=== PATIENT | male | born 1945 | race African-American/Black ===

== ENCOUNTER 2017-09-05 04:02 | Inpatient (IN) | payer OTHER, MEDICARE ==
--- NOTE | 2017-09-05 04:17 | PDOC ---
Attending Attestation - [facility] HPI: 09/05/17 04:26 The patient is a 72 year old male with a significant past medical history of pulmonary nodules, renal cell carcinoma with metastasis, seizures, nephrectomy, Parkinsons disease, who presents to the Emergency Department with 10/10 crushing chest pain after reportedly "fooling around with ". The patient states he developed a "burning sensation" throughout body with numbness to left hand and left toes. He reports his baseline heart rate is in the 40s. He reports the pain is 5/10 now. The patient denies palpitations, headache and dizziness. The patient denies fever, chills, nausea, vomiting, diarrhea, and constipation. The patient denies dysuria, frequency, urgency, and hematuria. PCP: Dr. Mainor Cordova Thoracic Surgeon: Dr. Sohail Vasquez Surgical History: AVM partial resection, myxoma resection, nephrectomy - Physicial Exam PE: 09/05/17 04:27 Constitutional: Awake, alert, oriented. No acute distress. Head: Normocephalic. Atraumatic Eyes: PERRL. EOMI. Conjunctivae are not pale. ENT: Mucous membranes are moist and intact. Posterior pharynx without exudates or erythema. Uvula midline. Neck: Supple. Full ROM. No lymphadenopathy. Cardiovascular: (+) bradycardic. Regular rhythm. S1, S2 regular. Distal pulses are 2+ and symmetric. Pulmonary/Chest: No evidence of respiratory distress. Clear to auscultation bilaterally No wheezing, rales or rhonchi. Abdominal: Soft and non-distended. There is no tenderness. No rebound, guarding or rigidity. No organomegaly. No palpable masses. Good bowel sounds. Back: No CVA tenderness. Musculoskeletal: No edema. No cyanosis. No clubbing. Full range of motion in all extremities. Nocalf tenderness. Radial/pedal pulses are intact and 2+ bilaterally Skin: Skin is warm and dry. No petechiae. No purpura. Neurological: Alert and oriented to person, place, and time. Cranial nerves II -XII are grossly intact. Normal speech. Strength is grossly symmetric. No sensory deficits. Psychiatric: Good eye contact. Normal interaction, affect and behavior. Documentation prepared by Diasy Manuel, acting as medical secretary for Ricarda Davis DO <Daisy Manuel - Last Filed: 09/05/17 05:27> - Resident Resident Name: Richar Kelly - ED Attending Attestation I have performed the following: I have examined & evaluated the patient, The case was reviewed & discussed with the resident, I agree w/resident's findings & plan, Exceptions are as noted - Medical Decision Making 09/05/17 04:17 I, Dr. Ricarda Davis, DO, attest that this document has been prepared under my direction and personally reviewed by me in its entirety. I further attest, that it accurately reflects all work, treatment, procedures and medical decision -making performed by me. 09/05/17 05:14 a/p: 72yo male with CP concerning for ACS -cp with exertion with L arm involvement -will check trops, ekg, cxr, monitor -hx of bradycardia -pt will needs obs vs admit pending trop -will need cards eval today 09/05/17 05:35 cxr nonacute trop negative elevated cpk will need obs and tele <Ricarda Davis - Last Filed: 09/05/17 05:35> Heart Score/ECG Review - ECG Intrepretation Comment:: 09/05/17 05:17 sinus jennifer at 46 with baseline artifact, no acute st/t wave findings <Ricarda Davis - Last Filed: 09/05/17 05:35>
[2017-09-05 04:32] LABS: BASO % 0.9 % (0-2.0); EOS % 2.3 % (0-4.5); HEMATOCRIT 37.6 % (35.4-49); HEMOGLOBIN 12.6 GM/dL (11.7-16.9); MCH 35.1 pg (25.7-33.7); MCHC 33.6 g/dl (32.0-35.9); MEAN CELL VOLUME 104.6 fl (80-96); MEAN PLT VOLUME 7.6 fl (7.5-11.1); MONO % 5.2 % (3.8-10.2); NEUT % 47.6 % (42.8-82.8); PLATELET COUNT 166 K/MM3 (134-434); RDW 15.7 % (11.9-15.9)
[2017-09-05 04:50] LABS: INR 0.81 (0.82-1.09); PROTHROMBIN TIME (PATIENT) 9.1 SEC (9.98-11.88)
[2017-09-05 04:53] LABS: ACTIVATED PTT 26.8 SECONDS (26.9-34.4)
[2017-09-05 04:59] LABS: ANION GAP 12 (8-16); BLOOD UREA NITROGEN 18 mg/dL (7-18); CALCIUM 8.7 mg/dL (8.5-10.1); CHLORIDE 106 mmol/L (98-107); CO2 23 mmol/L (21-32); CREATININE 1.7 mg/dL (0.7-1.3); GLUCOSE,RANDOM 111 mg/dL (74-106); MAGNESIUM 2.3 mg/dL (1.8-2.4); POTASSIUM 3.7 mmol/L (3.5-5.1); SGOT/AST 73 U/L (15-37); SGPT/ALT 36 U/L (12-78); SODIUM 141 mmol/L (136-145)
[2017-09-05 05:12] LABS: ALK PHOS 88 U/L (45-117); BILIRUBIN,TOTAL 0.4 mg/dL (0.2-1.0); N-TERMINAL BNP 92.64 pg/ml (5-125); TOT PROT 7.6 g/dl (6.4-8.2)
[2017-09-05] MEDS ORDERED: SODIUM CHLORIDE 0.9% 1000 ML INFUS.BAG IV ONE ×2 (05:18→05:23)
[2017-09-05] MEDS ORDERED: ASPIRIN 81 MG CHEWABLE TABLETS PO ONE (05:18)
--- NOTE | 2017-09-05 05:31 | PN ---
Teaching Attending Note Name of Resident: Amari Hi ATTENDING PHYSICIAN STATEMENT I saw and evaluated the patient. I reviewed the resident's note and discussed the case with the resident. I agree with the resident's findings and plan as documented. SUBJECTIVE: 72 M with pmhx of RCC w mets to his lungs, seizures s/p brain sx, former smoker , nephrectomy and Parkinsons who presents with chest pain after sexual intercourse. He felt palpitations and crushing chest pain right before ejaculation. Also, with associated diaphoresis and lightheadedness. Notes that his heart rate is low at baseline at 40s. Currently denies any chest pain, pressure or shortness of breath. As per , pt. does not have any htn or hld. She states his chest pain, may have been anxiety related. OBJECTIVE: Physical: VS: Vital Signs Period Temp Pulse Resp BP Sys/Winn Pulse Ox Last 24 Hr 45 16 135/96 99 GEN: NAD, Resting in bed, AA0X3 HEENT: NCAT, PERRL, throat without erythema or exudates CARD: S Nette S1, S2 RESP: CTAB ABD: BSx4, NTD to palpation EXT: - C/C/e CBCD WBC 3.0 K/mm3 (4.0-10.0) L D 09/05/17 04:27 RBC 3.60 M/mm3 (4.00-5.60) L 09/05/17 04:27 Hgb 12.6 GM/dL (11.7-16.9) 09/05/17 04:27 Hct 37.6 % (35.4-49) 09/05/17 04:27 MCV 104.6 fl (80-96) H 09/05/17 04:27 MCHC 33.6 g/dl (32.0-35.9) 09/05/17 04:27 RDW 15.7 % (11.9-15.9) 09/05/17 04:27 Plt Count 166 K/MM3 (134-434) 09/05/17 04:27 MPV 7.6 fl (7.5-11.1) 09/05/17 04:27 CMP Sodium 141 mmol/L (136-145) 09/05/17 04:27 Potassium 3.7 mmol/L (3.5-5.1) D 09/05/17 04:27 Chloride 106 mmol/L (98-107) 09/05/17 04:27 Carbon Dioxide 23 mmol/L (21-32) 09/05/17 04:27 Anion Gap 12 (8-16) 09/05/17 04:27 BUN 18 mg/dL (7-18) 09/05/17 04:27 Creatinine 1.7 mg/dL (0.7-1.3) H 09/05/17 04:27 Creat Clearance w eGFR 39.82 (>60) 09/05/17 04:27 Random Glucose 111 mg/dL (74-106) H D 09/05/17 04:27 Calcium 8.7 mg/dL (8.5-10.1) 09/05/17 04:27 Total Bilirubin 0.4 mg/dL (0.2-1.0) 09/05/17 04:27 AST 73 U/L (15-37) H D 09/05/17 04:27 ALT 36 U/L (12-78) 09/05/17 04:27 Alkaline Phosphatase 88 U/L (45-117) D 09/05/17 04:27 Total Protein 7.6 g/dl (6.4-8.2) 09/05/17 04:27 Albumin 4.0 g/dl (3.4-5.0) D 09/05/17 04:27 CARDIAC ENZYMES Creatine Kinase 1794 IU/L (39-308) H 09/05/17 04:27 Troponin I < 0.02 ng/ml (0.00-0.05) 09/05/17 04:27 Ambulatory Orders Acetaminophen [Tylenol .Regular Strength -] 650 mg PO Q4H PRN 04/04/16 Clonazepam [Klonopin -] 0.5 mg PO BID PRN 04/04/16 Docusate Sodium [Colace -] 100 mg PO TID PRN 04/04/16 Folic Acid 1 mg PO DAILY 04/04/16 Lamotrigine 100 mg PO BID 04/04/16 Levetiracetam 1,500 mg PO BID 04/04/16 Ranitidine [Zantac -] 150 mg PO BID 04/04/16 Red Yeast Rice Extract 600 mg PO BID 04/04/16 Sennosides [Laxative] 17.2 mg PO HS PRN 04/04/16 Thiamine HCl [Vitamin B-1] 50 mg PO DAILY 04/04/16 Carbidopa/Levodopa 25/100 [Sinemet 25/100 -] 1 each PO TID 09/05/17 Pramipexole Dihydrochloride [Mirapex -] 1 mg PO HS 09/05/17 Sunitinib Malate [Sutent] 50 mg PO ASDIR 09/05/17 HEART SCORE:4 EKG: S Nette: CXR- Cardiomegaly ASSESSMENT AND PLAN: 72 M with pmhx of RCC w mets to his lungs, seizures s/p brain sx, former smoker , nephrectomy and Parkinsons who presents with chest pain after sexual intercourse. 1.) Chest Pain - RO ACS - Trend Trop/EKG - Allergic to Aspirin and Statin - NO BB due to S nette - Echo - Lipid Panel/HgA1C - Cardio Consult- follows with 2.) Rhabdomyolysis - CK Mildly elevated - IVF 3.) Seizure DO - C/W Keppra and Lamotrigine 4.) Parkinsons - C/W Sinemet 5.) Anxiety - C/W home meds 6.) RCC w Mets to lungs - Pt. to bring chemo med from home 7.) S BRadycardia - Base HR 40-50s as per pt - If lower consider pacer pads 8.) Dvt Ppx - SCDs Place in Obs-tele
--- NOTE | 2017-09-05 05:32 | PDOC ---
History of Present Illness - General History Source: Patient, EMS Exam Limitations: No Limitations - History of Present Illness Initial Comments: 09/05/17 05:26 The patient is a 72 M with a PMH of renal 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 The patient states that he was engaging in sexual intercourse with his , and just prior to ejaculation, he felt palpitations and 10/10 crushing retrosternal chest pain. He states that he felt lightheaded at the same time and was very diaphoretic. He also felt short of breath. He denies ever feeling like this before. He admits to baseline bradycardia. He states that his pain is slightly better. <Richar Kelly - Last Filed: 09/05/17 05:39> <Aaron Sanchez - Last Filed: 09/05/17 09:16> 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) Cholecystectomy: No Lung Surgery: Yes (RECENT BIOPSY) Neurologic Surgery: Yes (CEREBRAL ANEURYSM ABLATED BY SURGERY AND GAMMA KNIFE) Orthopedic Surgery: No - Immunization History Immunization Up to Date: Yes - Suicide/Smoking/Psychosocial Hx Smoking Status: No Smoking History: Unknown if ever smoked Years of Tobacco Use: 0 Have you smoked in the past 12 months: No Number of Cigarettes Smoked Daily: 0 If you are a former smoker, when did you quit?: 25 years ago Cigars Per Day: 0 Hx Alcohol Use: Yes Drug/Substance Use Hx: No Substance Use Type: Alcohol Hx Substance Use Treatment: No <Richar Kelly - Last Filed: 09/05/17 05:39> <Sanchez,Aaron - Last Filed: 09/05/17 09:16> - Past Medical History Allergies/Adverse Reactions: Allergies Allergy/AdvReac Type Severity Reaction Status Date / Time aspirin Allergy Verified 09/05/17 04:17 atorvastatin calcium Allergy Verified 09/05/17 04:17 [From Lipitor] Home Medications: Ambulatory Orders Acetaminophen [Tylenol .Regular Strength -] 650 mg PO Q4H PRN 04/04/16 Clonazepam [Klonopin -] 0.5 mg PO BID PRN 04/04/16 Docusate Sodium [Colace -] 100 mg PO TID PRN 04/04/16 Folic Acid 1 mg PO DAILY 04/04/16 Lamotrigine 100 mg PO BID 04/04/16 Levetiracetam 1,500 mg PO BID 04/04/16 Ranitidine [Zantac -] 150 mg PO BID 04/04/16 Red Yeast Rice Extract 600 mg PO BID 04/04/16 Sennosides [Laxative] 17.2 mg PO HS PRN 04/04/16 Thiamine HCl [Vitamin B-1] 50 mg PO DAILY 04/04/16 Carbidopa/Levodopa 25/100 [Sinemet 25/100 -] 1 each PO TID 09/05/17 Pramipexole Dihydrochloride [Mirapex -] 1 mg PO HS 09/05/17 Sunitinib Malate [Sutent] 50 mg PO ASDIR 09/05/17 Review of Systems - Review of Systems Able to Perform ROS?: Yes Comments:: 09/05/17 05:30 GENERAL/CONSTITUTIONAL: No fever or chills. No weakness. HEAD, EYES, EARS, NOSE AND THROAT: No change in vision. No ear pain or discharge. No sore throat. GASTROINTESTINAL: No nausea, vomiting, diarrhea, constipation, or abdominal pain. GENITOURINARY: No dysuria, frequency, hematuria, or change in urination. CARDIOVASCULAR: No chest pain, palpitations, or lightheadedness. RESPIRATORY: No cough, wheezing, shortness of breath, or hemoptysis. MUSCULOSKELETAL: No joint or muscle swelling or pain. No neck or back pain. SKIN: No rash or lesions. NEUROLOGIC: No headache, numbness, tingling, weakness, loss of consciousness, or change in strength/sensation. ENDOCRINE: No increased thirst. No abnormal weight change. HEMATOLOGIC/LYMPHATIC: No anemia, easy bleeding, or history of blood clots. ALLERGIC/IMMUNOLOGIC: No hives or skin allergy. Is the patient limited Faroese proficient: No <Richar Kelly - Last Filed: 09/05/17 05:39> *Physical Exam - Vital Signs Last Vital Signs Temp Pulse Resp BP Pulse Ox 45 L 16 135/96 99 09/05/17 04:15 09/05/17 04:15 09/05/17 04:15 09/05/17 04:15 - Physical Exam Comments: 09/05/17 05:39 GENERAL: Well developed, well nourished. Jaundiced. Awake and alert. No acute distress. HEENT: Normocephalic, atraumatic. Hearing grossly normal. Moist mucous membranes. NECK: Supple. Full ROM. No JVD. CARDIOVASCULAR: Regular rate and rhythm. PULMONARY: No evidence of respiratory distress. Lungs clear to auscultation bilaterally. No wheezing, rales or rhonchi. ABDOMINAL: Soft. Non-tender. Non-distended. No rebound or guarding. MUSCULOSKELETAL: Normal range of motion at all joints. No bony deformities or tenderness. EXTREMITIES: No cyanosis. No clubbing. No edema. No calf tenderness. SKIN: Warm and dry. Normal capillary refill. No rashes. No jaundice. NEUROLOGICAL: Alert, awake, appropriate. Cranial nerves 2-12 intact. Normal speech. Gait is normal without ataxia. PSYCHIATRIC: Cooperative. Good eye contact. Appropriate mood and affect. <Richar Kelly - Last Filed: 09/05/17 05:39> - Vital Signs Last Vital Signs Temp Pulse Resp BP Pulse Ox 43 L 16 135/78 100 09/05/17 05:54 09/05/17 05:54 09/05/17 05:54 09/05/17 05:54 <Aaron Sanchez - Last Filed: 09/05/17 09:16> Heart Score/ECG Review #1 ECG reviewed & interpreted by me at: 04:45 General ECG Interpretation: Sinus Rhythm, Normal Rate (Sinus jennifer), Normal Intervals, No acute ischemic changes <Richar Kelly - Last Filed: 09/05/17 05:39> - History History: Moderately suspicious - Electrocardiogram EKG: Normal - Age Age: >/= 65 - Risk Factors Risk Factors Heart Score: Yes Hx Hypercholesterolemia, Yes Hx Hypertension Based on the list above the patient has:: 1-2 risk factors - Troponin Troponin: </= normal limit - Score Heart Score - Total: 4 #1 General ECG Interpretation: Normal Rate <Kellee Sanchezy - Last Filed: 09/05/17 09:16> ED Treatment Course - LABORATORY CBC & Chemistry Diagram: 09/05/17 04:27 09/05/17 04:27 - ADDITIONAL ORDERS Additional order review: Laboratory Results 09/05/17 09/05/17 04:27 04:27 PT with INR 9.10 L INR 0.81 L PTT (Actin FS) 26.8 L Sodium 141 Potassium 3.7 D Chloride 106 Carbon Dioxide 23 Anion Gap 12 BUN 18 Creatinine 1.7 H Creat Clearance w eGFR 39.82 Random Glucose 111 H D Calcium 8.7 Magnesium 2.3 Total Bilirubin 0.4 AST 73 H D ALT 36 Alkaline Phosphatase 88 D Creatine Kinase 1794 H Creatine Kinase Index 1.3 CK-MB (CK-2) 24.667 H Troponin I < 0.02 B-Natriuretic Peptide 92.64 Total Protein 7.6 Albumin 4.0 D 09/05/17 04:27 RBC 3.60 L MCV 104.6 H MCHC 33.6 RDW 15.7 MPV 7.6 Neutrophils % 47.6 D Lymphocytes % 44.0 H D Monocytes % 5.2 Eosinophils % 2.3 Basophils % 0.9 <Richar Kelly - Last Filed: 09/05/17 05:39> - LABORATORY CBC & Chemistry Diagram: 09/05/17 04:27 09/05/17 04:27 - ADDITIONAL ORDERS Additional order review: Laboratory Results 09/05/17 09/05/17 04:27 04:27 PT with INR 9.10 L INR 0.81 L PTT (Actin FS) 26.8 L Sodium 141 Potassium 3.7 D Chloride 106 Carbon Dioxide 23 Anion Gap 12 BUN 18 Creatinine 1.7 H Creat Clearance w eGFR 39.82 Random Glucose 111 H D Calcium 8.7 Magnesium 2.3 Total Bilirubin 0.4 AST 73 H D ALT 36 Alkaline Phosphatase 88 D Creatine Kinase 1794 H Creatine Kinase Index 1.3 CK-MB (CK-2) 24.667 H Troponin I < 0.02 B-Natriuretic Peptide 92.64 Total Protein 7.6 Albumin 4.0 D Triglycerides 363 H D Cholesterol 292 H D Total LDL Cholesterol 170 H D HDL Cholesterol 72 H D 09/05/17 04:27 RBC 3.60 L MCV 104.6 H MCHC 33.6 RDW 15.7 MPV 7.6 Neutrophils % 47.6 D Lymphocytes % 44.0 H D Monocytes % 5.2 Eosinophils % 2.3 Basophils % 0.9 - Medications Given in the ED: ED Medications Discontinued Medications Generic Name Dose Route Start Last Admin Trade Name Jsa PRN Reason Stop Dose Admin Aspirin 324 mg 09/05/17 05:18 09/05/17 05:41 Asa - PO 09/05/17 05:19 Not Given ONCE ONE Sodium Chloride 1,000 ml 09/05/17 05:18 09/05/17 05:51 Normal Saline - IV 09/05/17 05:19 1,000 ml ONCE ONE Administration Sodium Chloride 1,000 ml 09/05/17 05:23 09/05/17 05:51 Normal Saline - IV 09/05/17 05:24 1,000 ml ONCE ONE Administration <Aaron Sanchez - Last Filed: 09/05/17 09:16> Medical Decision Making - Medical Decision Making 09/05/17 05:34 The patient is a 72M with an extensive PMH who presents to the ED with crushing CP. EKG in house is sinus jennifer. He has increased CK and may be in rhabdo. Will hydrate vigorously. Of note, while on the EMS monitor, his HR increased to 130' s and he was showing an a-flutter pattern. Dr[facility] Singleton [facility] <Richar Kelly - Last Filed: 09/05/17 05:39> *DC/Admit/Observation/Transfer - Discharge Dispostion Admit: Yes <Richar Kelly - Last Filed: 09/05/17 05:39> <Aaron Sanchez - Last Filed: 09/05/17 09:16> Diagnosis at time of Disposition: Increased creatine kinase level - Discharge Dispostion Condition at time of disposition: Guarded
--- NOTE | 2017-09-05 05:38 | HP ---
CHIEF COMPLAINT: Chest pain during sex PCP: Dr. Cordova HISTORY OF PRESENT ILLNESS: 72 yo man w/ pmh of RCC (lung mets), parkinson's dz, brain surgery (aneurysm repair), Open heart surgery (L atrial myxoma), HTN and chronic bradycardia who presents with sudden 10/10 retrosternal chest pain during sex. This is the first time he has had this pain. He states pain is non-radiating, mid-sternal and epigastric. His pain is not related to position and no associated SOB, n/v, dyspnea, orthopnea, swelling in LE, diaphoresis, dyspnea on exertion. He reports some loose stools and attributes this to chemotherapy. He reports being able to exercise without complaints and has never been SOB. 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 Cardiac cath Cerebral aneurysm (ablation/gamma knife) Lung Biopsy Social History: Smoking: Former smoker, quit 25 years ago, 1ppd /30 years Alcohol: No previous heavy drinker of beer Drugs: No Family History: noncontributory Allergies aspirin Allergy (Verified 09/05/17 04:17) SENSITIVE TO ASPIRIN AT 325MG atorvastatin calcium [From Lipitor] Allergy (Verified 09/05/17 04:17) CAUSED MYOSITIS HOME MEDICATIONS: Home Medications Medication Instructions Recorded Acetaminophen [Tylenol .Regular 650 mg PO Q4H PRN 04/04/16 Strength -] Clonazepam [Klonopin -] 0.5 mg PO BID PRN 04/04/16 Docusate Sodium [Colace -] 100 mg PO TID PRN 04/04/16 Folic Acid 1 mg PO DAILY 04/04/16 Lamotrigine 100 mg PO BID 04/04/16 Levetiracetam 1,500 mg PO BID 04/04/16 Ranitidine [Zantac -] 150 mg PO BID 04/04/16 Red Yeast Rice Extract 600 mg PO BID 04/04/16 Sennosides [Laxative] 17.2 mg PO HS PRN 08/08/16 Thiamine HCl [Vitamin B-1] 50 mg PO DAILY 04/04/16 Carbidopa/Levodopa 25/100 [Sinemet 1 each PO TID 09/05/17 25/100 -] Pramipexole Dihydrochloride 1 mg PO HS 09/05/17 [Mirapex -] Sunitinib Malate [Sutent] 50 mg PO ASDIR 09/05/17 REVIEW OF SYSTEMS CONSTITUTIONAL: Absent: fever, chills, diaphoresis, generalized weakness, malaise, loss of appetite, weight change HEENT: Absent: rhinorrhea, nasal congestion, throat pain, throat swelling, difficulty swallowing, mouth swelling, ear pain, eye pain, visual changes CARDIOVASCULAR: +Chest Pain Absent: syncope, palpitations, irregular heart rate, lightheadedness, peripheral edema RESPIRATORY: +shortness of breath, Absent: cough, dyspnea with exertion, orthopnea, wheezing, stridor, hemoptysis GASTROINTESTINAL: Absent: abdominal pain, abdominal distension, nausea, vomiting, diarrhea, constipation, melena, hematochezia GENITOURINARY: Absent: dysuria, frequency, urgency, hesitancy, hematuria, flank pain, genital pain MUSCULOSKELETAL: Absent: myalgia, arthralgia, joint swelling, back pain, neck pain SKIN: Absent: rash, itching, pallor HEMATOLOGIC/IMMUNOLOGIC: Absent: easy bleeding, easy bruising, lymphadenopathy, frequent infections ENDOCRINE: Absent: unexplained weight gain, unexplained weight loss, heat intolerance, cold intolerance NEUROLOGIC: Absent: headache, focal weakness or paresthesias, dizziness, unsteady gait, seizure, mental status changes, bladder or bowel incontinence PSYCHIATRIC: Absent: anxiety, depression, suicidal or homicidal ideation, hallucinations. PHYSICAL EXAMINATION Vital Signs - 24 hr 09/05/17 04:15 Pulse Rate 45 L Respiratory 16 Rate Blood Pressure 135/96 O2 Sat by Pulse 99 Oximetry (%) GENERAL: Awake, alert, and fully oriented, in no acute distress. HEAD: Normal with no signs of trauma. EYES: Pupils equal, round and reactive to light, extraocular movements intact, sclera anicteric, conjunctiva clear. No lid lag. EARS, NOSE, THROAT: Ears normal, nares patent, oropharynx clear without exudates. Moist mucous membranes. NECK: Normal range of motion, supple without lymphadenopathy, JVD, or masses. LUNGS: Breath sounds equal, clear to auscultation bilaterally. No wheezes, and no crackles. No accessory muscle use. HEART: Regular rate and rhythm, normal S1 and S2 without murmur, rub or gallop. ABDOMEN: Soft, nontender, not distended, normoactive bowel sounds, no guarding, no rebound, no masses. No hepatomegaly or splenomegaly. MUSCULOSKELETAL: Normal range of motion at all joints. No bony deformities or tenderness. No CVA tenderness. UPPER EXTREMITIES: 2+ pulses, warm, well-perfused. No cyanosis. No clubbing. No peripheral edema. LOWER EXTREMITIES: 2+ pulses, warm, well-perfused. No calf tenderness. No peripheral edema. NEUROLOGICAL: Cranial nerves II-XII intact. Normal speech. Normal gait. PSYCHIATRIC: Cooperative. Good eye contact. Appropriate mood and affect. SKIN: Warm, dry, normal turgor, no rashes or lesions noted, normal capillary refill. Laboratory Results - last 24 hr 09/05/17 09/05/17 09/05/17 04:27 04:27 04:27 WBC 3.0 L D RBC 3.60 L Hgb 12.6 Hct 37.6 MCV 104.6 H MCH 35.1 H D MCHC 33.6 RDW 15.7 Plt Count 166 MPV 7.6 Neutrophils % 47.6 D Lymphocytes % 44.0 H D Monocytes % 5.2 Eosinophils % 2.3 Basophils % 0.9 PT with INR 9.10 L INR 0.81 L PTT (Actin FS) 26.8 L Sodium 141 Potassium 3.7 D Chloride 106 Carbon Dioxide 23 Anion Gap 12 BUN 18 Creatinine 1.7 H Creat Clearance w eGFR 39.82 Random Glucose 111 H D Calcium 8.7 Magnesium 2.3 Total Bilirubin 0.4 AST 73 H D ALT 36 Alkaline Phosphatase 88 D Creatine Kinase 1794 H Creatine Kinase Index 1.3 CK-MB (CK-2) 24.667 H Troponin I < 0.02 B-Natriuretic Peptide 92.64 Total Protein 7.6 Albumin 4.0 D CBC, BMP 09/05/17 04:27 09/05/17 04:27 CXR: (My read) AP film. Cardiomegaly. Increased vascular markings BL. No consolidations, pleural effusions or pneumothoraces present. Sternotomy wires noted. EKG:sinus jennifer @ 45 , NO St, T wave changes HEART SCORE:4 ASSESSMENT/PLAN: 72 yo man w/ pmh of RCC (lung mets), parkinson's dz, brain surgery (aneurysm repair), Open heart surgery (L atrial myxoma), HTN and chronic bradycardia who presents with sudden 10/10 retrosternal chest pain during sex. Pt was admitted to obs-tele to trend cardiac enzymes and r/o ACS. # Chest pain * Heart score 4 * Trend trops * repeat EKG at 8 AM * Morphine for pain control * O2 support. Maintain Sat >97% * AVOID ASA and Statins as per pt request; severe myalgias/jaundice with statin , ASA, renal failure due to only one kidney * Avoid BB due to sinus jennifer * Lipid panel * HgbA1c * Nitroglycerin for pain # Rhabdomyolysis * CK Mildly elevated * IVF NS @100 CC/hr # Seizure DO * C/W Keppra and Lamotrigine # Parkinson Disease * stable * continue home meds # RCC /mets to lung * stable * continue home meds - chemo * BUN/Cr 18/1.7, base line 1.5 ? # Anxiety * continue home meds klonapin 0.5 PO BID # GERD * stable * continue home meds - chemo # FEN * Fluids: IV NS 1000mls @100cc/hr * Electrolytes: wnl * Nutrition: Low sodium low fat diet. # Proph * DVT - SCDs, early ambulation * GI - no need at this time # Dispo * obs-tele # Code * full code Visit type - Emergency Visit Emergency Visit: Yes ED Registration Date: 09/06/17 Care time: The patient presented to the Emergency Department on the above date and was hospitalized for further evaluation of their emergent condition. - New Patient This patient is new to me today: Yes Date on this admission: 09/06/17 - Critical Care Critical Care patient: No
[2017-09-05] MEDS ORDERED: SENNOSIDES 8.6MG TABLET (FP) PO PRN (06:13)
[2017-09-05] MEDS ORDERED: DOCUSATE SODIUM 100 MG CAPSULE (FP) PO PRN (06:13)
[2017-09-05] MEDS ORDERED: SUNITINIB MALATE PO SCH (06:15)
[2017-09-05] MEDS ORDERED: NITROGLYCERIN SUBLINGUAL 1/150 0.4 MG TAB SL PRN (06:35)
[2017-09-05] MEDS: SODIUM CHLORIDE 1,000 ML IV SCH (06:46)
[2017-09-05 06:50] LABS: CHOLESTEROL 292 mg/dL (50-200); HDL CHOLESTEROL 72 mg/dL (40-60); LDL CHOLESTEROL (ONLY SJRH) 170 mg/dL (5-100); TRIGLYCERIDES 363 mg/dL (35-160)
[2017-09-05 07:06] LABS: URINE APPEARANCE CLEAR; URINE BILIRUBIN NEGATIVE (NEGATIVE); URINE BLOOD NEGATIVE (NEGATIVE); URINE COLOR LTYELLOW; URINE GLUCOSE (UA) NEGATIVE (NEGATIVE); URINE KETONE NEGATIVE (NEGATIVE); URINE LEUK ESTERASE NEGATIVE (NEGATIVE); URINE NITRITE NEGATIVE (NEGATIVE); URINE PROTEIN NEGATIVE (NEGATIVE); URINE UROBILINOGEN NEGATIVE mg/dL (0.2-1.0)
[2017-09-05] MEDS: lamoTRIgine 100 MG TABLET (FP) PO SCH ×3 (09:58→22:15)
[2017-09-05] MEDS: FOLIC ACID 1 MG TABLET (FP) PO SCH (09:59)
[2017-09-05] MEDS: RANITIDINE HCL 150 MG TABLET (FP) PO SCH ×2 (10:00→22:15)
[2017-09-05] MEDS: THIAMINE HCL 100 MG TABLET (FP) PO SCH (10:00)
--- NOTE | 2017-09-05 10:45 | CON.CARD ---
Consult Consult Specialty:: Cardiology Referred by:: Patient of Mainor Cordova MD Reason for Consultation:: Cardiac evaluation - History of Present Illness Chief Complaint: Chest pain History of Present Illness: Patient is a 72 year old male who is well known to me from office with underlying history of hypertension, left atrial myxoma s/p resection, seizure disorder, history of vascular malformation s/p radiation therapy and gamma knife , history of lung CA s/p VATs and wedge resection, right nephrectomy with renal cell CA and Parkinson's disease and panic attack presents with mid to left sternal chest pain radiating to left shoulder and hand during sexual intercourse last night. EMS was called and he was brought in for further evaluation. Initial ECG did not reveal any ST segment changes. Initial troponin was normal, but CK was elevated to 1794 with MB fraction elevation. Currently, he complains of intermittent epigastric discomfort, but his chest pain has resolved. He denies shortness of breath or palpitations. He denies paroxysmal nocturnal dyspnea or orthopnea. He denies fever or chills. He denies headache or lightheadedness. He denies nausea, vomiting, diarrhea or abdominal pain. BP is elevated this am to 170 systolic. Cardiology consultation was called for further evaluation. 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, Other (av malformasion s/p gamma knife ) Cardio/Vascular: Yes: HTN, Hyperlipdemia, Other (Atrial myxoma s/p resection ) Pulmonary: Yes: Cancer (Lung nodule and cancer s/p VATS/wedge resection) Gastrointestinal: Yes: GERD Renal/: Yes: Cancer (Renal cell CA s/p right nephrectomy) - Past Surgical History Past Surgical History: Yes: Nephrectomy, Thoracotomy Additional Surgical History: left atrial myxoma resection - Alcohol/Substance Use Hx Alcohol Use: Yes - Smoking History Smoking history: Former smoker Have you smoked in the past 12 months: No Aproximately how many cigarettes per day: 0 If you are a former smoker, when did you quit?: 25 years ago - Social History Usual Living Arrangement: With Spouse Home Medications - Allergies Allergies/Adverse Reactions: Allergies Allergy/AdvReac Type Severity Reaction Status Date / Time aspirin Allergy Verified 09/05/17 04:17 atorvastatin calcium Allergy Verified 09/05/17 04:17 [From Lipitor] - Home Medications Home Medications: Ambulatory Orders Acetaminophen [Tylenol .Regular Strength -] 650 mg PO Q4H PRN 04/04/16 Clonazepam [Klonopin -] 0.5 mg PO BID PRN 04/04/16 Docusate Sodium [Colace -] 100 mg PO TID PRN 04/04/16 Folic Acid 1 mg PO DAILY 04/04/16 Lamotrigine 100 mg PO BID 04/04/16 Levetiracetam 1,500 mg PO BID 04/04/16 Ranitidine [Zantac -] 150 mg PO BID 04/04/16 Red Yeast Rice Extract 600 mg PO BID 04/04/16 Sennosides [Laxative] 17.2 mg PO HS PRN 04/04/16 Thiamine HCl [Vitamin B-1] 50 mg PO DAILY 04/04/16 Carbidopa/Levodopa 25/100 [Sinemet 25/100 -] 1 each PO TID 09/05/17 Pramipexole Dihydrochloride [Mirapex -] 1 mg PO HS 09/05/17 Sunitinib Malate [Sutent] 50 mg PO ASDIR 09/05/17 Review of Systems - Review of Systems Constitutional: denies: Chills, Fever Cardiovascular: reports: Chest Pain. denies: Palpitations, Shortness of Breath Respiratory: denies: Cough, Hemoptysis, Orthopnea, PND, SOB, SOB on Exertion Gastrointestinal: denies: Abdominal Pain, Constipation, Diarrhea, Melena, Nausea , Rectal Bleeding, Vomiting Neurological: reports: Seizure. denies: Dizziness, Headache, Syncope Psychiatric: reports: Anxiety, Panic Vital Signs: Vital Signs Temperature Pulse Rate 43 L 09/05/17 05:54 Respiratory Rate 16 09/05/17 05:54 Blood Pressure 135/78 09/05/17 05:54 O2 Sat by Pulse Oximetry (%) 100 09/05/17 05:54 Eyes: Yes: PERRL Neck: Yes: Supple Respiratory: Yes: CTA Bilaterally Gastrointestinal: Yes: Normal Bowel Sounds, Soft. No: Tenderness Cardiovascular: Yes: Regular Rate and Rhythm, Bradycardia JVD: No Carotid Bruit: No PMI: Non-Displaced Heart Sounds: Yes: S1, S2 Edema: No - Other Data Labs, Other Data: CBC, BMP 09/05/17 04:27 09/05/17 04:27 INR, PTT INR 0.81 (0.82-1.09) L 09/05/17 04:27 Troponin, BNP 09/05/17 04:27 Troponin I < 0.02 B-Natriuretic Peptide 92.64 Troponin, BNP Laboratory Results - last 24 hr 09/05/17 09/05/17 09/05/17 04:27 04:27 04:27 WBC 3.0 L D RBC 3.60 L Hgb 12.6 Hct 37.6 MCV 104.6 H MCH 35.1 H D MCHC 33.6 RDW 15.7 Plt Count 166 MPV 7.6 Neutrophils % 47.6 D Lymphocytes % 44.0 H D Monocytes % 5.2 Eosinophils % 2.3 Basophils % 0.9 PT with INR 9.10 L INR 0.81 L PTT (Actin FS) 26.8 L Sodium 141 Potassium 3.7 D Chloride 106 Carbon Dioxide 23 Anion Gap 12 BUN 18 Creatinine 1.7 H Creat Clearance w eGFR 39.82 Random Glucose 111 H D Hemoglobin A1c % Calcium 8.7 Magnesium 2.3 Total Bilirubin 0.4 AST 73 H D ALT 36 Alkaline Phosphatase 88 D Creatine Kinase 1794 H Creatine Kinase Index 1.3 CK-MB (CK-2) 24.667 H Troponin I < 0.02 B-Natriuretic Peptide 92.64 Total Protein 7.6 Albumin 4.0 D Triglycerides 363 H D Cholesterol 292 H D Total LDL Cholesterol 170 H D HDL Cholesterol 72 H D Urine Color Urine Appearance Urine pH Ur Specific [place] Urine Protein Urine Glucose (UA) Urine Ketones Urine Blood Urine Nitrite Urine Bilirubin Urine Urobilinogen Ur Leukocyte Esterase 09/05/17 09/05/17 06:28 06:55 WBC RBC Hgb Hct MCV MCH MCHC RDW Plt Count MPV Neutrophils % Lymphocytes % Monocytes % Eosinophils % Basophils % PT with INR INR PTT (Actin FS) Sodium Potassium Chloride Carbon Dioxide Anion Gap BUN Creatinine Creat Clearance w eGFR Random Glucose Hemoglobin A1c % 5.9 D Calcium Magnesium Total Bilirubin AST ALT Alkaline Phosphatase Creatine Kinase Creatine Kinase Index CK-MB (CK-2) Troponin I B-Natriuretic Peptide Total Protein Albumin Triglycerides Cholesterol Total LDL Cholesterol HDL Cholesterol Urine Color Ltyellow Urine Appearance Clear Urine pH 7.0 Ur Specific [place] 1.012 Urine Protein Negative Urine Glucose (UA) Negative Urine Ketones Negative Urine Blood Negative Urine Nitrite Negative Urine Bilirubin Negative Urine Urobilinogen Negative Ur Leukocyte Esterase Negative Sinus bradycardia, nonspecific T wave, baseline artifacts Echo: Pending Imaging - Results Chest X-ray: Report Reviewed (Cardiomegaly) EKG: Report Reviewed Problem List - Problems (1) Lung cancer Code(s): C34.90 - MALIGNANT NEOPLASM OF UNSP PART OF UNSP BRONCHUS OR LUNG (2) Anemia Code(s): D64.9 - ANEMIA, UNSPECIFIED Qualifiers: Anemia type: unspecified type Qualified Code(s): D64.9 - Anemia, unspecified (3) 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 - BENIGN NEOPLASM OF HEART (4) Cerebral vascular malformation Code(s): Q28.3 - OTHER MALFORMATIONS OF CEREBRAL VESSELS (5) Chest pain Code(s): R07.9 - CHEST PAIN, UNSPECIFIED Qualifiers: Chest pain type: unspecified Qualified Code(s): R07.9 - Chest pain, unspecified (6) Chronic kidney disease (CKD) Code(s): N18.9 - CHRONIC KIDNEY DISEASE, UNSPECIFIED Qualifiers: Chronic kidney disease stage: stage 2 (mild) Qualified Code(s): N18.2 - Chronic kidney disease, stage 2 (mild) (7) HLD (hyperlipidemia) Code(s): E78.5 - HYPERLIPIDEMIA, UNSPECIFIED Qualifiers: Hyperlipidemia type: pure hypercholesterolemia (8) HTN (hypertension) Code(s): I10 - ESSENTIAL (PRIMARY) HYPERTENSION Qualifiers: Hypertension type: essential hypertension Qualified Code(s): I10 - Essential (primary) hypertension (9) Pulmonary nodules Code(s): R91.8 - OTHER NONSPECIFIC ABNORMAL FINDING OF LUNG FIELD (10) Renal carcinoma Code(s): C64.9 - MALIGNANT NEOPLASM OF UNSP KIDNEY, EXCEPT RENAL PELVIS Qualifiers: Laterality: unspecified laterality Qualified Code(s): C64.9 - Malignant neoplasm of unspecified kidney, except renal pelvis (11) S/p nephrectomy Code(s): Z90.5 - ACQUIRED ABSENCE OF KIDNEY (12) Seizure disorder Code(s): G40.909 - EPILEPSY, UNSP, NOT INTRACTABLE, WITHOUT STATUS EPILEPTICUS Assessment/Plan 1. Chest pain syndrome - rule out ACS 2. Hypertension 3. Elevated CPK - etiology to be determined, rule out rhabdomyolysis 4. Elevated lipid panel including triglycerides 5. History of left atrial myxoma resection 6. History of renal cell CA s/p nephrectomy 7. History of lung CA s/p VATs/wedge resection and chemotherapy/radiation therapy 8. Panic/anxiety 9. Seizure disorder PLAN: 1. Trend troponin 2. Follow CPK and check amylase and lipase 3. Continue seizure meds and anxiety meds. If BP is still elevated consider adding Amlodipine as beta ying and ACEI/ARB would not be an ideal choice in this patient 4. Transthoracic echocardiography to re-assess LV/RV and valvular function 5. Consider further cardiac evaluation including nuclear myocardial perfusion imaging if troponins are negative. This can be done as outpatient 6. Currently he is not on statins, but choice of lipid lowering therapy also will need to be assessed 7. Monitor renal function and electrolytes 8. desulfurizer machine to monitor for paroxysmal atrial flutter (ER resident note states EMS documentation of tachycardia and possible atrial flutter, but rhythm strip is not available). Consider Holter monitor or event monitor as outpatient. Further plans are to follow Fabien Marinelli MD
[2017-09-05] MEDS ORDERED: clonazePAM 0.5 MG TABLET ONE (12:39)
[2017-09-05] MEDS: amLODIPine BESYLATE 5 MG TABLET (FP) PO SCH (12:43)
[2017-09-05] MEDS: clonazePAM 0.5 MG TABLET PO PRN (12:43)
[2017-09-05 12:50] LABS: AMYLASE 80 U/L (25-115)
[2017-09-05 13:08] LABS: LIPASE 205 U/L (73-393)
[2017-09-05] MEDS: levETIRAcetam 500 MG TABLET (FP) PO SCH ×2 (14:02→22:15)
[2017-09-05] MEDS: CARBIDOPA/LEVODOPA 25/100 TABLET (FP) PO SCH ×2 (14:02→22:15)
[2017-09-05] MEDS ORDERED: levETIRAcetam 500 MG TABLET (FP) PO ONE ×2 (14:03→22:06)
--- NOTE | 2017-09-05 14:41 | EKG ---
Test Reason : Blood Pressure : / mmHG Vent. Rate : 048 BPM Atrial Rate : 048 BPM P-R Int : 190 ms QRS Dur : 092 ms QT Int : 458 ms P-R-T Axes : 035 038 100 degrees QTc Int : 409 ms SINUS BRADYCARDIA WITH PREMATURE ATRIAL COMPLEXES NONSPECIFIC T WAVE ABNORMALITY ABNORMAL ECG WHEN COMPARED WITH ECG OF 05-SEP-2017 04:13, PREMATURE ATRIAL COMPLEXES ARE NOW PRESENT Confirmed by Shekhar Mandujano MD ([id number]) on 09/05/2017 2:41:26 PM Referred By: Confirmed By:Shekhar Mandujano MD
--- NOTE | 2017-09-05 14:45 | EKG ---
Test Reason : Blood Pressure : / mmHG Vent. Rate : 046 BPM Atrial Rate : 046 BPM P-R Int : 158 ms QRS Dur : 090 ms QT Int : 424 ms P-R-T Axes : 007 033 132 degrees QTc Int : 371 ms POOR DATA QUALITY, INTERPRETATION MAY BE ADVERSELY AFFECTED SINUS BRADYCARDIA ABNORMAL ECG Confirmed by Shekhar Mandujano MD ([id number]) on 09/05/2017 2:44:57 PM Referred By: Confirmed By:Shekhar Mandujano MD
[2017-09-05] MEDS ORDERED: RANITIDINE HCL 150 MG TABLET (FP) ONE (22:06)
[2017-09-05] MEDS ORDERED: lamoTRIgine 25 MG TABLET ONE ×2 (22:06→22:09)
[2017-09-05] MEDS ORDERED: CARBIDOPA/LEVODOPA 25/100 TABLET (FP) ONE (22:06)
[2017-09-05] MEDS: PRAMIPEXOLE DIHYDROCHLORIDE 1 MG TABLET PO SCH (22:26)
[2017-09-06] MEDS ORDERED: clonazePAM 0.5 MG TABLET ONE ×2 (00:47→12:06)
[2017-09-06] MEDS: clonazePAM 0.5 MG TABLET PO PRN ×2 (00:48→12:12)
[2017-09-06] MEDS ORDERED: CARBIDOPA/LEVODOPA 25/100 TABLET (FP) ONE (06:25)
[2017-09-06] MEDS: CARBIDOPA/LEVODOPA 25/100 TABLET (FP) PO SCH ×3 (07:04→22:05)
[2017-09-06] MEDS: SODIUM CHLORIDE 1,000 ML IV SCH (07:07)
--- NOTE | 2017-09-06 09:18 | PN ---
Progress Note, Physician History of Present Illness: Patient is a 72 year old male who is well known to me from office with underlying history of hypertension, left atrial myxoma s/p resection, seizure disorder, history of vascular malformation s/p radiation therapy and gamma knife , history of lung CA s/p VATs and wedge resection, right nephrectomy with renal cell CA and Parkinson's disease and panic attack presents with mid to left sternal chest pain radiating to left shoulder and hand during sexual intercourse last night. EMS was called and he was brought in for further evaluation. - Current Medication List Current Medications: Active Medications Amlodipine Besylate (Norvasc -) 5 mg PO DAILY [facility] Last Admin: 09/05/17 12:43 Dose: 5 mg Carbidopa/Levodopa (Sinemet 25/100 -) 1 each PO TID [facility] Last Admin: 09/06/17 07:04 Dose: 1 each Clonazepam (Klonopin -) 0.5 mg PO BID PRN PRN Reason: ANXIETY Last Admin: 09/06/17 00:48 Dose: 0.5 mg Docusate Sodium (Colace -) 100 mg PO TID PRN PRN Reason: CONSTIPATION Folic Acid (Folic Acid -) 1 mg PO DAILY [facility] Last Admin: 09/05/17 09:59 Dose: 1 mg Sodium Chloride (Normal Saline -) 1,000 mls @ 75 mls/hr IV ASDIR [facility] Last Admin: 09/06/17 07:07 Dose: 75 mls/hr Lamotrigine (Lamictal -) 100 mg PO BID [facility] Last Admin: 09/05/17 22:15 Dose: 100 mg Levetiracetam (Keppra -) 500 mg PO BID [facility] Last Admin: 09/05/17 22:15 Dose: 500 mg Nitroglycerin (Nitrostat -) 0.4 mg SL ONCE PRN PRN Reason: PAIN Non-Formulary Medication (Red Yeast Rice Extract [Red Yeast Rice Extract]) 600 mg PO BID [facility] Non-Formulary Medication (Sunitinib Malate [Sutent]) 50 mg PO ASDIR [facility] Pramipexole Dihydrochloride (Mirapex -) 1 mg PO HS [facility] Last Admin: 09/05/17 22:26 Dose: 1 mg Ranitidine HCl (Zantac -) 150 mg PO BID [facility] Last Admin: 09/05/17 22:15 Dose: 150 mg Senna (Senna -) 2 tab PO HS PRN PRN Reason: CONSTIPATION Thiamine HCl (Vitamin B1 -) 50 mg PO DAILY [facility] Last Admin: 09/05/17 10:00 Dose: 50 mg - Objective Vital Signs: Vital Signs Temperature 98.0 F 09/05/17 18:47 Pulse Rate 47 L 09/06/17 06:54 Respiratory Rate 16 09/06/17 06:54 Blood Pressure 147/91 09/06/17 06:54 O2 Sat by Pulse Oximetry (%) 95 09/06/17 06:54 Cardiovascular: Yes: Bradycardia, S1, S2 Respiratory: Yes: Regular, CTA Bilaterally Gastrointestinal: Yes: Normal Bowel Sounds, Soft Edema: No Labs: CBC, BMP 09/05/17 04:27 09/05/17 04:27 INR, PTT INR 0.81 (0.82-1.09) L 09/05/17 04:27 <Mainor Cordova - Last Filed: 09/06/17 09:29> - Current Medication List Current Medications: Active Medications Amlodipine Besylate (Norvasc -) 5 mg PO DAILY [facility] Last Admin: 09/06/17 10:52 Dose: 5 mg Carbidopa/Levodopa (Sinemet 25/100 -) 1 each PO TID [facility] Last Admin: 09/06/17 07:04 Dose: 1 each Clonazepam (Klonopin -) 0.5 mg PO BID PRN PRN Reason: ANXIETY Last Admin: 09/06/17 12:12 Dose: 0.5 mg Docusate Sodium (Colace -) 100 mg PO TID PRN PRN Reason: CONSTIPATION Folic Acid (Folic Acid -) 1 mg PO DAILY [facility] Last Admin: 09/06/17 10:52 Dose: 1 mg Hydralazine HCl (Apresoline -) 25 mg PO BID [facility] Last Admin: 09/06/17 10:55 Dose: 25 mg Sodium Chloride (Normal Saline -) 1,000 mls @ 75 mls/hr IV ASDIR [facility] Last Admin: 09/06/17 07:07 Dose: 75 mls/hr Lamotrigine (Lamictal -) 100 mg PO BID [facility] Last Admin: 09/06/17 10:51 Dose: 100 mg Levetiracetam (Keppra -) 500 mg PO BID [facility] Last Admin: 09/06/17 10:52 Dose: 500 mg Nitroglycerin (Nitrostat -) 0.4 mg SL ONCE PRN PRN Reason: PAIN Non-Formulary Medication (Red Yeast Rice Extract [Red Yeast Rice Extract]) 600 mg PO BID [facility] Non-Formulary Medication (Sunitinib Malate [Sutent]) 50 mg PO ASDIR [facility] Pramipexole Dihydrochloride (Mirapex -) 1 mg PO HS [facility] Last Admin: 09/05/17 22:26 Dose: 1 mg Ranitidine HCl (Zantac -) 150 mg PO BID [facility] Last Admin: 09/06/17 10:52 Dose: 150 mg Senna (Senna -) 2 tab PO HS PRN PRN Reason: CONSTIPATION Thiamine HCl (Vitamin B1 -) 50 mg PO DAILY [facility] Last Admin: 09/06/17 10:53 Dose: 50 mg - Objective Vital Signs: Vital Signs Temperature 98.0 F 09/05/17 18:47 Pulse Rate 48 L 09/06/17 09:31 Respiratory Rate 18 09/06/17 09:31 Blood Pressure 137/86 09/06/17 09:31 O2 Sat by Pulse Oximetry (%) 99 09/06/17 09:31 Labs: CBC, BMP 09/06/17 09:35 09/06/17 09:35 INR, PTT INR 0.81 (0.82-1.09) L 09/05/17 04:27 <Richar Garcia - Last Filed: 09/06/17 13:03> Problem List - Problems (1) Chest pain Assessment/Plan: FOLLOW CE ECHO STRESS TEST CARDIO ON BOARD Code(s): R07.9 - CHEST PAIN, UNSPECIFIED QualifierTitle: Chest pain type: unspecified Qualified Code(s): R07.9 - Chest pain, unspecified; R07.8 - Other chest pain (2) Chronic kidney disease (CKD) Assessment/Plan: MONITOR RENAL FUNCTION Code(s): N18.9 - CHRONIC KIDNEY DISEASE, UNSPECIFIED QualifierTitle: Chronic kidney disease stage: stage 2 (mild) Qualified Code(s): N18.2 - Chronic kidney disease, stage 2 (mild) (3) HTN (hypertension) Assessment/Plan: ELEVATED ADD HYDRALZINE AND MONITOR Code(s): I10 - ESSENTIAL (PRIMARY) HYPERTENSION QualifierTitle: Hypertension type: essential hypertension Qualified Code( s): I10 - Essential (primary) hypertension (4) HLD (hyperlipidemia) Assessment/Plan: CAN NOT TOLERATE STATIN Code(s): E78.5 - HYPERLIPIDEMIA, UNSPECIFIED QualifierTitle: Hyperlipidemia type: pure hypercholesterolemia <Mainor Cordova - Last Filed: 09/06/17 09:29> - Problems (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 - BENIGN NEOPLASM OF HEART (2) Cerebral vascular malformation Code(s): Q28.3 - OTHER MALFORMATIONS OF CEREBRAL VESSELS (3) Chest pain Code(s): R07.9 - CHEST PAIN, UNSPECIFIED Qualifiers: Chest pain type: other chest pain Qualified Code(s): R07.89 - Other chest pain; R07.8 - Other chest pain (4) Chronic kidney disease (CKD) Code(s): N18.9 - CHRONIC KIDNEY DISEASE, UNSPECIFIED Qualifiers: Chronic kidney disease stage: stage 2 (mild) Qualified Code(s): N18.2 - Chronic kidney disease, stage 2 (mild) (5) HLD (hyperlipidemia) Code(s): E78.5 - HYPERLIPIDEMIA, UNSPECIFIED Qualifiers: Hyperlipidemia type: pure hypercholesterolemia (6) HTN (hypertension) Code(s): I10 - ESSENTIAL (PRIMARY) HYPERTENSION Qualifiers: Hypertension type: essential hypertension Qualified Code(s): I10 - Essential (primary) hypertension (7) S/p nephrectomy Code(s): Z90.5 - ACQUIRED ABSENCE OF KIDNEY (8) Seizure disorder Code(s): G40.909 - EPILEPSY, UNSP, NOT INTRACTABLE, WITHOUT STATUS EPILEPTICUS <Richar Garcia - Last Filed: 09/06/17 13:03>
[2017-09-06 09:43] LABS: BASO % 0.8 % (0-2.0); EOS % 3.3 % (0-4.5); HEMATOCRIT 38.1 % (35.4-49); HEMOGLOBIN 12.3 GM/dL (11.7-16.9); LYMPH % 49.2 % (8-40); MCH 34.2 pg (25.7-33.7); MCHC 32.2 g/dl (32.0-35.9); MEAN CELL VOLUME 106.3 fl (80-96); MEAN PLT VOLUME 7.3 fl (7.5-11.1); MONO % 5.5 % (3.8-10.2); NEUT % 41.2 % (42.8-82.8); PLATELET COUNT 150 K/MM3 (134-434); RBC 3.59 M/mm3 (4.00-5.60); RDW 16.1 % (11.9-15.9); WHITE BLOOD COUNT 3.4 K/mm3 (4.0-10.0)
[2017-09-06 10:06] LABS: ALBUMIN 3.6 g/dl (3.4-5.0); ANION GAP 5 (8-16); BILIRUBIN,TOTAL 0.6 mg/dL (0.2-1.0); BLOOD UREA NITROGEN 16 mg/dL (7-18); CALCIUM 8.3 mg/dL (8.5-10.1); CHLORIDE 107 mmol/L (98-107); CO2 27 mmol/L (21-32); CREATININE 1.6 mg/dL (0.7-1.3); GLUCOSE,RANDOM 95 mg/dL (74-106); POTASSIUM 4.2 mmol/L (3.5-5.1); SGOT/AST 55 U/L (15-37); SGPT/ALT 16 U/L (12-78); SODIUM 139 mmol/L (136-145); TOT PROT 6.9 g/dl (6.4-8.2)
[2017-09-06 10:22] LABS: ALK PHOS 78 U/L (45-117)
[2017-09-06 10:29] VITALS: BMI 28.5
[2017-09-06] MEDS: lamoTRIgine 100 MG TABLET (FP) PO SCH ×2 (10:51→22:05)
[2017-09-06] MEDS: levETIRAcetam 500 MG TABLET (FP) PO SCH ×2 (10:52→22:05)
[2017-09-06] MEDS: FOLIC ACID 1 MG TABLET (FP) PO SCH (10:52)
[2017-09-06] MEDS: RANITIDINE HCL 150 MG TABLET (FP) PO SCH ×2 (10:52→22:05)
[2017-09-06] MEDS: amLODIPine BESYLATE 5 MG TABLET (FP) PO SCH (10:52)
[2017-09-06] MEDS: THIAMINE HCL 100 MG TABLET (FP) PO SCH (10:53)
[2017-09-06] MEDS: hydrALAZINE HCL 25 MG TABLET (FP) PO SCH ×2 (10:55→22:05)
[2017-09-06] MEDS ORDERED: hydrALAZINE HCL 25 MG TABLET (FP) ONE (10:55)
--- NOTE | 2017-09-06 12:46 | PN ---
Progress Note, Physician History of Present Illness: Marcy recurrent chest pain or dyspnea, awaiting MPI. - Current Medication List Current Medications: Active Medications Amlodipine Besylate (Norvasc -) 5 mg PO DAILY [facility] Last Admin: 09/06/17 10:52 Dose: 5 mg Carbidopa/Levodopa (Sinemet 25/100 -) 1 each PO TID [facility] Last Admin: 09/06/17 07:04 Dose: 1 each Clonazepam (Klonopin -) 0.5 mg PO BID PRN PRN Reason: ANXIETY Last Admin: 09/06/17 12:12 Dose: 0.5 mg Docusate Sodium (Colace -) 100 mg PO TID PRN PRN Reason: CONSTIPATION Folic Acid (Folic Acid -) 1 mg PO DAILY [facility] Last Admin: 09/06/17 10:52 Dose: 1 mg Hydralazine HCl (Apresoline -) 25 mg PO BID [facility] Last Admin: 09/06/17 10:55 Dose: 25 mg Sodium Chloride (Normal Saline -) 1,000 mls @ 75 mls/hr IV ASDIR [facility] Last Admin: 09/06/17 07:07 Dose: 75 mls/hr Lamotrigine (Lamictal -) 100 mg PO BID [facility] Last Admin: 09/06/17 10:51 Dose: 100 mg Levetiracetam (Keppra -) 500 mg PO BID [facility] Last Admin: 09/06/17 10:52 Dose: 500 mg Nitroglycerin (Nitrostat -) 0.4 mg SL ONCE PRN PRN Reason: PAIN Non-Formulary Medication (Red Yeast Rice Extract [Red Yeast Rice Extract]) 600 mg PO BID [facility] Non-Formulary Medication (Sunitinib Malate [Sutent]) 50 mg PO ASDIR [facility] Pramipexole Dihydrochloride (Mirapex -) 1 mg PO HS [facility] Last Admin: 09/05/17 22:26 Dose: 1 mg Ranitidine HCl (Zantac -) 150 mg PO BID [facility] Last Admin: 09/06/17 10:52 Dose: 150 mg Senna (Senna -) 2 tab PO HS PRN PRN Reason: CONSTIPATION Thiamine HCl (Vitamin B1 -) 50 mg PO DAILY [facility] Last Admin: 09/06/17 10:53 Dose: 50 mg - Objective Vital Signs: Vital Signs Temperature 98.0 F 09/05/17 18:47 Pulse Rate 48 L 01/10/18 09:31 Respiratory Rate 18 09/06/17 09:31 Blood Pressure 137/86 09/06/17 09:31 O2 Sat by Pulse Oximetry (%) 99 09/06/17 09:31 Constitutional: Yes: No Distress, Calm Neck: Yes: Supple Cardiovascular: Yes: Regular Rate and Rhythm Respiratory: Yes: Regular, CTA Bilaterally Gastrointestinal: Yes: Normal Bowel Sounds, Soft, Abdomen, Obese Edema: No Labs: CBC, BMP 09/06/17 09:35 09/06/17 09:35 INR, PTT INR 0.81 (0.82-1.09) L 09/05/17 04:27 Problem List - Problems (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 - BENIGN NEOPLASM OF HEART (2) Cerebral vascular malformation Code(s): Q28.3 - OTHER MALFORMATIONS OF CEREBRAL VESSELS (3) Chest pain Code(s): R07.9 - CHEST PAIN, UNSPECIFIED Qualifiers: Chest pain type: other chest pain Qualified Code(s): R07.89 - Other chest pain; R07.8 - Other chest pain (4) Chronic kidney disease (CKD) Code(s): N18.9 - CHRONIC KIDNEY DISEASE, UNSPECIFIED Qualifiers: Chronic kidney disease stage: stage 2 (mild) Qualified Code(s): N18.2 - Chronic kidney disease, stage 2 (mild) (5) HLD (hyperlipidemia) Code(s): E78.5 - HYPERLIPIDEMIA, UNSPECIFIED Qualifiers: Hyperlipidemia type: pure hypercholesterolemia Qualified Code(s): E78.00 - Pure hypercholesterolemia, unspecified; E78.0 - Pure hypercholesterolemia (6) HTN (hypertension) Code(s): I10 - ESSENTIAL (PRIMARY) HYPERTENSION Qualifiers: Hypertension type: essential hypertension Qualified Code(s): I10 - Essential (primary) hypertension (7) S/p nephrectomy Code(s): Z90.5 - ACQUIRED ABSENCE OF KIDNEY (8) Seizure disorder Code(s): G40.909 - EPILEPSY, UNSP, NOT INTRACTABLE, WITHOUT STATUS EPILEPTICUS Assessment/Plan 09/05/2017 Echo: Borderline dilated LV with normal LV and RV size and fxn, mod LAE , tr-mild MR, mild TR, [place] 1. Chest pain syndrome - Ruled out for [place] 2. Hypertension 3. Elevated CPK - etiology to be determined, rule out rhabdomyolysis 4. Mixed hyperlipidemia 5. History of left atrial myxoma resection 6. History of renal cell CA s/p nephrectomy 7. History of lung CA s/p VATs/wedge resection and chemotherapy/radiation therapy 8. Panic/anxiety d/o 9. Cerebral AVM s/p XRT and gamma knofe, seizure disorder 10. CKD PLAN: 1. Ruled out for FL, CPK downtrending 2. Start statins once CPK normalizes, currently on red yeast rice 3. Continue Norvasc 5 qd, hydralazine 50 bid 4. 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 Consider Holter monitor or event monitor as outpatient.
--- NOTE | 2017-09-06 13:50 | CONSULT ---
Consult Consult Specialty:: Nephrology Reason for Consultation:: CKD - History of Present Illness Chief Complaint: chest pain History of Present Illness: Pt is a 72 year old male with pmhx of nephrectomy secondary to RCC, CKD, pulm nodules, epilepsy and Parkinsons who presents to the ER with chest pain. He was found to have elevated creatinine and I was called to evaluate him. He follows with Dr Monteiro and his last conveyor feeder as outpt was about 1.4. He currently denies chest pain. He denies dysuria or hematuria. He denies fevers or chill. He denies shortness of breath. He is treated with sunitinib. 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, Other (av malformasion s/p gamma knife ) Cardio/Vascular: Yes: HTN, Hyperlipdemia, Other (Atrial myxoma s/p resection ) Pulmonary: Yes: Cancer (Lung nodule and cancer s/p VATS/wedge resection) Gastrointestinal: Yes: GERD Renal/: Yes: Cancer (Renal cell CA s/p right nephrectomy) - Past Surgical History Past Surgical History: Yes: Nephrectomy, Thoracotomy Additional Surgical History: left atrial myxoma resection - Alcohol/Substance Use Hx Alcohol Use: Yes - Smoking History Smoking history: Former smoker Have you smoked in the past 12 months: No Aproximately how many cigarettes per day: 0 If you are a former smoker, when did you quit?: 25 years ago - Social History Usual Living Arrangement: With Spouse Home Medications - Allergies Allergies/Adverse Reactions: Allergies Allergy/AdvReac Type Severity Reaction Status Date / Time aspirin Allergy Verified 09/05/17 04:17 atorvastatin calcium Allergy Verified 09/05/17 04:17 [From Lipitor] - Home Medications Home Medications: Ambulatory Orders Acetaminophen [Tylenol .Regular Strength -] 650 mg PO Q4H PRN 04/04/16 Clonazepam [Klonopin -] 0.5 mg PO BID PRN 04/04/16 Docusate Sodium [Colace -] 100 mg PO TID PRN 04/04/16 Folic Acid 1 mg PO DAILY 04/04/16 Lamotrigine 100 mg PO BID 04/04/16 Levetiracetam 1,500 mg PO BID 04/04/16 Ranitidine [Zantac -] 150 mg PO BID 04/04/16 Red Yeast Rice Extract 600 mg PO BID 04/04/16 Sennosides [Laxative] 17.2 mg PO HS PRN 04/04/16 Thiamine HCl [Vitamin B-1] 50 mg PO DAILY 04/04/16 Carbidopa/Levodopa 25/100 [Sinemet 25/100 -] 1 each PO TID 09/05/17 Pramipexole Dihydrochloride [Mirapex -] 1 mg PO HS 09/05/17 Sunitinib Malate [Sutent] 50 mg PO ASDIR 09/05/17 Family Disease History - Family Disease History Family History: Denies Review of Systems - Review of Systems Constitutional: reports: No Symptoms Eyes: reports: No Symptoms HENT: reports: No Symptoms Neck: reports: No Symptoms Cardiovascular: reports: Chest Pain Respiratory: reports: No Symptoms Gastrointestinal: reports: No Symptoms Genitourinary: reports: No Symptoms Musculoskeletal: reports: No Symptoms Integumentary: reports: No Symptoms Neurological: reports: No Symptoms Endocrine: reports: No Symptoms Hematology/Lymphatic: reports: No Symptoms Physical Exam Vital Signs: Vital Signs Temperature 98.0 F 09/05/17 18:47 Pulse Rate 48 L 09/06/17 09:31 Respiratory Rate 18 09/06/17 09:31 Blood Pressure 137/86 09/06/17 09:31 O2 Sat by Pulse Oximetry (%) 99 09/06/17 09:31 Constitutional: Yes: Calm Eyes: Yes: Conjunctiva Clear HENT: Yes: Atraumatic Neck: Yes: Supple Cardiovascular: Yes: S1, S2 Respiratory: Yes: CTA Bilaterally Gastrointestinal: Yes: Soft Renal/: Yes: WNL Musculoskeletal: Yes: WNL Edema: No Neurological: Yes: Oriented Psychiatric: Yes: Oriented Labs: CBC, BMP 09/06/17 09:35 09/06/17 09:35 Laboratory Tests 09/05/17 09/06/17 04:27 09:35 Creatine Kinase 1794 H 1366 H Laboratory Tests 09/16/14 11/29/14 08/11/15 10:00 19:30 14:00 Creatinine 1.4 H 1.9 H D 1.5 H D 04/04/16 04/05/16 07:30 06:15 Creatinine 1.4 H 1.6 H Imaging - Results Chest X-ray: Report Reviewed Problem List - Problems (1) Anemia Code(s): D64.9 - ANEMIA, UNSPECIFIED Qualifiers: Anemia type: unspecified type Qualified Code(s): D64.9 - Anemia, unspecified (2) 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 - BENIGN NEOPLASM OF HEART (3) HLD (hyperlipidemia) Code(s): E78.5 - HYPERLIPIDEMIA, UNSPECIFIED Qualifiers: Hyperlipidemia type: pure hypercholesterolemia Qualified Code(s): E78.00 - Pure hypercholesterolemia, unspecified; E78.0 - Pure hypercholesterolemia (4) HTN (hypertension) Code(s): I10 - ESSENTIAL (PRIMARY) HYPERTENSION Qualifiers: Hypertension type: essential hypertension Qualified Code(s): I10 - Essential (primary) hypertension (5) S/p nephrectomy Code(s): Z90.5 - ACQUIRED ABSENCE OF KIDNEY Assessment/Plan Current Medications Generic Name Dose Route Start Last Admin Trade Name Freq PRN Reason Stop Dose Admin Amlodipine Besylate 5 mg 09/05/17 12:45 09/06/17 10:52 Norvasc - PO 5 mg DAILY DOMINIK Administration Carbidopa/Levodopa 1 each 09/05/17 14:00 09/06/17 07:04 Sinemet 25/100 - PO 1 each TID DOMINIK Administration Clonazepam 0.5 mg 09/05/17 06:13 09/06/17 12:12 Klonopin - PO 0.5 mg BID PRN Administration ANXIETY Docusate Sodium 100 mg 09/05/17 06:13 Colace - PO TID PRN CONSTIPATION Folic Acid 1 mg 09/05/17 10:00 09/06/17 10:52 Folic Acid - PO 1 mg DAILY DOMINIK Administration Hydralazine HCl 25 mg 09/06/17 10:00 09/06/17 10:55 Apresoline - PO 25 mg BID DOMINIK Administration Sodium Chloride 1,000 mls @ 75 mls/hr 09/05/17 06:30 09/06/17 07:07 Normal Saline - IV 75 mls/hr ASDIR DOMINIK Administration Lamotrigine 100 mg 09/05/17 09:30 09/06/17 10:51 Lamictal - PO 100 mg BID DOMINIK Administration Levetiracetam 500 mg 09/05/17 13:00 09/06/17 10:52 Keppra - PO 500 mg BID DOMINIK Administration Nitroglycerin 0.4 mg 01/09/18 06:35 Nitrostat - SL ONCE PRN PAIN Non-Formulary Medication 600 mg 09/05/17 10:00 Red Yeast Rice Extract [Red Yeast Rice Extract] PO BID DOMINIK Non-Formulary Medication 50 mg 09/05/17 06:15 Sunitinib Malate [Sutent] PO ASDIR DOMINIK Pramipexole Dihydrochloride 1 mg 09/05/17 22:00 09/05/17 22:26 Mirapex - PO 1 mg HS DOMINIK Administration Ranitidine HCl 150 mg 09/05/17 10:00 09/06/17 10:52 Zantac - PO 150 mg BID DOMINIK Administration Senna 2 tab 09/05/17 06:13 Senna - PO HS PRN CONSTIPATION Thiamine HCl 50 mg 09/05/17 10:00 09/06/17 10:53 Vitamin B1 - PO 50 mg DAILY DOMINIK Administration Laboratory Tests 09/05/17 06:55 Urine Protein Negative Urine Blood Negative Impression 1. CKD with acute component 2. s/p nephrectomy 3. RCC 4. chest pain r/o acs 5. gerd 6. parkinsons 7. epilepsy 8. HTN 9. rhabdo Plan - cont fluids - repeat labs in am - ua reviewed - repeat cpk in am - avoid nsaids - will need outpt follow up, can see Dr Cayetano Trotter
[2017-09-06] MEDS ORDERED: PT OWN MED DRAWER 7, Y5N ONE (21:57)
[2017-09-06] MEDS: PRAMIPEXOLE DIHYDROCHLORIDE 1 MG TABLET PO SCH (22:05)
[2017-09-06] MEDS ORDERED: levETIRAcetam 500 MG TABLET (FP) PO SCH (22:20)
[2017-09-06] MEDS ORDERED: levETIRAcetam 250 MG TABLET (FP) PO ONE (23:00)
[2017-09-07] MEDS ORDERED: ACETAMINOPHEN 325 MG TABLET (FP) PO ONE (01:20)
[2017-09-07] MEDS: CARBIDOPA/LEVODOPA 25/100 TABLET (FP) PO SCH ×3 (05:46→22:10)
[2017-09-07] MEDS: SODIUM CHLORIDE 1,000 ML IV SCH (05:49)
[2017-09-07] MEDS: clonazePAM 0.5 MG TABLET PO PRN (05:51)
--- NOTE | 2017-09-07 08:24 | PN ---
Progress Note, Physician History of Present Illness: Patient is a 72 year old male who is well known to me from office with underlying history of hypertension, left atrial myxoma s/p resection, seizure disorder, history of vascular malformation s/p radiation therapy and gamma knife , history of lung CA s/p VATs and wedge resection, right nephrectomy with renal cell CA and Parkinson's disease and panic attack presents with mid to left sternal chest pain radiating to left shoulder and hand during sexual intercourse last night. EMS was called and he was brought in for further evaluation. No chest pain or sob - Current Medication List Current Medications: Active Medications Amlodipine Besylate (Norvasc -) 5 mg PO DAILY [facility] Last Admin: 09/06/17 10:52 Dose: 5 mg Carbidopa/Levodopa (Sinemet 25/100 -) 1 each PO TID [facility] Last Admin: 09/07/17 05:46 Dose: 1 each Clonazepam (Klonopin -) 0.5 mg PO BID PRN PRN Reason: ANXIETY Last Admin: 09/07/17 05:51 Dose: 0.5 mg Docusate Sodium (Colace -) 100 mg PO TID PRN PRN Reason: CONSTIPATION Folic Acid (Folic Acid -) 1 mg PO DAILY [facility] Last Admin: 09/06/17 10:52 Dose: 1 mg Hydralazine HCl (Apresoline -) 25 mg PO BID [facility] Last Admin: 09/06/17 22:05 Dose: 25 mg Sodium Chloride (Normal Saline -) 1,000 mls @ 75 mls/hr IV ASDIR [facility] Last Admin: 09/07/17 05:49 Dose: 75 mls/hr Lamotrigine (Lamictal -) 100 mg PO BID [facility] Last Admin: 09/06/17 22:05 Dose: 100 mg Levetiracetam 500 mg/ (Levetiracetam 250 mg) 750 mg PO BID [facility] Nitroglycerin (Nitrostat -) 0.4 mg SL ONCE PRN PRN Reason: PAIN Non-Formulary Medication (Red Yeast Rice Extract [Red Yeast Rice Extract]) 600 mg PO BID [facility] Non-Formulary Medication (Sunitinib Malate [Sutent]) 50 mg PO ASDIR [facility] Pramipexole Dihydrochloride (Mirapex -) 1 mg PO HS [facility] Last Admin: 09/06/17 22:05 Dose: 1 mg Ranitidine HCl (Zantac -) 150 mg PO BID [facility] Last Admin: 09/06/17 22:05 Dose: 150 mg Senna (Senna -) 2 tab PO HS PRN PRN Reason: CONSTIPATION Thiamine HCl (Vitamin B1 -) 50 mg PO DAILY [facility] Last Admin: 09/06/17 10:53 Dose: 50 mg - Objective Vital Signs: Vital Signs Temperature 98.4 F 09/07/17 05:00 Pulse Rate 50 L 09/07/17 05:00 Respiratory Rate 18 09/07/17 05:00 Blood Pressure 143/67 09/07/17 05:00 O2 Sat by Pulse Oximetry (%) 98 09/07/17 01:00 Cardiovascular: Yes: Regular Rate and Rhythm Respiratory: Yes: Regular, CTA Bilaterally Gastrointestinal: Yes: Normal Bowel Sounds, Soft Edema: No Labs: CBC, BMP 09/06/17 09:35 INR, PTT INR 0.81 (0.82-1.09) L 09/05/17 04:27 Problem List - Problems (1) Chest pain Assessment/Plan: FOLLOW CE ECHO STRESS TEST POSITIVE--POSSIBLE CATH WILL D/W CARDIO CARDIO ON BOARD Code(s): R07.9 - CHEST PAIN, UNSPECIFIED Qualifiers: Chest pain type: other chest pain Qualified Code(s): R07.89 - Other chest pain; R07.8 - Other chest pain (2) Chronic kidney disease (CKD) Assessment/Plan: MONITOR RENAL FUNCTION Code(s): N18.9 - CHRONIC KIDNEY DISEASE, UNSPECIFIED Qualifiers: Chronic kidney disease stage: stage 2 (mild) Qualified Code(s): N18.2 - Chronic kidney disease, stage 2 (mild) (3) HTN (hypertension) Assessment/Plan: ELEVATED ADD HYDRALZINE AND MONITOR Code(s): I10 - ESSENTIAL (PRIMARY) HYPERTENSION Qualifiers: Hypertension type: essential hypertension Qualified Code(s): I10 - Essential (primary) hypertension (4) HLD (hyperlipidemia) Assessment/Plan: CAN NOT TOLERATE STATIN Code(s): E78.5 - HYPERLIPIDEMIA, UNSPECIFIED Qualifiers: Hyperlipidemia type: pure hypercholesterolemia Qualified Code(s): E78.00 - Pure hypercholesterolemia, unspecified; E78.0 - Pure hypercholesterolemia (5) CAD (coronary artery disease) Assessment/Plan: POSITIVE STRESS TEST CARDIO--CATH STATIN CHECK ON ASA ALLERGY Code(s): I25.10 - ATHSCL HEART DISEASE OF [place] CORONARY ARTERY W/O ANG PCTRS
[2017-09-07] MEDS ORDERED: PT OWN MED DRAWER 7, Y5N ONE ×2 (08:48→22:07)
[2017-09-07] MEDS ORDERED: levETIRAcetam 500 MG TABLET (FP) PO ONE ×3 (08:48→22:07)
[2017-09-07] MEDS ORDERED: levETIRAcetam 250 MG TABLET (FP) PO ONE ×3 (08:48→22:07)
[2017-09-07 08:51] LABS: CHLORIDE 107 mmol/L (98-107); POTASSIUM 3.8 mmol/L (3.5-5.1); SODIUM 139 mmol/L (136-145)
[2017-09-07] MEDS: amLODIPine BESYLATE 5 MG TABLET (FP) PO SCH (09:04)
[2017-09-07] MEDS: RANITIDINE HCL 150 MG TABLET (FP) PO SCH ×2 (09:04→22:10)
[2017-09-07] MEDS: FOLIC ACID 1 MG TABLET (FP) PO SCH (09:04)
[2017-09-07] MEDS: THIAMINE HCL 100 MG TABLET (FP) PO SCH (09:04)
[2017-09-07] MEDS: hydrALAZINE HCL 25 MG TABLET (FP) PO SCH (09:05)
[2017-09-07] MEDS: lamoTRIgine 100 MG TABLET (FP) PO SCH ×2 (09:05→22:09)
[2017-09-07] MEDS: LEVETIRACETAM 500 MG, LEVETIRACETAM 250 MG PO SCH ×3 (09:05→22:09)
[2017-09-07 09:24] LABS: ANION GAP 11 (8-16); BLOOD UREA NITROGEN 21 mg/dL (7-18); CALCIUM 7.6 mg/dL (8.5-10.1); CO2 21 mmol/L (21-32); CREATININE 1.5 mg/dL (0.7-1.3); GLUCOSE,RANDOM 89 mg/dL (74-106)
--- NOTE | 2017-09-07 09:51 | PN ---
Progress Note, Physician History of Present Illness: Denies recurrent chest pain or dyspnea, MPI shows moderate posterolateral ischemia with preserved LV fxn. - Current Medication List Current Medications: Active Medications Amlodipine Besylate (Norvasc -) 5 mg PO DAILY [facility] Last Admin: 09/07/17 09:04 Dose: 5 mg Atorvastatin Calcium (Lipitor -) 40 mg PO HS [facility] Atorvastatin Calcium (Lipitor -) 40 mg PO ONCE ONE Stop: 09/07/17 10:01 Carbidopa/Levodopa (Sinemet 25/100 -) 1 each PO TID [facility] Last Admin: 09/07/17 05:46 Dose: 1 each Clonazepam (Klonopin -) 0.5 mg PO BID PRN PRN Reason: ANXIETY Last Admin: 09/07/17 05:51 Dose: 0.5 mg Docusate Sodium (Colace -) 100 mg PO TID PRN PRN Reason: CONSTIPATION Folic Acid (Folic Acid -) 1 mg PO DAILY [facility] Last Admin: 09/07/17 09:04 Dose: 1 mg Hydralazine HCl (Apresoline -) 25 mg PO BID [facility] Last Admin: 09/07/17 09:05 Dose: 25 mg Sodium Chloride (Normal Saline -) 1,000 mls @ 75 mls/hr IV ASDIR [facility] Last Admin: 09/07/17 05:49 Dose: 75 mls/hr Lamotrigine (Lamictal -) 100 mg PO BID [facility] Last Admin: 09/07/17 09:05 Dose: 100 mg Levetiracetam 500 mg/ (Levetiracetam 250 mg) 750 mg PO BID [facility] Last Admin: 09/07/17 09:05 Dose: 750 mg Nitroglycerin (Nitrostat -) 0.4 mg SL ONCE PRN PRN Reason: PAIN Non-Formulary Medication (Sunitinib Malate [Sutent]) 50 mg PO ASDIR [facility] Pramipexole Dihydrochloride (Mirapex -) 1 mg PO HS [facility] Last Admin: 09/06/17 22:05 Dose: 1 mg Ranitidine HCl (Zantac -) 150 mg PO BID [facility] Last Admin: 09/07/17 09:04 Dose: 150 mg Senna (Senna -) 2 tab PO HS PRN PRN Reason: CONSTIPATION Thiamine HCl (Vitamin B1 -) 50 mg PO DAILY [facility] Last Admin: 09/07/17 09:04 Dose: 50 mg - Objective Vital Signs: Vital Signs Temperature 98.4 F 09/07/17 05:00 Pulse Rate 50 L 09/07/17 05:00 Respiratory Rate 18 09/07/17 05:00 Blood Pressure 143/67 09/07/17 05:00 O2 Sat by Pulse Oximetry (%) 98 09/07/17 01:00 Constitutional: Yes: No Distress, Calm Neck: Yes: Supple Cardiovascular: Yes: Regular Rate and Rhythm Respiratory: Yes: Regular, CTA Bilaterally Gastrointestinal: Yes: Normal Bowel Sounds, Soft Edema: No Labs: CBC, BMP 09/06/17 09:35 09/07/17 07:09 INR, PTT INR 0.81 (0.82-1.09) L 09/05/17 04:27 - ....Imaging EKG: Report Reviewed (Tele: SB) Problem List - Problems (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 - BENIGN NEOPLASM OF HEART (2) Cerebral vascular malformation Code(s): Q28.3 - OTHER MALFORMATIONS OF CEREBRAL VESSELS (3) Chest pain Code(s): R07.9 - CHEST PAIN, UNSPECIFIED Qualifiers: Chest pain type: other chest pain Qualified Code(s): R07.89 - Other chest pain; R07.8 - Other chest pain (4) Chronic kidney disease (CKD) Code(s): N18.9 - CHRONIC KIDNEY DISEASE, UNSPECIFIED Qualifiers: Chronic kidney disease stage: stage 2 (mild) Qualified Code(s): N18.2 - Chronic kidney disease, stage 2 (mild) (5) HLD (hyperlipidemia) Code(s): E78.5 - HYPERLIPIDEMIA, UNSPECIFIED Qualifiers: Hyperlipidemia type: pure hypercholesterolemia Qualified Code(s): E78.00 - Pure hypercholesterolemia, unspecified; E78.0 - Pure hypercholesterolemia (6) HTN (hypertension) Code(s): I10 - ESSENTIAL (PRIMARY) HYPERTENSION Qualifiers: Hypertension type: essential hypertension Qualified Code(s): I10 - Essential (primary) hypertension (7) S/p nephrectomy Code(s): Z90.5 - ACQUIRED ABSENCE OF KIDNEY (8) Seizure disorder Code(s): G40.909 - EPILEPSY, UNSP, NOT INTRACTABLE, WITHOUT STATUS EPILEPTICUS Assessment/Plan 09/05/2017 Echo: Borderline dilated LV with normal LV and RV size and fxn, mod LAE , tr-mild MR, mild TR, RI 09/06/2017 Nuc Stress: Moderate size, moderate intensity posterolateral ischemia LVEF 60% 1. Chest pain syndrome with underlying CAD and abnormal MPI 2. Hypertension 3. Elevated CPK - etiology to be determined, rule out rhabdomyolysis 4. Mixed hyperlipidemia 5. History of left atrial myxoma resection 6. History of renal cell CA s/p nephrectomy 7. History of lung CA s/p VATs/wedge resection and chemotherapy/radiation therapy 8. Panic/anxiety d/o 9. Cerebral AVM s/p XRT and gamma knife, seizure disorder 10. CKD PLAN: 1. Ruled out for OR, CPK downtrending 2. Re-challenged with Lipitor 40 qd (previous sensitivity due to myalgias) 3. Continue Norvasc 5 qd, change hydralazine to Imdur 30 qd with uptitration as needed, LYNNE-I/ARB once renal fxn stable 4. Clarify whether patient may be placed on dual antiplatelet therapy given h/o cerebral AVMs prior to LHC +/- PCI 5. Case d/w Dr. Cordova
[2017-09-07] MEDS ORDERED: ATORVASTATIN CA 40 MG TABLET (FP) PO ONE ×2 (10:00→10:30)
[2017-09-07] MEDS: ISOSORBIDE MONONITRATE 30 MG TAB.SR.24H (FP) PO SCH (10:30)
--- NOTE | 2017-09-07 16:03 | PN ---
Progress Note, Physician History of Present Illness: Pt seen and examined at bedside. He is awake and alert. He denies shortness of breath. - Current Medication List Current Medications: Active Medications Amlodipine Besylate (Norvasc -) 5 mg PO DAILY [facility] Last Admin: 09/07/17 09:04 Dose: 5 mg Atorvastatin Calcium (Lipitor -) 40 mg PO HS [facility] Carbidopa/Levodopa (Sinemet 25/100 -) 1 each PO TID [facility] Last Admin: 09/07/17 13:58 Dose: 1 each Clonazepam (Klonopin -) 0.5 mg PO BID PRN PRN Reason: ANXIETY Last Admin: 09/07/17 05:51 Dose: 0.5 mg Docusate Sodium (Colace -) 100 mg PO TID PRN PRN Reason: CONSTIPATION Folic Acid (Folic Acid -) 1 mg PO DAILY [facility] Last Admin: 09/07/17 09:04 Dose: 1 mg Sodium Chloride (Normal Saline -) 1,000 mls @ 75 mls/hr IV ASDIR [facility] Last Admin: 09/07/17 05:49 Dose: 75 mls/hr Isosorbide Mononitrate (Imdur -) 30 mg PO DAILY [facility] Last Admin: 09/07/17 10:30 Dose: 30 mg Lamotrigine (Lamictal -) 100 mg PO BID [facility] Last Admin: 09/07/17 09:05 Dose: 100 mg Levetiracetam 500 mg/ (Levetiracetam 250 mg) 750 mg PO BID [facility] Last Admin: 09/07/17 09:05 Dose: 750 mg Nitroglycerin (Nitrostat -) 0.4 mg SL ONCE PRN PRN Reason: PAIN Non-Formulary Medication (Sunitinib Malate [Sutent]) 50 mg PO ASDIR [facility] Pramipexole Dihydrochloride (Mirapex -) 1 mg PO HS [facility] Last Admin: 09/06/17 22:05 Dose: 1 mg Ranitidine HCl (Zantac -) 150 mg PO BID [facility] Last Admin: 09/07/17 09:04 Dose: 150 mg Senna (Senna -) 2 tab PO HS PRN PRN Reason: CONSTIPATION Thiamine HCl (Vitamin B1 -) 50 mg PO DAILY [facility] Last Admin: 09/07/17 09:04 Dose: 50 mg - Objective Vital Signs: Vital Signs Temperature 97.6 F 09/07/17 14:49 Pulse Rate 52 L 09/07/17 14:49 Respiratory Rate 18 09/07/17 14:49 Blood Pressure 123/70 09/07/17 14:49 O2 Sat by Pulse Oximetry (%) 98 09/07/17 09:00 Constitutional: Yes: Calm Eyes: Yes: Conjunctiva Clear HENT: Yes: Atraumatic Neck: Yes: Supple Cardiovascular: Yes: S1, S2 Respiratory: Yes: CTA Bilaterally Gastrointestinal: Yes: Soft Genitourinary: Yes: WNL Musculoskeletal: Yes: WNL Edema: No Neurological: Yes: Oriented Psychiatric: Yes: Oriented Labs: CBC, BMP 09/06/17 09:35 09/07/17 07:09 INR, PTT INR 0.81 (0.82-1.09) L 09/05/17 04:27 Problem List - Problems (1) Anemia Code(s): D64.9 - ANEMIA, UNSPECIFIED Qualifiers: Anemia type: unspecified type Qualified Code(s): D64.9 - Anemia, unspecified (2) 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 - BENIGN NEOPLASM OF HEART (3) HLD (hyperlipidemia) Code(s): E78.5 - HYPERLIPIDEMIA, UNSPECIFIED Qualifiers: Hyperlipidemia type: pure hypercholesterolemia Qualified Code(s): E78.00 - Pure hypercholesterolemia, unspecified; E78.0 - Pure hypercholesterolemia (4) HTN (hypertension) Code(s): I10 - ESSENTIAL (PRIMARY) HYPERTENSION Qualifiers: Hypertension type: essential hypertension Qualified Code(s): I10 - Essential (primary) hypertension (5) S/p nephrectomy Code(s): Z90.5 - ACQUIRED ABSENCE OF KIDNEY Assessment/Plan Current Medications Generic Name Dose Route Start Last Admin Trade Name Freq PRN Reason Stop Dose Admin Amlodipine Besylate 5 mg 09/05/17 12:45 09/07/17 09:04 Norvasc - PO 5 mg DAILY DOMINIK Administration Atorvastatin Calcium 40 mg 09/07/17 22:00 Lipitor - PO HS DOMINIK Carbidopa/Levodopa 1 each 09/05/17 14:00 09/07/17 13:58 Sinemet 25/100 - PO 1 each TID DOMINIK Administration Clonazepam 0.5 mg 09/05/17 06:13 09/07/17 05:51 Klonopin - PO 0.5 mg BID PRN Administration ANXIETY Docusate Sodium 100 mg 09/05/17 06:13 Colace - PO TID PRN CONSTIPATION Folic Acid 1 mg 09/05/17 10:00 09/07/17 09:04 Folic Acid - PO 1 mg DAILY DOMINIK Administration Sodium Chloride 1,000 mls @ 75 mls/hr 09/05/17 06:30 09/07/17 05:49 Normal Saline - IV 75 mls/hr ASDIR DOMINIK Administration Isosorbide Mononitrate 30 mg 09/07/17 10:15 09/07/17 10:30 Imdur - PO 30 mg DAILY DOMINIK Administration Lamotrigine 100 mg 09/05/17 09:30 09/07/17 09:05 Lamictal - PO 100 mg BID DOMINIK Administration Levetiracetam 500 mg/ 750 mg 09/07/17 10:00 09/07/17 09:05 Levetiracetam 250 mg PO 750 mg BID DOMINIK Administration Nitroglycerin 0.4 mg 09/05/17 06:35 Nitrostat - SL ONCE PRN PAIN Non-Formulary Medication 50 mg 09/05/17 06:15 Sunitinib Malate [Sutent] PO ASDIR DOMINIK Pramipexole Dihydrochloride 1 mg 09/05/17 22:00 09/06/17 22:05 Mirapex - PO 1 mg HS DOMINIK Administration Ranitidine HCl 150 mg 09/05/17 10:00 09/07/17 09:04 Zantac - PO 150 mg BID DOMINIK Administration Senna 2 tab 09/05/17 06:13 Senna - PO HS PRN CONSTIPATION Thiamine HCl 50 mg 09/05/17 10:00 09/07/17 09:04 Vitamin B1 - PO 50 mg DAILY DOMINIK Administration Impression 1. CKD with acute component 2. s/p nephrectomy 3. RCC 4. chest pain r/o acs 5. gerd 6. parkinsons 7. epilepsy 8. HTN 9. rhabdo Plan - renal function is improving - cpk is improving - repeat labs in am - cont fluids - avoid nsaids - will need outpt follow up, can see Dr Cayetano Trotter
[2017-09-07] MEDS ORDERED: ATORVASTATIN CA 40 MG TABLET (FP) PO SCH (22:00)
[2017-09-07] MEDS: PRAMIPEXOLE DIHYDROCHLORIDE 1 MG TABLET PO SCH (22:10)
[2017-09-08] MEDS: CARBIDOPA/LEVODOPA 25/100 TABLET (FP) PO SCH (06:04)
[2017-09-08] MEDS: SODIUM CHLORIDE 1,000 ML IV SCH (06:05)
[2017-09-08 06:40] VITALS: TEMP 98
[2017-09-08 06:58] LABS: ALBUMIN 3.5 g/dl (3.4-5.0); ALK PHOS 69 U/L (45-117); ANION GAP 9 (8-16); BILIRUBIN,TOTAL 0.5 mg/dL (0.2-1.0); BLOOD UREA NITROGEN 20 mg/dL (7-18); CALCIUM 8.2 mg/dL (8.5-10.1); CHLORIDE 105 mmol/L (98-107); CO2 27 mmol/L (21-32); CREATININE 1.6 mg/dL (0.7-1.3); GLUCOSE,RANDOM 89 mg/dL (74-106); POTASSIUM 4.3 mmol/L (3.5-5.1); SGOT/AST 44 U/L (15-37); SGPT/ALT 20 U/L (12-78); SODIUM 141 mmol/L (136-145); TOT PROT 6.5 g/dl (6.4-8.2)
[2017-09-08] MEDS ORDERED: clonazePAM 0.5 MG TABLET PO PRN (08:44)
[2017-09-08] MEDS ORDERED: levETIRAcetam 250 MG TABLET (FP) PO ONE ×2 (09:00→09:01)
[2017-09-08] MEDS ORDERED: levETIRAcetam 500 MG TABLET (FP) PO ONE ×2 (09:00→09:01)
[2017-09-08] MEDS: FOLIC ACID 1 MG TABLET (FP) PO SCH (09:09)
[2017-09-08] MEDS: ISOSORBIDE MONONITRATE 30 MG TAB.SR.24H (FP) PO SCH (09:09)
[2017-09-08] MEDS: RANITIDINE HCL 150 MG TABLET (FP) PO SCH (09:09)
[2017-09-08] MEDS: LEVETIRACETAM 500 MG, LEVETIRACETAM 250 MG PO SCH ×2 (09:09→09:13)
[2017-09-08] MEDS: THIAMINE HCL 100 MG TABLET (FP) PO SCH (09:09)
[2017-09-08] MEDS: amLODIPine BESYLATE 5 MG TABLET (FP) PO SCH (09:09)
[2017-09-08] MEDS: lamoTRIgine 100 MG TABLET (FP) PO SCH (09:15)
--- NOTE | 2017-09-08 09:58 | CONSULT ---
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 Reportedly at home he felt palpitations and 10/10 crushing retrosternal chest pain. He states that he felt lightheaded at the same time and was very diaphoretic. Having cardiac workup, neurologically two issues that required further management. 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 Reported having NSGY intervention with Dr. Garret Easley at the time and thereafter gamma knife. At this time, stable and without recent complications. He is followed by Dr. Gonzalez. Secondly, has h/o seizures for which he takes keppra. On admission , confusion with dosing he reported and started on 750mg twice daily. Overnight , contacted by nurse and informed me he states he takes 1500mg twice daily. to bring in bottle today. Overnight, ordered extra 750mg for night dose and for this AM. When brings bottle, can change order to 1500mg twice daily of Keppra. 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) Cholecystectomy: No Lung Surgery: Yes (RECENT BIOPSY) Neurologic Surgery: Yes (CEREBRAL ANEURYSM ABLATED BY SURGERY AND GAMMA KNIFE) Orthopedic Surgery: No - Immunization History Immunization Up to Date: Yes - Suicide/Smoking/Psychosocial Hx Smoking Status: No Smoking History: Unknown if ever smoked Years of Tobacco Use: 0 Have you smoked in the past 12 months: No Number of Cigarettes Smoked Daily: 0 If you are a former smoker, when did you quit?: 25 years ago Cigars Per Day: 0 Hx Alcohol Use: Yes Drug/Substance Use Hx: No Substance Use Type: Alcohol Hx Substance Use Treatment: No - Past Medical History Allergies/Adverse Reactions: Allergies Allergy/AdvReac Type Severity Reaction Status Date / Time aspirin Allergy Verified 09/05/17 04:17 atorvastatin calcium Allergy Verified 09/05/17 04:17 [From Lipitor] Home Medications: Ambulatory Orders Acetaminophen [Tylenol .Regular Strength -] 650 mg PO Q4H PRN 04/04/16 Clonazepam [Klonopin -] 0.5 mg PO BID PRN 04/04/16 Docusate Sodium [Colace -] 100 mg PO TID PRN 04/04/16 Folic Acid 1 mg PO DAILY 04/04/16 Lamotrigine 100 mg PO BID 04/04/16 Levetiracetam 1,500 mg PO BID 04/04/16 Ranitidine [Zantac -] 150 mg PO BID 04/04/16 Red Yeast Rice Extract 600 mg PO BID 04/04/16 Sennosides [Laxative] 17.2 mg PO HS PRN 04/04/16 Thiamine HCl [Vitamin B-1] 50 mg PO DAILY 04/04/16 Carbidopa/Levodopa 25/100 [Sinemet 25/100 -] 1 each PO TID 09/05/17 Pramipexole Dihydrochloride [Mirapex -] 1 mg PO HS 09/05/17 Sunitinib Malate [Sutent] 50 mg PO ASDIR 09/05/17 Review of Systems GENERAL/CONSTITUTIONAL: No fever or chills. No weakness. HEAD, EYES, EARS, NOSE AND THROAT: No change in vision. No ear pain or discharge. No sore throat. GASTROINTESTINAL: No nausea, vomiting, diarrhea, constipation, or abdominal pain. GENITOURINARY: No dysuria, frequency, hematuria, or change in urination. CARDIOVASCULAR: No chest pain, palpitations, or lightheadedness. RESPIRATORY: No cough, wheezing, shortness of breath, or hemoptysis. MUSCULOSKELETAL: No joint or muscle swelling or pain. No neck or back pain. SKIN: No rash or lesions. NEUROLOGIC: No headache, numbness, tingling, weakness, loss of consciousness, or change in strength/sensation. ENDOCRINE: No increased thirst. No abnormal weight change. HEMATOLOGIC/LYMPHATIC: No anemia, easy bleeding, or history of blood clots. ALLERGIC/IMMUNOLOGIC: No hives or skin allergy. *Physical Exam Vital Signs Period Temp Pulse Resp BP Sys/Winn Pulse Ox Last 24 Hr 97.6 F-98.8 F 45-61 17-18 116-130/66-86 98-98 GENERAL: Well developed, well nourished. Jaundiced. Awake and alert. No acute distress. HEENT: Normocephalic, atraumatic. Hearing grossly normal. Moist mucous membranes. NECK: Supple. Full ROM. No JVD. CARDIOVASCULAR: Regular rate and rhythm. PULMONARY: No evidence of respiratory distress. Lungs clear to auscultation bilaterally. No wheezing, rales or rhonchi. ABDOMINAL: Soft. Non-tender. Non-distended. No rebound or guarding. MUSCULOSKELETAL: Normal range of motion at all joints. No bony deformities or tenderness. EXTREMITIES: No cyanosis. No clubbing. No edema. No calf tenderness. SKIN: Warm and dry. Normal capillary refill. No rashes. No jaundice. NEUROLOGICAL: Alert, awake, appropriate. Cranial nerves 2-12 intact. Normal speech. Sensory intact, finger to nose normal PSYCHIATRIC: Cooperative. Good eye contact. Appropriate mood and affect. CBCD WBC 3.4 K/mm3 (4.0-10.0) L 09/06/17 09:35 RBC 3.59 M/mm3 (4.00-5.60) L 09/06/17 09:35 Hgb 12.3 GM/dL (11.7-16.9) 09/06/17 09:35 Hct 38.1 % (35.4-49) 09/06/17 09:35 MCV 106.3 fl (80-96) H 09/06/17 09:35 MCHC 32.2 g/dl (32.0-35.9) 09/06/17 09:35 RDW 16.1 % (11.9-15.9) H 09/06/17 09:35 Plt Count 150 K/MM3 (134-434) 09/06/17 09:35 MPV 7.3 fl (7.5-11.1) L 09/06/17 09:35 CMP Sodium 141 mmol/L (136-145) 09/08/17 06:15 Potassium 4.3 mmol/L (3.5-5.1) 09/08/17 06:15 Chloride 105 mmol/L (98-107) 09/08/17 06:15 Carbon Dioxide 27 mmol/L (21-32) D 09/08/17 06:15 Anion Gap 9 (8-16) 09/08/17 06:15 BUN 20 mg/dL (7-18) H 09/08/17 06:15 Creatinine 1.6 mg/dL (0.7-1.3) H 09/08/17 06:15 Creat Clearance w eGFR 42.70 (>60) 09/08/17 06:15 Calcium 8.2 mg/dL (8.5-10.1) L 09/08/17 06:15 Total Bilirubin 0.5 mg/dL (0.2-1.0) 09/08/17 06:15 AST 44 U/L (15-37) H 09/08/17 06:15 ALT 20 U/L (12-78) D 09/08/17 06:15 Alkaline Phosphatase 69 U/L (45-117) 09/08/17 06:15 Total Protein 6.5 g/dl (6.4-8.2) 09/08/17 06:15 Albumin 3.5 g/dl (3.4-5.0) 09/08/17 06:15 Plan: 72 M with a PMH of renal 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 Reportedly at home he felt palpitations and 10/10 crushing retrosternal chest pain. He states that he felt lightheaded at the same time and was very diaphoretic. Having cardiac workup, neurologically two issues that required further management. First, he reported h /o AVM from 2009 with rupture and RUE weakness. Reported having NSGY intervention with Dr. Garret Easley at the time and thereafter gamma knife. At this time, stable and without recent complications. He is followed by Dr. Gonzalez. Secondly, has h/o seizures for which he takes keppra. On admission, confusion with dosing he reported and started on 750mg twice daily. Overnight, contacted by nurse and informed me he states he takes 1500mg twice daily. to bring in bottle today. Overnight, ordered extra 750mg for night dose and for this AM. When brings bottle, can change order to 1500mg twice daily of Keppra. No further rec'd at this time, outpatient follow up with Dr. Gonzalez who I'm covering for at this time.
--- NOTE | 2017-09-08 10:25 | PN ---
Progress Note, Physician History of Present Illness: Denies recurrent chest pain or dyspnea with exertion, MPI shows moderate posterolateral ischemia with preserved LV fxn. - Current Medication List Current Medications: Active Medications Amlodipine Besylate (Norvasc -) 5 mg PO DAILY [facility] Last Admin: 09/08/17 09:09 Dose: 5 mg Atorvastatin Calcium (Lipitor -) 40 mg PO HS [facility] Last Admin: 09/07/17 22:08 Dose: 40 mg Carbidopa/Levodopa (Sinemet 25/100 -) 1 each PO TID [facility] Last Admin: 09/08/17 06:04 Dose: 1 each Clonazepam (Klonopin -) 0.5 mg PO BID PRN PRN Reason: ANXIETY Last Admin: 09/08/17 09:09 Dose: 0.5 mg Docusate Sodium (Colace -) 100 mg PO TID PRN PRN Reason: CONSTIPATION Folic Acid (Folic Acid -) 1 mg PO DAILY [facility] Last Admin: 09/08/17 09:09 Dose: 1 mg Sodium Chloride (Normal Saline -) 1,000 mls @ 75 mls/hr IV ASDIR [facility] Last Admin: 09/08/17 06:05 Dose: 75 mls/hr Isosorbide Mononitrate (Imdur -) 30 mg PO DAILY [facility] Last Admin: 09/08/17 09:09 Dose: 30 mg Lamotrigine (Lamictal -) 100 mg PO BID [facility] Last Admin: 09/08/17 09:15 Dose: 100 mg Levetiracetam 500 mg/ (Levetiracetam 250 mg) 750 mg PO BID [facility] Last Admin: 09/08/17 09:09 Dose: 750 mg Nitroglycerin (Nitrostat -) 0.4 mg SL ONCE PRN PRN Reason: PAIN Non-Formulary Medication (Sunitinib Malate [Sutent]) 50 mg PO ASDIR [facility] Pramipexole Dihydrochloride (Mirapex -) 1 mg PO HS [facility] Last Admin: 09/07/17 22:10 Dose: 1 mg Ranitidine HCl (Zantac -) 150 mg PO BID [facility] Last Admin: 09/08/17 09:09 Dose: 150 mg Senna (Senna -) 2 tab PO HS PRN PRN Reason: CONSTIPATION Thiamine HCl (Vitamin B1 -) 50 mg PO DAILY [facility] Last Admin: 09/08/17 09:09 Dose: 50 mg - Objective Vital Signs: Vital Signs Temperature 98 F 09/08/17 05:00 Pulse Rate 45 L 09/08/17 05:00 Respiratory Rate 17 09/08/17 05:00 Blood Pressure 116/66 09/08/17 05:00 O2 Sat by Pulse Oximetry (%) 98 09/08/17 06:00 Constitutional: Yes: No Distress, Calm Neck: Yes: Supple Cardiovascular: Yes: Regular Rate and Rhythm, Bradycardia Respiratory: Yes: Regular, CTA Bilaterally Gastrointestinal: Yes: Normal Bowel Sounds, Soft Edema: No Labs: CBC, BMP 09/06/17 09:35 09/08/17 06:15 INR, PTT INR 0.81 (0.82-1.09) L 09/05/17 04:27 - ....Imaging EKG: Report Reviewed (Tele: SB) Problem List - Problems (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 - BENIGN NEOPLASM OF HEART (2) Cerebral vascular malformation Code(s): Q28.3 - OTHER MALFORMATIONS OF CEREBRAL VESSELS (3) Chest pain Code(s): R07.9 - CHEST PAIN, UNSPECIFIED Qualifiers: Chest pain type: other chest pain Qualified Code(s): R07.89 - Other chest pain; R07.8 - Other chest pain (4) Chronic kidney disease (CKD) Code(s): N18.9 - CHRONIC KIDNEY DISEASE, UNSPECIFIED Qualifiers: Chronic kidney disease stage: stage 2 (mild) Qualified Code(s): N18.2 - Chronic kidney disease, stage 2 (mild) (5) HLD (hyperlipidemia) Code(s): E78.5 - HYPERLIPIDEMIA, UNSPECIFIED Qualifiers: Hyperlipidemia type: pure hypercholesterolemia Qualified Code(s): E78.00 - Pure hypercholesterolemia, unspecified; E78.0 - Pure hypercholesterolemia (6) HTN (hypertension) Code(s): I10 - ESSENTIAL (PRIMARY) HYPERTENSION Qualifiers: Hypertension type: essential hypertension Qualified Code(s): I10 - Essential (primary) hypertension (7) S/p nephrectomy Code(s): Z90.5 - ACQUIRED ABSENCE OF KIDNEY (8) Seizure disorder Code(s): G40.909 - EPILEPSY, UNSP, NOT INTRACTABLE, WITHOUT STATUS EPILEPTICUS (9) Abnormal cardiovascular function study Code(s): R94.30 - ABNORMAL RESULT OF CARDIOVASCULAR FUNCTION STUDY, UNSP (10) CAD (coronary artery disease) Code(s): I25.10 - ATHSCL HEART DISEASE OF [place] CORONARY ARTERY W/O ANG PCTRS Qualifiers: Coronary Disease-Associated Artery/Lesion type: [place] artery [place] vs. transplanted heart: [place] heart Associated angina: with stable angina Qualified Code(s): I25.118 - Atherosclerotic heart disease of [place] coronary artery with other forms of angina pectoris (11) Sinus bradycardia Code(s): R00.1 - BRADYCARDIA, UNSPECIFIED Assessment/Plan 09/05/2017 Echo: Borderline dilated LV with normal LV and RV size and fxn, mod LAE , tr-mild MR, mild TR, UT 09/06/2017 Nuc Stress: Moderate size, moderate intensity posterolateral ischemia LVEF 60% 1. Chest pain syndrome with underlying CAD and abnormal MPI 2. Hypertension 3. Elevated CPK - etiology to be determined, rule out rhabdomyolysis 4. Mixed hyperlipidemia 5. History of left atrial myxoma resection 6. History of renal cell CA s/p nephrectomy 7. History of lung CA s/p VATs/wedge resection and chemotherapy/radiation therapy 8. Panic/anxiety d/o 9. Cerebral AVM s/p XRT and gamma knife, seizure disorder 10. CKD with acute component 11. Sinus bradycardia PLAN: 1. Ruled out for TX, CPK downtrending 2. Continue with Lipitor 40 qd (previous sensitivity due to myalgias) 3. Continue Norvasc 5 qd, Imdur 30 qd with uptitration as needed, LYNNE-I/ARB once renal fxn stable 4. Clarify whether patient may be placed on dual antiplatelet therapy given h/o ruptured cerebral AVMs prior to LHC +/- PCI, await Dr. Gonzalez's opinion 5. May be d/geovanna from CV-standpoint with f/u with Dr. Marinelli in office [phone].
[2017-09-08 11:06] VITALS: BP 112/68; PULSE 47
--- NOTE | 2017-09-08 11:12 | DS ---
Physical Examination Vital Signs: Vital Signs Temperature 98 F 09/08/17 05:00 Pulse Rate 47 L 09/08/17 09:00 Respiratory Rate 18 09/08/17 11:07 Blood Pressure 112/68 09/08/17 09:00 O2 Sat by Pulse Oximetry (%) 98 09/08/17 11:07 Constitutional: Yes: Calm Neck: Yes: Trachea Midline Cardiovascular: Yes: Regular Rate and Rhythm, S1, S2 Respiratory: Yes: CTA Bilaterally Gastrointestinal: Yes: Normal Bowel Sounds, Soft Neurological: Yes: Alert, Oriented Labs: CBC, BMP 09/06/17 09:35 09/08/17 06:15 Discharge Summary Reason For Visit: ELEVATED CREATINE KINASE LEVEL Current Active Problems Abnormal cardiovascular function study (Acute) CAD (coronary artery disease) (Acute) Lung cancer (Acute) Sinus bradycardia (Acute) Hospital Course: - History of Present Illness Chief Complaint: Chest pain History of Present Illness: Patient is a 72 year old male who is well known to me from office with underlying history of hypertension, left atrial myxoma s/p resection, seizure disorder, history of vascular malformation s/p radiation therapy and gamma knife , history of lung CA s/p VATs and wedge resection, right nephrectomy with renal cell CA and Parkinson's disease and panic attack presents with mid to left sternal chest pain radiating to left shoulder and hand during sexual intercourse last night. EMS was called and he was brought in for further evaluation. Initial ECG did not reveal any ST segment changes. Initial troponin was normal, but CK was elevated to 1794 with MB fraction elevation. Currently, he complains of intermittent epigastric discomfort, but his chest pain has resolved. He denies shortness of breath or palpitations. He denies paroxysmal nocturnal dyspnea or orthopnea. He denies fever or chills. He denies headache or lightheadedness. He denies nausea, vomiting, diarrhea or abdominal pain. BP is elevated this am to 170 systolic. Cardiology consultation was called for further evaluation. - History Source History Provided By: Patient, Medical Record Limitations to Obtaining History: No Limitations - Past Medical History APPLICATIONS PROCESSOR: Yes: Seizure, Other (av malformasion s/p gamma knife ) Cardio/Vascular: Yes: HTN, Hyperlipdemia, Other (Atrial myxoma s/p resection ) Pulmonary: Yes: Cancer (Lung nodule and cancer s/p VATS/wedge resection) Gastrointestinal: Yes: GERD Renal/: Yes: Cancer (Renal cell CA s/p right nephrectomy) - Past Surgical History Past Surgical History: Yes: Nephrectomy, Thoracotomy Additional Surgical History: left atrial myxoma resection admitted to telemetry moderate posterolateral ischemia with preserved LV function restarted on lipitor and hydralazine change to imdur to follow up with dr lee and dr hines as outpatient CK abd ALK phos trending down Condition: Guarded - Instructions Disposition: HOME - Home Medications Comprehensive Discharge Medication List: Ambulatory Orders Acetaminophen [Tylenol .Regular Strength -] 650 mg PO Q4H PRN 04/04/16 Clonazepam [Klonopin -] 0.5 mg PO BID PRN 04/04/16 Docusate Sodium [Colace -] 100 mg PO TID PRN 04/04/16 Folic Acid 1 mg PO DAILY 04/04/16 Lamotrigine 100 mg PO BID 04/04/16 Levetiracetam 750 mg PO BID 04/04/16 Ranitidine [Zantac -] 150 mg PO BID 04/04/16 Red Yeast Rice Extract 600 mg PO BID 04/04/16 Sennosides [Laxative] 17.2 mg PO HS PRN 04/04/16 Thiamine HCl [Vitamin B-1] 50 mg PO DAILY 04/04/16 Carbidopa/Levodopa 25/100 [Sinemet 25/100 -] 1 each PO TID 09/05/17 Pramipexole Dihydrochloride [Mirapex -] 1 mg PO HS 09/05/17 Sunitinib Malate [Sutent] 50 mg PO ASDIR 09/05/17
--- NOTE | 2017-09-08 12:18 | PN ---
Progress Note, Physician History of Present Illness: Pt seen and examined at bedside. He says he feels well. He denies shortness of breath. He is going home today. - Objective Vital Signs: Vital Signs Temperature 98 F 09/08/17 05:00 Pulse Rate 47 L 09/08/17 09:00 Respiratory Rate 18 09/08/17 11:07 Blood Pressure 112/68 09/08/17 09:00 O2 Sat by Pulse Oximetry (%) 98 09/08/17 11:07 Constitutional: Yes: Calm Eyes: Yes: Conjunctiva Clear HENT: Yes: Atraumatic Cardiovascular: Yes: S1, S2 Respiratory: Yes: CTA Bilaterally Gastrointestinal: Yes: Soft Genitourinary: Yes: WNL Musculoskeletal: Yes: WNL Edema: No Neurological: Yes: Oriented Psychiatric: Yes: Oriented Labs: CBC, BMP 09/06/17 09:35 09/08/17 06:15 INR, PTT INR 0.81 (0.82-1.09) L 09/05/17 04:27 Problem List - Problems (1) Anemia Code(s): D64.9 - ANEMIA, UNSPECIFIED Qualifiers: Anemia type: unspecified type Qualified Code(s): D64.9 - Anemia, unspecified (2) 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 - BENIGN NEOPLASM OF HEART (3) HLD (hyperlipidemia) Code(s): E78.5 - HYPERLIPIDEMIA, UNSPECIFIED Qualifiers: Hyperlipidemia type: pure hypercholesterolemia Qualified Code(s): E78.00 - Pure hypercholesterolemia, unspecified; E78.0 - Pure hypercholesterolemia (4) HTN (hypertension) Code(s): I10 - ESSENTIAL (PRIMARY) HYPERTENSION Qualifiers: Hypertension type: essential hypertension Qualified Code(s): I10 - Essential (primary) hypertension (5) S/p nephrectomy Code(s): Z90.5 - ACQUIRED ABSENCE OF KIDNEY Assessment/Plan Laboratory Tests 09/08/17 06:15 Sodium 141 Creatinine 1.6 H Laboratory Tests 09/08/17 06:15 Creatine Kinase 816 H Impression 1. CKD with acute component 2. s/p nephrectomy 3. RCC 4. chest pain r/o acs 5. gerd 6. parkinsons 7. epilepsy 8. HTN 9. rhabdo Plan - recommend that pt maintain adequate hydration - pt will follow with Dr Monteiro next week - no acute change in management - cpk is improving but not back to baseline Dr Trotter
[2017-09-08] MEDS ORDERED: ATORVASTATIN CA 40 MG TABLET (FP) PO SCH (22:00)
== END 2017-09-08 12:06 | disposition home or self-care (01) | DRG 303 ==
LOC: JER 04:02 → JERBED 05:36 → OBSVTOIN 09-06 08:27 → J4W 09-06 14:45
PROVIDERS: ADMIT Family Medicine; ATTEND Family Medicine
DX: I25.10 Atherosclerotic heart disease of native coronary artery without angina pectoris (principal); C78.00 Secondary malignant neoplasm of unspecified lung; M62.82 Rhabdomyolysis; N17.9 Acute kidney failure, unspecified; G20 Parkinson's disease; Z85.528 Personal history of other malignant neoplasm of kidney; Z87.891 Personal history of nicotine dependence; G40.909 Epilepsy, unspecified, not intractable, without status epilepticus; F41.9 Anxiety disorder, unspecified; R00.1 Bradycardia, unspecified; K21.9 Gastro-esophageal reflux disease without esophagitis; K27.9 Peptic ulcer, site unspecified, unspecified as acute or chronic, without hemorrhage or perforation; D64.9 Anemia, unspecified; I12.9 Hypertensive chronic kidney disease with stage 1 through stage 4 chronic kidney disease, or unspecified chronic kidney disease; N18.2 Chronic kidney disease, stage 2 (mild); I34.0 Nonrheumatic mitral (valve) insufficiency; I36.1 Nonrheumatic tricuspid (valve) insufficiency; E78.2 Mixed hyperlipidemia
CPT/HCPCS: 36415; 71045-TC; 78452-TC; 80048; 80053; 80061; 81003; 82150; 82550; 82553; 83036; 83690; 83721; 83735; 83880; 84484; 85025; 85610; 85730; 93005; 93010; 93017; 93306-TC; 99285-25; A9502; G0378

== ENCOUNTER 2017-09-11 18:41 | Emergency (ER) | payer OTHER, MEDICARE ==
[2017-09-11 18:50] VITALS: BP 141/74; BMI 29.0
--- NOTE | 2017-09-11 18:50 | PDOC ---
Rapid Medical Evaluation Time Seen by Provider: 09/11/17 18:45 Medical Evaluation: Allergies Allergy/AdvReac Type Severity Reaction Status Date / Time aspirin Allergy Verified 09/11/17 18:44 atorvastatin calcium Allergy Verified 09/11/17 18:44 [From Lipitor] 09/11/17 18:45 I performed a brief in-person evaluation of this patient. This patient presents with referral from Dr. Cordova for rule out pneumonia. Patient s/p discharge from hospital Monday. Reports shortness of breath, fever , chills and productive cough since then with yellowish phlegm. Denies chest pain Pertinent physical exam findings: Nad unlabored breathing diminished lung sounds on right bases heart s1 s2 I have ordered the following: ekg labs chest xray The patient will proceed to the ED for further evaluation. 09/11/17 21:48
[2017-09-11 19:30] LABS: INR 1.02 (0.82-1.09); PROTHROMBIN TIME (PATIENT) 11.5 SEC (9.98-11.88)
[2017-09-11 19:56] LABS: ALBUMIN 3.8 g/dl (3.4-5.0); ANION GAP 7 (8-16); BLOOD UREA NITROGEN 17 mg/dL (7-18); CHLORIDE 98 mmol/L (98-107); CO2 28 mmol/L (21-32); CREATININE 1.8 mg/dL (0.7-1.3); GLUCOSE,RANDOM 99 mg/dL (74-106); POTASSIUM 4.5 mmol/L (3.5-5.1); SGOT/AST 49 U/L (15-37); SGPT/ALT 27 U/L (12-78); SODIUM 133 mmol/L (136-145)
[2017-09-11 19:58] LABS: ALK PHOS 72 U/L (45-117); BILIRUBIN,TOTAL 0.8 mg/dL (0.2-1.0); TOT PROT 7.2 g/dl (6.4-8.2)
[2017-09-11 22:50] LABS: BASO % 0.7 % (0-2.0); EOS % 0.5 % (0-4.5); HEMATOCRIT 34.4 % (35.4-49); HEMOGLOBIN 11.5 GM/dL (11.7-16.9); MCH 35.6 pg (25.7-33.7); MCHC 33.6 g/dl (32.0-35.9); MEAN CELL VOLUME 106.1 fl (80-96); MEAN PLT VOLUME 7.7 fl (7.5-11.1); NEUT % 69.8 % (42.8-82.8); PLATELET COUNT 153 K/MM3 (134-434); RBC 3.24 M/mm3 (4.00-5.60); WHITE BLOOD COUNT 4.2 K/mm3 (4.0-10.0)
[2017-09-11 23:02] LABS: URINE APPEARANCE CLEAR; URINE BILIRUBIN NEGATIVE (NEGATIVE); URINE BLOOD NEGATIVE (NEGATIVE); URINE COLOR LTYELLOW; URINE GLUCOSE (UA) NEGATIVE (NEGATIVE); URINE KETONE NEGATIVE (NEGATIVE); URINE LEUK ESTERASE NEGATIVE (NEGATIVE); URINE NITRITE NEGATIVE (NEGATIVE); URINE PROTEIN NEGATIVE (NEGATIVE); URINE UROBILINOGEN NEGATIVE mg/dL (0.2-1.0)
[2017-09-11 23:07] LABS: ADD RBC MORPHOLOGY YES
[2017-09-11] MEDS ORDERED: ACETAMINOPHEN 1000 MG/100 ML VIAL (NON FORMULARY) IVPB ONE (23:47)
[2017-09-11] MEDS ORDERED: ACETAMINOPHEN INJECTION 100 ML IVPB ONE (23:59)
[2017-09-12] MEDS ORDERED: levETIRAcetam 500 MG TABLET (FP) PO ONE ×3 (00:49→01:37)
[2017-09-12] MEDS ORDERED: lamoTRIgine 100 MG TABLET (FP) PO ONE (00:49)
[2017-09-12] MEDS ORDERED: OSELTAMIVIR PHOSPHATE 75 MG CAPSULE PO ONE (00:58)
[2017-09-12 01:11] VITALS: PULSE 54; TEMP 98.2
--- NOTE | 2017-09-12 01:15 | PDOC ---
History of Present Illness - General Chief Complaint: Respiratory Distress Stated Complaint: PCP SENT/PNEUMONIA Time Seen by Provider: 09/11/17 18:45 - History of Present Illness Initial Comments: 09/12/17 01:13 CHIEF COMPLAINT: r/o pneumonia HISTORY OF PRESENT ILLNESS: 72 yo M with hx of renal cell carcinoma (with mets to lungs), parkinson's, brain surgery (aneurysm repair), open heart surgery, (L atrial myxoma), HTN and chronic bradycardia sent in by PCP Art to r/o pneumonia. Patient states he has been coughing and sneezing x 3 days with generalized malaise. He states that he was seen by Dr. Cordova today who heard "crackles in his lungs and thought it was pneumonia." No recent travel or sick contacts. PAST MEDICAL HISTORY: as per HPI SOCIAL HISTORY: Lives at home with . Denies tobacco, alcohol, illicit drug use. SURGICAL HISTORY: Denies ALLERGIES:aspiring, atorvastatin REVIEW OF SYSTEMS General/Constitutional: Fever, generalized malaise. HEENT: Denies change in vision. Denies ear pain or discharge. Denies sore throat. Cardiovascular: Denies chest pain or shortness of breath. Respiratory: Cough x 3 days. Gastrointestinal: Denies nausea, vomiting, diarrhea or constipation. Denies rectal bleeding. Genitourinary: Denies dysuria, frequency, or change in urination. Musculoskeletal: Denies joint or muscle swelling or pain. Denies neck or back pain. Skin and breasts: Denies rash or easy bruising. Neurologic: Denies headache, vertigo, loss of consciousness, or loss of sensation. PHYSICAL EXAM General Appearance: Well-appearing, appropriately dressed. No apparent distress , no intoxication. HEENT: EOMI, PERRLA, normal ENT inspection, normal voice, TMs normal, pharynx normal. No conjunctival pallor. No photophobia, scleral icterus. Respiratory/Chest: Minimal crackles to base of left lung. No shortness of breath, chest tenderness, respiratory distress, accessory muscle use. No crackles, rales, rhonchi, stridor, wheezing, dullness Cardiovascular: RRR. S1, S2. No JVD, murmur, bradycardia, tachycardia. Gastrointestinal/Abdominal: Normal bowel sounds. Abdomen soft, non-distended. No tenderness or rebound tenderness. No organomegaly, pulsatile mass, guarding , hernia, hepatomegaly, splenomegaly. Musculoskeletal/Extremities: Normal inspection. FROM of all extremities, normal capillary refill. Pelvis Stable. No CVA tenderness. No tenderness to extremities, pedal edema, swelling, erythema or deformity. Integumentary: Appropriate color, dry, warm. 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 Fully oriented, alert. Appropriate mood/affect. Motor strength 5/5. No appreciable EOM palsy, facial droop or sensory deficit. Past History - Past Medical History Allergies/Adverse Reactions: Allergies Allergy/AdvReac Type Severity Reaction Status Date / Time aspirin Allergy Verified 09/11/17 18:44 atorvastatin calcium Allergy Verified 09/11/17 18:44 [From Lipitor] Home Medications: Ambulatory Orders Acetaminophen [Tylenol .Regular Strength -] 650 mg PO Q4H PRN 04/04/16 Clonazepam [Klonopin -] 0.5 mg PO BID PRN 04/04/16 Docusate Sodium [Colace -] 100 mg PO TID PRN 04/04/16 Folic Acid 1 mg PO DAILY 04/04/16 Lamotrigine 100 mg PO BID 04/04/16 Ranitidine [Zantac -] 150 mg PO BID 04/04/16 Sennosides [Laxative] 17.2 mg PO HS PRN 04/04/16 Thiamine HCl [Vitamin B-1] 50 mg PO DAILY 04/04/16 Carbidopa/Levodopa 25/100 [Sinemet 25/100 -] 1 each PO TID 09/05/17 Pramipexole Dihydrochloride [Mirapex -] 1 mg PO HS 09/05/17 Sunitinib Malate [Sutent] 50 mg PO ASDIR 09/05/17 Amlodipine Besylate [Norvasc -] 5 mg PO DAILY #30 tablet MDD 1 09/08/17 Atorvastatin Ca [Lipitor] 40 mg PO HS #14 tablet MDD 1 09/08/17 Isosorbide Mononitrate [Imdur -] 30 mg PO DAILY #30 tab.sr.24h MDD 1 09/08/17 Levetiracetam [Keppra Xr -] 1,500 mg PO BID #60 tab.er.24h MDD 2 09/08/17 Red Yeast Rice 600 mg PO BID #30 tablet MDD 2 09/08/17 Oseltamivir Phosphate [Tamiflu] 30 mg PO BID #10 capsule 09/12/17 Anemia: No Asthma: No Cancer: Yes (RIGHT KIDNEY) Cardiac Disorders: Yes CVA: No COPD: No CHF: No DVT: No Dementia: No Diabetes: No GI Disorders: Yes (GERD,PYLORIC GASTRITIS,COLON POLYPS-ADENOMA;ULCERS) Disorders: No HTN: Yes Hypercholesterolemia: Yes Liver Disease: No Seizures: Yes (focal seizures affecting L arm/hand.) Thyroid Disease: No - Surgical History Abdominal Surgery: No Appendectomy: No Cardiac Surgery: Yes (CARDIAC CATH-NO OBST; 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) Cholecystectomy: No Lung Surgery: Yes (RECENT BIOPSY) Neurologic Surgery: Yes (CEREBRAL ANEURYSM ABLATED BY SURGERY AND GAMMA KNIFE) Orthopedic Surgery: No - Immunization History Immunization Up to Date: Yes - Suicide/Smoking/Psychosocial Hx Smoking Status: No Smoking History: Former smoker Years of Tobacco Use: 0 Have you smoked in the past 12 months: No Number of Cigarettes Smoked Daily: 0 If you are a former smoker, when did you quit?: 30YRS Cigars Per Day: 0 Information on smoking cessation initiated: No Hx Alcohol Use: No Drug/Substance Use Hx: No Substance Use Type: None Hx Substance Use Treatment: No *Physical Exam - Vital Signs Last Vital Signs Temp Pulse Resp BP Pulse Ox 98.2 F 54 L 16 141/74 97 09/12/17 01:10 09/12/17 01:10 09/11/17 18:45 09/11/17 18:45 09/12/17 01:10 ED Treatment Course - LABORATORY CBC & Chemistry Diagram: 09/11/17 22:42 09/11/17 19:05 - ADDITIONAL ORDERS Additional order review: Laboratory Results 09/11/17 09/11/17 09/11/17 22:42 22:42 22:42 PT with INR INR PTT (Actin FS) VBG pH Cancelled POC VBG pCO2 Cancelled POC VBG pO2 Cancelled Mixed VBG HCO3 Cancelled Sodium Potassium Chloride Carbon Dioxide Anion Gap BUN Creatinine Creat Clearance w eGFR Random Glucose Lactic Acid Calcium Total Bilirubin AST ALT Alkaline Phosphatase Creatine Kinase 853 H Creatine Kinase Index 0.3 CK-MB (CK-2) 3.311 Troponin I < 0.02 Total Protein Albumin Urine Color Urine Appearance Urine pH Ur Specific [place] Urine Protein Urine Glucose (UA) Urine Ketones Urine Blood Urine Nitrite Urine Bilirubin Urine Urobilinogen Ur Leukocyte Esterase Blood Type A POSITIVE Antibody Screen Negative 09/11/17 09/11/17 09/11/17 22:42 22:38 19:05 PT with INR INR PTT (Actin FS) VBG pH POC VBG pCO2 POC VBG pO2 Mixed VBG HCO3 Sodium 133 L Potassium 4.5 Chloride 98 Carbon Dioxide 28 Anion Gap 7 L BUN 17 Creatinine 1.8 H Creat Clearance w eGFR 37.27 Random Glucose 99 Lactic Acid 2.3 H* Calcium 8.0 L Total Bilirubin 0.8 D AST 49 H ALT 27 D Alkaline Phosphatase 72 Creatine Kinase Creatine Kinase Index CK-MB (CK-2) Troponin I Total Protein 7.2 Albumin 3.8 Urine Color Ltyellow Urine Appearance Clear Urine pH 6.0 Ur Specific [place] 1.005 Urine Protein Negative Urine Glucose (UA) Negative Urine Ketones Negative Urine Blood Negative Urine Nitrite Negative Urine Bilirubin Negative Urine Urobilinogen Negative Ur Leukocyte Esterase Negative Blood Type Antibody Screen 09/11/17 19:05 PT with INR 11.50 INR 1.02 PTT (Actin FS) 26.0 L VBG pH POC VBG pCO2 POC VBG pO2 Mixed VBG HCO3 Sodium Potassium Chloride Carbon Dioxide Anion Gap BUN Creatinine Creat Clearance w eGFR Random Glucose Lactic Acid Calcium Total Bilirubin AST ALT Alkaline Phosphatase Creatine Kinase Creatine Kinase Index CK-MB (CK-2) Troponin I Total Protein Albumin Urine Color Urine Appearance Urine pH Ur Specific [place] Urine Protein Urine Glucose (UA) Urine Ketones Urine Blood Urine Nitrite Urine Bilirubin Urine Urobilinogen Ur Leukocyte Esterase Blood Type Antibody Screen 09/11/17 22:35 Influenza Types A,B Antigen (NICOLASA) - Final Nasopharyngeal Swab - Final 09/11/17 22:42 RBC 3.24 L MCV 106.1 H MCHC 33.6 RDW 16.0 H MPV 7.7 Neutrophils % 69.8 D Lymphocytes % 21.0 D Monocytes % 8.0 Eosinophils % 0.5 D Basophils % 0.7 - Medications Given in the ED: ED Medications Discontinued Medications Generic Name Dose Route Start Last Admin Trade Name Freq PRN Reason Stop Dose Admin Acetaminophen 1,000 mg 09/11/17 23:47 09/12/17 00:02 Ofirmev Injection - IVPB 09/11/17 23:48 1,000 mg ONCE ONE Administration Medical Decision Making - Medical Decision Making 09/12/17 01:20 72 yo M with hx of renal cell carcinoma (with mets to lungs), parkinson's, brain surgery (aneurysm repair), open heart surgery, (L atrial myxoma), HTN and chronic bradycardia sent in by PCP Art to r/o pneumonia. -EKG, CXR -CBC, CMP, lactic acid, PT/INR, trop -Ofirmev 09/12/17 01:21 Patient is Influenza A positive. CXR with slightly increased haziness to left lower lobe when compared to previous x-ray of 09/05/17. Patient home seizure meds given. Labs: creatinine 1.9 but at pt's baseline, lactic acid elevated but likely secondary to influenza. Patient reassessed by myself and attending MD Whitlock. Patient has no dyspnea on exertion, no conversational dyspnea at this time and has O2 sat of 97 with good waveform. Repeat temp 98.7F. Will start Tamiflu here in ED and d/c to home for outpatient management of influenza A. Advised patient to take medication as prescribed and follow up with Dr. Cordova tomorrow. Advised patient of signs and symptoms for return to ED. Patient verbalized understanding and agrees to plan. 09/12/17 01:25 *DC/Admit/Observation/Transfer Diagnosis at time of Disposition: Influenza A Chronic kidney disease (CKD) Qualifiers: Chronic kidney disease stage: unspecified stage Qualified Code(s): N18.9 - Chronic kidney disease, unspecified - Discharge Dispostion Disposition: HOME Condition at time of disposition: Stable Admit: No - Prescriptions Prescriptions: Oseltamivir Phosphate [Tamiflu] 30 mg PO BID #10 capsule - Referrals Referrals: Mainor Cordova MD [Primary Care Provider] - - Patient Instructions Printed Discharge Instructions: DI for Influenza -- Adult Additional Instructions: Please take medication as prescribed and follow up with Dr. Cordova tomorrow. If you develop worsening shortness of breath, fever unrelieved by Motrin or Tylenol, increased fatigue, vomiting or diarrhea, or any new or worsening symptoms, please return to the ER. - Post Discharge Activity
[2017-09-12] MEDS ORDERED: OSELTAMIVIR PHOSPHATE 30 MG CAPSULE PO ONE (01:16)
[2017-09-12] MEDS ORDERED: OSELTAMIVIR PHOSPHATE 75 MG CAPSULE ONE (01:37)
--- NOTE | 2017-09-12 01:39 | PDOC ---
*Physical Exam - Vital Signs Last Vital Signs Temp Pulse Resp BP Pulse Ox 98.2 F 54 L 16 141/74 97 09/12/17 01:10 09/12/17 01:10 09/11/17 18:45 09/11/17 18:45 09/12/17 01:10 ED Treatment Course - LABORATORY CBC & Chemistry Diagram: 09/11/17 22:42 09/11/17 19:05 - ADDITIONAL ORDERS Additional order review: Laboratory Results 09/11/17 09/11/17 09/11/17 22:42 22:42 22:42 PT with INR INR PTT (Actin FS) VBG pH Cancelled POC VBG pCO2 Cancelled POC VBG pO2 Cancelled Mixed VBG HCO3 Cancelled Sodium Potassium Chloride Carbon Dioxide Anion Gap BUN Creatinine Creat Clearance w eGFR Random Glucose Lactic Acid Calcium Total Bilirubin AST ALT Alkaline Phosphatase Creatine Kinase 853 H Creatine Kinase Index 0.3 CK-MB (CK-2) 3.311 Troponin I < 0.02 Total Protein Albumin Urine Color Urine Appearance Urine pH Ur Specific [place] Urine Protein Urine Glucose (UA) Urine Ketones Urine Blood Urine Nitrite Urine Bilirubin Urine Urobilinogen Ur Leukocyte Esterase Blood Type A POSITIVE Antibody Screen Negative 09/11/17 09/11/17 09/11/17 22:42 22:38 19:05 PT with INR INR PTT (Actin FS) VBG pH POC VBG pCO2 POC VBG pO2 Mixed VBG HCO3 Sodium 133 L Potassium 4.5 Chloride 98 Carbon Dioxide 28 Anion Gap 7 L BUN 17 Creatinine 1.8 H Creat Clearance w eGFR 37.27 Random Glucose 99 Lactic Acid 2.3 H* Calcium 8.0 L Total Bilirubin 0.8 D AST 49 H ALT 27 D Alkaline Phosphatase 72 Creatine Kinase Creatine Kinase Index CK-MB (CK-2) Troponin I Total Protein 7.2 Albumin 3.8 Urine Color Ltyellow Urine Appearance Clear Urine pH 6.0 Ur Specific [place] 1.005 Urine Protein Negative Urine Glucose (UA) Negative Urine Ketones Negative Urine Blood Negative Urine Nitrite Negative Urine Bilirubin Negative Urine Urobilinogen Negative Ur Leukocyte Esterase Negative Blood Type Antibody Screen 09/11/17 19:05 PT with INR 11.50 INR 1.02 PTT (Actin FS) 26.0 L VBG pH POC VBG pCO2 POC VBG pO2 Mixed VBG HCO3 Sodium Potassium Chloride Carbon Dioxide Anion Gap BUN Creatinine Creat Clearance w eGFR Random Glucose Lactic Acid Calcium Total Bilirubin AST ALT Alkaline Phosphatase Creatine Kinase Creatine Kinase Index CK-MB (CK-2) Troponin I Total Protein Albumin Urine Color Urine Appearance Urine pH Ur Specific [place] Urine Protein Urine Glucose (UA) Urine Ketones Urine Blood Urine Nitrite Urine Bilirubin Urine Urobilinogen Ur Leukocyte Esterase Blood Type Antibody Screen 09/11/17 22:35 Influenza Types A,B Antigen (NICOLASA) - Final Nasopharyngeal Swab - Final 09/11/17 22:42 RBC 3.24 L MCV 106.1 H MCHC 33.6 RDW 16.0 H MPV 7.7 Neutrophils % 69.8 D Lymphocytes % 21.0 D Monocytes % 8.0 Eosinophils % 0.5 D Basophils % 0.7 - Medications Given in the ED: ED Medications Discontinued Medications Generic Name Dose Route Start Last Admin Trade Name Jas PRN Reason Stop Dose Admin Acetaminophen 1,000 mg 09/11/17 23:47 09/12/17 00:02 Ofirmev Injection - IVPB 09/11/17 23:48 1,000 mg ONCE ONE Administration Oseltamivir Phosphate 75 mg 09/12/17 00:58 09/12/17 01:32 Tamiflu - PO 09/12/17 00:59 Not Given ONCE ONE Medical Decision Making - Medical Decision Making 09/12/17 01:33 agree with care from [facility]. Pt presents for evaluation of pneumonia by Dr. Cordova. Pt with extensive medical history. Pt influenza A positive. Pt no longer febrile. No GUERRERO. Saturation 97% RA. Will give Tamiflu 30mg bid PO. Pt to follow up with Dr. Cordova in the morning. *DC/Admit/Observation/Transfer Diagnosis at time of Disposition: Influenza A - Prescriptions Prescriptions: Oseltamivir Phosphate [Tamiflu] 30 mg PO BID #10 capsule - Referrals Referrals: Mainor Cordova MD [Primary Care Provider] - - Patient Instructions - Post Discharge Activity
--- NOTE | 2017-09-12 10:31 | EKG ---
Test Reason : Blood Pressure : / mmHG Vent. Rate : 071 BPM Atrial Rate : 071 BPM P-R Int : 160 ms QRS Dur : 094 ms QT Int : 394 ms P-R-T Axes : 060 035 108 degrees QTc Int : 428 ms NORMAL SINUS RHYTHM NONSPECIFIC T WAVE ABNORMALITY ABNORMAL ECG WHEN COMPARED WITH ECG OF 11-SEP-2017 22:11, PREVIOUS ECG HAS UNDETERMINED RHYTHM, NEEDS REVIEW Confirmed by BERONICA ALMARAZ, ABNER ([id number]) on 09/12/2017 10:31:01 AM Referred By: Confirmed By:ABNER LOCO MD
== END 2017-09-12 01:44 | disposition home or self-care (01) ==
LOC: JER 18:41
PROC: 3E033NZ Introduction of Analgesics, Hypnotics, Sedatives into Peripheral Vein, Percutaneous Approach (ICD-10-PCS; principal; 2017-09-11)
DX: J09.X2 Influenza due to identified novel influenza A virus with other respiratory manifestations (principal); I10 Essential (primary) hypertension; R00.1 Bradycardia, unspecified; Z85.528 Personal history of other malignant neoplasm of kidney; Z85.118 Personal history of other malignant neoplasm of bronchus and lung; Z87.39 Personal history of other diseases of the musculoskeletal system and connective tissue; D15.1 Benign neoplasm of heart; G20 Parkinson's disease
CPT/HCPCS: 36415; 71045-TC; 80053; 81003; 82550; 82553; 83605; 84484; 85025; 85610; 85730; 86850; 86900; 86901; 87040; 87086; 87804; 93005; 93010; 96374; 99282-25

== ENCOUNTER 2017-12-23 18:31 | Emergency (ER) | payer OTHER, MEDICARE ==
[2017-12-23 18:44] VITALS: BP 122/70; PULSE 60; TEMP 98.5; BMI 29.7
--- NOTE | 2017-12-23 19:40 | PDOC ---
History of Present Illness - General Chief Complaint: Pain, Acute Stated Complaint: GENITAL PROBLEM Time Seen by Provider: 12/23/17 19:15 History Source: Patient Exam Limitations: No Limitations - History of Present Illness Initial Comments: CHIEF COMPLAINT: 72 y/o afebrile male with swelling to shaft of penis x 4 days. HISTORY OF PRESENT ILLNESS: The patient states 5 days ago the patient had a cat scan of his chest and abd for 6 month lung CA follow up. The next day his noticed his face was a little puffy and so was the shaft of his penis. They state that yesterday the swelling had almost completely resolved but today it returned. The patient denies fever, pain, dysuria, hematuria, testicular swelling/pain, hx of penile implant, trauma/overuse to penis, difficulty retracting foreskin. Vital signs on arrival are within normal limits. REVIEW OF SYSTEMS: GENERAL/CONSTITUTIONAL: No fever/chills. No weakness. No weight change. GASTROINTESTINAL: No abd pain, nausea, vomiting, diarrhea. GENITOURINARY: No dysuria, frequency, or change in urination. GENITAL: +swelling to shaft of penis. No testicular swelling. No testicular pain. MUSCULOSKELETAL: No joint or muscle swelling or pain. No neck or back pain. SKIN: No rash or easy bruising. NEUROLOGIC: No headache, vertigo, loss of consciousness, or loss of sensation. PHYSICAL EXAM: GENERAL: The patient is awake, alert, and fully oriented, in no acute distress. ABDOMEN: Soft, non-distended, non-tender even to deep palpation, no hepatomegaly or splenomegaly, no masses. GENITAL: cellulitis to shaft of penis. No phimosis or paraphimosis. No erythema or warmth to shaft or glans of penis. No testicular swelling, erythema or TTP. No TTP of shaft of penis. EXTREMITIES: Normal range of motion, no edema. NEUROLOGICAL: Normal speech, normal gait. CN II-XII grossly intact. SKIN: Warm, dry, normal turgor, no rashes or lesions noted. Past History - Past Medical History Allergies/Adverse Reactions: Allergies Allergy/AdvReac Type Severity Reaction Status Date / Time aspirin Allergy Verified 12/23/17 18:41 atorvastatin calcium Allergy Verified 12/23/17 18:41 [From Lipitor] Home Medications: Ambulatory Orders Acetaminophen [Tylenol .Regular Strength -] 650 mg PO Q4H PRN 04/04/16 Docusate Sodium [Colace -] 100 mg PO TID PRN 04/04/16 Folic Acid 1 mg PO DAILY 04/04/16 Lamotrigine 100 mg PO BID 04/04/16 Ranitidine [Zantac -] 150 mg PO BID 04/04/16 Sennosides [Laxative] 17.2 mg PO HS PRN 04/04/16 Thiamine HCl [Vitamin B-1] 50 mg PO DAILY 04/04/16 clonazePAM [Klonopin -] 0.5 mg PO BID PRN 04/04/16 Carbidopa/Levodopa 25/100 [Sinemet 25/100 -] 1 each PO TID 09/05/17 Pramipexole Dihydrochloride [Mirapex -] 1 mg PO HS 09/05/17 Sunitinib Malate [Sutent] 50 mg PO ASDIR 09/05/17 Amlodipine Besylate [Norvasc -] 5 mg PO DAILY #30 tablet MDD 1 09/08/17 Atorvastatin Ca [Lipitor] 40 mg PO HS #14 tablet MDD 1 09/08/17 Isosorbide Mononitrate [Imdur -] 30 mg PO DAILY #30 tab.sr.24h MDD 1 09/08/17 Red Yeast Rice 600 mg PO BID #30 tablet MDD 2 09/08/17 levETIRAcetam [Keppra Xr -] 1,500 mg PO BID #60 tab.er.24h MDD 2 09/08/17 Oseltamivir Phosphate [Tamiflu] 30 mg PO BID #10 capsule 09/12/17 Anemia: No Asthma: No Cancer: Yes (RIGHT KIDNEY) Cardiac Disorders: Yes CVA: No COPD: No CHF: No DVT: No Dementia: No Diabetes: No GI Disorders: Yes (GERD,PYLORIC GASTRITIS,COLON POLYPS-ADENOMA;ULCERS) Disorders: No HTN: Yes Hypercholesterolemia: Yes Liver Disease: No Seizures: Yes (focal seizures affecting L arm/hand.) Thyroid Disease: No - Surgical History Abdominal Surgery: No Appendectomy: No Cardiac Surgery: Yes (CARDIAC CATH-NO OBST; 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) Cholecystectomy: No Lung Surgery: Yes (RECENT BIOPSY) Neurologic Surgery: Yes (CEREBRAL ANEURYSM ABLATED BY SURGERY AND GAMMA KNIFE) Orthopedic Surgery: No - Immunization History Immunization Up to Date: Yes - Suicide/Smoking/Psychosocial Hx Smoking Status: No Smoking History: Never smoked Years of Tobacco Use: 0 Have you smoked in the past 12 months: No Number of Cigarettes Smoked Daily: 0 If you are a former smoker, when did you quit?: 30YRS Cigars Per Day: 0 Information on smoking cessation initiated: No Hx Alcohol Use: No Drug/Substance Use Hx: No Substance Use Type: None Hx Substance Use Treatment: No *Physical Exam - Vital Signs Last Vital Signs Temp Pulse Resp BP Pulse Ox 98.5 F 60 18 122/70 97 12/23/17 18:42 12/23/17 18:42 12/23/17 18:42 12/23/17 18:42 12/23/17 18:42 Medical Decision Making - Medical Decision Making A/P: 72 y/o male with cellulitis to the shaft of the penis. Explained to the patient and his that the symptoms will most likely resolve on their own. Instructed them to return to the ER with any worsening or concerning symptoms including fever, redness, warmth or pain to affected area. The patient verbalizes understanding of all instructions, has no further questions and is awaiting discharge. *DC/Admit/Observation/Transfer Diagnosis at time of Disposition: Cellulitis of shaft of penis - Discharge Dispostion Disposition: HOME Condition at time of disposition: Good - Referrals Referrals: Mainor Cordova MD [Primary Care Provider] - Call tomorrow - Patient Instructions Printed Discharge Instructions: DI for Cellulitis -- Adult Additional Instructions: Discharge Instructions: -You have swelling of the shaft of your penis. -This should go away on its own -Please follow up with your doctor within 1 week -Return to the ER with any worsening or concerning symptoms including pain, painful urination, redness/warmth to penis, fever - Post Discharge Activity
== END 2017-12-23 19:56 | disposition home or self-care (01) ==
LOC: JERFT 18:31
DX: N48.22 Cellulitis of corpus cavernosum and penis (principal); I25.10 Atherosclerotic heart disease of native coronary artery without angina pectoris; Z98.61 Coronary angioplasty status; I10 Essential (primary) hypertension; E78.00 Pure hypercholesterolemia, unspecified; Z85.528 Personal history of other malignant neoplasm of kidney; Z87.19 Personal history of other diseases of the digestive system; Z85.118 Personal history of other malignant neoplasm of bronchus and lung
CPT/HCPCS: 99281-25

== ENCOUNTER 2018-03-23 17:13 | Inpatient (IN) | payer OTHER, MEDICARE ==
--- NOTE | 2018-03-23 17:27 | PDOC ---
Rapid Medical Evaluation Time Seen by Provider: 03/23/18 17:24 Medical Evaluation: Allergies Allergy/AdvReac Type Severity Reaction Status Date / Time aspirin Allergy Verified 12/23/17 18:41 atorvastatin calcium Allergy Verified 12/23/17 18:41 [From Lipitor] 03/23/18 17:24 I have performed a brief in-person evaluation of this patient. The patient presents with a chief complaint of: S/p AVM repair in 2009, metastatic renal cancer on chemo and sent in by Dr Gonzalez for TSH of 144 on labs yesterday, T4 0.5. Pt c/o malaise w/ unsteady gait Pertinent physical exam findings:Appears pale and chronically ill but stable I have ordered the following:labs The patient will proceed to the ED for further evaluation Discharge Disposition - Diagnosis Malaise - Referrals - Patient Instructions - Post Discharge Activity
[2018-03-23 17:55] LABS: BASO % 0.6 % (0-2.0); EOS % 1.5 % (0-4.5); HEMATOCRIT 29.8 % (35.4-49); HEMOGLOBIN 10.2 GM/dL (11.7-16.9); LYMPH % 30.1 % (8-40); MCH 36.6 pg (25.7-33.7); MCHC 34.2 g/dl (32.0-35.9); MEAN CELL VOLUME 106.8 fl (80-96); MEAN PLT VOLUME 7.4 fl (7.5-11.1); MONO % 7.6 % (3.8-10.2); NEUT % 60.2 % (42.8-82.8); PLATELET COUNT 189 K/MM3 (134-434); RBC 2.79 M/mm3 (4.00-5.60); RDW 14.8 % (11.9-15.9); WHITE BLOOD COUNT 4.2 K/mm3 (4.0-10.0)
[2018-03-23 18:19] LABS: ALBUMIN 4.2 g/dl (3.4-5.0); ANION GAP 9 (8-16); BILIRUBIN,TOTAL 0.3 mg/dL (0.2-1.0); BLOOD UREA NITROGEN 21 mg/dL (7-18); CALCIUM 9.2 mg/dL (8.5-10.1); CHLORIDE 95 mmol/L (98-107); CO2 30 mmol/L (21-32); CREATININE 1.8 mg/dL (0.7-1.3); GLUCOSE,RANDOM 81 mg/dL (74-106); POTASSIUM 4.1 mmol/L (3.5-5.1); SGOT/AST 277 U/L (15-37); SGPT/ALT 84 U/L (12-78); SODIUM 134 mmol/L (136-145); TOT PROT 7.8 g/dl (6.4-8.2)
[2018-03-23 18:20] LABS: LIPASE 210 U/L (73-393)
[2018-03-23 18:42] LABS: ALK PHOS 95 U/L (45-117)
[2018-03-23 18:50] LABS: URINE APPEARANCE CLEAR; URINE BILIRUBIN NEGATIVE (<2.0 mg/dL); URINE COLOR LTYELLOW; URINE GLUCOSE (UA) NEGATIVE (NEGATIVE); URINE KETONE NEGATIVE (NEGATIVE); URINE LEUK ESTERASE NEGATIVE (NEGATIVE); URINE NITRITE NEGATIVE (NEGATIVE); URINE PROTEIN NEGATIVE (NEGATIVE); URINE UROBILINOGEN NEGATIVE mg/dL (0.2-1.0)
--- NOTE | 2018-03-23 18:52 | PDOC ---
History of Present Illness <Farhana Monique - Last Filed: 03/23/18 18:51> - General History Source: Patient, Family Exam Limitations: No Limitations - History of Present Illness Initial Comments: 03/23/18 18:55 Patient is a 72 year old male with a significant past medical history of RCC ( lung mets), parkinson's dz, HTN and chronic bradycardia who was sent by Neurologist to the ED due to abnormal lab results. As per patient's daughter, patient began to experience ataxic gait, causing him to walk predominantly to one side, prompting them to see Dr. Gonzalez yesterday afternoon. She reports Dr. Gonzalez conducted routine labs which she states caused him to call her this evening due to the lab results being abnormal, advising them to come into the ED for further evaluation. As per patient's daughter, patient has been experiencing increased lethargy, stating he falls asleep while during activities such has conversations and reading. Patient reports feeling normal, and currently does not have any complaints while in the ED. Denies chest pain, Sob. Denies nausea, vomiting. Denies fevers, chills. Denies contact with sick individuals, out of state travelling. Denies head trauma, loss of consciousness, vision changes. Denies dysuria, hematuria, constipation, diarrhea. Denies any other symptoms. Allergies: Aspirin, Atorvastatin Calcium. Social history: Lives with daughter. No smoking. No alcohol. No illicit drugs. 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 Mainor Cordova <Terry Harris - Last Filed: 03/23/18 18:56> - General Chief Complaint: Revisit, Lab Variance Stated Complaint: PCP SENT Time Seen by Provider: 03/23/18 17:24 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) Cholecystectomy: No Lung Surgery: Yes (RECENT BIOPSY) Neurologic Surgery: Yes (CEREBRAL ANEURYSM ABLATED BY SURGERY AND GAMMA KNIFE) Orthopedic Surgery: No - Immunization History Immunization Up to Date: Yes - Suicide/Smoking/Psychosocial Hx Smoking Status: No Smoking History: Never smoked Years of Tobacco Use: 0 Have you smoked in the past 12 months: No Number of Cigarettes Smoked Daily: 0 If you are a former smoker, when did you quit?: 30YRS Cigars Per Day: 0 Information on smoking cessation initiated: No Hx Alcohol Use: No Drug/Substance Use Hx: No Substance Use Type: None Hx Substance Use Treatment: No <Farhana Monique - Last Filed: 03/23/18 18:51> <Terry Harris - Last Filed: 03/23/18 18:56> - Past Medical History Allergies/Adverse Reactions: Allergies Allergy/AdvReac Type Severity Reaction Status Date / Time aspirin Allergy Verified 03/23/18 17:24 atorvastatin calcium Allergy Verified 03/23/18 17:24 [From Lipitor] Home Medications: Ambulatory Orders Lamotrigine 100 mg PO BID 04/04/16 clonazePAM [Klonopin -] 0.5 mg PO BID PRN 04/04/16 Carbidopa/Levodopa 25/100 [Sinemet 25/100 -] 1.5 mg PO TID 09/05/17 Pramipexole Dihydrochloride [Mirapex -] 0.5 mg PO BID 09/05/17 Sunitinib Malate [Sutent] 50 mg PO ASDIR 09/05/17 levETIRAcetam [Keppra Xr -] 1,500 mg PO BID #60 tab.er.24h MDD 2 09/08/17 Cholecalciferol (Vitamin D3) [Vitamin D3] 5,000 unit PO ASDIR 12/23/17 Pramipexole Dihydrochloride [Mirapex -] 1 mg PO HS 03/23/18 Red Yeast Rice 3,200 mg PO BID MDD 2 03/23/18 Review of Systems - Review of Systems Able to Perform ROS?: Yes Comments:: 03/23/18 18:55 GENERAL/CONSTITUTIONAL: No fever or chills. No weakness. HEAD, EYES, EARS, NOSE AND THROAT: No change in vision. No ear pain or discharge. No sore throat. CARDIOVASCULAR: No chest pain or shortness of breath. RESPIRATORY: No cough, wheezing, or hemoptysis. GASTROINTESTINAL: No nausea, vomiting, diarrhea or constipation. GENITOURINARY: No dysuria, frequency, or change in urination. MUSCULOSKELETAL: No joint or muscle swelling or pain. No neck or back pain. SKIN: No rash NEUROLOGIC: No headache, vertigo, loss of consciousness, or change in strength/ sensation. ENDOCRINE: No increased thirst. No abnormal weight change. HEMATOLOGIC/LYMPHATIC: No anemia, easy bleeding, or history of blood clots. ALLERGIC/IMMUNOLOGIC: No hives or skin allergy. <Terry Harris - Last Filed: 03/23/18 18:56> *Physical Exam - Vital Signs Last Vital Signs Temp Pulse Resp BP Pulse Ox 97.9 F 54 L 18 160/86 98 03/23/18 17:24 03/23/18 17:24 03/23/18 17:24 03/23/18 17:24 03/23/18 17:24 <Farhana Monique - Last Filed: 03/23/18 18:51> - Vital Signs Last Vital Signs Temp Pulse Resp BP Pulse Ox 97.9 F 54 L 18 160/86 98 03/23/18 17:24 03/23/18 17:24 03/23/18 17:24 03/23/18 17:24 03/23/18 17:24 - Physical Exam Comments: 03/23/18 18:55 GENERAL: Awake, alert, and fully oriented, in no acute distress HEAD: No signs of trauma EYES: PERRLA, EOMI, sclera anicteric, conjunctiva clear ENT: Auricles normal inspection, hearing grossly normal, nares patent, oropharynx clear without exudates. Moist mucosa NECK: Normal ROM, supple, no lymphadenopathy, JVD, or masses LUNGS: Breath sounds equal, clear to auscultation bilaterally. No wheezes, and no crackles HEART: +Bradycardia with distant heart sounds. Regular rate and rhythm, normal S1 and S2, no murmurs, rubs or gallops ABDOMEN: Soft, nontender, normoactive bowel sounds. No guarding, no rebound. No masses EXTREMITIES: Normal range of motion, no edema. No clubbing or cyanosis. No cords, erythema, or tenderness NEUROLOGICAL: Cranial nerves II through XII grossly intact. Normal speech, normal gait SKIN: +Yellowish coloration to the skin, excluding the eyes. Warm, Dry, normal turgor, no rashes or lesions noted. <Terry Harris - Last Filed: 03/23/18 18:56> ED Treatment Course - LABORATORY CBC & Chemistry Diagram: 03/23/18 17:41 03/23/18 17:41 - ADDITIONAL ORDERS Additional order review: Laboratory Results 03/23/18 17:41 Sodium 134 L Potassium 4.1 Chloride 95 L Carbon Dioxide 30 Anion Gap 9 BUN 21 H Creatinine 1.8 H Creat Clearance w eGFR 37.27 Random Glucose 81 Calcium 9.2 Total Bilirubin 0.3 AST 277 H D ALT 84 H D Alkaline Phosphatase 95 Creatine Kinase 7211 H Troponin I < 0.02 Total Protein 7.8 Albumin 4.2 Lipase 210 03/23/18 17:41 RBC 2.79 L MCV 106.8 H MCHC 34.2 RDW 14.8 MPV 7.4 L Neutrophils % 60.2 Lymphocytes % 30.1 D Monocytes % 7.6 Eosinophils % 1.5 D Basophils % 0.6 <KaydenFarhana - Last Filed: 03/23/18 18:51> - LABORATORY CBC & Chemistry Diagram: 03/23/18 17:41 03/23/18 17:41 - ADDITIONAL ORDERS Additional order review: Laboratory Results 03/23/18 03/23/18 18:09 17:41 Sodium 134 L Potassium 4.1 Chloride 95 L Carbon Dioxide 30 Anion Gap 9 BUN 21 H Creatinine 1.8 H Creat Clearance w eGFR 37.27 Random Glucose 81 Calcium 9.2 Total Bilirubin 0.3 AST 277 H D ALT 84 H D Alkaline Phosphatase 95 Creatine Kinase 7211 H Troponin I < 0.02 Total Protein 7.8 Albumin 4.2 Lipase 210 Urine Color Ltyellow Urine Appearance Clear Urine pH 6.0 Ur Specific [place] 1.008 Urine Protein Negative Urine Glucose (UA) Negative Urine Ketones Negative Urine Blood Negative Urine Nitrite Negative Urine Bilirubin Negative Urine Urobilinogen Negative Ur Leukocyte Esterase Negative 03/23/18 17:41 RBC 2.79 L MCV 106.8 H MCHC 34.2 RDW 14.8 MPV 7.4 L Neutrophils % 60.2 Lymphocytes % 30.1 D Monocytes % 7.6 Eosinophils % 1.5 D Basophils % 0.6 <Terry Harris - Last Filed: 03/23/18 18:56> *DC/Admit/Observation/Transfer - Discharge Dispostion Decision to Admit order: Yes <Farhana Monique - Last Filed: 03/23/18 18:51> - Attestations Scribe Attestion: 03/23/18 18:56 Documentation prepared by Terry Harris, acting as medical equipment repair technician for Farhana Monique MD. <Terry Harris - Last Filed: 03/23/18 18:56> Diagnosis at time of Disposition: Malaise Hypothyroid Qualifiers: Hypothyroidism type: due to medication Qualified Code(s): E03.2 - Hypothyroidism due to medicaments and other exogenous substances - Discharge Dispostion Condition at time of disposition: Good - Referrals Referrals: Mainor Cordova MD [Primary Care Provider] - - Patient Instructions - Post Discharge Activity
[2018-03-23 20:16] LABS: MACROCYTOSIS 2+
--- NOTE | 2018-03-23 20:28 | HP ---
Admitting History and Physical - Admission Chief Complaint: symptomatic bradycardia History of Present Illness: this is a 72 y/o male patient with hx of Renal cell carcinoma s/p nephrectomy, now with mets being managed with chemotherapy, Left atrial myxoma, and DL presented to the clinic after the patient was found to have elevated levels of TSH, that was done while visiting his neurologist. patient stated that he has been fatigued lately, falling asleep easily, lack of energy, family stated that he was know to have slow heart rate. 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, Other (av malformasion s/p gamma knife ) Cardiovascular: Yes: HTN, Hyperlipdemia, Other (Atrial myxoma s/p resection ) Pulmonary: Yes: Cancer (Lung nodule and cancer s/p VATS/wedge resection) Gastrointestinal: Yes: GERD Renal/: Yes: Cancer (Renal cell CA s/p right nephrectomy) - Past Surgical History Past Surgical History: Yes: Nephrectomy, Thoracotomy - Smoking History Smoking history: Never smoked Have you smoked in the past 12 months: No Aproximately how many cigarettes per day: 0 If you are a former smoker, when did you quit?: 30YRS - Alcohol/Substance Use Hx Alcohol Use: No Home Medications - Allergies Allergies/Adverse Reactions: Allergies Allergy/AdvReac Type Severity Reaction Status Date / Time aspirin Allergy Verified 03/23/18 17:24 atorvastatin calcium Allergy Verified 03/23/18 17:24 [From Lipitor] - Home Medications Home Medications: Ambulatory Orders Lamotrigine 100 mg PO BID 04/04/16 clonazePAM [Klonopin -] 0.5 mg PO BID PRN 04/04/16 Carbidopa/Levodopa 25/100 [Sinemet 25/100 -] 1.5 mg PO TID 09/05/17 Pramipexole Dihydrochloride [Mirapex -] 0.5 mg PO BID 09/05/17 Sunitinib Malate [Sutent] 50 mg PO ASDIR 09/05/17 levETIRAcetam [Keppra Xr -] 1,500 mg PO BID #60 tab.er.24h MDD 2 09/08/17 Cholecalciferol (Vitamin D3) [Vitamin D3] 5,000 unit PO ASDIR 12/23/17 Pramipexole Dihydrochloride [Mirapex -] 1 mg PO HS 03/23/18 Red Yeast Rice 3,200 mg PO BID MDD 2 03/23/18 Review of Systems - Review of Systems Constitutional: reports: Chills, Weakness Eyes: reports: No Symptoms HENT: reports: No Symptoms Neck: reports: No Symptoms Cardiovascular: reports: No Symptoms Respiratory: reports: No Symptoms Gastrointestinal: reports: No Symptoms Genitourinary: reports: No Symptoms Musculoskeletal: reports: No Symptoms Integumentary: reports: No Symptoms Physical Examination Vital Signs: Vital Signs Temperature 98.1 F 03/23/18 19:14 Pulse Rate 49 L 03/23/18 19:14 Respiratory Rate 16 03/23/18 19:14 Blood Pressure 136/68 03/23/18 19:14 O2 Sat by Pulse Oximetry (%) 98 03/23/18 19:14 Constitutional: Yes: Well Nourished, No Distress, Calm Eyes: Yes: WNL, Conjunctiva Clear, EOM Intact HENT: Yes: WNL, Atraumatic, Normocephalic Neck: Yes: WNL, Supple, Trachea Midline Cardiovascular: Yes: WNL, Regular Rate and Rhythm Respiratory: Yes: WNL, Regular, CTA Bilaterally Gastrointestinal: Yes: WNL, Normal Bowel Sounds, Soft Renal/: Yes: WNL Labs: CBC, BMP 03/23/18 17:41 03/23/18 17:41 Imaging - Results X-ray: Report Reviewed, Image Reviewed EKG: Image Reviewed Problem List - Problems (1) Hypothyroid Assessment/Plan: consult endocrine obtain TSH, Free T3, Free T4, thyroxine start thyroxine based on endocrine recommendation obtain echocardiogram to evaluate the patient for pericardial effusion 2/2 hypothyrodism Code(s): E03.9 - HYPOTHYROIDISM, UNSPECIFIED Qualifiers: Hypothyroidism type: due to medication Qualified Code(s): E03.2 - Hypothyroidism due to medicaments and other exogenous substances (2) Anemia Assessment/Plan: patient is recieving chomtheraputic agents will start the patient on cobalamin IM dose Code(s): D64.9 - ANEMIA, UNSPECIFIED Qualifiers: Anemia type: B12 deficiency Vitamin B12 deficiency anemia type: other dietary B12 deficiency Qualified Code(s): D51.3 - Other dietary vitamin B12 deficiency anemia (3) Chronic kidney disease (CKD) Assessment/Plan: stable consulting Renal for follow up Code(s): N18.9 - CHRONIC KIDNEY DISEASE, UNSPECIFIED Qualifiers: Chronic kidney disease stage: unspecified stage Qualified Code(s): N18.9 - Chronic kidney disease, unspecified (4) Seizure disorder Assessment/Plan: c/w lamotrigine consult Dr. Gonzalez Code(s): G40.909 - EPILEPSY, UNSP, NOT INTRACTABLE, WITHOUT STATUS EPILEPTICUS (5) Symptomatic sinus bradycardia Assessment/Plan: avoid AV taqueria blocking agents admit the patient to tele monitoring consult Dr. Marinelli Code(s): R00.1 - BRADYCARDIA, UNSPECIFIED (6) Hyponatremia Assessment/Plan: / to hypothyroidims will correct the thyroid function and reevaluate the patient Code(s): E87.1 - HYPO-OSMOLALITY AND HYPONATREMIA
[2018-03-23] MEDS: PRAMIPEXOLE DIHYDROCHLORIDE 1 MG TABLET PO SCH (22:56)
[2018-03-23] MEDS: lamoTRIgine 100 MG TABLET (FP) PO SCH (22:56)
[2018-03-23] MEDS: CARBIDOPA/LEVODOPA 25/100 TABLET (FP) PO SCH (22:56)
[2018-03-23] MEDS: HEPARIN NA (PORCINE) 5,000 UNITS/ML 1ML VIAL SQ SCH (22:56)
[2018-03-23] MEDS: levETIRAcetam 500 MG TABLET (FP) PO SCH (22:57)
[2018-03-24] MEDS: clonazePAM 0.5 MG TABLET PO PRN (01:51)
[2018-03-24] MEDS ORDERED: ACETAMINOPHEN 325 MG TABLET (FP) ONE (01:51)
[2018-03-24] MEDS: ACETAMINOPHEN 325 MG TABLET (FP) PO PRN (01:52)
[2018-03-24] MEDS: PRAMIPEXOLE DIHYDROCHLORIDE 0.5 MG TABLET PO SCH ×2 (06:33→14:00)
[2018-03-24] MEDS: CARBIDOPA/LEVODOPA 25/100 TABLET (FP) PO SCH ×3 (06:33→21:39)
[2018-03-24] MEDS: HEPARIN NA (PORCINE) 5,000 UNITS/ML 1ML VIAL SQ SCH ×3 (06:34→21:39)
[2018-03-24] MEDS: LEVOTHYROXINE NA 75 MCG TABLET (FP) PO SCH (06:53)
[2018-03-24 06:56] LABS: BASO % 0.6 % (0-2.0); EOS % 1.9 % (0-4.5); HEMATOCRIT 28.1 % (35.4-49); HEMOGLOBIN 9.8 GM/dL (11.7-16.9); LYMPH % 37.6 % (8-40); MCH 37.1 pg (25.7-33.7); MEAN CELL VOLUME 106.2 fl (80-96); MEAN PLT VOLUME 7.7 fl (7.5-11.1); MONO % 7.4 % (3.8-10.2); NEUT % 52.5 % (42.8-82.8); PLATELET COUNT 172 K/MM3 (134-434); RBC 2.65 M/mm3 (4.00-5.60); RDW 15.1 % (11.9-15.9)
[2018-03-24 07:20] LABS: CHLORIDE 95 mmol/L (98-107); SODIUM 133 mmol/L (136-145)
[2018-03-24 07:45] LABS: ALBUMIN 3.9 g/dl (3.4-5.0); ALK PHOS 89 U/L (45-117); ANION GAP 7 (8-16); BILIRUBIN,TOTAL 0.5 mg/dL (0.2-1.0); BLOOD UREA NITROGEN 18 mg/dL (7-18); CALCIUM 8.9 mg/dL (8.5-10.1); CHOLESTEROL 251 mg/dL (50-200); CO2 31 mmol/L (21-32); CREATININE 1.7 mg/dL (0.7-1.3); GLUCOSE,RANDOM 74 mg/dL (74-106); HDL CHOLESTEROL 76 mg/dL (40-60); MAGNESIUM 2.3 mg/dL (1.8-2.4); PHOSPHOROUS 4.1 mg/dL (2.5-4.9); SGOT/AST 243 U/L (15-37); SGPT/ALT 48 U/L (12-78); TOT PROT 7.4 g/dl (6.4-8.2); TRIGLYCERIDES 96 mg/dL (35-160)
[2018-03-24] MEDS ORDERED: PT OWN MED DRAWER 7, Y5N ONE (09:53)
--- NOTE | 2018-03-24 09:57 | CON.CARD ---
Consult Consult Specialty:: Cardiology Referred by:: Mainor Cordova MD Reason for Consultation:: Symptomatic bradycardia - History of Present Illness Chief Complaint: Fatigue History of Present Illness: Patient is a 72 year old male underlying history of hypertension, left atrial myxoma s/p resection, seizure disorder, history of vascular malformation s/p radiation therapy and gamma knife, history of lung CA s/p VATs and wedge resection, right nephrectomy with renal cell CA now with metastases on chemotherapy and Parkinson's disease and panic attack noted to be significantly hypothyroid, reports fatigue lately, falling asleep easily, lack of energy with bradycardia. 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, Other (av malformasion s/p gamma knife ) Cardio/Vascular: Yes: HTN, Hyperlipdemia, Other (Atrial myxoma s/p resection ) Pulmonary: Yes: Cancer (Lung nodule and cancer s/p VATS/wedge resection) Gastrointestinal: Yes: GERD Renal/: Yes: Cancer (Renal cell CA s/p right nephrectomy) - Past Surgical History Past Surgical History: Yes: Nephrectomy, Thoracotomy - Alcohol/Substance Use Hx Alcohol Use: No - Smoking History Smoking history: Never smoked Have you smoked in the past 12 months: No Aproximately how many cigarettes per day: 0 If you are a former smoker, when did you quit?: 30YRS - Social History Usual Living Arrangement: With Spouse Home Medications - Allergies Allergies/Adverse Reactions: Allergies Allergy/AdvReac Type Severity Reaction Status Date / Time aspirin Allergy Verified 03/23/18 17:24 atorvastatin calcium Allergy Verified 03/23/18 17:24 [From Lipitor] - Home Medications Home Medications: Ambulatory Orders Lamotrigine 100 mg PO BID 04/04/16 clonazePAM [Klonopin -] 0.5 mg PO BID PRN 04/04/16 Carbidopa/Levodopa 25/100 [Sinemet 25/100 -] 1.5 tab PO TID 09/05/17 Pramipexole Dihydrochloride [Mirapex -] 0.5 mg PO BID 09/05/17 Sunitinib Malate [Sutent] 50 mg PO ASDIR 09/05/17 levETIRAcetam [Keppra Xr -] 1,500 mg PO BID #60 tab.er.24h MDD 2 09/08/17 Cholecalciferol (Vitamin D3) [Vitamin D3] 5,000 unit PO ASDIR 12/23/17 Pramipexole Dihydrochloride [Mirapex -] 1 mg PO HS 03/23/18 Red Yeast Rice 3,200 mg PO BID MDD 2 03/23/18 Review of Systems - Review of Systems Constitutional: reports: Lethargy, Malaise, Weakness Vital Signs: Vital Signs Temperature 98.7 F 03/24/18 05:52 Pulse Rate 47 L 03/24/18 05:52 Respiratory Rate 18 03/24/18 05:52 Blood Pressure 138/77 03/24/18 05:52 O2 Sat by Pulse Oximetry (%) 97 03/23/18 20:35 Constitutional: Yes: No Distress, Calm Neck: Yes: Supple Respiratory: Yes: Regular, CTA Bilaterally, On Nasal O2 Gastrointestinal: Yes: Normal Bowel Sounds, Soft Cardiovascular: Yes: Bradycardia JVD: No Carotid Bruit: No Heart Sounds: Yes: S1, S2 Murmur: Yes: Systolic Murmur, Grade 1 Edema: No - Other Data Labs, Other Data: CBC, BMP 03/24/18 05:30 03/24/18 05:30 Troponin, BNP 03/23/18 17:41 Troponin I < 0.02 Troponin, BNP 03/23/18 17:41 Troponin I < 0.02 SB @ 49 with nonspec T wave changes Imaging - Results Chest X-ray: Report Reviewed (NAD) Problem List - Problems (1) Hypothyroid Code(s): E03.9 - HYPOTHYROIDISM, UNSPECIFIED Qualifiers: Hypothyroidism type: due to medication (2) Malaise Code(s): R53.81 - OTHER MALAISE (3) Symptomatic sinus bradycardia Code(s): R00.1 - BRADYCARDIA, UNSPECIFIED (4) 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 - BENIGN NEOPLASM OF HEART (5) CAD (coronary artery disease) Code(s): I25.10 - ATHSCL HEART DISEASE OF [place] CORONARY ARTERY W/O ANG PCTRS Qualifiers: Coronary Disease-Associated Artery/Lesion type: [place] artery [place] vs. transplanted heart: [place] heart Associated angina: with stable angina Qualified Code(s): I25.118 - Atherosclerotic heart disease of [place] coronary artery with other forms of angina pectoris (6) Cerebral vascular malformation Code(s): Q28.3 - OTHER MALFORMATIONS OF CEREBRAL VESSELS (7) HTN (hypertension) Code(s): I10 - ESSENTIAL (PRIMARY) HYPERTENSION Qualifiers: Hypertension type: essential hypertension Qualified Code(s): I10 - Essential (primary) hypertension (8) History of lung biopsy Code(s): Z98.89 - OTHER SPECIFIED POSTPROCEDURAL STATES * DO NOT USE * (9) Renal carcinoma Code(s): C64.9 - MALIGNANT NEOPLASM OF UNSP KIDNEY, EXCEPT RENAL PELVIS Qualifiers: Laterality: unspecified laterality Qualified Code(s): C64.9 - Malignant neoplasm of unspecified kidney, except renal pelvis (10) S/p nephrectomy Code(s): Z90.5 - ACQUIRED ABSENCE OF KIDNEY (11) Seizure disorder Code(s): G40.909 - EPILEPSY, UNSP, NOT INTRACTABLE, WITHOUT STATUS EPILEPTICUS Assessment/Plan 09/05/2017 Echo: Borderline dilated LV with normal LV and RV size and fxn, mod LAE , tr-mild MR, mild TR, AL 09/06/2017 Nuc Stress: Moderate size, moderate intensity posterolateral ischemia LVEF 60% 1. Hypothyroidism without myxedema 2. Sinus bradycardia referable to above 3. CAD and abnormal MPI 4. Hypertension 5. Mixed hyperlipidemia 6. History of left atrial myxoma resection 7. History of renal cell CA s/p nephrectomy with mets on chemotherapy 8. History of lung CA s/p VATs/wedge resection and chemotherapy/radiation therapy 9. Panic/anxiety d/o 10. 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 CKD PLAN: 1. Started Synthroid, f/u echocardiogram, endocrine input 2. Continue with Lipitor 40 qd (previous sensitivity due to myalgias) 3. Continue Norvasc 5 qd, Imdur 30 qd with uptitration as needed, LYNNE-I/ARB once renal fxn stable 4. Thank you for consultative opportunity
[2018-03-24] MEDS: lamoTRIgine 100 MG TABLET (FP) PO SCH ×2 (10:11→21:39)
[2018-03-24] MEDS: levETIRAcetam 500 MG TABLET (FP) PO SCH ×2 (10:12→21:39)
--- NOTE | 2018-03-24 11:43 | CONSULT ---
Consult - text type - Consultation Consultation Note: Neurology History of Present Illness Covering for Dr. Gonzalez 72 year old male with a significant past medical history of RCC (lung mets), parkinson's dz, HTN and chronic bradycardia who was sent by Lisa Blount to the ED due to abnormal lab results. Reportedly, patient began to experience ataxic gait, causing him to walk predominantly to one side, prompting them to see Dr. Gonzalez. On routine labs found to have uncontrolled hypothyroidism advising them to come into the ED for further evaluation. As per patient's daughter, patient had been experiencing increased lethargy, stating he falls asleep while during activities such has conversations and reading. Patient reports feeling normal, and currently does not have any complaints, sitting up in bed and coherent without mental status abnormalities. 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) Cholecystectomy: No Lung Surgery: Yes (RECENT BIOPSY) Neurologic Surgery: Yes (CEREBRAL ANEURYSM ABLATED BY SURGERY AND GAMMA KNIFE) Orthopedic Surgery: No - Immunization History Immunization Up to Date: Yes - Suicide/Smoking/Psychosocial Hx Smoking Status: No Smoking History: Never smoked Years of Tobacco Use: 0 Have you smoked in the past 12 months: No Number of Cigarettes Smoked Daily: 0 If you are a former smoker, when did you quit?: 30YRS Cigars Per Day: 0 Information on smoking cessation initiated: No Hx Alcohol Use: No Drug/Substance Use Hx: No Substance Use Type: None Hx Substance Use Treatment: No - Past Medical History Allergies/Adverse Reactions: Allergies Allergy/AdvReac Type Severity Reaction Status Date / Time aspirin Allergy Verified 03/23/18 17:24 atorvastatin calcium Allergy Verified 03/23/18 17:24 [From Lipitor] Home Medications: Ambulatory Orders Lamotrigine 100 mg PO BID 04/04/16 clonazePAM [Klonopin -] 0.5 mg PO BID PRN 04/04/16 Carbidopa/Levodopa 25/100 [Sinemet 25/100 -] 1.5 mg PO TID 09/05/17 Pramipexole Dihydrochloride [Mirapex -] 0.5 mg PO BID 09/05/17 Sunitinib Malate [Sutent] 50 mg PO ASDIR 09/05/17 levETIRAcetam [Keppra Xr -] 1,500 mg PO BID #60 tab.er.24h MDD 2 09/08/17 Cholecalciferol (Vitamin D3) [Vitamin D3] 5,000 unit PO ASDIR 12/23/17 Pramipexole Dihydrochloride [Mirapex -] 1 mg PO HS 03/23/18 Red Yeast Rice 3,200 mg PO BID MDD 2 03/23/18 Review of Systems GENERAL/CONSTITUTIONAL: No fever or chills. No weakness. HEAD, EYES, EARS, NOSE AND THROAT: No change in vision. No ear pain or discharge. No sore throat. CARDIOVASCULAR: No chest pain or shortness of breath. RESPIRATORY: No cough, wheezing, or hemoptysis. GASTROINTESTINAL: No nausea, vomiting, diarrhea or constipation. GENITOURINARY: No dysuria, frequency, or change in urination. MUSCULOSKELETAL: No joint or muscle swelling or pain. No neck or back pain. SKIN: No rash NEUROLOGIC: No headache, vertigo, loss of consciousness, or change in strength/ sensation. ENDOCRINE: No increased thirst. No abnormal weight change. HEMATOLOGIC/LYMPHATIC: No anemia, easy bleeding, or history of blood clots. ALLERGIC/IMMUNOLOGIC: No hives or skin allergy. *Physical Exam Vital Signs Period Temp Pulse Resp BP Sys/Winn Pulse Ox Last 24 Hr 97.4 F-98.7 F 47-54 16-20 132-164/68-93 97-99 03/23/18 18:55 GENERAL: Awake, alert, and fully oriented, in no acute distress HEAD: No signs of trauma EYES: PERRLA, EOMI, sclera anicteric, conjunctiva clear ENT: Auricles normal inspection, hearing grossly normal, nares patent, oropharynx clear without exudates. Moist mucosa NECK: Normal ROM, supple, no lymphadenopathy, JVD, or masses LUNGS: Breath sounds equal, clear to auscultation bilaterally. No wheezes, and no crackles HEART: +Bradycardia with distant heart sounds. Regular rate and rhythm, normal S1 and S2, no murmurs, rubs or gallops ABDOMEN: Soft, nontender, normoactive bowel sounds. No guarding, no rebound. No masses EXTREMITIES: Normal range of motion, no edema. No clubbing or cyanosis. No cords, erythema, or tenderness NEUROLOGICAL: Cranial nerves II through XII grossly intact. Normal speech, strenght intact, sensory normal, gait deferred SKIN: +Yellowish coloration to the skin, excluding the eyes. Warm, Dry, normal turgor, no rashes or lesions noted. Laboratory Results 03/23/18 17:41 Sodium 134 L Potassium 4.1 Chloride 95 L Carbon Dioxide 30 Anion Gap 9 BUN 21 H Creatinine 1.8 H Creat Clearance w eGFR 37.27 Random Glucose 81 Calcium 9.2 Total Bilirubin 0.3 AST 277 H D ALT 84 H D Alkaline Phosphatase 95 Creatine Kinase 7211 H Troponin I < 0.02 Total Protein 7.8 Albumin 4.2 Lipase 210 03/23/18 17:41 RBC 2.79 L MCV 106.8 H MCHC 34.2 RDW 14.8 MPV 7.4 L Neutrophils % 60.2 Lymphocytes % 30.1 D Monocytes % 7.6 Eosinophils % 1.5 D Basophils % 0.6 Plan 72 year old male with a significant past medical history of RCC (lung mets), parkinson's dz, HTN and chronic bradycardia who was sent by Lisa Blount to the ED due to abnormal lab results. Reportedly, patient began to experience ataxic gait, causing him to walk predominantly to one side, prompting them to see Dr. Gonzalez. On routine labs found to have uncontrolled hypothyroidism advising them to come into the ED for further evaluation. As per patient's daughter, patient had been experiencing increased lethargy, stating he falls asleep while during activities such has conversations and reading. Patient reports feeling normal, and currently does not have any complaints, sitting up in bed and coherent without mental status abnormalities. Monitor TSH, T3, endocrine eval fi needed. Has history seizure disordered, controlled, can continue current dose of home medication. Hydration, DVT ppx.
--- NOTE | 2018-03-24 12:41 | CON.GI ---
Consult Consult Specialty:: GI Referred by:: Bernadine Clarke NP Reason for Consultation:: Abnormal liver chemistries - History of Present Illness Chief Complaint: Weakness and unsteady gait History of Present Illness: 72M sent by his neurologist fo evaluation of generalized weakness. Noted to have a TSH of 127. CPK elevated to 7211 and seems to be chronically elevated below this level. AST was elevated to 243 with the remainder of his liver chemistries being normal. Asked to evaluate further. He denies any abdominal pain. He sees Dr. Elly Bowden and Mr. Rob Fernandez and his daughter, who was present bedside, belives that he last saw him 2-3 months ago. In review of the [facility] system Dr. Bowden performed colonoscopy 04/11 that revealed mild diverticulosis and was otherwise normal. He also performed EGD 01/09 that revealed a sliding hiatal hernia, Z-Line asymmetry (however biopsies unrevealing for cohen's) and mild gastritis. He denies any change in appetite or bowel habits. There has been no rectal bleeding or melena. - History Source History Provided By: Patient, Family Member, Medical Record - Past Medical History OCULAR PATHOLOGIST: Yes: Parkinson's, Seizure, Other (av malformasion s/p gamma knife ) Cardio/Vascular: Yes: HTN, Hyperlipdemia, Other (Atrial myxoma s/p resection ) Pulmonary: Yes: Cancer (Lung nodule and cancer s/p VATS/wedge resection) Gastrointestinal: Yes: GERD Hepatobiliary: Yes: Other (Fatty Liver) Renal/: Yes: Cancer (Renal cell CA s/p right nephrectomy) Heme/Onc: Yes: Anemia - Past Surgical History Past Surgical History: Yes: Nephrectomy, Thoracotomy (removal of atrial myxoma) Additional Surgical History: ? 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 Place of : Other ([place]) History of Recent Travel: No Home Medications - Allergies Allergies/Adverse Reactions: Allergies Allergy/AdvReac Type Severity Reaction Status Date / Time aspirin Allergy Verified 03/23/18 17:24 atorvastatin calcium Allergy Verified 03/23/18 17:24 [From Lipitor] - Home Medications Home Medications: Ambulatory Orders Lamotrigine 100 mg PO BID 04/04/16 clonazePAM [Klonopin -] 0.5 mg PO BID PRN 04/04/16 Carbidopa/Levodopa 25/100 [Sinemet 25/100 -] 1.5 tab PO TID 09/05/17 Pramipexole Dihydrochloride [Mirapex -] 0.5 mg PO BID 09/05/17 Sunitinib Malate [Sutent] 50 mg PO ASDIR 09/05/17 levETIRAcetam [Keppra Xr -] 1,500 mg PO BID #60 tab.er.24h MDD 2 09/08/17 Cholecalciferol (Vitamin D3) [Vitamin D3] 5,000 unit PO ASDIR 12/23/17 Pramipexole Dihydrochloride [Mirapex -] 1 mg PO HS 03/23/18 Red Yeast Rice 3,200 mg PO BID MDD 2 03/23/18 Family Disease History - Family Disease History Family Disease History: Other: Father (: 86: CVA), Mother (: age 91) Other Family History: No family history of colorectal cancer or other GI malignancy Review of Systems - Review of Systems Constitutional: reports: Lethargy. denies: Fever, Loss of Appetite, Unintentional Wgt. Loss Cardiovascular: denies: Chest Pain Respiratory: reports: SOB Gastrointestinal: denies: Abdominal Pain, Dysphagia, Melena, Nausea, Rectal Bleeding, Vomiting Physical Exam-GI Vital Signs: Vital Signs Temperature 98.7 F 03/24/18 05:52 Pulse Rate 47 L 03/24/18 05:52 Respiratory Rate 18 03/24/18 05:52 Blood Pressure 138/77 03/24/18 05:52 O2 Sat by Pulse Oximetry (%) 97 03/23/18 20:35 Constitutional: Yes: Calm Eyes: No: Sclera Icterus (+ Arcus Senilis bilaterally) Cardiovascular: Yes: Regular Rate and Rhythm. No: Murmur Respiratory: Yes: CTA Bilaterally Gastrointestinal Inspection: No: Scars ...Auscultate: Yes: Normoactive Bowel Sounds ...Palpate: No: Hepatomegaly, Splenomegaly, Tenderness ...Percussion: No: Tympanitic ...Rectal Exam: Yes: Other (No external lesions, no masses, guaiac negative lightb brown stool) Edema: No (No LE edema) Neurological: Yes: Alert, Oriented Labs: CBC, BMP 03/24/18 05:30 03/24/18 05:30 Laboratory Tests 03/23/18 17:41 Creatine Kinase 7211 H Hepatic Panel Total Bilirubin 0.5 mg/dL (0.2-1.0) 03/24/18 05:30 AST 243 U/L (15-37) H 03/24/18 05:30 ALT 48 U/L (12-78) D 03/24/18 05:30 Alkaline Phosphatase 89 U/L (45-117) 03/24/18 05:30 Albumin 3.9 g/dl (3.4-5.0) 03/24/18 05:30 Problem List - Problems (1) Elevated AST (SGOT) Assessment/Plan: Suspect the AST elevation to reflect rhabdomyolysis as opposed to a primary liver abnormality Evaluation of rhabdomyolysis per PMD. I communicated this concern and finding to Bernadine Clarke NP Check hepatitis serologies Liver US Code(s): R74.0 - NONSPEC ELEV OF LEVELS OF TRANSAMNS & LACTIC ACID DEHYDRGNSE
--- NOTE | 2018-03-24 14:53 | PN ---
Progress Note, Physician Chief Complaint: hypothyroidism Symptomatic bradycardia - Current Medication List Current Medications: Active Medications Acetaminophen (Tylenol -) 650 mg PO Q6H PRN PRN Reason: PAIN Last Admin: 03/24/18 01:52 Dose: 650 mg Carbidopa/Levodopa (Sinemet 25/100 -) 1.5 each PO TID [facility] Last Admin: 03/24/18 14:01 Dose: 1.5 each Clonazepam (Klonopin -) 0.5 mg PO BID PRN PRN Reason: ANXIETY Last Admin: 03/24/18 01:51 Dose: 0.5 mg Heparin Sodium (Porcine) (Heparin -) 5,000 unit SQ TID [facility] Last Admin: 03/24/18 14:00 Dose: 5,000 unit Lamotrigine (Lamictal -) 100 mg PO BID [facility] Last Admin: 03/24/18 10:11 Dose: 100 mg Levetiracetam (Keppra -) 1,500 mg PO BID [facility] Last Admin: 03/24/18 10:12 Dose: 1,500 mg Levothyroxine Sodium (Synthroid -) 75 mcg PO DAILY@0700 [facility] Last Admin: 03/24/18 06:53 Dose: 75 mcg Pramipexole Dihydrochloride (Mirapex -) 0.5 mg PO 0600,1400 [facility] Last Admin: 03/24/18 14:00 Dose: 0.5 mg Pramipexole Dihydrochloride (Mirapex -) 1 mg PO HS [facility] Last Admin: 03/23/18 22:56 Dose: 1 mg - Objective Vital Signs: Vital Signs Temperature 98.7 F 03/24/18 05:52 Pulse Rate 47 L 03/24/18 05:52 Respiratory Rate 18 03/24/18 05:52 Blood Pressure 138/77 03/24/18 05:52 O2 Sat by Pulse Oximetry (%) 97 03/23/18 20:35 Constitutional: Yes: Well Nourished, No Distress, Calm Cardiovascular: Yes: Bradycardia Respiratory: Yes: Regular Musculoskeletal: Yes: WNL Extremities: Yes: WNL Edema: No Peripheral Pulses WNL: Yes Neurological: Yes: Alert, Oriented Psychiatric: Yes: Alert, Oriented Labs: CBC, BMP 03/24/18 05:30 03/24/18 05:30 Problem List - Problems (1) Anemia Assessment/Plan: -Iron profile pending -B12, thyroid profile unremarkable -stool ob pending -Awaiting hematology consult -monitor labs Code(s): D64.9 - ANEMIA, UNSPECIFIED Qualifiers: Anemia type: B12 deficiency Vitamin B12 deficiency anemia type: other dietary B12 deficiency Qualified Code(s): D51.3 - Other dietary vitamin B12 deficiency anemia (2) Chronic kidney disease (CKD) Assessment/Plan: -at baseline -monitor trend Code(s): N18.9 - CHRONIC KIDNEY DISEASE, UNSPECIFIED Qualifiers: Chronic kidney disease stage: unspecified stage Qualified Code(s): N18.9 - Chronic kidney disease, unspecified (3) CAD (coronary artery disease) Assessment/Plan: -seen by cardiology -On tele -Unable to tolerate statins -Not on any cardiac meds at home because his BP dropped outpatient and he was taken off Norvasc and Imdur Code(s): I25.10 - ATHSCL HEART DISEASE OF [place] CORONARY ARTERY W/O ANG PCTRS Qualifiers: Coronary Disease-Associated Artery/Lesion type: [place] artery [place] vs. transplanted heart: [place] heart Associated angina: with stable angina Qualified Code(s): I25.118 - Atherosclerotic heart disease of [place] coronary artery with other forms of angina pectoris (4) Hypothyroid Assessment/Plan: -Started on Levothyroxine 75 mcg po daily -Endocrinology consult Code(s): E03.9 - HYPOTHYROIDISM, UNSPECIFIED Qualifiers: Hypothyroidism type: due to medication Qualified Code(s): E03.2 - Hypothyroidism due to medicaments and other exogenous substances (5) Symptomatic sinus bradycardia Assessment/Plan: -Tele monitoring -Cardiology consult -States he has always had asymptomatic SB Code(s): R00.1 - BRADYCARDIA, UNSPECIFIED (6) Elevated AST (SGOT) Assessment/Plan: -Seen by GI -U/S abdomen Code(s): R74.0 - NONSPEC ELEV OF LEVELS OF TRANSAMNS & LACTIC ACID DEHYDRGNSE Assessment/Plan see problem list Spoke to daughter at bedside
[2018-03-24 16:57] VITALS: BMI 28.1
--- NOTE | 2018-03-24 16:57 | CON.NEP ---
Consult Consult Specialty:: nephrology Referred by:: tameka Reason for Consultation:: ckd - History of Present Illness Chief Complaint: bradycardia, elevated tsh History of Present Illness: admitted for eval of symptomatic bradycardia and very elevated tsh h/o renal cell ca s/p nephrectomy azotemia noted s creat 1.8 on admission now 1.7 baseline seems 1.5 on review of prior labs - History Source History Provided By: Patient, Medical Record Limitations to Obtaining History: Clinical Condition - Past Medical History BLOCK FEEDER: Yes: Parkinson's, Seizure, Other (av malformasion s/p gamma knife ) Cardio/Vascular: Yes: HTN, Hyperlipdemia, Other (Atrial myxoma s/p resection ) Pulmonary: Yes: Cancer (Lung nodule and cancer s/p VATS/wedge resection) Gastrointestinal: Yes: GERD Hepatobiliary: Yes: Other (Fatty Liver) Renal/: Yes: Cancer (Renal cell CA s/p right nephrectomy) - Past Surgical History Past Surgical History: Yes: Nephrectomy, Thoracotomy (removal of atrial myxoma) Additional Surgical History: ? 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 Travel: No Home Medications - Allergies Allergies/Adverse Reactions: Allergies Allergy/AdvReac Type Severity Reaction Status Date / Time aspirin Allergy Verified 03/23/18 17:24 atorvastatin calcium Allergy Verified 03/23/18 17:24 [From Lipitor] - Home Medications Home Medications: Ambulatory Orders Lamotrigine 100 mg PO BID 04/04/16 clonazePAM [Klonopin -] 0.5 mg PO BID PRN 04/04/16 Carbidopa/Levodopa 25/100 [Sinemet 25/100 -] 1.5 tab PO TID 09/05/17 Pramipexole Dihydrochloride [Mirapex -] 0.5 mg PO BID 09/05/17 Sunitinib Malate [Sutent] 50 mg PO ASDIR 09/05/17 levETIRAcetam [Keppra Xr -] 1,500 mg PO BID #60 tab.er.24h MDD 2 09/08/17 Cholecalciferol (Vitamin D3) [Vitamin D3] 5,000 unit PO ASDIR 12/23/17 Pramipexole Dihydrochloride [Mirapex -] 1 mg PO HS 03/23/18 Red Yeast Rice 3,200 mg PO BID MDD 2 03/23/18 Family Disease History - Family Disease History Family Disease History: Other: Father (: 86: CVA), Mother (: age 91) Other Family History: No family history of colorectal cancer or other GI malignancy Nephrology Consult - Height Height: 5 ft 6 in - Weight Weight: 174 lb 4 oz - BMI Body Mass Index (BMI): 28.1 - Lab Results CBC,BMP: CBC, BMP 03/24/18 05:30 03/24/18 05:30 Anion Gap: Anion Gap Anion Gap 7 (8-16) L 03/24/18 05:30 - Physical Examination Vital Signs: Vital Signs Temperature 97.3 F L 03/24/18 14:48 Pulse Rate 57 L 03/24/18 14:48 Respiratory Rate 18 03/24/18 14:48 Blood Pressure 161/92 03/24/18 14:48 O2 Sat by Pulse Oximetry (%) 97 03/23/18 20:35 Assessment/Plan ckd renal function seems near baseline he is a candidate for cardiac cath/ waiting for his renal function to be better and as close to baseline Plan- follow renal function
[2018-03-24] MEDS: PRAMIPEXOLE DIHYDROCHLORIDE 1 MG TABLET PO SCH (21:40)
[2018-03-24] MEDS ORDERED: RED YEAST RICE PO SCH (22:00)
--- NOTE | 2018-03-24 22:13 | CONSULT ---
Consult - text type - Consultation Consultation Note: PAtient seen and examined 03/23 and 03/24/18 72 year old male with a significant past medical history of RCC (lung mets), on sunitinib, parkinson's dz, HTN and chronic bradycardia who was sent by Lisa Blount to the ED due to abnormal lab results. Reportedly, patient began to experience ataxic gait, causing him to walk predominantly to one side, prompting them to see Dr. Gonzalez. On routine labs found to have uncontrolled hypothyroidism advising them to come into the ED for further evaluation. Patient had been experiencing increased lethargy, stating he falls asleep while during activities such has conversations and reading. Currentlly sitting up in bed and coherent without mental status abnormalities. 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) Lung Surgery: Yes (RECENT BIOPSY) Neurologic Surgery: Yes (CEREBRAL ANEURYSM ABLATED BY SURGERY AND GAMMA KNIFE) - Immunization History Immunization Up to Date: Yes - Suicide/Smoking/Psychosocial Hx Smoking History: Never smoked Allergies/Adverse Reactions: Allergies Allergy/AdvReac Type Severity Reaction Status Date / Time aspirin Allergy Verified 03/23/18 17:24 atorvastatin calcium Allergy Verified 03/23/18 17:24 [From Lipitor] Home Medications: Ambulatory Orders Lamotrigine 100 mg PO BID 04/04/16 clonazePAM [Klonopin -] 0.5 mg PO BID PRN 04/04/16 Carbidopa/Levodopa 25/100 [Sinemet 25/100 -] 1.5 mg PO TID 09/05/17 Pramipexole Dihydrochloride [Mirapex -] 0.5 mg PO BID 09/05/17 Sunitinib Malate [Sutent] 50 mg PO ASDIR 09/05/17 levETIRAcetam [Keppra Xr -] 1,500 mg PO BID #60 tab.er.24h MDD 2 09/08/17 Cholecalciferol (Vitamin D3) [Vitamin D3] 5,000 unit PO ASDIR 12/23/17 Pramipexole Dihydrochloride [Mirapex -] 1 mg PO HS 03/23/18 Red Yeast Rice 3,200 mg PO BID MDD 2 03/23/18 Last Vital Signs Temp Pulse Resp BP Pulse Ox 97.3 F L 57 L 18 161/92 96 03/24/18 14:48 03/24/18 14:48 03/24/18 14:48 03/24/18 14:48 03/24/18 10:00 Cor: RSR, No murmurs, No gallops Lungs: Clear to P&A Abd: Soft, Normal bowel sounds, No organomegaly Ext:No significant edema Abnormal Lab Results 03/23/18 03/24/18 03/24/18 17:41 05:30 05:30 RBC 2.65 L Hgb 9.8 L Hct 28.1 L MCV 106.2 H MCH 37.1 H Sodium 133 L Chloride 95 L Anion Gap 7 L Creatinine 1.7 H Ferritin 548.5 H AST 243 H Cholesterol 251 H Total LDL Cholesterol 154 H HDL Cholesterol 76 H TSH 127.00 H A/P 72 year old male with a significant past medical history of RCC (lung mets), parkinson's dz, HTN and chronic bradycardia who was sent by Lisa Blount to the ED due to abnormal lab results. Reportedly, patient began to experience ataxic gait, causing him to walk predominantly to one side, prompting them to see Dr. Gonzalez. On routine labs found to have uncontrolled hypothyroidism advising them to come into the ED for further evaluation. Patient has been experiencing increased lethargy, stating he falls asleep while during activities such has conversations and reading. Noted to have hypothyroidism, rhabdomyolysis, VAN Endocrine consult appreciated-- started levothyroxine Hold sunitinib Hold yeast red rice supplement--causes rhabdomyolysis--natural lovastatin supplement will check cultures gentle hydration
[2018-03-24] MEDS: SODIUM CHLORIDE 1,000 ML IV SCH (23:00)
[2018-03-25 00:52] LABS: URINE APPEARANCE CLEAR; URINE BILIRUBIN NEGATIVE (<2.0 mg/dL); URINE COLOR STRAW; URINE GLUCOSE (UA) NEGATIVE (NEGATIVE); URINE KETONE NEGATIVE (NEGATIVE); URINE LEUK ESTERASE NEGATIVE (NEGATIVE); URINE NITRITE NEGATIVE (NEGATIVE); URINE PROTEIN NEGATIVE (NEGATIVE); URINE UROBILINOGEN NEGATIVE mg/dL (0.2-1.0)
[2018-03-25] MEDS: ACETAMINOPHEN 325 MG TABLET (FP) PO PRN (03:51)
[2018-03-25] MEDS: CARBIDOPA/LEVODOPA 25/100 TABLET (FP) PO SCH ×3 (06:06→21:38)
[2018-03-25] MEDS: HEPARIN NA (PORCINE) 5,000 UNITS/ML 1ML VIAL SQ SCH ×3 (06:06→21:39)
[2018-03-25] MEDS: LEVOTHYROXINE NA 75 MCG TABLET (FP) PO SCH (06:06)
[2018-03-25] MEDS: PRAMIPEXOLE DIHYDROCHLORIDE 0.5 MG TABLET PO SCH ×2 (06:06→13:53)
[2018-03-25 06:50] LABS: BASO % 0.6 % (0-2.0); EOS % 1.6 % (0-4.5); HEMATOCRIT 29.4 % (35.4-49); HEMOGLOBIN 10.4 GM/dL (11.7-16.9); LYMPH % 29.1 % (8-40); MCH 37.2 pg (25.7-33.7); MCHC 35.3 g/dl (32.0-35.9); MEAN CELL VOLUME 105.4 fl (80-96); MEAN PLT VOLUME 7.8 fl (7.5-11.1); MONO % 6.5 % (3.8-10.2); NEUT % 62.2 % (42.8-82.8); PLATELET COUNT 176 K/MM3 (134-434); RBC 2.79 M/mm3 (4.00-5.60); RDW 14.7 % (11.9-15.9); WHITE BLOOD COUNT 4.1 K/mm3 (4.0-10.0)
[2018-03-25 07:07] LABS: ALBUMIN 3.8 g/dl (3.4-5.0); ANION GAP 8 (8-16); BLOOD UREA NITROGEN 18 mg/dL (7-18); CHLORIDE 94 mmol/L (98-107); CO2 31 mmol/L (21-32); GLUCOSE,RANDOM 82 mg/dL (74-106); POTASSIUM 4.1 mmol/L (3.5-5.1); SODIUM 133 mmol/L (136-145)
[2018-03-25 07:11] LABS: ALK PHOS 85 U/L (45-117); BILIRUBIN,DIRECT < 0.2 mg/dL (0.0-0.2); BILIRUBIN,TOTAL 0.5 mg/dL (0.2-1.0); CREATININE 1.6 mg/dL (0.7-1.3); SGOT/AST 194 U/L (15-37); SGPT/ALT 42 U/L (12-78); TOT PROT 7.2 g/dl (6.4-8.2)
[2018-03-25 08:09] LABS: SERUM IRON SATURATION 15 % (15-55); TOTAL IRON BINDING CAPACITY 339 ug/dL (250-450); UIBC 289 ug/dL (111-343)
[2018-03-25] MEDS ORDERED: PT OWN MED DRAWER 7, Y5N ONE (08:25)
[2018-03-25] MEDS ORDERED: levETIRAcetam 250 MG TABLET (FP) PO ONE (08:25)
--- NOTE | 2018-03-25 08:26 | PN ---
Progress Note, Physician Chief Complaint: hypothyroidism Symptomatic bradycardia History of Present Illness: NAD Feels better Seen by Hematology/oncology On IVF for elevated CPK, was on red rice yeast extract at home Has been taken off Norvasc and imdur outpatient due to hypotension Renal function at baseline, follows [facility] outpatient - Current Medication List Current Medications: Active Medications Acetaminophen (Tylenol -) 650 mg PO Q6H PRN PRN Reason: PAIN Last Admin: 03/25/18 03:51 Dose: 650 mg Carbidopa/Levodopa (Sinemet 25/100 -) 1.5 each PO TID [facility] Last Admin: 03/25/18 06:06 Dose: 1.5 each Clonazepam (Klonopin -) 0.5 mg PO BID PRN PRN Reason: ANXIETY Last Admin: 03/24/18 01:51 Dose: 0.5 mg Heparin Sodium (Porcine) (Heparin -) 5,000 unit SQ TID [facility] Last Admin: 03/25/18 06:06 Dose: 5,000 unit Sodium Chloride (Normal Saline -) 1,000 mls @ 60 mls/hr IV ASDIR [facility] Last Admin: 03/24/18 23:00 Dose: 60 mls/hr Lamotrigine (Lamictal -) 100 mg PO BID [facility] Last Admin: 03/24/18 21:39 Dose: 100 mg Levetiracetam (Keppra -) 1,500 mg PO BID [facility] Last Admin: 03/24/18 21:39 Dose: 1,500 mg Levothyroxine Sodium (Synthroid -) 75 mcg PO DAILY@0700 [facility] Last Admin: 03/25/18 06:06 Dose: 75 mcg Pramipexole Dihydrochloride (Mirapex -) 0.5 mg PO 0600,1400 [facility] Last Admin: 03/25/18 06:06 Dose: 0.5 mg Pramipexole Dihydrochloride (Mirapex -) 1 mg PO HS [facility] Last Admin: 03/24/18 21:40 Dose: 1 mg - Objective Vital Signs: Vital Signs Temperature 98 F 03/25/18 06:00 Pulse Rate 46 L 03/25/18 06:00 Respiratory Rate 20 03/25/18 06:00 Blood Pressure 137/86 03/25/18 06:00 O2 Sat by Pulse Oximetry (%) 97 07/28/18 21:00 Constitutional: Yes: Well Nourished, No Distress, Calm Cardiovascular: Yes: Bradycardia Respiratory: Yes: Regular Gastrointestinal: Yes: Normal Bowel Sounds, Soft Musculoskeletal: Yes: Muscle Weakness Extremities: Yes: WNL Edema: No Peripheral Pulses WNL: Yes Neurological: Yes: Alert, Oriented Psychiatric: Yes: Alert, Oriented Labs: CBC, BMP 03/25/18 05:30 03/25/18 05:30 Problem List - Problems (1) Anemia Assessment/Plan: -Iron profile normal -B12, thyroid profile unremarkable -stool ob pending -hematology consult -monitor labs Code(s): D64.9 - ANEMIA, UNSPECIFIED Qualifiers: Anemia type: B12 deficiency Vitamin B12 deficiency anemia type: other dietary B12 deficiency Qualified Code(s): D51.3 - Other dietary vitamin B12 deficiency anemia (2) Chronic kidney disease (CKD) Assessment/Plan: -at baseline -monitor trend -Nephrology on board Code(s): N18.9 - CHRONIC KIDNEY DISEASE, UNSPECIFIED Qualifiers: Chronic kidney disease stage: unspecified stage Qualified Code(s): N18.9 - Chronic kidney disease, unspecified (3) CAD (coronary artery disease) Assessment/Plan: -seen by cardiology -On tele -Unable to tolerate statins -Not on any cardiac meds at home because his BP dropped outpatient and he was taken off Norvasc and Imdur Code(s): I25.10 - ATHSCL HEART DISEASE OF [place] CORONARY ARTERY W/O ANG PCTRS Qualifiers: Coronary Disease-Associated Artery/Lesion type: [place] artery [place] vs. transplanted heart: [place] heart Associated angina: with stable angina Qualified Code(s): I25.118 - Atherosclerotic heart disease of [place] coronary artery with other forms of angina pectoris (4) Hypothyroid Assessment/Plan: -Started on Levothyroxine 75 mcg po daily -Endocrinology consult Code(s): E03.9 - HYPOTHYROIDISM, UNSPECIFIED Qualifiers: Hypothyroidism type: due to medication Qualified Code(s): E03.2 - Hypothyroidism due to medicaments and other exogenous substances (5) Symptomatic sinus bradycardia Assessment/Plan: -Tele monitoring -Cardiology consult -States he has always had asymptomatic SB Code(s): R00.1 - BRADYCARDIA, UNSPECIFIED (6) Elevated AST (SGOT) Assessment/Plan: -Seen by GI -U/S abdomen Code(s): R74.0 - NONSPEC ELEV OF LEVELS OF TRANSAMNS & LACTIC ACID DEHYDRGNSE (7) Rhabdomyolysis Assessment/Plan: -d/c red rice yeast extract -Gentle IVF -Monitor CPK Code(s): M62.82 - RHABDOMYOLYSIS (8) Hyponatremia Assessment/Plan: -stable since admission -monitor trend -IVF, N/S -Nephrology on board Code(s): E87.1 - HYPO-OSMOLALITY AND HYPONATREMIA Assessment/Plan see problem list Physical therapy DVT prophylaxis dispo: home with VNS
--- NOTE | 2018-03-25 09:22 | PN ---
Progress Note, Physician Chief Complaint: Events noted Wants to go home Tolerating therapy History of Present Illness: Patient was seen and examined. Awake and alert. Chart was reviewed Denies chest pain, SOB or palpitations - Current Medication List Current Medications: Active Medications Acetaminophen (Tylenol -) 650 mg PO Q6H PRN PRN Reason: PAIN Last Admin: 03/25/18 03:51 Dose: 650 mg Carbidopa/Levodopa (Sinemet 25/100 -) 1.5 each PO TID [facility] Last Admin: 03/25/18 06:06 Dose: 1.5 each Clonazepam (Klonopin -) 0.5 mg PO BID PRN PRN Reason: ANXIETY Last Admin: 03/24/18 01:51 Dose: 0.5 mg Heparin Sodium (Porcine) (Heparin -) 5,000 unit SQ TID [facility] Last Admin: 03/25/18 06:06 Dose: 5,000 unit Sodium Chloride (Normal Saline -) 1,000 mls @ 60 mls/hr IV ASDIR [facility] Last Admin: 03/24/18 23:00 Dose: 60 mls/hr Lamotrigine (Lamictal -) 100 mg PO BID [facility] Last Admin: 03/24/18 21:39 Dose: 100 mg Levetiracetam (Keppra -) 1,500 mg PO BID [facility] Last Admin: 03/24/18 21:39 Dose: 1,500 mg Levothyroxine Sodium (Synthroid -) 75 mcg PO DAILY@0700 [facility] Last Admin: 03/25/18 06:06 Dose: 75 mcg Pramipexole Dihydrochloride (Mirapex -) 0.5 mg PO 0600,1400 [facility] Last Admin: 03/25/18 06:06 Dose: 0.5 mg Pramipexole Dihydrochloride (Mirapex -) 1 mg PO HS [facility] Last Admin: 03/24/18 21:40 Dose: 1 mg - Objective Vital Signs: Vital Signs Temperature 98 F 03/25/18 06:00 Pulse Rate 46 L 03/25/18 06:00 Respiratory Rate 20 03/25/18 06:00 Blood Pressure 137/86 03/25/18 06:00 O2 Sat by Pulse Oximetry (%) 97 03/24/18 21:00 Eyes: Yes: PERRL HENT: Yes: Atraumatic Neck: Yes: Supple Cardiovascular: Yes: Regular Rate and Rhythm, Bradycardia, S1, S2 Respiratory: Yes: CTA Bilaterally Gastrointestinal: Yes: Normal Bowel Sounds, Soft. No: Tenderness Edema: No Labs: CBC, BMP 03/25/18 05:30 03/25/18 05:30 Problem List - Problems (1) Hyponatremia Code(s): E87.1 - HYPO-OSMOLALITY AND HYPONATREMIA (2) Hypothyroid Code(s): E03.9 - HYPOTHYROIDISM, UNSPECIFIED Qualifiers: Hypothyroidism type: due to medication Qualified Code(s): E03.2 - Hypothyroidism due to medicaments and other exogenous substances (3) Symptomatic sinus bradycardia Code(s): R00.1 - BRADYCARDIA, UNSPECIFIED (4) Anemia Code(s): D64.9 - ANEMIA, UNSPECIFIED Qualifiers: Anemia type: B12 deficiency Vitamin B12 deficiency anemia type: other dietary B12 deficiency Qualified Code(s): D51.3 - Other dietary vitamin B12 deficiency anemia (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 transplanted heart: [place] heart Associated angina: with stable angina Qualified Code(s): I25.118 - Atherosclerotic heart disease of [place] coronary artery with other forms of angina pectoris (7) Cerebral vascular malformation Code(s): Q28.3 - OTHER MALFORMATIONS OF CEREBRAL VESSELS (8) Chronic kidney disease (CKD) Code(s): N18.9 - CHRONIC KIDNEY DISEASE, UNSPECIFIED Qualifiers: Chronic kidney disease stage: unspecified stage Qualified Code(s): N18.9 - Chronic kidney disease, unspecified (9) HLD (hyperlipidemia) Code(s): E78.5 - HYPERLIPIDEMIA, UNSPECIFIED Qualifiers: Hyperlipidemia type: pure hypercholesterolemia Qualified Code(s): E78.00 - Pure hypercholesterolemia, unspecified; E78.0 - Pure hypercholesterolemia (10) Lung cancer Code(s): C34.90 - MALIGNANT NEOPLASM OF UNSP PART OF UNSP BRONCHUS OR LUNG (11) Renal carcinoma Code(s): C64.9 - MALIGNANT NEOPLASM OF UNSP KIDNEY, EXCEPT RENAL PELVIS Qualifiers: Laterality: unspecified laterality Qualified Code(s): C64.9 - Malignant neoplasm of unspecified kidney, except renal pelvis (12) Seizure disorder Code(s): G40.909 - EPILEPSY, UNSP, NOT INTRACTABLE, WITHOUT STATUS EPILEPTICUS Assessment/Plan 1. Hypothyroidism without myxedema 2. Sinus bradycardia 3. CAD and abnormal MPI 4. Hypertension 5. Mixed hyperlipidemia 6. History of left atrial myxoma resection 7. History of renal cell CA s/p nephrectomy with mets on chemotherapy 8. History of lung CA s/p VATs/wedge resection and chemotherapy/radiation therapy 9. Panic/anxiety 10. 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 CKD PLAN: 1. Continue Synthroid 2. Echocardiography to rule out pericardial effusion 3. Continue with Lipitor 40 qd (previous sensitivity due to myalgias) 4. Continue Norvasc 5 qd, Imdur 30 qd with uptitration as needed, LYNNE-I/ARB once renal function stable 5. Further cardiac work up including cardiac catheterization can be decided as outpatient. Patient also follows with [facility] Further plans are to follow Fabien Marinelli MD
[2018-03-25] MEDS: levETIRAcetam 500 MG TABLET (FP) PO SCH ×2 (09:44→21:38)
[2018-03-25] MEDS: lamoTRIgine 100 MG TABLET (FP) PO SCH ×2 (09:44→21:37)
--- NOTE | 2018-03-25 12:35 | PN ---
Progress Note (short form) - Note Progress Note: Neurology History of Present Illness Covering for Dr. Gonzalez 72 year old male with a significant past medical history of RCC (lung mets), parkinson's dz, HTN and chronic bradycardia who was sent by Lisa Blount to the ED due to abnormal lab results. Reportedly, patient began to experience ataxic gait, causing him to walk predominantly to one side, prompting them to see Dr. Gonzalez. On routine labs found to have uncontrolled hypothyroidism advising them to come into the ED for further evaluation. As per patient's daughter, patient had been experiencing increased lethargy, stating he falls asleep while during activities such has conversations and reading. Patient reports feeling normal, and currently does not have any complaints, sitting up in bed and calm with no acute issues. In good spirits and stable. Active Medications Acetaminophen (Tylenol -) 650 mg PO Q6H PRN PRN Reason: PAIN Last Admin: 03/25/18 03:51 Dose: 650 mg Carbidopa/Levodopa (Sinemet 25/100 -) 1.5 each PO TID [facility] Last Admin: 03/25/18 06:06 Dose: 1.5 each Clonazepam (Klonopin -) 0.5 mg PO BID PRN PRN Reason: ANXIETY Last Admin: 03/24/18 01:51 Dose: 0.5 mg Heparin Sodium (Porcine) (Heparin -) 5,000 unit SQ TID [facility] Last Admin: 03/25/18 06:06 Dose: 5,000 unit Sodium Chloride (Normal Saline -) 1,000 mls @ 60 mls/hr IV ASDIR [facility] Last Admin: 03/24/18 23:00 Dose: 60 mls/hr Lamotrigine (Lamictal -) 100 mg PO BID [facility] Last Admin: 03/25/18 09:44 Dose: 100 mg Levetiracetam (Keppra -) 1,500 mg PO BID [facility] Last Admin: 03/25/18 09:44 Dose: 1,500 mg Levothyroxine Sodium (Synthroid -) 75 mcg PO DAILY@0700 [facility] Last Admin: 03/25/18 06:06 Dose: 75 mcg Pramipexole Dihydrochloride (Mirapex -) 0.5 mg PO 0600,1400 [facility] Last Admin: 03/25/18 06:06 Dose: 0.5 mg Pramipexole Dihydrochloride (Mirapex -) 1 mg PO HS [facility] Last Admin: 03/24/18 21:40 Dose: 1 mg *Physical Exam Vital Signs Temperature 98 F 03/25/18 06:00 Pulse Rate 46 L 03/25/18 06:00 Respiratory Rate 20 03/25/18 06:00 Blood Pressure 137/86 03/25/18 06:00 O2 Sat by Pulse Oximetry (%) 97 03/24/18 21:00 03/23/18 18:55 GENERAL: Awake, alert, and fully oriented, in no acute distress HEAD: No signs of trauma EYES: PERRLA, EOMI, sclera anicteric, conjunctiva clear ENT: Auricles normal inspection, hearing grossly normal, nares patent, oropharynx clear without exudates. Moist mucosa NECK: Normal ROM, supple, no lymphadenopathy, JVD, or masses LUNGS: Breath sounds equal, clear to auscultation bilaterally. No wheezes, and no crackles HEART: +Bradycardia with distant heart sounds. Regular rate and rhythm, normal S1 and S2, no murmurs, rubs or gallops ABDOMEN: Soft, nontender, normoactive bowel sounds. No guarding, no rebound. No masses EXTREMITIES: Normal range of motion, no edema. No clubbing or cyanosis. No cords, erythema, or tenderness NEUROLOGICAL: Cranial nerves II through XII grossly intact. Normal speech, strenght intact, sensory normal, gait deferred SKIN: +Yellowish coloration to the skin, excluding the eyes. Warm, Dry, normal turgor, no rashes or lesions noted. CBCD WBC 4.1 K/mm3 (4.0-10.0) 03/25/18 05:30 RBC 2.79 M/mm3 (4.00-5.60) L 03/25/18 05:30 Hgb 10.4 GM/dL (11.7-16.9) L 03/25/18 05:30 Hct 29.4 % (35.4-49) L 03/25/18 05:30 MCV 105.4 fl (80-96) H 03/25/18 05:30 MCHC 35.3 g/dl (32.0-35.9) 03/25/18 05:30 RDW 14.7 % (11.9-15.9) 03/25/18 05:30 Plt Count 176 K/MM3 (134-434) 03/25/18 05:30 MPV 7.8 fl (7.5-11.1) 03/25/18 05:30 CMP Sodium 133 mmol/L (136-145) L 03/25/18 05:30 Potassium 4.1 mmol/L (3.5-5.1) 03/25/18 05:30 Chloride 94 mmol/L (98-107) L 03/25/18 05:30 Carbon Dioxide 31 mmol/L (21-32) 03/25/18 05:30 Anion Gap 8 (8-16) 03/25/18 05:30 BUN 18 mg/dL (7-18) 03/25/18 05:30 Creatinine 1.6 mg/dL (0.7-1.3) H 03/25/18 05:30 Creat Clearance w eGFR 42.70 (>60) 03/25/18 05:30 Calcium 9.0 mg/dL (8.5-10.1) 03/25/18 05:30 Total Bilirubin 0.5 mg/dL (0.2-1.0) 03/25/18 05:30 AST 194 U/L (15-37) H D 03/25/18 05:30 ALT 42 U/L (12-78) 03/25/18 05:30 Alkaline Phosphatase 85 U/L (45-117) 03/25/18 05:30 Total Protein 7.2 g/dl (6.4-8.2) 03/25/18 05:30 Albumin 3.8 g/dl (3.4-5.0) 03/25/18 05:30 Plan 72 year old male with a significant past medical history of RCC (lung mets), parkinson's dz, HTN and chronic bradycardia who was sent by Lisa Blount to the ED due to abnormal lab results. Reportedly, patient began to experience ataxic gait, causing him to walk predominantly to one side, prompting them to see Dr. Gonzalez. On routine labs found to have uncontrolled hypothyroidism advising them to come into the ED for further evaluation. As per patient's daughter, patient had been experiencing increased lethargy, stating he falls asleep while during activities such has conversations and reading. Patient reports feeling normal, and currently does not have any complaints, sitting up in bed and coherent without mental status abnormalities. Monitor TSH, T3, endocrine eval as needed. Has history seizure disordered, controlled, can continue current dose of home medication. Hydration, DVT ppx. Neurologically stable at this time.
--- NOTE | 2018-03-25 17:50 | PN ---
Progress Note (short form) - Note Progress Note: ckd hypothyroidism markedly elevated tsh cad Current Medications Acetaminophen (Tylenol -) 650 mg PO Q6H PRN PRN Reason: PAIN Last Admin: 03/25/18 03:51 Dose: 650 mg Carbidopa/Levodopa (Sinemet 25/100 -) 1.5 each PO TID [facility] Last Admin: 03/25/18 13:52 Dose: 1.5 each Clonazepam (Klonopin -) 0.5 mg PO BID PRN PRN Reason: ANXIETY Last Admin: 03/24/18 01:51 Dose: 0.5 mg Heparin Sodium (Porcine) (Heparin -) 5,000 unit SQ TID [facility] Last Admin: 03/25/18 13:52 Dose: 5,000 unit Sodium Chloride (Normal Saline -) 1,000 mls @ 60 mls/hr IV ASDIR [facility] Last Admin: 03/24/18 23:00 Dose: 60 mls/hr Lamotrigine (Lamictal -) 100 mg PO BID [facility] Last Admin: 03/25/18 09:44 Dose: 100 mg Levetiracetam (Keppra -) 1,500 mg PO BID [facility] Last Admin: 03/25/18 09:44 Dose: 1,500 mg Levothyroxine Sodium (Synthroid -) 75 mcg PO DAILY@0700 [facility] Last Admin: 03/25/18 06:06 Dose: 75 mcg Pramipexole Dihydrochloride (Mirapex -) 0.5 mg PO 0600,1400 [facility] Last Admin: 03/25/18 13:53 Dose: 0.5 mg Pramipexole Dihydrochloride (Mirapex -) 1 mg PO HS [facility] Last Admin: 03/24/18 21:40 Dose: 1 mg Last Vital Signs Temp Pulse Resp BP Pulse Ox 97.5 F L 43 L 18 146/83 98 03/25/18 14:00 03/25/18 14:00 03/25/18 14:00 03/25/18 14:00 03/25/18 10:00 Lungs clear heart jennifer abd soft nontender ext no edema CBC, BMP 03/25/18 05:30 03/25/18 05:30 Plan- follow renal function closely
[2018-03-25] MEDS: PRAMIPEXOLE DIHYDROCHLORIDE 1 MG TABLET PO SCH (21:37)
[2018-03-25] MEDS: clonazePAM 0.5 MG TABLET PO PRN (21:39)
[2018-03-25] MEDS: SODIUM CHLORIDE 1,000 ML IV SCH (22:45)
[2018-03-26] MEDS: SODIUM CHLORIDE 1,000 ML IV SCH (01:15)
[2018-03-26 06:17] LABS: BASO % 0.4 % (0-2.0); EOS % 1.6 % (0-4.5); HEMATOCRIT 28.5 % (35.4-49); LYMPH % 27.7 % (8-40); MCH 37.2 pg (25.7-33.7); MEAN CELL VOLUME 106.4 fl (80-96); MEAN PLT VOLUME 7.6 fl (7.5-11.1); MONO % 6.3 % (3.8-10.2); PLATELET COUNT 164 K/MM3 (134-434); RBC 2.68 M/mm3 (4.00-5.60); RDW 14.6 % (11.9-15.9); WHITE BLOOD COUNT 4.9 K/mm3 (4.0-10.0)
[2018-03-26] MEDS: CARBIDOPA/LEVODOPA 25/100 TABLET (FP) PO SCH (06:18)
[2018-03-26] MEDS: PRAMIPEXOLE DIHYDROCHLORIDE 0.5 MG TABLET PO SCH (06:20)
[2018-03-26] MEDS: HEPARIN NA (PORCINE) 5,000 UNITS/ML 1ML VIAL SQ SCH (06:20)
[2018-03-26] MEDS: LEVOTHYROXINE NA 75 MCG TABLET (FP) PO SCH (06:24)
[2018-03-26 07:03] LABS: ALBUMIN 3.6 g/dl (3.4-5.0); ANION GAP 6 (8-16); BLOOD UREA NITROGEN 19 mg/dL (7-18); CALCIUM 8.6 mg/dL (8.5-10.1); CHLORIDE 95 mmol/L (98-107); CO2 30 mmol/L (21-32); GLUCOSE,RANDOM 80 mg/dL (74-106); SGOT/AST 173 U/L (15-37); SGPT/ALT 44 U/L (12-78); SODIUM 131 mmol/L (136-145)
[2018-03-26 07:18] LABS: ALK PHOS 78 U/L (45-117); BILIRUBIN,TOTAL 0.3 mg/dL (0.2-1.0); CREATININE 1.6 mg/dL (0.7-1.3); TOT PROT 6.8 g/dl (6.4-8.2)
[2018-03-26 08:13] VITALS: BP 118/80; PULSE 56; TEMP 98.2
--- NOTE | 2018-03-26 08:16 | DS ---
Physical Examination Vital Signs: Vital Signs Temperature 98.2 F 03/26/18 08:12 Pulse Rate 56 L 03/26/18 08:12 Respiratory Rate 16 03/26/18 08:12 Blood Pressure 118/80 03/26/18 08:12 O2 Sat by Pulse Oximetry (%) 95 03/25/18 20:27 Findings/Remarks: AWAKE ALERT DENIES PALPIATATIONS NO DIZZINESS "I FEEL GOOD" I WANT TO GO HOME" Constitutional: Yes: No Distress Eyes: Yes: WNL HENT: Yes: WNL Neck: Yes: WNL Cardiovascular: Yes: WNL Respiratory: Yes: WNL Gastrointestinal: Yes: WNL Renal/: Yes: WNL Musculoskeletal: Yes: Muscle Weakness Extremities: Yes: WNL Edema: No Peripheral Pulses WNL: Yes Wound/Incision: Yes: Clean/Dry Neurological: Yes: Pre-Existing Deficit ...Motor Strength: LLE, RLE Psychiatric: Yes: WNL Labs: CBC, BMP 03/26/18 05:30 03/26/18 05:30 Discharge Summary Reason For Visit: HYPOTHYROIDISM Current Active Problems Elevated AST (SGOT) (Acute) Hyponatremia (Acute) Hypothyroid (Acute) Malaise (Acute) Rhabdomyolysis (Acute) Symptomatic sinus bradycardia (Acute) Procedures: Principal: CXR/LABS Hospital Course: ADMITTED WITH SEVERE HYPOTHYROIDISM AND MULTIPLE COMORBID DISEASES. WORKUP CAN BE DONE OUTPATIENT F/U IN [address] TURNER FOR LABS Condition: Good - Instructions Diet, Activity, Other Instructions: SEE DR TURNER IN 2-3 DAYS FOR LAB THYROID CHECK DR RODRIGUEZ OUTPATIENT DR TORRES OUTPATIENT MUST TAKE SYNTHROID ON EMPTY STOMACH WITH 1 GLASS OF WATER Referrals: Mainor Turner MD [Primary Care Provider] - Disposition: VNS/HOME HEALTH CARE - Home Medications Comprehensive Discharge Medication List: Ambulatory Orders Lamotrigine 100 mg PO BID 04/04/16 clonazePAM [Klonopin -] 0.5 mg PO BID PRN 04/04/16 Carbidopa/Levodopa 25/100 [Sinemet 25/100 -] 1.5 tab PO TID 09/05/17 Pramipexole Dihydrochloride [Mirapex -] 0.5 mg PO BID 09/05/17 Sunitinib Malate [Sutent] 50 mg PO ASDIR 09/05/17 levETIRAcetam [Levetiracetam -] 1,500 mg PO BID #60 tab.er.24h MDD 2 09/08/17 Cholecalciferol (Vitamin D3) [Vitamin D3] 5,000 unit PO ASDIR 12/23/17 Pramipexole Dihydrochloride [Mirapex -] 1 mg PO HS 03/23/18 Red Yeast Rice 3,200 mg PO BID MDD 2 03/23/18 Acetaminophen [Tylenol .Regular Strength -] 650 mg PO Q6H PRN tablet 03/26/18 Levothyroxine [Synthroid -] 75 mcg PO DAILY@0700 #30 tablet 03/26/18
[2018-03-26] MEDS ORDERED: PT OWN MED DRAWER 7, Y5N ONE (09:04)
[2018-03-26] MEDS: levETIRAcetam 500 MG TABLET (FP) PO SCH (09:39)
[2018-03-26] MEDS: lamoTRIgine 100 MG TABLET (FP) PO SCH (09:39)
--- NOTE | 2018-03-26 10:44 | EKG ---
Test Reason : Blood Pressure : / mmHG Vent. Rate : 049 BPM Atrial Rate : 049 BPM P-R Int : 200 ms QRS Dur : 102 ms QT Int : 402 ms P-R-T Axes : 012 002 139 degrees QTc Int : 363 ms SINUS BRADYCARDIA NONSPECIFIC T WAVE ABNORMALITY ABNORMAL ECG WHEN COMPARED WITH ECG OF 11-SEP-2017 22:12, T WAVE VARIATION Confirmed by JOSH CRUZ MD ([id number]) on 03/26/2018 10:44:14 AM Referred By: Confirmed By:JOSH CRUZ MD
[2018-03-26] MEDS ORDERED: levETIRAcetam 500 MG TABLET (FP) PO SCH (22:00)
[2018-03-28 00:07] LABS: HBSAG SCREEN Negative (Negative); HEP A AB, IGM Negative (Negative); HEP B CORE AB, TOT Negative (Negative)
== END 2018-03-26 10:21 | disposition home health service (06) | DRG 644 ==
LOC: JER 17:13 → JERBED 18:52 → J4W 20:33
PROVIDERS: ADMIT Family Medicine; ATTEND Family Medicine
DX: E03.9 Hypothyroidism, unspecified (principal); E87.1 Hypo-osmolality and hyponatremia; M62.82 Rhabdomyolysis; N17.9 Acute kidney failure, unspecified; D64.9 Anemia, unspecified; N18.9 Chronic kidney disease, unspecified; G40.909 Epilepsy, unspecified, not intractable, without status epilepticus; R00.1 Bradycardia, unspecified; I25.10 Atherosclerotic heart disease of native coronary artery without angina pectoris; I12.9 Hypertensive chronic kidney disease with stage 1 through stage 4 chronic kidney disease, or unspecified chronic kidney disease; F41.0 Panic disorder [episodic paroxysmal anxiety]; E78.5 Hyperlipidemia, unspecified
CPT/HCPCS: 36415; 70551-TC; 71046-TC-FY; 76705-TC; 80053; 80061; 80076; 81003; 82533; 82550; 82553; 82607; 82728; 82962; 83036; 83540; 83550; 83690; 83721; 83735; 84100; 84436; 84439; 84443; 84481; 84484; 85025; 86704; 86706; 86708; 86803; 87040; 87086; 87340; 93005; 93010; 99284-25; J1644; J7030

== ENCOUNTER 2018-04-19 07:28 | Day surgery (SDC) | payer OTHER, MEDICARE ==
[2018-04-19 10:35] LABS: HEMATOCRIT 21.7 % (35.4-49); HEMOGLOBIN 7.3 GM/dL (11.7-16.9); MCH 34.5 pg (25.7-33.7); MCHC 33.8 g/dl (32.0-35.9); MEAN PLT VOLUME 7.2 fl (7.5-11.1); PLATELET COUNT 280 K/MM3 (134-434); RBC 2.12 M/mm3 (4.00-5.60); RDW 16.4 % (11.9-15.9); RETICULOCYTES 1.74 % (0.5-1.5); WHITE BLOOD COUNT 5.9 K/mm3 (4.0-10.0)
[2018-04-19 11:02] LABS: ALBUMIN 3.3 g/dl (3.4-5.0); ANION GAP 9 MMOL/L (8-16); BILIRUBIN,TOTAL 0.5 mg/dL (0.2-1.0); BLOOD UREA NITROGEN 22 mg/dL (7-18); CALCIUM 8.4 mg/dL (8.5-10.1); CHLORIDE 99 mmol/L (98-107); CO2 29 mmol/L (21-32); CREATININE 1.5 mg/dL (0.7-1.3); GLUCOSE,RANDOM 89 mg/dL (74-106); LDH 384 U/L (87-241); POTASSIUM 4.6 mmol/L (3.5-5.1); SGOT/AST 49 U/L (15-37); SODIUM 137 mmol/L (136-145); TOT PROT 6.9 g/dl (6.4-8.2)
[2018-04-19 11:09] LABS: ALK PHOS 221 U/L (45-117); SGPT/ALT 18 U/L (12-78)
[2018-04-19 16:29] VITALS: BP 118/71; PULSE 62; TEMP 98.2
== END 2018-04-19 22:47 | disposition home or self-care (01) ==
LOC: JONCBLOOD 07:28 → J7W 09:40 → JONCBLOOD 22:47
PROVIDERS: ATTEND Internal Medicine Hematology & Oncology
PROC: 30233N1 Transfusion of Nonautologous Red Blood Cells into Peripheral Vein, Percutaneous Approach (ICD-10-PCS; principal; 2018-04-19)
DX: D64.81 Anemia due to antineoplastic chemotherapy (principal); C64.9 Malignant neoplasm of unspecified kidney, except renal pelvis; C78.00 Secondary malignant neoplasm of unspecified lung
CPT/HCPCS: 36415; 36430; 80053; 83010; 83615; 85027; 85044; 86850; 86900; 86901; 86922; P9038; P9058

== ENCOUNTER 2018-06-11 07:30 | Day surgery (SDC) | payer OTHER, MEDICARE ==
[2018-06-11] MEDS ORDERED: SODIUM CHLORIDE 250 ML IV ONE ×2 (08:00→11:30)
[2018-06-11] MEDS ORDERED: ACETAMINOPHEN 325 MG TABLET (FP) PO ONE (08:30)
[2018-06-11] MEDS ORDERED: DEXAMETHASONE INJECTION 10 MG, DIPHENHYDRAMINE 50 MG in SODIUM CHLORIDE 100 ML IVPB ONE (08:30)
[2018-06-11] MEDS ORDERED: SODIUM CHLORIDE IVPB ONE ×2 (09:00→10:00)
[2018-06-11] MEDS ORDERED: NIVOLUMAB IVPB ONE (09:00)
[2018-06-11] MEDS ORDERED: IPILIMUMAB IVPB ONE (10:00)
[2018-06-11 10:06] LABS: BASO % 0.9 % (0-2.0); HEMOGLOBIN 8.9 GM/dL (11.7-16.9); LYMPH % 31.5 % (8-40); MCHC 32.9 g/dl (32.0-35.9); MEAN CELL VOLUME 97.1 fl (80-96); MEAN PLT VOLUME 7.4 fl (7.5-11.1); MONO % 8.8 % (3.8-10.2); NEUT % 55.8 % (42.8-82.8); PLATELET COUNT 176 K/MM3 (134-434); RBC 2.78 M/mm3 (4.00-5.60); RDW 25.5 % (11.9-15.9); WHITE BLOOD COUNT 3.7 K/mm3 (4.0-10.0)
[2018-06-11 10:34] LABS: ALBUMIN 3.2 g/dl (3.4-5.0); BILIRUBIN,DIRECT 0.1 mg/dL (0.0-0.2); BILIRUBIN,TOTAL 0.4 mg/dL (0.2-1); MAGNESIUM 2.3 mg/dL (1.8-2.4); TOT PROT 7.5 g/dl (6.4-8.2)
[2018-06-11 10:45] LABS: ALBUMIN 3.1 g/dl (3.4-5.0); ALK PHOS 135 U/L (45-117); AMYLASE 67 U/L (25-115); ANION GAP 4 MMOL/L (8-16); BILIRUBIN,TOTAL 0.4 mg/dL (0.2-1); BLOOD UREA NITROGEN 25 mg/dL (7-18); CALCIUM 8.9 mg/dL (8.5-10.1); CHLORIDE 108 mmol/L (98-107); CO2 27 mmol/L (21-32); CREATININE 1.2 mg/dL (0.55-1.3); GLUCOSE,RANDOM 71 mg/dL (74-106); LIPASE 170 U/L (73-393); POTASSIUM 4.8 mmol/L (3.5-5.1); SGOT/AST 35 U/L (15-37); SGPT/ALT 11 U/L (13-61); SODIUM 139 mmol/L (136-145); TOT PROT 7.4 g/dl (6.4-8.2)
[2018-06-11 11:46] LABS: ANISOCYTOSIS 1+; MACROCYTOSIS 1+
[2018-06-11 12:41] VITALS: TEMP 97.6
[2018-06-11 14:55] VITALS: BP 154/64; PULSE 67
== END 2018-06-11 14:55 | disposition home or self-care (01) ==
LOC: JONCCHEMO 07:30 → J7W 10:32 → JONCCHEMO 14:55
PROVIDERS: ATTEND Internal Medicine Hematology & Oncology
DX: Z51.11 Encounter for antineoplastic chemotherapy (principal); C64.9 Malignant neoplasm of unspecified kidney, except renal pelvis; C78.00 Secondary malignant neoplasm of unspecified lung
CPT/HCPCS: 36415; 80053; 80076; 82150; 83690; 83735; 84439; 84443; 85025; 96361; 96367; 96375; 96413; 96415; 96417; J1100; J9228; J9299

== ENCOUNTER 2018-07-02 07:19 | Day surgery (SDC) | payer OTHER, MEDICARE ==
[2018-07-02] MEDS ORDERED: SODIUM CHLORIDE 250 ML IV ONE ×2 (08:00→11:30)
[2018-07-02] MEDS ORDERED: ACETAMINOPHEN 325 MG TABLET (FP) PO ONE (08:30)
[2018-07-02] MEDS ORDERED: DEXAMETHASONE INJECTION 10 MG, DIPHENHYDRAMINE 50 MG in SODIUM CHLORIDE 100 ML IVPB ONE (08:30)
[2018-07-02] MEDS ORDERED: NIVOLUMAB IVPB ONE (09:00)
[2018-07-02] MEDS ORDERED: SODIUM CHLORIDE IVPB ONE ×2 (09:00→10:00)
[2018-07-02] MEDS ORDERED: IPILIMUMAB IVPB ONE (10:00)
[2018-07-02 10:53] LABS: EOS % 3.3 % (0-4.5); HEMOGLOBIN 10.6 GM/dL (11.7-16.9); LYMPH % 16.2 % (8-40); MCH 33.4 pg (25.7-33.7); MCHC 34.3 g/dl (32.0-35.9); MEAN CELL VOLUME 97.2 fl (80-96); MEAN PLT VOLUME 7.4 fl (7.5-11.1); MONO % 10.7 % (3.8-10.2); NEUT % 68.8 % (42.8-82.8); PLATELET COUNT 314 K/MM3 (134-434); RBC 3.19 M/mm3 (4.00-5.60); RDW 21.7 % (11.9-15.9); WHITE BLOOD COUNT 7.2 K/mm3 (4.0-10.0)
[2018-07-02 11:21] LABS: ALBUMIN 3.5 g/dl (3.4-5.0); ALK PHOS 115 U/L (45-117); ANION GAP 6 MMOL/L (8-16); BILIRUBIN,TOTAL 0.4 mg/dL (0.2-1); BLOOD UREA NITROGEN 32 mg/dL (7-18); CHLORIDE 104 mmol/L (98-107); CO2 29 mmol/L (21-32); CREATININE 1.3 mg/dL (0.55-1.3); GLUCOSE,RANDOM 71 mg/dL (74-106); POTASSIUM 4.4 mmol/L (3.5-5.1); SGOT/AST 31 U/L (15-37); SGPT/ALT 11 U/L (13-61); SODIUM 139 mmol/L (136-145); TOT PROT 8.1 g/dl (6.4-8.2)
[2018-07-02 11:24] LABS: ALBUMIN 3.5 g/dl (3.4-5.0); BILIRUBIN,DIRECT 0.1 mg/dL (0.0-0.2); BILIRUBIN,TOTAL 0.4 mg/dL (0.2-1); MAGNESIUM 2.2 mg/dL (1.8-2.4)
[2018-07-02 14:31] LABS: ANISOCYTOSIS 2+; MACROCYTOSIS 1+; PLATELET ESTIMATE NORMAL
[2018-07-02 16:55] VITALS: TEMP 97.6
[2018-07-02 18:21] VITALS: BP 110/61; PULSE 60
== END 2018-07-02 17:55 | disposition home or self-care (01) ==
LOC: JONCCHEMO 07:19 → J7W 12:11 → JONCCHEMO 17:55
PROVIDERS: ATTEND Internal Medicine Hematology & Oncology
DX: Z51.11 Encounter for antineoplastic chemotherapy (principal); C64.9 Malignant neoplasm of unspecified kidney, except renal pelvis; C78.00 Secondary malignant neoplasm of unspecified lung
CPT/HCPCS: 36415; 80053; 80061; 80076; 82150; 83721; 83735; 84439; 84443; 85025; 96361; 96367; 96375; 96413; 96415; 96417; J1100; J9228; J9299

== ENCOUNTER 2018-07-23 07:27 | Day surgery (SDC) | payer OTHER, MEDICARE ==
[2018-07-23] MEDS ORDERED: SODIUM CHLORIDE 250 ML IV ONE ×2 (09:30→13:00)
[2018-07-23] MEDS ORDERED: DEXAMETHASONE INJECTION 10 MG, DIPHENHYDRAMINE 50 MG in SODIUM CHLORIDE 100 ML IVPB ONE (10:00)
[2018-07-23] MEDS ORDERED: ACETAMINOPHEN 325 MG TABLET (FP) PO ONE (10:00)
[2018-07-23 10:05] LABS: BASO % 1.3 % (0-2.0); EOS % 10.5 % (0-4.5); HEMATOCRIT 35.5 % (35.4-49); HEMOGLOBIN 11.3 GM/dL (11.7-16.9); LYMPH % 25.3 % (8-40); MCH 30.7 pg (25.7-33.7); MCHC 31.8 g/dl (32.0-35.9); MEAN CELL VOLUME 96.6 fl (80-96); MEAN PLT VOLUME 7.8 fl (7.5-11.1); MONO % 13.1 % (3.8-10.2); NEUT % 49.8 % (42.8-82.8); PLATELET COUNT 166 K/MM3 (134-434); RBC 3.67 M/mm3 (4.00-5.60); RDW 19.8 % (11.9-15.9); WHITE BLOOD COUNT 5.9 K/mm3 (4.0-10.0)
[2018-07-23] MEDS ORDERED: NIVOLUMAB IVPB ONE (10:30)
[2018-07-23] MEDS ORDERED: SODIUM CHLORIDE IVPB ONE ×2 (10:30→11:30)
[2018-07-23 11:05] LABS: ALBUMIN 3.5 g/dl (3.4-5.0); ALK PHOS 111 U/L (45-117); ANION GAP 8 MMOL/L (8-16); BILIRUBIN,DIRECT 0.1 mg/dL (0.0-0.2); BILIRUBIN,TOTAL 0.3 mg/dL (0.2-1); BLOOD UREA NITROGEN 28 mg/dL (7-18); CALCIUM 8.8 mg/dL (8.5-10.1); CHLORIDE 105 mmol/L (98-107); CO2 27 mmol/L (21-32); CREATININE 1.3 mg/dL (0.55-1.3); GLUCOSE,RANDOM 78 mg/dL (74-106); MAGNESIUM 2.2 mg/dL (1.8-2.4); POTASSIUM 4.5 mmol/L (3.5-5.1); SGOT/AST 64 U/L (15-37); SGPT/ALT 27 U/L (13-61); SODIUM 140 mmol/L (136-145); TOT PROT 7.8 g/dl (6.4-8.2)
[2018-07-23] MEDS ORDERED: IPILIMUMAB IVPB ONE (11:30)
[2018-07-23 17:30] VITALS: BP 124/61; PULSE 59; TEMP 97.4
== END 2018-07-23 16:30 | disposition home or self-care (01) ==
LOC: JONCCHEMO 07:27 → J7W 09:49 → JONCCHEMO 16:30
PROVIDERS: ATTEND Internal Medicine Hematology & Oncology
DX: Z51.11 Encounter for antineoplastic chemotherapy (principal); C64.9 Malignant neoplasm of unspecified kidney, except renal pelvis; C78.00 Secondary malignant neoplasm of unspecified lung
CPT/HCPCS: 36415; 80053; 80076; 83735; 84439; 84443; 85025; 96361; 96367; 96375; 96413; 96415; 96417; J1100; J9228; J9299

== ENCOUNTER 2018-08-13 07:03 | Day surgery (SDC) | payer OTHER, MEDICARE ==
[2018-08-13] MEDS ORDERED: SODIUM CHLORIDE 250 ML IV ONE ×2 (09:30→13:00)
[2018-08-13 09:35] LABS: BASO % 1.2 % (0-2.0); EOS % 0.3 % (0-4.5); HEMATOCRIT 35.9 % (35.4-49); HEMOGLOBIN 12.2 GM/dL (11.7-16.9); MCH 32.1 pg (25.7-33.7); MCHC 34.1 g/dl (32.0-35.9); MEAN CELL VOLUME 94.1 fl (80-96); MEAN PLT VOLUME 7.5 fl (7.5-11.1); MONO % 21.3 % (3.8-10.2); NEUT % 40.2 % (42.8-82.8); PLATELET COUNT 200 K/MM3 (134-434); RBC 3.81 M/mm3 (4.00-5.60); RDW 16.3 % (11.9-15.9); WHITE BLOOD COUNT 3.9 K/mm3 (4.0-10.0)
[2018-08-13] MEDS ORDERED: DEXAMETHASONE SODIUM PHOSPHATE 10 MG, DIPHENHYDRAMINE 50 MG in SODIUM CHLORIDE 100 ML IVPB ONE (10:00)
[2018-08-13] MEDS ORDERED: ACETAMINOPHEN 325 MG TABLET (FP) PO ONE (10:00)
[2018-08-13 10:01] LABS: ALBUMIN 3.5 g/dl (3.4-5.0); ALK PHOS 362 U/L (45-117); ANION GAP 5 MMOL/L (8-16); BILIRUBIN,DIRECT 0.2 mg/dL (0.0-0.2); BILIRUBIN,TOTAL 0.4 mg/dL (0.2-1); BLOOD UREA NITROGEN 26 mg/dL (7-18); CALCIUM 8.2 mg/dL (8.5-10.1); CHLORIDE 105 mmol/L (98-107); CO2 29 mmol/L (21-32); CREATININE 1.5 mg/dL (0.55-1.3); GLUCOSE,RANDOM 84 mg/dL (74-106); MAGNESIUM 2.5 mg/dL (1.8-2.4); POTASSIUM 4.4 mmol/L (3.5-5.1); SGOT/AST 423 U/L (15-37); SGPT/ALT 100 U/L (13-61); SODIUM 139 mmol/L (136-145); TOT PROT 7.8 g/dl (6.4-8.2)
[2018-08-13] MEDS ORDERED: SODIUM CHLORIDE IVPB ONE ×2 (10:30→11:30)
[2018-08-13] MEDS ORDERED: NIVOLUMAB IVPB ONE (10:30)
[2018-08-13] MEDS ORDERED: IPILIMUMAB IVPB ONE (11:30)
[2018-08-13 12:43] LABS: ANISOCYTOSIS 1+; MACROCYTOSIS 1+; PLATELET ESTIMATE NORMAL
[2018-08-13 14:05] VITALS: TEMP 97.6
[2018-08-13 15:59] VITALS: BP 144/77; PULSE 70
== END 2018-08-13 15:30 | disposition home or self-care (01) ==
LOC: JONCCHEMO 07:03 → J7W 09:45 → JONCCHEMO 15:30
PROVIDERS: ATTEND Internal Medicine Hematology & Oncology
PROC: 3E03305 Introduction of Other Antineoplastic into Peripheral Vein, Percutaneous Approach (ICD-10-PCS; principal; 2018-08-13)
PROC: 3E033GC Introduction of Other Therapeutic Substance into Peripheral Vein, Percutaneous Approach (ICD-10-PCS; 2018-08-13)
PROC: 3E0337Z Introduction of Electrolytic and Water Balance Substance into Peripheral Vein, Percutaneous Approach (ICD-10-PCS; 2018-08-13)
DX: Z51.11 Encounter for antineoplastic chemotherapy (principal); C64.9 Malignant neoplasm of unspecified kidney, except renal pelvis; C78.00 Secondary malignant neoplasm of unspecified lung
CPT/HCPCS: 36415; 80053; 80076; 83735; 85025; 96361; 96367; 96375; 96413; 96415; 96417; J9228; J9299

== ENCOUNTER 2018-09-10 06:56 | Day surgery (SDC) | payer OTHER, MEDICARE ==
[2018-09-10] MEDS ORDERED: SODIUM CHLORIDE 250 ML IV ONE ×2 (08:00→10:00)
[2018-09-10] MEDS ORDERED: DEXAMETHASONE SODIUM PHOSPHATE 20 MG in SODIUM CHLORIDE 50 ML IVPB ONE (08:30)
[2018-09-10 08:54] LABS: BASO % 0.3 % (0-2.0); HEMATOCRIT 44.4 % (35.4-49); HEMOGLOBIN 15.1 GM/dL (11.7-16.9); LYMPH % 17.4 % (8-40); MCH 32.2 pg (25.7-33.7); MEAN CELL VOLUME 94.6 fl (80-96); MEAN PLT VOLUME 8.4 fl (7.5-11.1); MONO % 4.5 % (3.8-10.2); NEUT % 77.8 % (42.8-82.8); PLATELET COUNT 159 K/MM3 (134-434); RBC 4.69 M/mm3 (4.00-5.60); RDW 16.1 % (11.9-15.9); WHITE BLOOD COUNT 9.6 K/mm3 (4.0-10.0)
[2018-09-10] MEDS ORDERED: NIVOLUMAB 200 MG, NIVOLUMAB 40 MG in SODIUM CHLORIDE 100 ML IVPB ONE (09:00)
[2018-09-10 09:28] LABS: ALBUMIN 3.4 g/dl (3.4-5.0); ALK PHOS 108 U/L (45-117); ANION GAP 6 MMOL/L (8-16); BILIRUBIN,DIRECT 0.2 mg/dL (0.0-0.2); BILIRUBIN,TOTAL 0.4 mg/dL (0.2-1); BLOOD UREA NITROGEN 39 mg/dL (7-18); CALCIUM 8.8 mg/dL (8.5-10.1); CHLORIDE 103 mmol/L (98-107); CO2 31 mmol/L (21-32); CREATININE 1.6 mg/dL (0.55-1.3); GLUCOSE,RANDOM 121 mg/dL (74-106); MAGNESIUM 2.6 mg/dL (1.8-2.4); POTASSIUM 4.1 mmol/L (3.5-5.1); SGOT/AST 179 U/L (15-37); SGPT/ALT 74 U/L (13-61); SODIUM 140 mmol/L (136-145); TOT PROT 6.9 g/dl (6.4-8.2)
[2018-09-10 12:35] LABS: ACANTHOCYTES 1+; ANISOCYTOSIS 2+; MACROCYTOSIS 0; OVALOCYTE 1+; PLATELET ESTIMATE DECREASED; TARGET CELLS 1+; TEAR DROP CELLS 1+
[2018-09-10 13:55] VITALS: TEMP 98.1
[2018-09-10 13:56] VITALS: BP 118/68; PULSE 63
== END 2018-09-10 13:35 | disposition home or self-care (01) ==
LOC: JONCCHEMO 06:56 → J7W 09:43 → JONCCHEMO 13:35
PROVIDERS: ATTEND Internal Medicine Hematology & Oncology
DX: Z51.11 Encounter for antineoplastic chemotherapy (principal); C64.9 Malignant neoplasm of unspecified kidney, except renal pelvis; C78.00 Secondary malignant neoplasm of unspecified lung
CPT/HCPCS: 36415; 80048; 80076; 82533; 83735; 84439; 84443; 85025; 96361; 96375; 96413; J9299

== ENCOUNTER 2018-09-24 06:38 | Day surgery (SDC) | payer OTHER, MEDICARE ==
[2018-09-24] MEDS ORDERED: SODIUM CHLORIDE 250 ML IV ONE ×2 (09:00→11:30)
[2018-09-24 09:26] LABS: BASO % 0.1 % (0-2.0); HEMATOCRIT 42.7 % (35.4-49); HEMOGLOBIN 14.7 GM/dL (11.7-16.9); LYMPH % 13.8 % (8-40); MCH 32.2 pg (25.7-33.7); MCHC 34.4 g/dl (32.0-35.9); MEAN CELL VOLUME 93.7 fl (80-96); MEAN PLT VOLUME 7.5 fl (7.5-11.1); MONO % 6.7 % (3.8-10.2); NEUT % 79.4 % (42.8-82.8); PLATELET COUNT 155 K/MM3 (134-434); RBC 4.56 M/mm3 (4.00-5.60); RDW 15.7 % (11.9-15.9); WHITE BLOOD COUNT 9.5 K/mm3 (4.0-10.0)
[2018-09-24 09:56] LABS: ALBUMIN 3.5 g/dl (3.4-5.0); ALK PHOS 100 U/L (45-117); ANION GAP 8 MMOL/L (8-16); BILIRUBIN,DIRECT 0.2 mg/dL (0.0-0.2); BILIRUBIN,TOTAL 0.4 mg/dL (0.2-1); BLOOD UREA NITROGEN 39 mg/dL (7-18); CALCIUM 8.8 mg/dL (8.5-10.1); CHLORIDE 104 mmol/L (98-107); CO2 30 mmol/L (21-32); CREATININE 1.8 mg/dL (0.55-1.3); GLUCOSE,RANDOM 83 mg/dL (74-106); MAGNESIUM 2.3 mg/dL (1.8-2.4); POTASSIUM 4.2 mmol/L (3.5-5.1); SGOT/AST 89 U/L (15-37); SGPT/ALT 86 U/L (13-61); SODIUM 142 mmol/L (136-145)
[2018-09-24] MEDS ORDERED: DEXAMETHASONE SODIUM PHOSPHATE 20 MG in DEXTROSE 5%-WATER - 50 ML IVPB ONE (10:00)
[2018-09-24] MEDS ORDERED: NIVOLUMAB 200 MG, NIVOLUMAB 40 MG in SODIUM CHLORIDE 100 ML IVPB ONE (10:30)
[2018-09-24] MEDS ORDERED: SODIUM CHLORIDE 0.45% 250 ML IV ONE ×2 (12:15→13:00)
[2018-09-24 12:35] LABS: ANISOCYTOSIS 1+; MACROCYTOSIS 1+
[2018-09-24 12:51] LABS: PLATELET ESTIMATE ADEQUATE
[2018-09-24 15:03] VITALS: BP 111/69; PULSE 74; TEMP 97.9
== END 2018-09-24 15:00 | disposition home or self-care (01) ==
LOC: JONCCHEMO 06:38 → J7W 10:35 → JONCCHEMO 15:00
PROVIDERS: ATTEND Internal Medicine Hematology & Oncology
DX: Z51.11 Encounter for antineoplastic chemotherapy (principal); C64.9 Malignant neoplasm of unspecified kidney, except renal pelvis; C78.00 Secondary malignant neoplasm of unspecified lung
CPT/HCPCS: 36415; 80048; 80076; 83735; 85025; 96361; 96375; 96413; J9299

== ENCOUNTER 2018-10-08 07:06 | Day surgery (SDC) | payer OTHER, MEDICARE ==
[2018-10-08] MEDS ORDERED: SODIUM CHLORIDE 250 ML IV ONE ×2 (09:00→11:30)
[2018-10-08 09:32] LABS: BASO % 0.3 % (0-2.0); HEMATOCRIT 45.8 % (35.4-49); HEMOGLOBIN 15.3 GM/dL (11.7-16.9); LYMPH % 16.9 % (8-40); MCH 31.4 pg (25.7-33.7); MCHC 33.5 g/dl (32.0-35.9); MEAN CELL VOLUME 93.7 fl (80-96); MEAN PLT VOLUME 7.4 fl (7.5-11.1); MONO % 4.5 % (3.8-10.2); NEUT % 78.3 % (42.8-82.8); PLATELET COUNT 152 K/MM3 (134-434); RBC 4.89 M/mm3 (4.00-5.60); RDW 16.2 % (11.9-15.9); WHITE BLOOD COUNT 7.8 K/mm3 (4.0-10.0)
[2018-10-08] MEDS ORDERED: DEXAMETHASONE SODIUM PHOSPHATE 20 MG in DEXTROSE 5%-WATER - 50 ML IVPB ONE (10:00)
[2018-10-08 10:04] LABS: ALBUMIN 3.6 g/dl (3.4-5.0); BILIRUBIN,DIRECT 0.2 mg/dL (0.0-0.2); BILIRUBIN,TOTAL 0.6 mg/dL (0.2-1); MAGNESIUM 2.4 mg/dL (1.8-2.4)
[2018-10-08] MEDS ORDERED: NIVOLUMAB 200 MG, NIVOLUMAB 40 MG in SODIUM CHLORIDE 100 ML IVPB ONE (10:30)
[2018-10-08] MEDS ORDERED: DEXAMETHASONE SOD PHOSPHATE 10 MG/1 ML VIAL ONE (11:24)
[2018-10-08 12:09] LABS: ANISOCYTOSIS 0; MACROCYTOSIS 0; PLATELET ESTIMATE NORMAL
[2018-10-08 16:48] VITALS: TEMP 98
[2018-10-08 16:50] VITALS: BP 111/66; PULSE 68
== END 2018-10-08 13:00 | disposition home or self-care (01) ==
LOC: JONCCHEMO 07:06 → J7W 10:07 → JONCCHEMO 13:00
PROVIDERS: ATTEND Internal Medicine Hematology & Oncology
DX: Z51.11 Encounter for antineoplastic chemotherapy (principal); C64.9 Malignant neoplasm of unspecified kidney, except renal pelvis; C78.00 Secondary malignant neoplasm of unspecified lung
CPT/HCPCS: 36415; 80076; 82533; 83690; 83735; 84439; 84443; 85025; 85027; 96361; 96367; 96375; 96413; 96417; J1100; J9299

== ENCOUNTER 2018-10-22 07:05 | Day surgery (SDC) | payer OTHER, MEDICARE ==
[2018-10-22] MEDS ORDERED: SODIUM CHLORIDE 250 ML IV ONE ×2 (08:00→10:00)
[2018-10-22] MEDS ORDERED: DEXAMETHASONE SODIUM PHOSPHATE 20 MG in SODIUM CHLORIDE 50 ML IVPB ONE (08:30)
[2018-10-22] MEDS ORDERED: NIVOLUMAB 200 MG, NIVOLUMAB 40 MG in SODIUM CHLORIDE 100 ML IVPB ONE (09:00)
[2018-10-22 09:14] LABS: BASO % 0.1 % (0-2.0); HEMATOCRIT 43.1 % (35.4-49); HEMOGLOBIN 14.8 GM/dL (11.7-16.9); LYMPH % 8.7 % (8-40); MCHC 34.4 g/dl (32.0-35.9); MEAN CELL VOLUME 93.1 fl (80-96); MEAN PLT VOLUME 7.8 fl (7.5-11.1); MONO % 5.3 % (3.8-10.2); NEUT % 85.9 % (42.8-82.8); PLATELET COUNT 141 K/MM3 (134-434); RBC 4.63 M/mm3 (4.00-5.60); RDW 16.5 % (11.9-15.9)
[2018-10-22 09:51] LABS: ALBUMIN 3.6 g/dl (3.4-5.0); BILIRUBIN,DIRECT 0.2 mg/dL (0.0-0.2); BILIRUBIN,TOTAL 0.6 mg/dL (0.2-1); MAGNESIUM 2.3 mg/dL (1.8-2.4); TOT PROT 6.8 g/dl (6.4-8.2)
[2018-10-22 09:58] LABS: ALBUMIN 3.6 g/dl (3.4-5.0); ALK PHOS 72 U/L (45-117); ANION GAP 8 MMOL/L (8-16); BILIRUBIN,TOTAL 0.7 mg/dL (0.2-1); BLOOD UREA NITROGEN 36 mg/dL (7-18); CALCIUM 8.9 mg/dL (8.5-10.1); CHLORIDE 102 mmol/L (98-107); CO2 30 mmol/L (21-32); CREATININE 1.6 mg/dL (0.55-1.3); GLUCOSE,RANDOM 124 mg/dL (74-106); SGOT/AST 45 U/L (15-37); SGPT/ALT 86 U/L (13-61); SODIUM 140 mmol/L (136-145); TOT PROT 6.9 g/dl (6.4-8.2)
[2018-10-22 12:16] LABS: ANISOCYTOSIS 0; HELMET CELLS 0; HOWELL-JOLLY BODIES 0; MACROCYTOSIS 0; OVALOCYTE 0; PLATELET ESTIMATE DECREASED; ROULEAU 0; SICKELED CELLS 0; TARGET CELLS 0; TEAR DROP CELLS 0; TOXIC GRANULATION 0
[2018-10-22 17:19] VITALS: BP 113/73; PULSE 71; TEMP 97.6
== END 2018-10-22 13:40 | disposition home or self-care (01) ==
LOC: JONCCHEMO 07:05 → J7W 10:10 → JONCCHEMO 13:40
PROVIDERS: ATTEND Internal Medicine Hematology & Oncology
DX: Z51.11 Encounter for antineoplastic chemotherapy (principal); C64.9 Malignant neoplasm of unspecified kidney, except renal pelvis; C78.00 Secondary malignant neoplasm of unspecified lung
CPT/HCPCS: 36415; 80053; 80076; 82150; 82533; 83690; 83735; 84439; 84443; 85025; 96361; 96367; 96375; 96413; J9299

== ENCOUNTER 2018-11-05 06:20 | Day surgery (SDC) | payer OTHER, MEDICARE ==
[2018-11-05] MEDS ORDERED: SODIUM CHLORIDE 250 ML IV ONE ×2 (08:00→10:00)
[2018-11-05] MEDS ORDERED: DEXAMETHASONE SODIUM PHOSPHATE 20 MG in SODIUM CHLORIDE 50 ML IVPB ONE (08:30)
[2018-11-05] MEDS ORDERED: NIVOLUMAB 200 MG, NIVOLUMAB 40 MG in SODIUM CHLORIDE 100 ML IVPB ONE (09:00)
[2018-11-05 10:42] LABS: BASO % 0.4 % (0-2.0); HEMATOCRIT 41.8 % (35.4-49); HEMOGLOBIN 14.2 GM/dL (11.7-16.9); MCH 31.8 pg (25.7-33.7); MEAN CELL VOLUME 93.4 fl (80-96); MEAN PLT VOLUME 7.7 fl (7.5-11.1); MONO % 4.8 % (3.8-10.2); NEUT % 79.8 % (42.8-82.8); PLATELET COUNT 117 K/MM3 (134-434); RBC 4.47 M/mm3 (4.00-5.60); RDW 16.4 % (11.9-15.9)
[2018-11-05 11:12] LABS: ALBUMIN 3.6 g/dl (3.4-5.0); ALK PHOS 71 U/L (45-117); ANION GAP 6 MMOL/L (8-16); BILIRUBIN,TOTAL 0.7 mg/dL (0.2-1); BLOOD UREA NITROGEN 30 mg/dL (7-18); CHLORIDE 102 mmol/L (98-107); CO2 32 mmol/L (21-32); CREATININE 1.5 mg/dL (0.55-1.3); GLUCOSE,RANDOM 82 mg/dL (74-106); SGOT/AST 44 U/L (15-37); SGPT/ALT 24 U/L (13-61); SODIUM 140 mmol/L (136-145)
[2018-11-05 11:16] LABS: ALBUMIN 3.6 g/dl (3.4-5.0); BILIRUBIN,DIRECT 0.2 mg/dL (0.0-0.2); BILIRUBIN,TOTAL 0.8 mg/dL (0.2-1); MAGNESIUM 2.3 mg/dL (1.8-2.4); TOT PROT 7.2 g/dl (6.4-8.2)
[2018-11-05 11:34] LABS: ANISOCYTOSIS 0; MACROCYTOSIS 0; PLATELET ESTIMATE NORMAL
[2018-11-05 17:13] VITALS: BP 127/77; PULSE 69; TEMP 97.3
== END 2018-11-05 14:45 | disposition home or self-care (01) ==
LOC: JONCCHEMO 06:20 → J7W 11:36 → JONCCHEMO 14:45
PROVIDERS: ATTEND Internal Medicine Hematology & Oncology
DX: Z51.11 Encounter for antineoplastic chemotherapy (principal); C64.9 Malignant neoplasm of unspecified kidney, except renal pelvis; C78.00 Secondary malignant neoplasm of unspecified lung
CPT/HCPCS: 36415; 80053; 80076; 82150; 82530; 83690; 83735; 84439; 84443; 85025; 96361; 96375; 96413; J9299

== ENCOUNTER 2018-11-19 07:12 | Day surgery (SDC) | payer OTHER, MEDICARE ==
[2018-11-19] MEDS ORDERED: SODIUM CHLORIDE 250 ML IV ONE ×2 (09:00→11:30)
[2018-11-19 09:18] LABS: BASO % 0.4 % (0-2.0); HEMATOCRIT 38.5 % (35.4-49); HEMOGLOBIN 13.3 GM/dL (11.7-16.9); MCH 31.6 pg (25.7-33.7); MCHC 34.5 g/dl (32.0-35.9); MEAN CELL VOLUME 91.7 fl (80-96); MEAN PLT VOLUME 7.3 fl (7.5-11.1); MONO % 7.7 % (3.8-10.2); NEUT % 71.9 % (42.8-82.8); PLATELET COUNT 174 K/MM3 (134-434); RDW 16.2 % (11.9-15.9); WHITE BLOOD COUNT 6.7 K/mm3 (4.0-10.0)
[2018-11-19 09:30] LABS: ALBUMIN 3.2 g/dl (3.4-5.0); ALK PHOS 66 U/L (45-117); ANION GAP 4 MMOL/L (8-16); BILIRUBIN,TOTAL 0.6 mg/dL (0.2-1); BLOOD UREA NITROGEN 22 mg/dL (7-18); CALCIUM 8.8 mg/dL (8.5-10.1); CHLORIDE 106 mmol/L (98-107); CO2 29 mmol/L (21-32); CREATININE 1.3 mg/dL (0.55-1.3); GLUCOSE,RANDOM 88 mg/dL (74-106); POTASSIUM 3.6 mmol/L (3.5-5.1); SGOT/AST 53 U/L (15-37); SGPT/ALT 31 U/L (13-61); SODIUM 140 mmol/L (136-145); TOT PROT 6.5 g/dl (6.4-8.2)
[2018-11-19 09:40] LABS: ALBUMIN 3.2 g/dl (3.4-5.0); BILIRUBIN,DIRECT 0.2 mg/dL (0.0-0.2); BILIRUBIN,TOTAL 0.6 mg/dL (0.2-1); MAGNESIUM 2.2 mg/dL (1.8-2.4); TOT PROT 6.6 g/dl (6.4-8.2)
[2018-11-19] MEDS ORDERED: DEXAMETHASONE SODIUM PHOSPHATE 20 MG in DEXTROSE 5%-WATER - 50 ML IVPB ONE (10:00)
[2018-11-19] MEDS ORDERED: NIVOLUMAB 200 MG, NIVOLUMAB 40 MG in SODIUM CHLORIDE 100 ML IVPB ONE (10:30)
[2018-11-19 11:40] LABS: ANISOCYTOSIS 0; HELMET CELLS 0; HOWELL-JOLLY BODIES 0; MACROCYTOSIS 0; OVALOCYTE 0; PLATELET ESTIMATE NORMAL; ROULEAU 0; SICKELED CELLS 0; TARGET CELLS 0; TEAR DROP CELLS 0; TOXIC GRANULATION 0
[2018-11-19 13:44] VITALS: BP 110/67; PULSE 63; TEMP 97.9
== END 2018-11-19 13:40 | disposition home or self-care (01) ==
LOC: JONCCHEMO 07:12 → J7W 09:43 → JONCCHEMO 13:40
PROVIDERS: ATTEND Internal Medicine Hematology & Oncology
DX: Z51.11 Encounter for antineoplastic chemotherapy (principal); C64.9 Malignant neoplasm of unspecified kidney, except renal pelvis; C78.00 Secondary malignant neoplasm of unspecified lung
CPT/HCPCS: 36415; 80053; 80076; 82150; 83615; 83690; 83735; 84439; 84443; 85025; 96361; 96375; 96413; J9299

== ENCOUNTER 2018-12-03 07:08 | Day surgery (SDC) | payer OTHER, MEDICARE ==
[2018-12-03] MEDS ORDERED: SODIUM CHLORIDE 250 ML IV ONE ×2 (09:00→11:00)
[2018-12-03] MEDS ORDERED: DEXAMETHASONE SODIUM PHOSPHATE 20 MG in SODIUM CHLORIDE 50 ML IVPB ONE (09:30)
[2018-12-03 09:36] LABS: BASO % 0.7 % (0-2.0); EOS % 0.1 % (0-4.5); HEMATOCRIT 40.2 % (35.4-49); HEMOGLOBIN 13.4 GM/dL (11.7-16.9); LYMPH % 22.7 % (8-40); MCH 31.6 pg (25.7-33.7); MCHC 33.4 g/dl (32.0-35.9); MEAN CELL VOLUME 94.7 fl (80-96); MEAN PLT VOLUME 7.9 fl (7.5-11.1); NEUT % 68.5 % (42.8-82.8); PLATELET COUNT 161 K/MM3 (134-434); RBC 4.24 M/mm3 (4.00-5.60); RDW 16.3 % (11.9-15.9); WHITE BLOOD COUNT 7.5 K/mm3 (4.0-10.0)
[2018-12-03] MEDS ORDERED: NIVOLUMAB 200 MG, NIVOLUMAB 40 MG in SODIUM CHLORIDE 100 ML IVPB ONE (10:00)
[2018-12-03 10:19] LABS: ALBUMIN 3.5 g/dl (3.4-5.0); ALK PHOS 81 U/L (45-117); ANION GAP 5 MMOL/L (8-16); BILIRUBIN,TOTAL 0.6 mg/dL (0.2-1); BLOOD UREA NITROGEN 24 mg/dL (7-18); CALCIUM 8.9 mg/dL (8.5-10.1); CHLORIDE 105 mmol/L (98-107); CO2 31 mmol/L (21-32); CREATININE 1.4 mg/dL (0.55-1.3); GLUCOSE,RANDOM 91 mg/dL (74-106); SGOT/AST 91 U/L (15-37); SGPT/ALT 72 U/L (13-61); SODIUM 140 mmol/L (136-145); TOT PROT 6.9 g/dl (6.4-8.2)
[2018-12-03 10:29] LABS: ALBUMIN 3.5 g/dl (3.4-5.0); BILIRUBIN,DIRECT 0.2 mg/dL (0.0-0.2); BILIRUBIN,TOTAL 0.7 mg/dL (0.2-1); MAGNESIUM 2.2 mg/dL (1.8-2.4); TOT PROT 6.9 g/dl (6.4-8.2)
[2018-12-03 10:59] LABS: ANISOCYTOSIS 1+; MACROCYTOSIS 1+
[2018-12-03 11:13] LABS: PLATELET ESTIMATE ADEQUATE
[2018-12-03 15:52] VITALS: BP 116/71; PULSE 63; TEMP 97.8
== END 2018-12-03 14:30 | disposition home or self-care (01) ==
LOC: JONCCHEMO 07:08 → J7W 09:41 → JONCCHEMO 14:30
PROVIDERS: ATTEND Internal Medicine Hematology & Oncology
DX: Z51.11 Encounter for antineoplastic chemotherapy (principal); C64.9 Malignant neoplasm of unspecified kidney, except renal pelvis; C78.00 Secondary malignant neoplasm of unspecified lung
CPT/HCPCS: 36415; 80053; 80076; 82150; 82530; 83690; 83735; 84439; 84443; 85025; 96361; 96375; 96413; J9299

== ENCOUNTER 2018-12-17 07:06 | Day surgery (SDC) | payer OTHER, MEDICARE ==
[2018-12-17] MEDS ORDERED: SODIUM CHLORIDE 250 ML IV ONE ×2 (08:00→10:00)
[2018-12-17] MEDS ORDERED: DEXAMETHASONE SODIUM PHOSPHATE 20 MG in SODIUM CHLORIDE 50 ML IVPB ONE (08:30)
[2018-12-17] MEDS ORDERED: NIVOLUMAB 200 MG, NIVOLUMAB 40 MG in SODIUM CHLORIDE 100 ML IVPB ONE (09:00)
[2018-12-17 09:04] LABS: BASO % 0.6 % (0-2.0); HEMOGLOBIN 12.8 GM/dL (11.7-16.9); LYMPH % 22.7 % (8-40); MCH 32.1 pg (25.7-33.7); MCHC 33.7 g/dl (32.0-35.9); MEAN CELL VOLUME 95.3 fl (80-96); MEAN PLT VOLUME 7.4 fl (7.5-11.1); NEUT % 67.7 % (42.8-82.8); PLATELET COUNT 156 K/MM3 (134-434); RBC 3.99 M/mm3 (4.00-5.60); RDW 15.7 % (11.9-15.9); WHITE BLOOD COUNT 6.7 K/mm3 (4.0-10.0)
[2018-12-17 09:37] LABS: ALBUMIN 3.4 g/dl (3.4-5.0); BILIRUBIN,DIRECT 0.2 mg/dL (0.0-0.2); BILIRUBIN,TOTAL 0.5 mg/dL (0.2-1); TOT PROT 6.4 g/dl (6.4-8.2)
[2018-12-17 09:47] LABS: ANION GAP 5 MMOL/L (8-16); BLOOD UREA NITROGEN 19 mg/dL (7-18); CALCIUM 8.8 mg/dL (8.5-10.1); CHLORIDE 108 mmol/L (98-107); CO2 31 mmol/L (21-32); CREATININE 1.2 mg/dL (0.55-1.3); GLUCOSE,RANDOM 88 mg/dL (74-106); MAGNESIUM 2.3 mg/dL (1.8-2.4); POTASSIUM 3.6 mmol/L (3.5-5.1); SODIUM 144 mmol/L (136-145)
[2018-12-17 11:03] LABS: ANISOCYTOSIS 1+; MACROCYTOSIS 1+; OVALOCYTE 1+; TEAR DROP CELLS 1+
[2018-12-17 11:25] LABS: PLATELET ESTIMATE ADEQUATE
[2018-12-17 15:12] VITALS: TEMP 97.7
[2018-12-17 15:14] VITALS: BP 145/85; PULSE 70
== END 2018-12-17 13:30 | disposition home or self-care (01) ==
LOC: JONCCHEMO 07:06 → J7W 09:43 → JONCCHEMO 13:30
PROVIDERS: ATTEND Internal Medicine Hematology & Oncology
DX: Z51.11 Encounter for antineoplastic chemotherapy (principal); D64.9 Anemia, unspecified; C78.00 Secondary malignant neoplasm of unspecified lung
CPT/HCPCS: 36415; 80048; 80076; 83735; 84439; 84443; 85025; 96361; 96375; 96413; J9299

== ENCOUNTER 2018-12-31 07:18 | Day surgery (SDC) | payer OTHER, MEDICARE ==
[2018-12-31] MEDS ORDERED: SODIUM CHLORIDE 250 ML IV ONE ×2 (09:00→11:00)
[2018-12-31] MEDS ORDERED: DEXAMETHASONE SODIUM PHOSPHATE 20 MG in SODIUM CHLORIDE 50 ML IVPB ONE (09:30)
[2018-12-31] MEDS ORDERED: NIVOLUMAB 200 MG, NIVOLUMAB 40 MG in SODIUM CHLORIDE 100 ML IVPB ONE (10:00)
[2018-12-31 10:03] LABS: BASO % 0.8 % (0-2.0); EOS % 3.5 % (0-4.5); HEMATOCRIT 38.7 % (35.4-49); HEMOGLOBIN 12.8 GM/dL (11.7-16.9); LYMPH % 25.1 % (8-40); MCH 31.7 pg (25.7-33.7); MEAN CELL VOLUME 96.2 fl (80-96); MEAN PLT VOLUME 7.9 fl (7.5-11.1); MONO % 12.9 % (3.8-10.2); NEUT % 57.7 % (42.8-82.8); PLATELET COUNT 173 K/MM3 (134-434); RBC 4.02 M/mm3 (4.00-5.60); RDW 15.2 % (11.9-15.9); WHITE BLOOD COUNT 5.3 K/mm3 (4.0-10.0)
[2018-12-31 10:39] LABS: ALBUMIN 3.4 g/dl (3.4-5.0); ALK PHOS 127 U/L (45-117); ANION GAP 7 MMOL/L (8-16); BILIRUBIN,DIRECT 0.2 mg/dL (0.0-0.2); BILIRUBIN,TOTAL 0.6 mg/dL (0.2-1); BLOOD UREA NITROGEN 16 mg/dL (7-18); CALCIUM 9.2 mg/dL (8.5-10.1); CHLORIDE 108 mmol/L (98-107); CO2 29 mmol/L (21-32); CREATININE 1.1 mg/dL (0.55-1.3); GLUCOSE,RANDOM 91 mg/dL (74-106); MAGNESIUM 2.1 mg/dL (1.8-2.4); POTASSIUM 3.9 mmol/L (3.5-5.1); SGOT/AST 344 U/L (15-37); SGPT/ALT 93 U/L (13-61); SODIUM 143 mmol/L (136-145); TOT PROT 6.5 g/dl (6.4-8.2)
[2018-12-31 17:11] VITALS: BP 124/78; PULSE 72; TEMP 97.8
[2018-12-31] MEDS ORDERED: PORTA CATH FLUSH 10 ML IVPUSH ONE (17:13)
== END 2018-12-31 14:15 | disposition home or self-care (01) ==
LOC: JONCCHEMO 07:18 → J7W 09:54 → JONCCHEMO 14:15
PROVIDERS: ATTEND Internal Medicine Hematology & Oncology
DX: Z51.11 Encounter for antineoplastic chemotherapy (principal); C64.1 Malignant neoplasm of right kidney, except renal pelvis; C78.00 Secondary malignant neoplasm of unspecified lung
CPT/HCPCS: 36415; 80048; 80076; 83735; 84439; 84443; 85025; 96367; 96375; 96413; J9299

== ENCOUNTER 2019-01-14 07:23 | Day surgery (SDC) | payer OTHER, MEDICARE ==
[2019-01-14] MEDS ORDERED: SODIUM CHLORIDE 250 ML IV ONE ×2 (09:00→11:30)
[2019-01-14 09:01] LABS: BASO % 1.2 % (0-2.0); EOS % 3.9 % (0-4.5); HEMATOCRIT 37.9 % (35.4-49); HEMOGLOBIN 12.4 GM/dL (11.7-16.9); LYMPH % 22.3 % (8-40); MCH 31.3 pg (25.7-33.7); MCHC 32.8 g/dl (32.0-35.9); MEAN CELL VOLUME 95.5 fl (80-96); MONO % 12.1 % (3.8-10.2); NEUT % 60.5 % (42.8-82.8); PLATELET COUNT 196 K/MM3 (134-434); RBC 3.97 M/mm3 (4.00-5.60); RDW 14.4 % (11.9-15.9); WHITE BLOOD COUNT 4.6 K/mm3 (4.0-10.0)
[2019-01-14 09:33] LABS: BILIRUBIN,DIRECT 0.2 mg/dL (0.0-0.2); BILIRUBIN,TOTAL 0.6 mg/dL (0.2-1); CALCIUM 8.7 mg/dL (8.5-10.1); CREATININE 1.1 mg/dL (0.55-1.3); MAGNESIUM 2.2 mg/dL (1.8-2.4); POTASSIUM 3.9 mmol/L (3.5-5.1)
[2019-01-14] MEDS ORDERED: DEXAMETHASONE SODIUM PHOSPHATE 20 MG in SODIUM CHLORIDE 50 ML IVPB ONE (10:00)
[2019-01-14] MEDS ORDERED: NIVOLUMAB 200 MG, NIVOLUMAB 40 MG in SODIUM CHLORIDE 100 ML IVPB ONE (10:30)
[2019-01-14 17:29] VITALS: BP 134/83; PULSE 79; TEMP 98.4
== END 2019-01-14 14:20 | disposition home or self-care (01) ==
LOC: JONCCHEMO 07:23 → J7W 09:59 → JONCCHEMO 14:20
PROVIDERS: ATTEND Internal Medicine Hematology & Oncology
DX: Z51.11 Encounter for antineoplastic chemotherapy (principal); C64.1 Malignant neoplasm of right kidney, except renal pelvis; C78.00 Secondary malignant neoplasm of unspecified lung
CPT/HCPCS: 36415; 80048; 80076; 83735; 84439; 84443; 85025; 96361; 96375; 96413; J9299

== ENCOUNTER 2019-01-28 07:21 | Day surgery (SDC) | payer OTHER, MEDICARE | END 2019-01-28 15:45 | disposition home or self-care (01) | LOC: JONCCHEMO 07:21 → J7W 11:06 → JONCCHEMO 15:45 ==

== ENCOUNTER 2019-02-11 06:26 | Day surgery (SDC) | payer OTHER, MEDICARE ==
[2019-02-11] MEDS ORDERED: SODIUM CHLORIDE 250 ML IV ONE ×2 (09:00→11:00)
[2019-02-11] MEDS ORDERED: DEXAMETHASONE SODIUM PHOSPHATE 20 MG in SODIUM CHLORIDE 50 ML IVPB ONE (09:30)
[2019-02-11] MEDS ORDERED: NIVOLUMAB 240 MG in SODIUM CHLORIDE 100 ML IVPB ONE (10:00)
[2019-02-11 10:14] LABS: BASO % 0.7 % (0-2.0); EOS % 4.6 % (0-4.5); HEMATOCRIT 38.8 % (35.4-49); HEMOGLOBIN 12.9 GM/dL (11.7-16.9); LYMPH % 21.2 % (8-40); MCH 31.4 pg (25.7-33.7); MCHC 33.3 g/dl (32.0-35.9); MEAN CELL VOLUME 94.1 fl (80-96); MEAN PLT VOLUME 8.5 fl (7.5-11.1); MONO % 10.9 % (3.8-10.2); NEUT % 62.6 % (42.8-82.8); RBC 4.12 M/mm3 (4.00-5.60); RDW 13.6 % (11.9-15.9); WHITE BLOOD COUNT 6.3 K/mm3 (4.0-10.0)
[2019-02-11 10:20] LABS: PLATELET COUNT 161 K/MM3 (134-434)
[2019-02-11 10:53] LABS: ALBUMIN 3.2 g/dl (3.4-5.0); BILIRUBIN,DIRECT 0.1 mg/dL (0.0-0.2); BILIRUBIN,TOTAL 0.5 mg/dL (0.2-1); BLOOD UREA NITROGEN 14.7 mg/dL (7-18); CALCIUM 8.8 mg/dL (8.5-10.1); CREATININE 1.2 mg/dL (0.55-1.3); MAGNESIUM 2.2 mg/dL (1.8-2.4); TOT PROT 6.3 g/dl (6.4-8.2)
[2019-02-11 17:15] VITALS: BP 136/76; PULSE 65
[2019-02-11 17:17] VITALS: TEMP 98.1
== END 2019-02-11 15:00 | disposition home or self-care (01) ==
LOC: JONCCHEMO 06:26 → J7W 11:10 → JONCCHEMO 15:00
PROVIDERS: ATTEND Internal Medicine Hematology & Oncology
DX: Z51.11 Encounter for antineoplastic chemotherapy (principal); C64.1 Malignant neoplasm of right kidney, except renal pelvis; C78.00 Secondary malignant neoplasm of unspecified lung
CPT/HCPCS: 36415; 80048; 80061; 80076; 82150; 83690; 83721; 83735; 84443; 85025; 96361; 96375; 96413; J9299

== ENCOUNTER 2019-02-25 06:36 | Day surgery (SDC) | payer OTHER, MEDICARE ==
[2019-02-25] MEDS ORDERED: SODIUM CHLORIDE 250 ML IV ONE ×2 (09:00→11:00)
[2019-02-25] MEDS ORDERED: DEXAMETHASONE SODIUM PHOSPHATE 20 MG in SODIUM CHLORIDE 50 ML IVPB ONE (09:30)
[2019-02-25 09:44] LABS: BASO % 0.8 % (0-2.0); EOS % 3.8 % (0-4.5); HEMATOCRIT 40.7 % (35.4-49); HEMOGLOBIN 13.5 GM/dL (11.7-16.9); LYMPH % 23.8 % (8-40); MCH 31.4 pg (25.7-33.7); MCHC 33.3 g/dl (32.0-35.9); MEAN CELL VOLUME 94.2 fl (80-96); MEAN PLT VOLUME 8.1 fl (7.5-11.1); MONO % 9.1 % (3.8-10.2); NEUT % 62.5 % (42.8-82.8); PLATELET COUNT 166 K/MM3 (134-434); RBC 4.32 M/mm3 (4.00-5.60); RDW 13.7 % (11.9-15.9); WHITE BLOOD COUNT 5.6 K/mm3 (4.0-10.0)
[2019-02-25] MEDS ORDERED: NIVOLUMAB 200 MG, NIVOLUMAB 40 MG in SODIUM CHLORIDE 100 ML IVPB ONE (10:00)
[2019-02-25 10:19] LABS: ALBUMIN 3.2 g/dl (3.4-5.0); BILIRUBIN,DIRECT 0.1 mg/dL (0.0-0.2); BILIRUBIN,TOTAL 0.3 mg/dL (0.2-1); BLOOD UREA NITROGEN 16.8 mg/dL (7-18); CALCIUM 9.1 mg/dL (8.5-10.1); CREATININE 1.2 mg/dL (0.55-1.3); MAGNESIUM 2.5 mg/dL (1.8-2.4); POTASSIUM 4.3 mmol/L (3.5-5.1); TOT PROT 6.5 g/dl (6.4-8.2)
[2019-02-25 17:29] VITALS: TEMP 97.5
[2019-02-25 17:35] VITALS: BP 147/75; PULSE 69
== END 2019-02-25 15:21 | disposition home or self-care (01) ==
LOC: JONCCHEMO 06:36 → J7W 11:43 → JONCCHEMO 15:21
PROVIDERS: ATTEND Internal Medicine Hematology & Oncology
DX: Z51.11 Encounter for antineoplastic chemotherapy (principal); C64.1 Malignant neoplasm of right kidney, except renal pelvis; C78.00 Secondary malignant neoplasm of unspecified lung
CPT/HCPCS: 36415; 80048; 80076; 82150; 83690; 83735; 84443; 85025; 96361; 96375; 96413; J9299

== ENCOUNTER 2019-03-12 07:10 | Day surgery (SDC) | payer OTHER, MEDICARE ==
[~2019-03-12 07:10] MED LIST: SODIUM CHLORIDE 250 ML IV ONE
[2019-03-12] MEDS ORDERED: SODIUM CHLORIDE 250 ML IV ONE ×2 (09:00→11:30)
[2019-03-12 09:24] LABS: BASO % 0.9 % (0-2.0); EOS % 4.1 % (0-4.5); HEMATOCRIT 39.2 % (35.4-49); LYMPH % 22.3 % (8-40); MCH 31.2 pg (25.7-33.7); MCHC 33.3 g/dl (32.0-35.9); MEAN CELL VOLUME 93.6 fl (80-96); MEAN PLT VOLUME 7.6 fl (7.5-11.1); MONO % 8.9 % (3.8-10.2); NEUT % 63.8 % (42.8-82.8); PLATELET COUNT 171 K/MM3 (134-434); RBC 4.19 M/mm3 (4.00-5.60); RDW 13.3 % (11.9-15.9); WHITE BLOOD COUNT 4.9 K/mm3 (4.0-10.0)
[2019-03-12 09:58] LABS: ALBUMIN 3.2 g/dl (3.4-5.0); BILIRUBIN,DIRECT 0.1 mg/dL (0.0-0.2); BILIRUBIN,TOTAL 0.3 mg/dL (0.2-1); BLOOD UREA NITROGEN 18.2 mg/dL (7-18); CALCIUM 8.8 mg/dL (8.5-10.1); CREATININE 1.3 mg/dL (0.55-1.3); MAGNESIUM 2.4 mg/dL (1.8-2.4); POTASSIUM 4.3 mmol/L (3.5-5.1); TOT PROT 6.5 g/dl (6.4-8.2)
[2019-03-12] MEDS ORDERED: DEXAMETHASONE SODIUM PHOSPHATE 20 MG in SODIUM CHLORIDE 50 ML IVPB ONE (10:00)
[2019-03-12] MEDS ORDERED: NIVOLUMAB 200 MG, NIVOLUMAB 40 MG in SODIUM CHLORIDE 100 ML IVPB ONE (10:30)
[2019-03-12 15:36] VITALS: BP 135/77; PULSE 59; TEMP 97.8
== END 2019-03-12 14:20 | disposition home or self-care (01) ==
LOC: JONCCHEMO 07:10 → J7W 11:09 → JONCCHEMO 14:20
PROVIDERS: ATTEND Internal Medicine Hematology & Oncology
DX: Z51.11 Encounter for antineoplastic chemotherapy (principal); C64.1 Malignant neoplasm of right kidney, except renal pelvis; C78.00 Secondary malignant neoplasm of unspecified lung
CPT/HCPCS: 36415; 80048; 80076; 82150; 83690; 83735; 84443; 85025; 96361; 96375; 96413; J9299

== ENCOUNTER 2019-03-25 05:56 | Day surgery (SDC) | payer OTHER, MEDICARE ==
[2019-03-25] MEDS ORDERED: SODIUM CHLORIDE 250 ML IV ONE ×2 (09:00→11:30)
[2019-03-25 09:25] LABS: BASO % 0.9 % (0-2.0); EOS % 5.3 % (0-4.5); HEMATOCRIT 39.7 % (35.4-49); HEMOGLOBIN 13.5 GM/dL (11.7-16.9); LYMPH % 21.7 % (8-40); MCH 31.6 pg (25.7-33.7); MEAN PLT VOLUME 8.2 fl (7.5-11.1); MONO % 7.2 % (3.8-10.2); NEUT % 64.9 % (42.8-82.8); PLATELET COUNT 164 K/MM3 (134-434); RBC 4.28 M/mm3 (4.00-5.60); WHITE BLOOD COUNT 5.4 K/mm3 (4.0-10.0)
[2019-03-25] MEDS ORDERED: DEXAMETHASONE SODIUM PHOSPHATE 20 MG in SODIUM CHLORIDE 50 ML IVPB ONE (10:00)
[2019-03-25 10:07] LABS: ALBUMIN 3.3 g/dl (3.4-5.0); BILIRUBIN,DIRECT 0.1 mg/dL (0.0-0.2); BILIRUBIN,TOTAL 0.4 mg/dL (0.2-1); BLOOD UREA NITROGEN 15.6 mg/dL (7-18); CREATININE 1.3 mg/dL (0.55-1.3); MAGNESIUM 2.5 mg/dL (1.8-2.4); POTASSIUM 4.1 mmol/L (3.5-5.1); TOT PROT 6.5 g/dl (6.4-8.2)
[2019-03-25] MEDS ORDERED: NIVOLUMAB 240 MG in SODIUM CHLORIDE 100 ML IVPB ONE (10:30)
[2019-03-25 15:45] VITALS: BP 130/75; PULSE 60; TEMP 97.7
== END 2019-03-25 15:30 | disposition home or self-care (01) ==
LOC: JONCCHEMO 05:56 → J7W 11:28 → JONCCHEMO 15:30
PROVIDERS: ATTEND Internal Medicine Hematology & Oncology
DX: Z51.11 Encounter for antineoplastic chemotherapy (principal); C64.1 Malignant neoplasm of right kidney, except renal pelvis; C78.00 Secondary malignant neoplasm of unspecified lung
CPT/HCPCS: 36415; 80048; 80076; 82150; 83690; 83735; 84443; 85025; 96361; 96375; 96413; J9299

== ENCOUNTER 2019-04-08 06:47 | Day surgery (SDC) | payer OTHER, MEDICARE ==
[2019-04-08 08:31] LABS: BASO % 1.1 % (0-2.0); EOS % 3.2 % (0-4.5); HEMATOCRIT 40.4 % (35.4-49); HEMOGLOBIN 13.6 GM/dL (11.7-16.9); MCH 31.5 pg (25.7-33.7); MCHC 33.8 g/dl (32.0-35.9); MEAN CELL VOLUME 93.3 fl (80-96); MEAN PLT VOLUME 8.2 fl (7.5-11.1); MONO % 6.4 % (3.8-10.2); NEUT % 68.3 % (42.8-82.8); PLATELET COUNT 147 K/MM3 (134-434); RBC 4.33 M/mm3 (4.00-5.60); RDW 14.3 % (11.9-15.9); WHITE BLOOD COUNT 5.8 K/mm3 (4.0-10.0)
[2019-04-08] MEDS ORDERED: SODIUM CHLORIDE 250 ML IV ONE ×2 (09:00→11:00)
[2019-04-08 09:10] LABS: ALBUMIN 3.5 g/dl (3.4-5.0); BILIRUBIN,DIRECT 0.2 mg/dL (0.0-0.2); BILIRUBIN,TOTAL 0.7 mg/dL (0.2-1); BLOOD UREA NITROGEN 16.6 mg/dL (7-18); CALCIUM 8.8 mg/dL (8.5-10.1); CREATININE 1.4 mg/dL (0.55-1.3); MAGNESIUM 2.5 mg/dL (1.8-2.4); POTASSIUM 4.1 mmol/L (3.5-5.1); TOT PROT 6.7 g/dl (6.4-8.2)
[2019-04-08] MEDS ORDERED: DEXAMETHASONE SODIUM PHOSPHATE 20 MG in SODIUM CHLORIDE 50 ML IVPB ONE (09:30)
[2019-04-08] MEDS ORDERED: NIVOLUMAB 240 MG in SODIUM CHLORIDE 100 ML IVPB ONE (10:00)
[2019-04-08 14:10] VITALS: BP 129/79; PULSE 55; TEMP 97.6
== END 2019-04-08 14:05 | disposition home or self-care (01) ==
LOC: JONCCHEMO 06:47 → J7W 10:05 → JONCCHEMO 14:05
PROVIDERS: ATTEND Internal Medicine Hematology & Oncology
DX: Z51.11 Encounter for antineoplastic chemotherapy (principal); C64.1 Malignant neoplasm of right kidney, except renal pelvis; C78.00 Secondary malignant neoplasm of unspecified lung
CPT/HCPCS: 36415; 80048; 80076; 82150; 83690; 83735; 84443; 85025; 96361; 96375; 96413; J9299

== ENCOUNTER 2019-04-22 07:11 | Day surgery (SDC) | payer OTHER, MEDICARE ==
[2019-04-22 08:55] LABS: EOS % 4.6 % (0-4.5); HEMATOCRIT 38.6 % (35.4-49); HEMOGLOBIN 13.1 GM/dL (11.7-16.9); LYMPH % 22.8 % (8-40); MCH 31.8 pg (25.7-33.7); MEAN CELL VOLUME 93.4 fl (80-96); MEAN PLT VOLUME 7.8 fl (7.5-11.1); MONO % 7.2 % (3.8-10.2); NEUT % 64.4 % (42.8-82.8); PLATELET COUNT 162 K/MM3 (134-434); RBC 4.13 M/mm3 (4.00-5.60); RDW 14.9 % (11.9-15.9)
[2019-04-22] MEDS ORDERED: SODIUM CHLORIDE 250 ML IV ONE ×2 (09:00→11:00)
[2019-04-22 09:26] LABS: ALBUMIN 3.6 g/dl (3.4-5.0); BILIRUBIN,DIRECT 0.2 mg/dL (0.0-0.2); BILIRUBIN,TOTAL 0.6 mg/dL (0.2-1); BLOOD UREA NITROGEN 22.4 mg/dL (7-18); CREATININE 1.4 mg/dL (0.55-1.3); MAGNESIUM 2.6 mg/dL (1.8-2.4); POTASSIUM 3.8 mmol/L (3.5-5.1); TOT PROT 6.9 g/dl (6.4-8.2)
[2019-04-22] MEDS ORDERED: DEXAMETHASONE SODIUM PHOSPHATE 20 MG in SODIUM CHLORIDE 50 ML IVPB ONE (09:30)
[2019-04-22] MEDS ORDERED: NIVOLUMAB 240 MG in SODIUM CHLORIDE 100 ML IVPB ONE (10:00)
[2019-04-22 16:32] VITALS: TEMP 97.5
[2019-04-22] MEDS ORDERED: PORTA CATH FLUSH 10 ML IVPUSH ONE (16:32)
[2019-04-22 16:33] VITALS: BP 156/75; PULSE 49
== END 2019-04-22 13:45 | disposition home or self-care (01) ==
LOC: JONCCHEMO 07:11 → J7W 09:56 → JONCCHEMO 13:45
PROVIDERS: ATTEND Internal Medicine Hematology & Oncology
DX: Z51.11 Encounter for antineoplastic chemotherapy (principal); C64.1 Malignant neoplasm of right kidney, except renal pelvis; C78.00 Secondary malignant neoplasm of unspecified lung
CPT/HCPCS: 36415; 80048; 80076; 82150; 83690; 83735; 84443; 85025; 96361; 96375; 96413; J9299

== ENCOUNTER 2019-05-06 05:51 | Day surgery (SDC) | payer OTHER, MEDICARE ==
[2019-05-06 08:49] LABS: BASO % 0.8 % (0-2.0); HEMATOCRIT 36.7 % (35.4-49); HEMOGLOBIN 12.4 GM/dL (11.7-16.9); LYMPH % 21.6 % (8-40); MCH 31.7 pg (25.7-33.7); MCHC 33.7 g/dl (32.0-35.9); MEAN PLT VOLUME 8.4 fl (7.5-11.1); MONO % 8.2 % (3.8-10.2); NEUT % 66.4 % (42.8-82.8); PLATELET COUNT 154 K/MM3 (134-434); WHITE BLOOD COUNT 5.7 K/mm3 (4.0-10.0)
[2019-05-06] MEDS ORDERED: SODIUM CHLORIDE 250 ML IV ONE ×2 (09:00→11:30)
[2019-05-06 09:25] LABS: ALBUMIN 3.3 g/dl (3.4-5.0); BILIRUBIN,TOTAL 0.7 mg/dL (0.2-1); BLOOD UREA NITROGEN 17.6 mg/dL (7-18); CALCIUM 8.8 mg/dL (8.5-10.1); CREATININE 1.2 mg/dL (0.55-1.3); MAGNESIUM 2.4 mg/dL (1.8-2.4); POTASSIUM 3.8 mmol/L (3.5-5.1); TOT PROT 6.5 g/dl (6.4-8.2)
[2019-05-06] MEDS ORDERED: DEXAMETHASONE SODIUM PHOSPHATE 20 MG in SODIUM CHLORIDE 50 ML IVPB ONE (10:00)
[2019-05-06] MEDS ORDERED: NIVOLUMAB 240 MG in SODIUM CHLORIDE 100 ML IVPB ONE (10:30)
[2019-05-06 18:44] VITALS: BP 136/70; PULSE 56; TEMP 97.8
== END 2019-05-06 15:00 | disposition home or self-care (01) ==
LOC: JONCCHEMO 05:51 → J7W 10:51 → JONCCHEMO 15:00
PROVIDERS: ATTEND Internal Medicine Hematology & Oncology
DX: Z51.11 Encounter for antineoplastic chemotherapy (principal); C64.1 Malignant neoplasm of right kidney, except renal pelvis; C78.00 Secondary malignant neoplasm of unspecified lung
CPT/HCPCS: 36415; 80053; 82150; 83690; 83735; 84439; 84443; 85025; 96361; 96367; 96375; 96413; J9299

== ENCOUNTER 2019-05-13 09:24 | Day surgery (SDC) | payer OTHER, MEDICARE ==
[2019-05-10 16:04] VITALS: BMI 29.0
[2019-05-13 11:36] LABS: INR 0.99 (0.83-1.09); PROTHROMBIN TIME (PATIENT) 11.7 SEC (9.7-13.0)
[2019-05-13] MEDS ORDERED: ACETAMINOPHEN 325 MG TABLET (FP) ONE (17:25)
[2019-05-13] MEDS ORDERED: ACETAMINOPHEN 325 MG TABLET (FP) PO ONE ×2 (17:26→17:30)
[2019-05-13 18:04] VITALS: BP 126/74; PULSE 62; TEMP 97.6
--- NOTE | 2019-05-16 13:07 | PATH ---
Surgical Pathology Report Patient Name: TITI CUEVA Med. Rec. #: [id number] /Age/Gender: 1945 (Age: 73) / M Account: [id number] Location: RADIOLOGY INTER Taken: 05/13/2019 Received: 05/13/2019 Reported: 05/16/2019 Physicians: Rajiv Gray M.D. Baldomero Lazcano M.D. Kvng Johnson M.D. Specimen(s) Received LUNG BIOPSY Clinical History 73 years old male with history of RCC, S/p nephrectomy with liver metastases and lung nodules. CT guided lung biopsy Final Diagnosis LUNG BIOPSY: METASTATIC CARCINOMA, CONSISTENT WITH RENAL PRIMARY. Comment: Immunohistochemistry stained slides show the following results: the tumor cells are positive for PAX8, CD10, RCC, and CK20 (patchy), while negative for TTF-1, Napsin A, CK7, and p40. The morphology and immunoprofile support a metastatic carcinoma of known renal cell carcinoma. Immunohistochemistry stains PAX8, CD10, RCC, Napsin A, and p40 performed at [place], [place] ([id number]) interpreted at [facility]. Immunohistochemistry stains CK7, CK20, and TTF-1 performed and interpreted at [facility]. Positive and negative controls (internal if applicable) show appropriate results. Intradepartmental case reviewed with concordance on diagnosis. This case was discussed with Dr. Johnson on May 16, 2019. Electronically Signed Sylvain Rivera M.D. Gross Description Received in formalin, labeled "lung biopsy" are 3 worrell, cylindrical soft tissue measuring 0.3 to 1.5 cm. in length and less than 1mm in diameter. The specimen is submitted in toto in one cassette. KWS/05/14/2019 rahat/05/14/2019
== END 2019-05-13 18:05 | disposition home or self-care (01) ==
LOC: JRADIR 09:24
PROVIDERS: ATTEND Surgery
PROC: 0BBL4ZX Excision of Left Lung, Percutaneous Endoscopic Approach, Diagnostic (ICD-10-PCS; principal; 2019-05-13)
DX: C78.00 Secondary malignant neoplasm of unspecified lung (principal); C78.7 Secondary malignant neoplasm of liver and intrahepatic bile duct; C64.9 Malignant neoplasm of unspecified kidney, except renal pelvis
CPT/HCPCS: 32405; 36415; 71045-TC-FY; 77012-TC; 85610; 88305-TC; 88341-TC; 88342-TC

== ENCOUNTER 2019-05-20 05:57 | Day surgery (SDC) | payer OTHER, MEDICARE ==
[2019-05-20] MEDS ORDERED: SODIUM CHLORIDE 250 ML IV ONE ×2 (09:00→11:00)
[2019-05-20] MEDS ORDERED: DEXAMETHASONE SODIUM PHOSPHATE 20 MG in SODIUM CHLORIDE 50 ML IVPB ONE (10:00)
[2019-05-20] MEDS ORDERED: NIVOLUMAB 240 MG in SODIUM CHLORIDE 100 ML IVPB ONE (10:30)
[2019-05-20 10:39] LABS: BASO % 0.8 % (0-2.0); EOS % 3.3 % (0-4.5); HEMATOCRIT 39.2 % (35.4-49); HEMOGLOBIN 12.8 GM/dL (11.7-16.9); LYMPH % 22.3 % (8-40); MCHC 32.6 g/dl (32.0-35.9); MEAN CELL VOLUME 95.1 fl (80-96); MEAN PLT VOLUME 8.3 fl (7.5-11.1); MONO % 8.4 % (3.8-10.2); NEUT % 65.2 % (42.8-82.8); PLATELET COUNT 176 K/MM3 (134-434); RBC 4.12 M/mm3 (4.00-5.60); RDW 15.4 % (11.9-15.9); WHITE BLOOD COUNT 6.3 K/mm3 (4.0-10.0)
[2019-05-20 11:14] LABS: CHOLESTEROL 236 mg/dL (50-200); HDL CHOLESTEROL 69 mg/dL (40-60); TRIGLYCERIDES 139 mg/dL (0-150)
[2019-05-20 11:18] LABS: ALBUMIN 3.5 g/dl (3.4-5.0); BILIRUBIN,DIRECT 0.2 mg/dL (0.0-0.2); BILIRUBIN,TOTAL 0.6 mg/dL (0.2-1); BLOOD UREA NITROGEN 16.4 mg/dL (7-18); CALCIUM 9.1 mg/dL (8.5-10.1); CREATININE 1.1 mg/dL (0.55-1.3); MAGNESIUM 2.4 mg/dL (1.8-2.4); POTASSIUM 4.2 mmol/L (3.5-5.1); TOT PROT 6.8 g/dl (6.4-8.2)
[2019-05-20 15:49] VITALS: BP 133/72; PULSE 66; TEMP 97.6
== END 2019-05-20 15:30 | disposition home or self-care (01) ==
LOC: JONCCHEMO 05:57 → J7W 11:17 → JONCCHEMO 15:30
PROVIDERS: ATTEND Internal Medicine Hematology & Oncology
DX: Z51.11 Encounter for antineoplastic chemotherapy (principal); C64.1 Malignant neoplasm of right kidney, except renal pelvis; C78.00 Secondary malignant neoplasm of unspecified lung
CPT/HCPCS: 36415; 80048; 80061; 80076; 83721; 83735; 84439; 84443; 85025; 96375; 96413; J9299

== ENCOUNTER 2019-06-03 07:23 | Day surgery (SDC) | payer OTHER, MEDICARE ==
[2019-06-03] MEDS ORDERED: SODIUM CHLORIDE 250 ML IV ONE ×2 (09:00→11:00)
[2019-06-03] MEDS ORDERED: DEXAMETHASONE SODIUM PHOSPHATE 20 MG in SODIUM CHLORIDE 50 ML IVPB ONE (09:30)
[2019-06-03 09:46] LABS: BASO % 0.7 % (0-2.0); EOS % 1.9 % (0-4.5); HEMOGLOBIN 12.5 GM/dL (11.7-16.9); LYMPH % 21.8 % (8-40); MCH 31.4 pg (25.7-33.7); MCHC 32.9 g/dl (32.0-35.9); MEAN CELL VOLUME 95.4 fl (80-96); MEAN PLT VOLUME 8.4 fl (7.5-11.1); MONO % 7.2 % (3.8-10.2); NEUT % 68.4 % (42.8-82.8); PLATELET COUNT 177 K/MM3 (134-434); RBC 3.99 M/mm3 (4.00-5.60); RDW 14.7 % (11.9-15.9); WHITE BLOOD COUNT 7.3 K/mm3 (4.0-10.0)
[2019-06-03] MEDS ORDERED: NIVOLUMAB 240 MG in SODIUM CHLORIDE 100 ML IVPB ONE (10:00)
[2019-06-03 10:21] LABS: ALBUMIN 3.5 g/dl (3.4-5.0); BILIRUBIN,TOTAL 0.6 mg/dL (0.2-1); CALCIUM 8.6 mg/dL (8.5-10.1); CREATININE 1.3 mg/dL (0.55-1.3); MAGNESIUM 2.2 mg/dL (1.8-2.4); TOT PROT 6.6 g/dl (6.4-8.2)
[2019-06-03 16:42] VITALS: BP 116/66; PULSE 57; TEMP 98
== END 2019-06-03 15:00 | disposition home or self-care (01) ==
LOC: JONCCHEMO 07:23 → J7W 10:59 → JONCCHEMO 15:00
PROVIDERS: ATTEND Internal Medicine Hematology & Oncology
DX: Z51.11 Encounter for antineoplastic chemotherapy (principal); C64.9 Malignant neoplasm of unspecified kidney, except renal pelvis; C78.00 Secondary malignant neoplasm of unspecified lung
CPT/HCPCS: 36415; 80053; 83735; 84439; 84443; 85025; 96361; 96375; 96413; J9299

== ENCOUNTER 2019-06-17 07:22 | Day surgery (SDC) | payer OTHER, MEDICARE ==
[2019-06-17] MEDS ORDERED: SODIUM CHLORIDE 250 ML IV ONE ×2 (09:00→11:00)
[2019-06-17] MEDS ORDERED: DEXAMETHASONE SODIUM PHOSPHATE 20 MG in SODIUM CHLORIDE 50 ML IVPB ONE (09:30)
[2019-06-17] MEDS ORDERED: NIVOLUMAB 240 MG in SODIUM CHLORIDE 100 ML IVPB ONE (10:00)
[2019-06-17 11:28] LABS: BASO % 0.9 % (0-2.0); EOS % 4.5 % (0-4.5); HEMATOCRIT 38.6 % (35.4-49); HEMOGLOBIN 12.7 GM/dL (11.7-16.9); LYMPH % 20.3 % (8-40); MCH 32.2 pg (25.7-33.7); MEAN CELL VOLUME 97.6 fl (80-96); MEAN PLT VOLUME 8.4 fl (7.5-11.1); MONO % 7.1 % (3.8-10.2); NEUT % 67.2 % (42.8-82.8); PLATELET COUNT 166 K/MM3 (134-434); RBC 3.95 M/mm3 (4.00-5.60); RDW 15.2 % (11.9-15.9); WHITE BLOOD COUNT 5.7 K/mm3 (4.0-10.0)
[2019-06-17 12:05] LABS: ALBUMIN 3.3 g/dl (3.4-5.0); BILIRUBIN,TOTAL 0.8 mg/dL (0.2-1); BLOOD UREA NITROGEN 14.9 mg/dL (7-18); CALCIUM 8.6 mg/dL (8.5-10.1); CREATININE 1.2 mg/dL (0.55-1.3); MAGNESIUM 2.4 mg/dL (1.8-2.4); POTASSIUM 4.2 mmol/L (3.5-5.1); TOT PROT 6.7 g/dl (6.4-8.2)
[2019-06-17 15:43] VITALS: TEMP 97.9
[2019-06-17 15:45] VITALS: BP 127/73; PULSE 55
== END 2019-06-17 15:30 | disposition home or self-care (01) ==
LOC: JONCCHEMO 07:22 → J7W 11:47 → JONCCHEMO 15:30
PROVIDERS: ATTEND Internal Medicine Hematology & Oncology
DX: Z51.11 Encounter for antineoplastic chemotherapy (principal); C64.9 Malignant neoplasm of unspecified kidney, except renal pelvis; C78.00 Secondary malignant neoplasm of unspecified lung
CPT/HCPCS: 36415; 80053; 83735; 84443; 85025; 96361; 96375; 96413; J9299

== ENCOUNTER 2019-07-01 06:24 | Day surgery (SDC) | payer OTHER, MEDICARE ==
[2019-07-01] MEDS ORDERED: SODIUM CHLORIDE 250 ML IV ONE ×2 (09:00→11:30)
[2019-07-01 09:16] LABS: BASO % 0.6 % (0-2.0); EOS % 2.9 % (0-4.5); HEMATOCRIT 39.1 % (35.4-49); HEMOGLOBIN 12.9 GM/dL (11.7-16.9); LYMPH % 18.9 % (8-40); MCH 32.1 pg (25.7-33.7); MCHC 33.1 g/dl (32.0-35.9); MEAN PLT VOLUME 7.9 fl (7.5-11.1); MONO % 7.2 % (3.8-10.2); NEUT % 70.4 % (42.8-82.8); PLATELET COUNT 174 K/MM3 (134-434); RBC 4.03 M/mm3 (4.00-5.60); RDW 14.8 % (11.9-15.9); WHITE BLOOD COUNT 6.3 K/mm3 (4.0-10.0)
[2019-07-01 09:54] LABS: ALBUMIN 3.4 g/dl (3.4-5.0); BILIRUBIN,TOTAL 0.6 mg/dL (0.2-1); BLOOD UREA NITROGEN 23.6 mg/dL (7-18); CALCIUM 8.6 mg/dL (8.5-10.1); CREATININE 1.4 mg/dL (0.55-1.3); MAGNESIUM 2.3 mg/dL (1.8-2.4); POTASSIUM 3.9 mmol/L (3.5-5.1)
[2019-07-01] MEDS ORDERED: DEXAMETHASONE SODIUM PHOSPHATE 20 MG in SODIUM CHLORIDE 50 ML IVPB ONE (10:00)
[2019-07-01] MEDS ORDERED: NIVOLUMAB 240 MG in SODIUM CHLORIDE 100 ML IVPB ONE (10:30)
[2019-07-01 15:25] VITALS: TEMP 97.9
[2019-07-01 15:44] VITALS: BP 124/80; PULSE 60
== END 2019-07-01 14:00 | disposition home or self-care (01) ==
LOC: JONCCHEMO 06:24 → J7W 10:31 → JONCCHEMO 14:00
PROVIDERS: ATTEND Internal Medicine Hematology & Oncology
DX: Z51.11 Encounter for antineoplastic chemotherapy (principal); C64.9 Malignant neoplasm of unspecified kidney, except renal pelvis; C78.00 Secondary malignant neoplasm of unspecified lung
CPT/HCPCS: 36415; 80053; 83735; 85025; 96361; 96375; 96413; J9299

== ENCOUNTER 2019-07-15 06:29 | Day surgery (SDC) | payer OTHER, MEDICARE ==
[2019-07-15 08:54] LABS: BASO % 0.9 % (0-2.0); EOS % 3.6 % (0-4.5); HEMATOCRIT 38.9 % (35.4-49); HEMOGLOBIN 12.9 GM/dL (11.7-16.9); LYMPH % 20.5 % (8-40); MCH 32.4 pg (25.7-33.7); MCHC 33.1 g/dl (32.0-35.9); MEAN CELL VOLUME 97.7 fl (80-96); MEAN PLT VOLUME 8.1 fl (7.5-11.1); PLATELET COUNT 179 K/MM3 (134-434); RBC 3.99 M/mm3 (4.00-5.60); RDW 14.1 % (11.9-15.9); WHITE BLOOD COUNT 5.5 K/mm3 (4.0-10.0)
[2019-07-15] MEDS ORDERED: SODIUM CHLORIDE 250 ML IV ONE ×2 (09:00→11:30)
[2019-07-15 09:35] LABS: ALBUMIN 3.6 g/dl (3.4-5.0); BILIRUBIN,TOTAL 0.4 mg/dL (0.2-1); BLOOD UREA NITROGEN 19.5 mg/dL (7-18); CREATININE 1.3 mg/dL (0.55-1.3); MAGNESIUM 2.5 mg/dL (1.8-2.4); PHOSPHOROUS 3.5 mg/dL (2.5-4.9); POTASSIUM 3.9 mmol/L (3.5-5.1); TOT PROT 6.6 g/dl (6.4-8.2)
[2019-07-15] MEDS ORDERED: DEXAMETHASONE SODIUM PHOSPHATE 20 MG in SODIUM CHLORIDE 50 ML IVPB ONE (10:00)
[2019-07-15] MEDS ORDERED: NIVOLUMAB 240 MG in SODIUM CHLORIDE 100 ML IVPB ONE (10:30)
[2019-07-15 17:04] VITALS: BP 108/67; PULSE 54; TEMP 97.3
== END 2019-07-15 14:15 | disposition home or self-care (01) ==
LOC: JONCCHEMO 06:29 → J7W 10:19 → JONCCHEMO 14:15
PROVIDERS: ATTEND Internal Medicine Hematology & Oncology
PROC: 3E04305 Introduction of Other Antineoplastic into Central Vein, Percutaneous Approach (ICD-10-PCS; principal; 2019-07-15)
PROC: 3E043GC Introduction of Other Therapeutic Substance into Central Vein, Percutaneous Approach (ICD-10-PCS; 2019-07-15)
PROC: 3E0437Z Introduction of Electrolytic and Water Balance Substance into Central Vein, Percutaneous Approach (ICD-10-PCS; 2019-07-15)
DX: Z51.11 Encounter for antineoplastic chemotherapy (principal); C64.1 Malignant neoplasm of right kidney, except renal pelvis; Z85.9 Personal history of malignant neoplasm, unspecified
CPT/HCPCS: 36415; 80053; 82306; 82565; 83735; 83970; 84100; 84156; 84439; 84443; 85025; 96367; 96413; J9299

== ENCOUNTER 2019-07-29 05:38 | Day surgery (SDC) | payer OTHER, MEDICARE ==
[2019-07-29 08:56] LABS: BASO % 0.7 % (0-2.0); EOS % 2.5 % (0-4.5); HEMOGLOBIN 13.3 GM/dL (11.7-16.9); LYMPH % 13.5 % (8-40); MCH 32.2 pg (25.7-33.7); MCHC 33.1 g/dl (32.0-35.9); MEAN CELL VOLUME 97.3 fl (80-96); MEAN PLT VOLUME 8.3 fl (7.5-11.1); MONO % 5.8 % (3.8-10.2); NEUT % 77.5 % (42.8-82.8); PLATELET COUNT 163 K/MM3 (134-434); RBC 4.12 M/mm3 (4.00-5.60); RDW 14.2 % (11.9-15.9); WHITE BLOOD COUNT 9.2 K/mm3 (4.0-10.0)
[2019-07-29] MEDS ORDERED: SODIUM CHLORIDE 250 ML IV ONE ×2 (09:00→11:00)
[2019-07-29] MEDS ORDERED: DEXAMETHASONE SODIUM PHOSPHATE 20 MG in SODIUM CHLORIDE 50 ML IVPB ONE (09:30)
[2019-07-29 09:40] LABS: ALBUMIN 3.6 g/dl (3.4-5.0); BILIRUBIN,TOTAL 0.6 mg/dL (0.2-1); BLOOD UREA NITROGEN 18.2 mg/dL (7-18); CALCIUM 8.7 mg/dL (8.5-10.1); CREATININE 1.3 mg/dL (0.55-1.3); MAGNESIUM 2.3 mg/dL (1.8-2.4); POTASSIUM 4.3 mmol/L (3.5-5.1)
[2019-07-29] MEDS ORDERED: NIVOLUMAB 240 MG in SODIUM CHLORIDE 100 ML IVPB ONE (10:00)
[2019-07-29 18:13] VITALS: BP 125/71; PULSE 64; TEMP 97.8
== END 2019-07-29 14:00 | disposition home or self-care (01) ==
LOC: JONCCHEMO 05:38 → J7W 09:42 → JONCCHEMO 14:00
PROVIDERS: ATTEND Internal Medicine Hematology & Oncology
DX: Z51.11 Encounter for antineoplastic chemotherapy (principal); C64.1 Malignant neoplasm of right kidney, except renal pelvis; C78.00 Secondary malignant neoplasm of unspecified lung
CPT/HCPCS: 36415; 80053; 83735; 84443; 85025; 96361; 96367; 96413; J9299

== ENCOUNTER 2019-08-12 07:21 | Day surgery (SDC) | payer OTHER, MEDICARE ==
[2019-08-12 08:48] LABS: BASO % 0.5 % (0-2.0); EOS % 2.2 % (0-4.5); HEMATOCRIT 40.8 % (35.4-49); HEMOGLOBIN 13.7 GM/dL (11.7-16.9); LYMPH % 16.3 % (8-40); MCH 32.7 pg (25.7-33.7); MCHC 33.6 g/dl (32.0-35.9); MEAN CELL VOLUME 97.3 fl (80-96); MEAN PLT VOLUME 8.3 fl (7.5-11.1); MONO % 5.9 % (3.8-10.2); NEUT % 75.1 % (42.8-82.8); PLATELET COUNT 173 K/MM3 (134-434); RBC 4.19 M/mm3 (4.00-5.60); RDW 13.9 % (11.9-15.9)
[2019-08-12] MEDS ORDERED: SODIUM CHLORIDE 250 ML IV ONE ×2 (09:00→11:00)
[2019-08-12 09:19] LABS: ALBUMIN 3.5 g/dl (3.4-5.0); BILIRUBIN,TOTAL 0.6 mg/dL (0.2-1); BLOOD UREA NITROGEN 15.4 mg/dL (7-18); CALCIUM 8.8 mg/dL (8.5-10.1); CREATININE 1.3 mg/dL (0.55-1.3); MAGNESIUM 2.4 mg/dL (1.8-2.4); POTASSIUM 4.1 mmol/L (3.5-5.1); TOT PROT 6.9 g/dl (6.4-8.2)
[2019-08-12] MEDS ORDERED: DEXAMETHASONE SODIUM PHOSPHATE 20 MG in SODIUM CHLORIDE 50 ML IVPB ONE (09:30)
[2019-08-12] MEDS ORDERED: NIVOLUMAB 240 MG in SODIUM CHLORIDE 100 ML IVPB ONE (10:00)
[2019-08-12 15:53] VITALS: BP 126/77; PULSE 63; TEMP 97.8
== END 2019-08-12 14:00 | disposition home or self-care (01) ==
LOC: JONCCHEMO 07:21 → J7W 09:41 → JONCCHEMO 14:00
PROVIDERS: ATTEND Internal Medicine Hematology & Oncology
PROC: 3E03305 Introduction of Other Antineoplastic into Peripheral Vein, Percutaneous Approach (ICD-10-PCS; principal; 2019-08-12)
PROC: 3E033GC Introduction of Other Therapeutic Substance into Peripheral Vein, Percutaneous Approach (ICD-10-PCS; 2019-08-12)
PROC: 3E0337Z Introduction of Electrolytic and Water Balance Substance into Peripheral Vein, Percutaneous Approach (ICD-10-PCS; 2019-08-12)
DX: Z51.11 Encounter for antineoplastic chemotherapy (principal); C64.1 Malignant neoplasm of right kidney, except renal pelvis; C78.00 Secondary malignant neoplasm of unspecified lung
CPT/HCPCS: 36415; 80053; 83735; 84443; 85025; 96361; 96375; 96413; J9299

== ENCOUNTER 2019-08-26 07:06 | Day surgery (SDC) | payer OTHER, MEDICARE ==
[2019-08-26] MEDS ORDERED: SODIUM CHLORIDE 250 ML IV ONE ×2 (09:00→11:30)
[2019-08-26 09:33] LABS: BASO % 0.7 % (0-2.0); EOS % 3.1 % (0-4.5); HEMATOCRIT 40.3 % (35.4-49); HEMOGLOBIN 13.4 GM/dL (11.7-16.9); LYMPH % 19.4 % (8-40); MCH 32.4 pg (25.7-33.7); MCHC 33.2 g/dl (32.0-35.9); MEAN CELL VOLUME 97.6 fl (80-96); MEAN PLT VOLUME 8.4 fl (7.5-11.1); MONO % 7.3 % (3.8-10.2); NEUT % 69.5 % (42.8-82.8); PLATELET COUNT 180 K/MM3 (134-434); RBC 4.13 M/mm3 (4.00-5.60); RDW 13.9 % (11.9-15.9); WHITE BLOOD COUNT 6.1 K/mm3 (4.0-10.0)
[2019-08-26 10:00] LABS: ALBUMIN 3.6 g/dl (3.4-5.0); BILIRUBIN,TOTAL 0.6 mg/dL (0.2-1); BLOOD UREA NITROGEN 18.4 mg/dL (7-18); CALCIUM 8.8 mg/dL (8.5-10.1); CREATININE 1.4 mg/dL (0.55-1.3); MAGNESIUM 2.4 mg/dL (1.8-2.4); TOT PROT 7.1 g/dl (6.4-8.2)
[2019-08-26] MEDS ORDERED: DEXAMETHASONE SODIUM PHOSPHATE 20 MG in SODIUM CHLORIDE 50 ML IVPB ONE (10:00)
[2019-08-26] MEDS ORDERED: NIVOLUMAB 240 MG in SODIUM CHLORIDE 100 ML IVPB ONE (10:30)
[2019-08-26 16:50] VITALS: TEMP 97.5
[2019-08-26 16:51] VITALS: BP 115/67; PULSE 52
== END 2019-08-26 15:30 | disposition home or self-care (01) ==
LOC: JONCCHEMO 07:06 → J7W 10:47 → JONCCHEMO 15:30
PROVIDERS: ATTEND Internal Medicine Hematology & Oncology
PROC: 3E03305 Introduction of Other Antineoplastic into Peripheral Vein, Percutaneous Approach (ICD-10-PCS; principal; 2019-08-26)
PROC: 3E033GC Introduction of Other Therapeutic Substance into Peripheral Vein, Percutaneous Approach (ICD-10-PCS; 2019-08-26)
PROC: 3E0337Z Introduction of Electrolytic and Water Balance Substance into Peripheral Vein, Percutaneous Approach (ICD-10-PCS; 2019-08-26)
DX: Z51.11 Encounter for antineoplastic chemotherapy (principal); C64.1 Malignant neoplasm of right kidney, except renal pelvis; C78.00 Secondary malignant neoplasm of unspecified lung
CPT/HCPCS: 36415; 80053; 83735; 85025; 96361; 96375; 96413; J9299

== ENCOUNTER 2019-09-09 05:26 | Day surgery (SDC) | payer OTHER, MEDICARE ==
[2019-09-09 09:00] LABS: BASO % 0.8 % (0-2.0); EOS % 2.8 % (0-4.5); HEMOGLOBIN 13.2 GM/dL (11.7-16.9); LYMPH % 24.9 % (8-40); MCH 32.5 pg (25.7-33.7); MCHC 33.8 g/dl (32.0-35.9); MEAN CELL VOLUME 96.1 fl (80-96); MEAN PLT VOLUME 8.5 fl (7.5-11.1); NEUT % 62.5 % (42.8-82.8); PLATELET COUNT 170 K/MM3 (134-434); RBC 4.06 M/mm3 (4.00-5.60); RDW 13.8 % (11.9-15.9); WHITE BLOOD COUNT 5.1 K/mm3 (4.0-10.0)
[2019-09-09 09:54] LABS: ALBUMIN 3.7 g/dl (3.4-5.0); BILIRUBIN,TOTAL 0.6 mg/dL (0.2-1); BLOOD UREA NITROGEN 20.9 mg/dL (7-18); CALCIUM 8.8 mg/dL (8.5-10.1); CREATININE 1.3 mg/dL (0.55-1.3); MAGNESIUM 2.3 mg/dL (1.8-2.4); POTASSIUM 4.5 mmol/L (3.5-5.1)
[2019-09-09] MEDS ORDERED: SODIUM CHLORIDE 250 ML IV ONE ×2 (10:00→11:30)
[2019-09-09] MEDS ORDERED: DEXAMETHASONE SODIUM PHOSPHATE 20 MG in SODIUM CHLORIDE 50 ML IVPB ONE (10:00)
[2019-09-09] MEDS ORDERED: DEXAMETHASONE INJECTION 10 MG in SODIUM CHLORIDE 100 ML IVPUSH ONE (10:15)
[2019-09-09] MEDS ORDERED: NIVOLUMAB 240 MG in SODIUM CHLORIDE 100 ML IVPB ONE (10:30)
[2019-09-09] MEDS ORDERED: DEXAMETHASONE INJECTION 10 MG in SODIUM CHLORIDE 50 ML IVPB ONE (11:00)
[2019-09-09 15:59] VITALS: BP 125/74; PULSE 66; TEMP 97.7
== END 2019-09-09 14:00 | disposition home or self-care (01) ==
LOC: JONCCHEMO 05:26 → J7W 10:02 → JONCCHEMO 14:00
PROVIDERS: ATTEND Internal Medicine Hematology & Oncology
DX: Z51.11 Encounter for antineoplastic chemotherapy (principal); C64.1 Malignant neoplasm of right kidney, except renal pelvis; C78.00 Secondary malignant neoplasm of unspecified lung
CPT/HCPCS: 36415; 80053; 83735; 84443; 85025; 96361; 96367; 96413; J1100; J9299

== ENCOUNTER 2019-09-23 07:17 | Day surgery (SDC) | payer OTHER, MEDICARE ==
[2019-09-23 08:57] LABS: BASO % 0.8 % (0-2.0); EOS % 2.8 % (0-4.5); HEMATOCRIT 39.1 % (35.4-49); HEMOGLOBIN 13.2 GM/dL (11.7-16.9); LYMPH % 17.6 % (8-40); MCH 32.3 pg (25.7-33.7); MCHC 33.8 g/dl (32.0-35.9); MEAN CELL VOLUME 95.5 fl (80-96); MEAN PLT VOLUME 8.7 fl (7.5-11.1); MONO % 7.2 % (3.8-10.2); NEUT % 71.6 % (42.8-82.8); PLATELET COUNT 159 K/MM3 (134-434); RBC 4.09 M/mm3 (4.00-5.60); RDW 13.3 % (11.9-15.9); WHITE BLOOD COUNT 5.9 K/mm3 (4.0-10.0)
[2019-09-23] MEDS ORDERED: SODIUM CHLORIDE 250 ML IV ONE ×2 (09:00→11:00)
[2019-09-23] MEDS ORDERED: DEXAMETHASONE SODIUM PHOSPHATE 20 MG in SODIUM CHLORIDE 50 ML IVPB ONE (09:30)
[2019-09-23 09:38] LABS: ALBUMIN 3.6 g/dl (3.4-5.0); BILIRUBIN,TOTAL 0.5 mg/dL (0.2-1); BLOOD UREA NITROGEN 25.7 mg/dL (7-18); CREATININE 1.3 mg/dL (0.55-1.3); MAGNESIUM 2.4 mg/dL (1.8-2.4); POTASSIUM 4.2 mmol/L (3.5-5.1); TOT PROT 6.9 g/dl (6.4-8.2)
[2019-09-23] MEDS ORDERED: NIVOLUMAB 240 MG in SODIUM CHLORIDE 100 ML IVPB ONE (10:00)
[2019-09-23 16:17] VITALS: TEMP 97.3
[2019-09-23 16:22] VITALS: BP 125/73; PULSE 66
== END 2019-09-23 14:10 | disposition home or self-care (01) ==
LOC: JONCCHEMO 07:17 → J7W 10:06 → JONCCHEMO 14:10
PROVIDERS: ATTEND Internal Medicine Hematology & Oncology
DX: Z51.11 Encounter for antineoplastic chemotherapy (principal); C64.1 Malignant neoplasm of right kidney, except renal pelvis; C78.00 Secondary malignant neoplasm of unspecified lung
CPT/HCPCS: 36415; 80053; 83735; 84443; 85025; 96361; 96375; 96413; J9299

== ENCOUNTER 2019-10-07 05:31 | Day surgery (SDC) | payer OTHER, MEDICARE ==
[2019-10-07 08:41] LABS: BASO % 0.7 % (0-2.0); EOS % 2.5 % (0-4.5); HEMATOCRIT 38.8 % (35.4-49); HEMOGLOBIN 12.9 GM/dL (11.7-16.9); LYMPH % 19.8 % (8-40); MCH 32.3 pg (25.7-33.7); MCHC 33.3 g/dl (32.0-35.9); MEAN CELL VOLUME 96.8 fl (80-96); MEAN PLT VOLUME 8.6 fl (7.5-11.1); MONO % 6.9 % (3.8-10.2); NEUT % 70.1 % (42.8-82.8); PLATELET COUNT 156 K/MM3 (134-434); RBC 4.01 M/mm3 (4.00-5.60); RDW 13.4 % (11.9-15.9); WHITE BLOOD COUNT 6.4 K/mm3 (4.0-10.0)
[2019-10-07] MEDS ORDERED: SODIUM CHLORIDE 250 ML IV ONE ×2 (09:00→11:00)
[2019-10-07 09:30] LABS: ALBUMIN 3.4 g/dl (3.4-5.0); BILIRUBIN,TOTAL 0.4 mg/dL (0.2-1); BLOOD UREA NITROGEN 18.4 mg/dL (7-18); CALCIUM 8.9 mg/dL (8.5-10.1); CREATININE 1.4 mg/dL (0.55-1.3); MAGNESIUM 2.2 mg/dL (1.8-2.4); POTASSIUM 3.9 mmol/L (3.5-5.1); TOT PROT 6.7 g/dl (6.4-8.2)
[2019-10-07] MEDS ORDERED: DEXAMETHASONE SODIUM PHOSPHATE 20 MG in SODIUM CHLORIDE 50 ML IVPB ONE (09:30)
[2019-10-07] MEDS ORDERED: NIVOLUMAB 240 MG in SODIUM CHLORIDE 100 ML IVPB ONE (10:00)
[2019-10-07 15:45] VITALS: BP 124/64; PULSE 57; TEMP 97.7
== END 2019-10-07 13:30 | disposition home or self-care (01) ==
LOC: JONCCHEMO 05:31 → J7W 09:44 → JONCCHEMO 13:30
PROVIDERS: ATTEND Internal Medicine Hematology & Oncology
DX: Z51.11 Encounter for antineoplastic chemotherapy (principal); C64.1 Malignant neoplasm of right kidney, except renal pelvis; C78.00 Secondary malignant neoplasm of unspecified lung
CPT/HCPCS: 36415; 80053; 83735; 84443; 85025; 96361; 96367; 96413; J9299

== ENCOUNTER 2019-10-21 07:11 | Day surgery (SDC) | payer OTHER, MEDICARE ==
[2019-10-21 09:04] LABS: HEMOGLOBIN 12.8 GM/dL (11.7-16.9); RBC 4.01 M/mm3 (4.00-5.60); WHITE BLOOD COUNT 6.9 K/mm3 (4.0-10.0)
[2019-10-21 09:05] LABS: BASO % 0.6 % (0-2.0); EOS % 2.4 % (0-4.5); HEMATOCRIT 38.1 % (35.4-49); LYMPH % 18.2 % (8-40); MCHC 33.7 g/dl (32.0-35.9); MEAN PLT VOLUME 8.8 fl (7.5-11.1); NEUT % 71.8 % (42.8-82.8); PLATELET COUNT 167 K/MM3 (134-434); RDW 13.4 % (11.9-15.9)
[2019-10-21 09:41] LABS: ALBUMIN 3.6 g/dl (3.4-5.0); BILIRUBIN,TOTAL 0.5 mg/dL (0.2-1); BLOOD UREA NITROGEN 22.2 mg/dL (7-18); CALCIUM 8.8 mg/dL (8.5-10.1); CREATININE 1.3 mg/dL (0.55-1.3); MAGNESIUM 2.4 mg/dL (1.8-2.4); TOT PROT 6.8 g/dl (6.4-8.2)
[2019-10-21] MEDS ORDERED: DEXAMETHASONE SODIUM PHOSPHATE 20 MG in SODIUM CHLORIDE 50 ML IVPB ONE (10:00)
[2019-10-21] MEDS ORDERED: SODIUM CHLORIDE 250 ML IV ONE ×2 (10:00→11:30)
[2019-10-21] MEDS ORDERED: NIVOLUMAB 240 MG in SODIUM CHLORIDE 100 ML IVPB ONE (10:30)
[2019-10-21 14:46] VITALS: BP 122/68; PULSE 52; TEMP 97.4
== END 2019-10-21 13:45 | disposition home or self-care (01) ==
LOC: JONCCHEMO 07:11 → J7W 09:33 → JONCCHEMO 13:45
PROVIDERS: ATTEND Internal Medicine Hematology & Oncology
DX: Z51.11 Encounter for antineoplastic chemotherapy (principal); C64.1 Malignant neoplasm of right kidney, except renal pelvis; C78.00 Secondary malignant neoplasm of unspecified lung
CPT/HCPCS: 36415; 80053; 83735; 84153; 84443; 85025; 96361; 96375; 96413; J9299

== ENCOUNTER 2019-11-04 07:10 | Day surgery (SDC) | payer OTHER, MEDICARE ==
[2019-11-04 08:58] LABS: BASO % 0.9 % (0-2.0); HEMATOCRIT 37.7 % (35.4-49); HEMOGLOBIN 12.5 GM/dL (11.7-16.9); LYMPH % 18.4 % (8-40); MCHC 33.3 g/dl (32.0-35.9); MEAN CELL VOLUME 96.2 fl (80-96); MEAN PLT VOLUME 8.5 fl (7.5-11.1); MONO % 6.6 % (3.8-10.2); NEUT % 71.1 % (42.8-82.8); PLATELET COUNT 167 K/MM3 (134-434); RBC 3.92 M/mm3 (4.00-5.60); RDW 13.7 % (11.9-15.9); WHITE BLOOD COUNT 6.4 K/mm3 (4.0-10.0)
[2019-11-04] MEDS ORDERED: SODIUM CHLORIDE 250 ML IV ONE ×2 (09:00→11:30)
[2019-11-04 09:39] LABS: ALBUMIN 3.4 g/dl (3.4-5.0); BILIRUBIN,TOTAL 0.5 mg/dL (0.2-1); BLOOD UREA NITROGEN 18.3 mg/dL (7-18); CALCIUM 8.9 mg/dL (8.5-10.1); CREATININE 1.3 mg/dL (0.55-1.3); MAGNESIUM 2.3 mg/dL (1.8-2.4); POTASSIUM 4.2 mmol/L (3.5-5.1); TOT PROT 6.6 g/dl (6.4-8.2)
[2019-11-04] MEDS ORDERED: DEXAMETHASONE SODIUM PHOSPHATE 20 MG in SODIUM CHLORIDE 50 ML IVPB ONE (10:00)
[2019-11-04] MEDS ORDERED: NIVOLUMAB 240 MG in SODIUM CHLORIDE 100 ML IVPB ONE (10:30)
[2019-11-04 15:22] VITALS: BP 129/76; PULSE 58; TEMP 97.6
== END 2019-11-04 13:55 | disposition home or self-care (01) ==
LOC: JONCCHEMO 07:10 → J7W 09:27 → JONCCHEMO 13:55
PROVIDERS: ATTEND Nurse Practitioner Family
DX: Z51.11 Encounter for antineoplastic chemotherapy (principal); C64.1 Malignant neoplasm of right kidney, except renal pelvis; C78.00 Secondary malignant neoplasm of unspecified lung
CPT/HCPCS: 36415; 80053; 83735; 84443; 85025; 96361; 96375; 96413; J9299

== ENCOUNTER 2020-02-24 06:09 | Day surgery (SDC) | payer OTHER, MEDICARE ==
[2020-02-24] MEDS ORDERED: SODIUM CHLORIDE 250 ML IV ONE ×2 (09:00→11:30)
[2020-02-24] MEDS ORDERED: DEXAMETHASONE SODIUM PHOSPHATE 20 MG in SODIUM CHLORIDE 50 ML IVPB ONE (10:00)
[2020-02-24 10:13] LABS: BASO % 0.8 % (0-2.0); EOS % 4.1 % (0-4.5); HEMATOCRIT 38.1 % (35.4-49); HEMOGLOBIN 12.5 GM/dL (11.7-16.9); MCH 31.2 pg (25.7-33.7); MCHC 32.9 g/dl (32.0-35.9); MEAN CELL VOLUME 94.9 fl (80-96); MEAN PLT VOLUME 9.4 fl (7.5-11.1); MONO % 8.2 % (3.8-10.2); NEUT % 65.9 % (42.8-82.8); PLATELET COUNT 179 K/MM3 (134-434); RBC 4.01 M/mm3 (4.00-5.60); RDW 13.7 % (11.9-15.9); WHITE BLOOD COUNT 5.4 K/mm3 (4.0-10.0)
[2020-02-24] MEDS ORDERED: NIVOLUMAB IVPB ONE (10:30)
[2020-02-24] MEDS ORDERED: SODIUM CHLORIDE IVPB ONE (10:30)
[2020-02-24 11:14] LABS: ALBUMIN 3.6 g/dl (3.4-5.0); BILIRUBIN,DIRECT 0.1 mg/dL (0.0-0.2); BILIRUBIN,TOTAL 0.5 mg/dL (0.2-1); BLOOD UREA NITROGEN 19.6 mg/dL (7-18); CALCIUM 8.8 mg/dL (8.5-10.1); CREATININE 1.3 mg/dL (0.55-1.3); MAGNESIUM 2.5 mg/dL (1.8-2.4); PHOSPHOROUS 2.9 mg/dL (2.5-4.9); POTASSIUM 4.1 mmol/L (3.5-5.1); TOT PROT 6.9 g/dl (6.4-8.2)
[2020-02-24 15:38] VITALS: TEMP 98.4
[2020-02-24 15:42] VITALS: BP 128/70; PULSE 65
== END 2020-02-24 14:25 | disposition home or self-care (01) ==
LOC: JONCCHEMO 06:09
PROVIDERS: ATTEND Nurse Practitioner Family
DX: Z51.11 Encounter for antineoplastic chemotherapy (principal); C64.1 Malignant neoplasm of right kidney, except renal pelvis; C78.00 Secondary malignant neoplasm of unspecified lung
CPT/HCPCS: 36415; 80048; 80076; 82607; 83036; 83690; 83735; 84100; 84439; 84443; 85025; 96361; 96375; 96413; J9299

== ENCOUNTER 2020-03-23 07:13 | Day surgery (SDC) | payer OTHER, MEDICARE ==
[2020-03-23] MEDS ORDERED: SODIUM CHLORIDE 250 ML IV ONE ×2 (09:00→11:00)
[2020-03-23] MEDS ORDERED: DEXAMETHASONE SODIUM PHOSPHATE 20 MG in SODIUM CHLORIDE 50 ML IVPB ONE (09:30)
[2020-03-23 09:38] LABS: BASO % 0.8 % (0-2.0); EOS % 1.8 % (0-4.5); HEMATOCRIT 38.5 % (35.4-49); HEMOGLOBIN 12.5 GM/dL (11.7-16.9); LYMPH % 20.5 % (8-40); MCH 30.9 pg (25.7-33.7); MCHC 32.5 g/dl (32.0-35.9); MEAN PLT VOLUME 8.3 fl (7.5-11.1); MONO % 7.8 % (3.8-10.2); NEUT % 69.1 % (42.8-82.8); PLATELET COUNT 179 K/MM3 (134-434); RBC 4.05 M/mm3 (4.00-5.60); RDW 13.8 % (11.9-15.9); WHITE BLOOD COUNT 6.5 K/mm3 (4.0-10.0)
[2020-03-23 09:42] VITALS: TEMP 97.7
[2020-03-23] MEDS ORDERED: NIVOLUMAB IVPB ONE (10:00)
[2020-03-23] MEDS ORDERED: SODIUM CHLORIDE IVPB ONE (10:00)
[2020-03-23 10:05] LABS: CHOLESTEROL 183 mg/dL (50-200); HDL CHOLESTEROL 67 mg/dL (40-60); LDL CHOLESTEROL (ONLY SJRH) 108 mg/dL (5-100); TRIGLYCERIDES 67 mg/dL (0-150)
[2020-03-23 10:10] LABS: ALBUMIN 3.6 g/dl (3.4-5.0); BILIRUBIN,DIRECT 0.1 mg/dL (0.0-0.2); BILIRUBIN,TOTAL 0.4 mg/dL (0.2-1); BLOOD UREA NITROGEN 20.9 mg/dL (7-18); CALCIUM 8.9 mg/dL (8.5-10.1); CREATININE 1.1 mg/dL (0.55-1.3); MAGNESIUM 2.4 mg/dL (1.8-2.4); POTASSIUM 4.2 mmol/L (3.5-5.1)
[2020-03-23 16:19] VITALS: BP 155/69; PULSE 66
== END 2020-03-23 13:45 | disposition home or self-care (01) ==
LOC: JONCCHEMO 07:13
PROVIDERS: ATTEND Internal Medicine Hematology & Oncology
DX: Z51.11 Encounter for antineoplastic chemotherapy (principal); C64.1 Malignant neoplasm of right kidney, except renal pelvis; C78.00 Secondary malignant neoplasm of unspecified lung
CPT/HCPCS: 36415; 80048; 80061; 80076; 83721; 83735; 84439; 84443; 85025; 96361; 96375; 96413; J9299

== ENCOUNTER 2020-04-20 08:42 | Day surgery (SDC) | payer OTHER, MEDICARE ==
[2020-04-20] MEDS ORDERED: SODIUM CHLORIDE 250 ML IV ONE ×2 (09:00→11:30)
[2020-04-20] MEDS ORDERED: DEXAMETHASONE INJECTION 20 MG in SODIUM CHLORIDE 50 ML IVPB ONE (10:00)
[2020-04-20] MEDS ORDERED: NIVOLUMAB IVPB ONE (10:30)
[2020-04-20] MEDS ORDERED: SODIUM CHLORIDE IVPB ONE (10:30)
[2020-04-20 11:13] LABS: BASO % 0.7 % (0-2.0); EOS % 3.2 % (0-4.5); HEMATOCRIT 40.9 % (35.4-49); HEMOGLOBIN 13.2 GM/dL (11.7-16.9); LYMPH % 21.4 % (8-40); MCH 30.7 pg (25.7-33.7); MCHC 32.3 g/dl (32.0-35.9); MONO % 7.1 % (3.8-10.2); NEUT % 67.6 % (42.8-82.8); PLATELET COUNT 176 K/MM3 (134-434); RDW 14.4 % (11.9-15.9); WHITE BLOOD COUNT 6.2 K/mm3 (4.0-10.0)
[2020-04-20 12:00] LABS: ALBUMIN 3.7 g/dl (3.4-5.0); BILIRUBIN,DIRECT 0.1 mg/dL (0.0-0.2); BILIRUBIN,TOTAL 0.4 mg/dL (0.2-1); BLOOD UREA NITROGEN 23.5 mg/dL (7-18); CREATININE 1.2 mg/dL (0.55-1.3); MAGNESIUM 2.7 mg/dL (1.8-2.4); POTASSIUM 4.5 mmol/L (3.5-5.1); TOT PROT 7.3 g/dl (6.4-8.2)
[2020-04-20 18:18] VITALS: TEMP 98.3
[2020-04-20 18:22] VITALS: BP 114/67; PULSE 114
== END 2020-04-20 15:30 | disposition home or self-care (01) ==
LOC: JONCCHEMO 08:42
PROVIDERS: ATTEND Internal Medicine Hematology & Oncology
DX: Z51.11 Encounter for antineoplastic chemotherapy (principal); C64.1 Malignant neoplasm of right kidney, except renal pelvis; C78.00 Secondary malignant neoplasm of unspecified lung
CPT/HCPCS: 36415; 80048; 80076; 82150; 82533; 83690; 83735; 84439; 84443; 85025; 96361; 96375; 96413; J1100; J9299

== ENCOUNTER 2020-06-15 07:45 | Day surgery (SDC) | payer OTHER, MEDICARE ==
--- OUTSIDE RECORDS SUMMARY | 2020-06-15 07:49 | XMS ---
:1945 Author Organization [facility] Care Team Providers Name Role Phone Digiorno Unavailable Unavailable Digiorno Unavailable Unavailable Digiorno Unavailable Unavailable Digiorno Unavailable Unavailable Re-disclosure Warning The records that you are about to access may contain information from federally- assisted alcohol or drug abuse programs. If such information is present, then the following federally mandated warning applies: This information has been disclosed to you from records protected by federal confidentiality rules (42 CFR part 2). The federal rules prohibit you from making any further disclosure of this information unless further disclosure is expressly permitted by the written consent of the person to whom it pertains or as otherwise permitted by 42 CFR part 2. A general authorization for the release of medical or other information is NOT sufficient for this purpose. The Federal rules restrict any use of the information to criminally investigate or prosecute any alcohol or drug abuse patient.The records that you are about to access may contain highly sensitive health information, the redisclosure of which is protected by Article 27-F of the [facility] Public Health law. If you continue you may haveaccess to information: Regarding HIV / AIDS; Provided by facilities licensed or operated by the [facility] Office of Mental Health; or Provided by the [facility] Office for People With Developmental Disabilities. If such information is present, then the following [facility] mandated warning applies: This information has been disclosed to you from confidential records which are protected by state law. State law prohibits you from making any further disclosure of this information without the specific written consent of the person to whom it pertains, or as otherwise permitted by law. Any unauthorized further disclosure in violation of state law may result in a fine or usp sentence or both. A general authorization for the release of medical or other information is NOT sufficient authorization for further disclosure. Encounters Encounter Providers Location Date Indications Data Source(s ) Attender: Smooth 05/05/2020 [facility] ([facility] 12:00:00 AM EDT Medical, ) Office Outpatient 03/28/2019 08:30:00 AM EDT KIDNEY [facility] NOT DIAB [facility] 186LBS KIDNEY [place] NOT DIAB 186LBS Medications Medication Brand Start Product Dose Route Administrative Pharmacy [facility] Indications Reaction Description Data Name Date Form Instructions Instructions Source(s) Levothyroxi SYNTHR SYNTHR OID [facility] (St ne Sodium OID:96 2019 ed Cas's 0.088 MG 6282 12:00: Medical, Oral Tablet 00 AM PC) [Synthroid] EST SYNTHROID:[id number] Levothyroxi SYNTHR SYNTHR OID [facility] (St ne Sodium OID:96 2019 ed [facility]'s 0.088 MG 6282 12:00: Medical, Oral Tablet 00 AM PC) [Synthroid] EST SYNTHROID:[id number] Insurance Providers Payer name Policy type Policy ID Covered Covered constitution party's Policy P vinicio / Coverage constitution party ID relationship to Villar Inf ormation type villar [facility] [id number] SP [id number] CARE OPTIONS MEDICARE [id number] SP [id number] [id number] 1 [id number] PART B DOWNSTATE AARP MEDICARE [id number] [place]LE[place] [id number] PART B [facility] [id number] PT [id number] CARE [employer] MEDICARE [id number] PT [id number] Surgeries/Procedures Procedure Description Date Indications Data Source(s) Documentation of current 05/05/2020 [facility] ([facility] medications (procedure) 12:00:00 AM EDT [facility], PC) OFFICE OUTPATIENT VISIT 05/05/2020 [facility] ([facility] 15 MINUTES 12:00:00 AM EDT Medical, PC) Documentation of current 05/05/2020 [facility] ([facility] (procedure) 12:00:00 [facility] OFF[facility]PATIENT VISIT 05/05/2020 [facility] ([facility] 15 MINUTES 12:00:00 AM [facility], ) Documentation of current 10/29/2019 [facility] ([facility] medications (procedure) 12:00:00 AM EST [facility], ) Documentation of current 10/29/2019 [facility] ([facility] medications (procedure) 12:00:00 AM EST [facility], ) Documentation of current 10/29/2019 [facility] ([facility] medications (procedure) 12:00:00 AM EST [facility], ) OFFICE OUTPATIENT VISIT 10/29/2019 [facility] ([facility] 15 MINUTES 12:00:00 AM [facility], ) Documentation of current 10/29/2019 [facility] (Enio's medications (procedure) 12:00:00 AM EST [facility], ) Documentation of current 10/29/2019 [facility] ([facility] medications (procedure) 12:00:00 AM EST [facility], ) Documentation of current 10/29/2019 [facility] ([facility] medications (procedure) 12:00:00 AM EST [facility], ) OFFICE OUTPATIENT VISIT 10/29/2019 [facility] ([facility] 15 MINUTES 12:00:00 AM [facility], ) Documentation of current 07/02/2019 [facility] ([facility] medications (procedure) 12:00:00 AM EST [facility], ) OFFICE OUTPATIENT VISIT 07/02/2019 [facility] ([facility] 15 MINUTES 12:00:00 AM [facility], ) Documentation of current 07/02/2019 [facility] ([facility] medications (procedure) 12:00:00 AM EST [facility], ) OFFICE OUTPATIENT VISIT 07/02/2019 [facility] ([facility] 15 MINUTES 12:00:00 AM [facility], ) Results ID Date Data Source [id number] 05/05/2020 12:00:00 AM EDT [facility], ) Name Value Range Interpretation Code Description Data Supporting Source(s) Document(s ) Creatinine 206.4 Normal (applies to [facility] (St , Urine mg/dL non-numeric Cas's results) Medical, ) Protein/Cr 51 mg/g Normal (applies to [facility] (St eat Ratio creat non-numeric Cas's results) Medical, PC) Protein,To 10.6 mg/dL Normal (applies to [facility] (S t bre,Urine non-numeric Cas's results) Medical, PC) ID Date Data Source [id number] 05/05/2020 12:00:00 AM EDT [facility] ([facility], ) Name Value Range Interpretation Description Data Sup porting Code Source(s) Document(s ) RBC 0-2 Normal (applies [facility] (St to non-numeric Cas's results) Medical, PC) WBC 0-5 Normal (applies [facility] (St to non-numeric Cas's results) Medical, PC) Mucus Threads Present Normal (applies [facility] (St to non-numeric Cas's results) Medical, PC) Epithelial None seen Normal (applies [facility] (St Cells (non to non-numeric Cas's renal) results) Medical, PC) Bacteria None seen Normal (applies [facility] (St [Presence] in to non-numeric Cas's Prostatic results) Medical, PC) fluid by Light microscopy ID Date Data Source [id number] 05/05/2020 12:00:00 AM EDT [facility] ([facility], ) Name Value Range Interpretation Description Data Sup porting Code Source(s) Document(s ) Specific gravity 1.028 Normal (applies [facility] (St of Pericardial to non-numeric Cas's fluid by results) Medical, Refractometry PC) Urine-Color Yellow Normal (applies [facility] (St to non-numeric Cas's results) Medical, PC) pH of Lower 5.5 Normal (applies [facility] (St respiratory to non-numeric Cas's specimen results) Medical, PC) Appearance of Clear Normal (applies [facility] (St Abdomen to non-numeric Cas's results) Medical, PC) WBC Esterase Negative Normal (applies [facility] (St to non-numeric Cas's results) Medical, PC) Glucose Negative Normal (applies [facility] (St [Mass/volume] in to non-numeric Cas's Urine collected results) Medical, for unspecified PC) duration Protein Negative Normal (applies [facility] (St [Mass/volume] in to non-numeric Cas's Lower results) Medical, respiratory PC) specimen Occult Blood Negative Normal (applies [facility] (St to non-numeric Cas's results) Medical, ) Ketones Negative Normal (applies [facility] (St [Presence] in to non-numeric Cas's Blood by Tablet results) [facility], ) Bilirubin Negative Normal (applies [facility] (St [Presence] in to non-numeric Cas's Peritoneal fluid results) [facility], ) Urobilinogen,Mark 0.2 mg/dL Normal (applies [facility] (St i-Qn to non-numeric Cas's results) Medical, ) Nitrite, Urine Negative Normal (applies [facility] (S t to non-numeric Cas's results) [facility], ) Microscopic Normal (applies [facility] (St Examination to non-numeric Cas's results) [facility]) Microscopic See below: Normal (applies [facility] (St Examination to non-numeric Cas's results) [facility], ) ID Date Data Source [id number] 11/05/2019 12:00:00 AM EDT [facility] ([facility], ) Name Value Range Interpretation Code Description Data Supporting Source(s) Document(s ) PTH, Intact 53 pg/mL Normal (applies to [facility] (S t non-numeric Cas's results) [facility], ) ID Date Data Source [id number] 11/05/2019 12:00:00 AM EDT [facility] ([facility], ) Name Value Range Interpretation Description Data Sup porting Code Source(s) Document(s ) Deprecated 3.5 mg/dL Normal (applies to [facility] (St Phosphorus non-numeric Cas's [Mass/time] in results) [facility], ) 24 hour Urine ID Date Data Source [id number] 11/05/2019 12:00:00 AM EDT [facility] ([facility], ) Name Value Range Interpretation Description Data Sup porting Code Source(s) Document(s ) Vitamin D, 32.8 Normal (applies to [facility] (St 25-Hydroxy ng/mL non-numeric Cas's results) [facility]) ID Date Data Source [id number] 11/05/2019 12:00:00 AM EDT [facility] ([facility]) Name Value Range Interpretation Code Description Data Supporting Source(s) Document(s ) Creatinine 162.3 Normal (applies to [facility] (St , Urine mg/dL non-numeric Cas's results) [facility], ) Protein,To 8.9 mg/dL Normal (applies to [facility] (St bre,Urine non-numeric Cas's results) Medical, ) Protein/Cr 55 mg/g Normal (applies to [facility] (St eat Ratio creat non-numeric Cas's results) [facility], ) ID Date Data Source [id number] 11/05/2019 12:00:00 AM EDT [facility] ([facility], ) Name Value Range Interpretation Description Data Sup porting Code Source(s) Document(s ) UIBC 283 ug/dL Normal (applies to [facility] (St non-numeric Cas's results) Medical, ) Iron 350 ug/dL Normal (applies to [facility] (St Bind.Cap.(TIBC non-numeric Cas's ) results) Medical, ) Iron 19 % Normal (applies to [facility] (St saturation non-numeric Cas's [Mass results) Medical, ) Fraction] in Serum or Plasma Iron 67 ug/dL Normal (applies to [facility] (St [Mass/volume] non-numeric Cas's in Serum or results) Medical, ) Plasma ID Date Data Source [id number] 11/05/2019 12:00:00 AM EDT [facility] ([facility], ) Name Value Range Interpretation Description Data Sup porting Code Source(s) Document(s ) RBC 0-2 Normal (applies [facility] (St to non-numeric Cas's results) Medical, ) WBC 0-5 Normal (applies [facility] (St to non-numeric Cas's results) Medical, ) Epithelial None seen Normal (applies [facility] (St Cells (non to non-numeric Cas's renal) results) Medical, ) Mucus Threads Present Normal (applies [facility] (St to non-numeric Cas's results) Medical, ) Bacteria Few Normal (applies [facility] (St [Presence] in to non-numeric Cas's Prostatic results) Medical, ) fluid by Light microscopy ID Date Data Source [id number] 11/05/2019 12:00:00 AM EDT [facility] ([facility], ) Name Value Range Interpretation Description Data Sup porting Code Source(s) Document(s ) Specific gravity 1.025 Normal (applies [facility] (St of Pericardial to non-numeric Cas's fluid by results) Medical, Refractometry ) Urine-Color Yellow Normal (applies [facility] (St to non-numeric Cas's results) Medical, ) pH of Lower 5.0 Normal (applies [facility] (St respiratory to non-numeric Cas's specimen results) Medical, ) WBC Esterase Negative Normal (applies [facility] (St to non-numeric Cas's results) Medical, ) Appearance of Clear Normal (applies [facility] (St Abdomen to non-numeric Cas's results) Medical, ) Protein Negative Normal (applies [facility] (St [Mass/volume] in to non-numeric Cas's Lower results) Medical, respiratory PC) specimen Glucose Negative Normal (applies [facility] (St [Mass/volume] in to non-numeric Cas's Urine collected results) Medical, for unspecified PC) duration Bilirubin Negative Normal (applies [facility] (St [Presence] in to non-numeric Cas's Peritoneal fluid results) [facility], ) Occult Blood Negative Normal (applies [facility] (St to non-numeric Cas's results) Medical, ) Ketones Negative Normal (applies [facility] (St [Presence] in to non-numeric Cas's Blood by Tablet results) Medical, ) Nitrite, Urine Negative Normal (applies [facility] (S t to non-numeric Cas's results) Medical, ) Urobilinogen,Mark 0.2 mg/dL Normal (applies [facility] (St i-Qn to non-numeric Cas's results) [facility], ) Microscopic Normal (applies [facility] (St Examination to non-numeric Cas's results) Medical, ) Microscopic See below: Normal (applies [facility] (St Examination to non-numeric Cas's results) Medical, ) ID Date Data Source [id number] 11/05/2019 12:00:00 AM EDT [facility] ([facility], ) Name Value Range Interpretation Description Data Sup porting Code Source(s) Document(s ) Urea nitrogen 20 mg/dL Normal (applies [facility] (St [Mass/volume] in to non-numeric Cas's Serum or Plasma results) Medical, ) Glucose 102 Above high [facility] (St [Mass/volume] in mg/dL normal Cas's Urine collected for Medical, unspecified PC) duration eGFR If NonAfricn 52 Below low normal [facility] N (St Am mL/min/1 Cas's .73 [facility], ) Creatinine 1.34 Above high [facility] (St [Interpretation] in mg/dL normal Cas's Urine Medical, ) eGFR If Africn Am 60 Normal (applies [facility] (St mL/min/1 to non-numeric Cas's .73 results) Medical, PC) BUN/Creatinine 15 Normal (applies [facility] (S t Ratio to non-numeric Cas's results) Medical, PC) Potassium 4.6 Normal (applies [facility] (St [Mass/volume] in mmol/L to non-numeric Cas's Blood results) Medical, PC) Sodium 143 Normal (applies [facility] (St [Moles/volume] in mmol/L to non-numeric Cas's Serum or Plasma results) Medical, PC) Chloride 106 Normal (applies [facility] (St [Moles/volume] in mmol/L to non-numeric Cas's Serum or Plasma results) Medical, PC) Carbon dioxide, 22 Normal (applies [facility] ( St total mmol/L to non-numeric Cas's [Moles/volume] in results) Medical, Serum or Plasma PC) Calcium 9.5 Normal (applies [facility] (St [Moles/volume] in mg/dL to non-numeric Cas's Urine collected for results) Medical, unspecified PC) duration Protein 7.1 g/dL Normal (applies [facility] (St [Mass/volume] in to non-numeric Cas's Serum or Plasma results) Medical, PC) Microalbumin 4.3 g/dL Normal (applies [facility] (St [Mass/time] in to non-numeric Cas's Urine collected for results) Medical, unspecified PC) duration Globulin, Total 2.8 g/dL Normal (applies [facility] ( St to non-numeric Cas's results) Medical, PC) A/G Ratio 1.5 Normal (applies [facility] (St to non-numeric Cas's results) Medical, PC) Bilirubin.total 0.3 Normal (applies [facility] ( St [Mass/volume] in mg/dL to non-numeric Cas's Serum or Plasma results) Medical, PC) Aspartate 33 IU/L Normal (applies [facility] (St aminotransferase to non-numeric Cas's [Enzymatic results) Medical, activity/volume] in PC) Serum or Plasma Alkaline 82 IU/L Normal (applies [facility] (St phosphatase to non-numeric Cas's [Enzymatic results) Medical, activity/volume] in PC) Serum, Plasma or Blood Alanine 24 IU/L Normal (applies [facility] (St aminotransferase to non-numeric Cas's [Enzymatic results) Medical, activity/volume] in ) Serum or Plasma ID Date Data Source [id number] 11/05/2019 12:00:00 AM EDT [facility] ([facility], ) Name Value Range Interpretation Description Data Sup porting Code Source(s) Document(s ) Leukocytes 7.9 Normal (applies [facility] (St [#/volume] in x10E3/uL to non-numeric Cas's Blood by results) [facility], ) Automated count Hemoglobin 12.7 Below low normal [facility] (St [Mass/volume] in g/dL Cas's Blood [facility], ) Erythrocytes 4.07 Below low normal [facility] (St [#/volume] in x10E6/uL Cas's Blood by [facility], ) Automated count Hematocrit 38.0 % Normal (applies [facility] (St [Volume to non-numeric Cas's Fraction] of results) [facility], ) Blood by Automated count MCV 93 fL Normal (applies [facility] (St to non-numeric Cas's results) [facility], ) MCH 31.2 pg Normal (applies [facility] (St to non-numeric Cas's results) [facility], ) RDW 12.5 % Normal (applies [facility] (St to non-numeric Cas's results) [facility], ) MCHC 33.4 Normal (applies [facility] (St g/dL to non-numeric Cas's results) [facility], ) Neutrophils [#] 86 % Normal (applies [facility] ( St in Body fluid by to non-numeric Cas's Manual count results) [facility], ) Platelets 183 Normal (applies [facility] (St [#/area] in x10E3/uL to non-numeric Cas's Blood by results) [facility], ) Microscopy high power field Monocytes 5 % Normal (applies [facility] (St [#/volume] in to non-numeric Cas's Cord blood results) [facility], ) Eos 0 % Normal (applies [facility] (St to non-numeric Cas's results) [facility], ) Lymphs 8 % Normal (applies [facility] (St to non-numeric Cas's results) Medical, ) Basos 0 % Normal (applies [facility] (St to non-numeric Cas's results) [facility], ) Neutrophils 6.8 Normal (applies [facility] (St (Absolute) x10E3/uL to non-numeric Cas's results) Medical, ) Lymphs 0.6 Below low normal [facility] (St (Absolute) x10E3/uL Cas's Medical, ) Monocytes(Absolu 0.4 Normal (applies [facility] (St te) x10E3/uL to non-numeric Cas's results) Medical, ) Eos (Absolute) 0.0 Normal (applies [facility] (S t x10E3/uL to non-numeric Cas's results) Medical, ) Baso (Absolute) 0.0 Normal (applies [facility] ( St x10E3/uL to non-numeric Cas's results) Medical, ) Immature 1 % Normal (applies [facility] (St Granulocytes to non-numeric Cas's results) Medical, ) Immature Grans 0.0 Normal (applies [facility] (S t (Abs) x10E3/uL to non-numeric Cas's results) Medical, ) ID Date Data Source [id number] 11/05/2019 12:00:00 AM EDT [facility] ([facility], ) Name Value Range Interpretation Code Description Data Supporting Source(s) Document(s ) PTH, Intact 53 pg/mL Normal (applies to [facility] (S t non-numeric Cas's results) [facility], ) ID Date Data Source [id number] 11/05/2019 12:00:00 AM EDT [facility] ([facility], ) Name Value Range Interpretation Description Data Sup porting Code Source(s) Document(s ) Deprecated 3.5 mg/dL Normal (applies to [facility] (St Phosphorus non-numeric Cas's [Mass/time] in results) Medical, ) 24 hour Urine ID Date Data Source [id number] 11/05/2019 12:00:00 AM EDT [facility] ([facility], ) Name Value Range Interpretation Description Data Sup porting Code Source(s) Document(s ) Vitamin D, 32.8 Normal (applies to [facility] (St 25-Hydroxy ng/mL non-numeric Cas's results) [facility], ) ID Date Data Source [id number] 11/05/2019 12:00:00 AM EDT [facility] ([facility], ) Name Value Range Interpretation Code Description Data Supporting Source(s) Document(s ) Protein,To 8.9 mg/dL Normal (applies to [facility] (St bre,Urine non-numeric Cas's results) Medical, ) Creatinine 162.3 Normal (applies to [facility] (St , Urine mg/dL non-numeric Cas's results) Medical, ) Protein/Cr 55 mg/g Normal (applies to [facility] (St eat Ratio creat non-numeric Cas's results) Medical, ) ID Date Data Source [id number] 11/05/2019 12:00:00 AM EDT [facility] ([facility], ) Name Value Range Interpretation Description Data Sup porting Code Source(s) Document(s ) Iron 350 ug/dL Normal (applies to [facility] (St Bind.Cap.(TIBC non-numeric Cas's ) results) Medical, ) Iron 67 ug/dL Normal (applies to [facility] (St [Mass/volume] non-numeric Cas's in Serum or results) Medical, ) Plasma UIBC 283 ug/dL Normal (applies to [facility] (St non-numeric Cas's results) [facility], ) Iron 19 % Normal (applies to [facility] (St saturation non-numeric Cas's [Mass results) Medical, ) Fraction] in Serum or Plasma ID Date Data Source [id number] 11/05/2019 12:00:00 AM EDT [facility] ([facility], ) Name Value Range Interpretation Description Data Sup porting Code Source(s) Document(s ) WBC 0-5 Normal (applies [facility] (St to non-numeric Cas's results) Medical, ) Epithelial None seen Normal (applies [facility] (St Cells (non to non-numeric Cas's renal) results) Medical, ) RBC 0-2 Normal (applies [facility] (St to non-numeric Cas's results) Medical, ) Bacteria Few Normal (applies [facility] (St [Presence] in to non-numeric Cas's Prostatic results) Medical, ) fluid by Light microscopy Mucus Threads Present Normal (applies [facility] (St to non-numeric Cas's results) Medical, ) ID Date Data Source [id number] 11/05/2019 12:00:00 AM EDT [facility] ([facility], ) Name Value Range Interpretation Description Data Sup porting Code Source(s) Document(s ) Specific gravity 1.025 Normal (applies [facility] (St of Pericardial to non-numeric Cas's fluid by results) Medical, Refractometry PC) pH of Lower 5.0 Normal (applies [facility] (St respiratory to non-numeric Cas's specimen results) Medical, ) Urine-Color Yellow Normal (applies [facility] (St to non-numeric Cas's results) Medical, ) WBC Esterase Negative Normal (applies [facility] (St to non-numeric Cas's results) Medical, ) Protein Negative Normal (applies [facility] (St [Mass/volume] in to non-numeric Cas's Lower results) Medical, respiratory PC) specimen Appearance of Clear Normal (applies [facility] (St Abdomen to non-numeric Cas's results) Medical, ) Ketones Negative Normal (applies [facility] (St [Presence] in to non-numeric Cas's Blood by Tablet results) Medical, ) Glucose Negative Normal (applies [facility] (St [Mass/volume] in to non-numeric Cas's Urine collected results) Medical, for unspecified PC) duration Occult Blood Negative Normal (applies [facility] (St to non-numeric Cas's results) Medical, ) Bilirubin Negative Normal (applies [facility] (St [Presence] in to non-numeric Cas's Peritoneal fluid results) Medical, ) Urobilinogen,Mark 0.2 mg/dL Normal (applies [facility] (St i-Qn to non-numeric Cas's results) Medical, ) Microscopic See below: Normal (applies [facility] (St Examination to non-numeric Cas's results) Medical, ) Nitrite, Urine Negative Normal (applies [facility] (S t to non-numeric Cas's results) Medical, PC) Microscopic Normal (applies [facility] (St Examination to non-numeric Cas's results) Medical, ) ID Date Data Source [id number] 11/05/2019 12:00:00 AM EDT [facility] ([facility], ) Name Value Range Interpretation Description Data Sup porting Code Source(s) Document(s ) Glucose 102 Above high [facility] (St [Mass/volume] in mg/dL normal Cas's Urine collected for Medical, unspecified PC) duration Urea nitrogen 20 mg/dL Normal (applies [facility] (St [Mass/volume] in to non-numeric Cas's Serum or Plasma results) Medical, PC) Creatinine 1.34 Above high [facility] (St [Interpretation] in mg/dL normal Cas's Urine Medical, PC) eGFR If NonAfricn 52 Below low normal [facility] N (St Am mL/min/1 Cas's .73 Medical, PC) eGFR If Africn Am 60 Normal (applies [facility] (St mL/min/1 to non-numeric Cas's .73 results) Medical, PC) Potassium 4.6 Normal (applies [facility] (St [Mass/volume] in mmol/L to non-numeric Cas's Blood results) Medical, PC) Sodium 143 Normal (applies [facility] (St [Moles/volume] in mmol/L to non-numeric Cas's Serum or Plasma results) Medical, PC) BUN/Creatinine 15 Normal (applies [facility] (S t Ratio to non-numeric Cas's results) Medical, PC) Carbon dioxide, 22 Normal (applies [facility] ( St total mmol/L to non-numeric Cas's [Moles/volume] in results) Medical, Serum or Plasma PC) Calcium 9.5 Normal (applies [facility] (St [Moles/volume] in mg/dL to non-numeric Cas's Urine collected for results) Medical, unspecified PC) duration Chloride 106 Normal (applies [facility] (St [Moles/volume] in mmol/L to non-numeric Cas's Serum or Plasma results) Medical, PC) Protein 7.1 g/dL Normal (applies [facility] (St [Mass/volume] in to non-numeric Cas's Serum or Plasma results) Medical, PC) Microalbumin 4.3 g/dL Normal (applies [facility] (St [Mass/time] in to non-numeric Cas's Urine collected for results) Medical, unspecified PC) duration Bilirubin.total 0.3 Normal (applies [facility] ( St [Mass/volume] in mg/dL to non-numeric Cas's Serum or Plasma results) Medical, PC) Globulin, Total 2.8 g/dL Normal (applies [facility] ( St to non-numeric Cas's results) Medical, PC) A/G Ratio 1.5 Normal (applies [facility] (St to non-numeric Cas's results) Medical, PC) Aspartate 33 IU/L Normal (applies [facility] (St aminotransferase to non-numeric Cas's [Enzymatic results) Medical, activity/volume] in ) Serum or Plasma Alkaline 82 IU/L Normal (applies [facility] (St phosphatase to non-numeric Cas's [Enzymatic results) Medical, activity/volume] in ) Serum, Plasma or Blood Alanine 24 IU/L Normal (applies [facility] (St aminotransferase to non-numeric Cas's [Enzymatic results) Medical, activity/volume] in ) Serum or Plasma ID Date Data Source [id number] 11/05/2019 12:00:00 AM EDT [facility] ([facility], ) Name Value Range Interpretation Description Data Sup porting Code Source(s) Document(s ) Leukocytes 7.9 Normal (applies [facility] (St [#/volume] in x10E3/uL to non-numeric Cas's Blood by results) Medical, ) Automated count Erythrocytes 4.07 Below low normal [facility] (St [#/volume] in x10E6/uL Cas's Blood by Medical, ) Automated count Hemoglobin 12.7 Below low normal [facility] (St [Mass/volume] in g/dL [facility] Blood Medical, ) MCV 93 fL Normal (applies [facility] (St to non-numeric Cas's results) Medical, ) Hematocrit 38.0 % Normal (applies [facility] (St [Volume to non-numeric Cas's Fraction] of results) Medical, ) Blood by Automated count MCHC 33.4 Normal (applies [facility] (St g/dL to non-numeric Cas's results) Medical, ) RDW 12.5 % Normal (applies [facility] (St to non-numeric Cas's results) Medical, ) MCH 31.2 pg Normal (applies [facility] (St to non-numeric Cas's results) Medical, ) Platelets 183 Normal (applies [facility] (St [#/area] in x10E3/uL to non-numeric Cas's Blood by results) Medical, ) Microscopy high power field Neutrophils [#] 86 % Normal (applies [facility] ( St in Body fluid by to non-numeric Cas's Manual count results) Medical, ) Lymphs 8 % Normal (applies [facility] (St to non-numeric Cas's results) Medical, ) Monocytes 5 % Normal (applies [facility] (St [#/volume] in to non-numeric Cas's Cord blood results) Medical, ) Eos 0 % Normal (applies [facility] (St to non-numeric Cas's results) Medical, ) Lymphs 0.6 Below low normal [facility] (St (Absolute) x10E3/uL [facility] Medical, ) Neutrophils 6.8 Normal (applies [facility] (St (Absolute) x10E3/uL to non-numeric Cas's results) Medical, ) Basos 0 % Normal (applies [facility] (St to non-numeric Cas's results) Medical, ) Monocytes(Absolu 0.4 Normal (applies [facility] (St te) x10E3/uL to non-numeric Cas's results) Medical, ) Eos (Absolute) 0.0 Normal (applies [facility] (S t x10E3/uL to non-numeric Cas's results) Medical, PC) Immature 1 % Normal (applies [facility] (St Granulocytes to non-numeric Cas's results) Medical, ) Immature Grans 0.0 Normal (applies [facility] (S t (Abs) x10E3/uL to non-numeric Cas's results) Medical, ) Baso (Absolute) 0.0 Normal (applies [facility] ( St x10E3/uL to non-numeric Cas's results) Medical, ) Procedure Social History Code Duration Value Status Description Data Source(s ) Smoking 05/06/2020 denies tobacco use completed denies tobacco us e [facility] (St 12:00:00 AM EDT (former smoker (former smoker [facility], 0.5 ppd/10 yrs, 0.5 ppd/10 yrs, ) quit 1974), +EtOH: quit 1974), +EtOH : now drinks 1 glass now drinks 1 glas s wine/night, but wine/night, but had been drinking had been drinking 14 cans beer/14 14 cans beer/14 shot liquor/week, shot liquor/week, denies illicit denies illicit drug use. [place] use. 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 [place] drug use. 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) Smoking 05/05/2020 Unknown if ever completed Unknown if ever [facility] (St 12:00:00 AM EDT smoked smoked Jayson Al dicsc, ) Vital Signs ID Date Data Source UNK Name Value Range Interpretation Code Description Data Source(s) Heart rate 54 /min 54 /min [facility] ([facility] , ) Respiratory rate 14 /min 14 /min [facility] ( [facility] , ) Body mass index 27.6 kg/m2 27.6 kg/m2 [facility] (S t (BMI) [Ratio] [facility], ) Diastolic blood 70 mm[Hg] 70 mm[Hg] [facility] (S t [facility] , ) Systolic blood 120 mm[Hg] 120 mm[Hg] [facility] ([facility] , ) Body weight 166 lb 166 lb [facility] ([facility] , ) Body height 65 in 65 in [facility] ([facility] , ) Heart rate 54 /min 54 /min [facility] ([facility] , ) Respiratory rate 14 /min 14 /min [facility] ( [facility] , ) Body mass index 27.6 kg/m2 27.6 kg/m2 [facility] (S t (BMI) [Ratio] [facility], ) Diastolic blood 70 mm[Hg] 70 mm[Hg] [facility] (S t pressure [facility] , ) Systolic blood 120 mm[Hg] 120 mm[Hg] [facility] ([facility]) Body weight 166 lb 166 lb [facility] ([facility]) Body height 65 in 65 in [facility] ([facility]) Heart rate 60 /min 60 /min [facility] ([facility]) Inhaled oxygen 96 % 96 % [facility] ([facility]) Body mass index 29.5 kg/m2 29.5 kg/m2 [facility] [place] [facility] [place] Di[place] blood 70 mm[Hg] 70 mm[Hg] [facility] (S t [facility]) Systolic blood 120 mm[Hg] 120 mm[Hg] [facility] ([facility]) Body weight 177 lb 177 lb [facility] ([facility]) Body height 65 in 65 in [facility] ([facility]) Heart rate 60 /min 60 /min [facility] ([facility]) Inhaled oxygen 96 % 96 % [facility] ([facility]) Body mass index 29.5 kg/m2 29.5 kg/m2 [facility] ([place] ([place]) [place] [facility] [place] Diastolic blood 70 mm[Hg] 70 mm[Hg] [facility] (S [facility]) Systolic blood 120 mm[Hg] 120 mm[Hg] [facility] ([facility]) Body weight 177 lb 177 lb [facility] ([facility]) Body height 65 in 65 in [facility] ([facility]) Heart rate 66 /min 66 /min [facility] ([facility]) Respiratory rate 14 /min 14 /min [facility] ( [facility]) Body mass index 30.3 kg/m2 30.3 kg/m2 [facility] (S t (BMI) [place]Ratio[place] [facility] [place] Diastolic blood 76 mm[Hg] 76 mm[Hg] [facility] (S t [facility]) Systolic blood 120 mm[Hg] 120 mm[Hg] [facility] ([facility]) Body weight 182 lb 182 lb [facility] ([facility]) Body height 65 in 65 in [facility] ([facility]) Heart rate 66 /min 66 /min [facility] ([facility]) Respiratory rate 14 /min 14 /min [facility] ( [facility]) Body mass index 30.3 kg/m2 30.3 kg/m2 [facility] (S (BMI) [place]Ratio[place] [facility] [place] Diastolic blood 76 mm[Hg] 76 mm[Hg] [facility] (S t pressure [facility]) Systolic blood 120 mm[Hg] 120 mm[Hg] [facility] ([facility]) Body weight 182 lb 182 lb [facility] ([facility]) Body height 65 in 65 in [facility] ([facility])
[2020-06-15] MEDS ORDERED: SODIUM CHLORIDE 250 ML IV ONE ×2 (09:00→11:30)
[2020-06-15] MEDS ORDERED: DEXAMETHASONE INJECTION 20 MG in SODIUM CHLORIDE 50 ML IVPUSH ONE (10:00)
[2020-06-15] MEDS ORDERED: NIVOLUMAB IVPB ONE (10:30)
[2020-06-15] MEDS ORDERED: SODIUM CHLORIDE IVPB ONE (10:30)
[2020-06-15 11:12] LABS: BASO % 1.2 % (0-2.0); EOS % 4.9 % (0-4.5); HEMATOCRIT 39.2 % (35.4-49); HEMOGLOBIN 12.9 GM/dL (11.7-16.9); LYMPH % 22.1 % (8-40); MCH 31.5 pg (25.7-33.7); MCHC 32.9 g/dl (32.0-35.9); MEAN CELL VOLUME 95.6 fl (80-96); MEAN PLT VOLUME 8.7 fl (7.5-11.1); NEUT % 61.8 % (42.8-82.8); PLATELET COUNT 173 K/MM3 (134-434)
[2020-06-15 11:32] LABS: POTASSIUM 4.8 mmol/L (3.5-5.1)
[2020-06-15 11:36] LABS: CALCIUM 9.1 mg/dL (8.5-10.1)
[2020-06-15 11:37] LABS: ALBUMIN 3.7 g/dl (3.4-5.0); MAGNESIUM 2.5 mg/dL (1.8-2.4)
[2020-06-15 11:39] LABS: BILIRUBIN,DIRECT 0.1 mg/dL (0.0-0.2)
[2020-06-15 11:40] LABS: CREATININE 1.3 mg/dL (0.55-1.3)
[2020-06-15 11:41] LABS: BILIRUBIN,TOTAL 0.4 mg/dL (0.2-1); TOT PROT 7.4 g/dl (6.4-8.2)
[2020-06-15 15:24] VITALS: TEMP 98.3
[2020-06-17 07:18] VITALS: BP 127/70; PULSE 54
== END 2020-06-15 14:45 | disposition home or self-care (01) ==
LOC: JONCCHEMO 07:45
PROVIDERS: ATTEND Internal Medicine Hematology & Oncology
DX: Z51.11 Encounter for antineoplastic chemotherapy (principal); C64.1 Malignant neoplasm of right kidney, except renal pelvis; C78.00 Secondary malignant neoplasm of unspecified lung
CPT/HCPCS: 36415; 80048; 80076; 82150; 83690; 83735; 84439; 84443; 85025; 96361; 96375; 96413; J1100; J9299

== ENCOUNTER 2020-07-13 09:33 | Day surgery (SDC) | payer OTHER, MEDICARE ==
[~2020-07-13 09:33] MED LIST changes: +DEXAMETHASONE INJECTION 20 MG in SODIUM CHLORIDE 50 ML IVPB ONE
[2020-07-13] MEDS ORDERED: SODIUM CHLORIDE IVPB ONE (10:00)
[2020-07-13] MEDS ORDERED: NIVOLUMAB IVPB ONE (10:00)
[2020-07-13 10:19] LABS: BASO % 0.4 % (0-2.0); EOS % 4.8 % (0-4.5); HEMOGLOBIN 13.1 GM/dL (11.7-16.9); LYMPH % 21.1 % (8-40); MCH 32.3 pg (25.7-33.7); MCHC 33.5 g/dl (32.0-35.9); MEAN CELL VOLUME 96.6 fl (80-96); MEAN PLT VOLUME 8.6 fl (7.5-11.1); MONO % 8.4 % (3.8-10.2); NEUT % 65.3 % (42.8-82.8); PLATELET COUNT 160 K/MM3 (134-434); RBC 4.04 M/mm3 (4.00-5.60); RDW 14.1 % (11.9-15.9); WHITE BLOOD COUNT 5.5 K/mm3 (4.0-10.0)
[2020-07-13 10:41] LABS: CALCIUM 8.6 mg/dL (8.5-10.1)
[2020-07-13 10:42] LABS: ALBUMIN 3.7 g/dl (3.4-5.0); MAGNESIUM 2.4 mg/dL (1.8-2.4)
[2020-07-13 10:45] LABS: BILIRUBIN,DIRECT 0.1 mg/dL (0.0-0.2); CREATININE 1.2 mg/dL (0.55-1.3)
[2020-07-13 10:46] LABS: BILIRUBIN,TOTAL 0.5 mg/dL (0.2-1); TOT PROT 7.3 g/dl (6.4-8.2)
[2020-07-13] MEDS ORDERED: SODIUM CHLORIDE 250 ML IV ONE (11:00)
[2020-07-13 16:37] VITALS: TEMP 97.7
[2020-07-13 16:38] VITALS: BP 134/72; PULSE 61
== END 2020-07-13 15:00 | disposition home or self-care (01) ==
LOC: JONCCHEMO 09:33
PROVIDERS: ATTEND Internal Medicine Hematology & Oncology
DX: Z51.11 Encounter for antineoplastic chemotherapy (principal); C64.1 Malignant neoplasm of right kidney, except renal pelvis; C78.00 Secondary malignant neoplasm of unspecified lung
CPT/HCPCS: 36415; 80048; 80076; 82150; 83690; 83735; 84436; 84439; 84443; 85025; 96361; 96375; 96413; J1100; J9299

== ENCOUNTER 2020-08-10 06:14 | Day surgery (SDC) | payer OTHER, MEDICARE ==
[2020-08-10] MEDS ORDERED: SODIUM CHLORIDE 250 ML IV ONE ×2 (09:00→11:30)
[2020-08-10] MEDS ORDERED: DEXAMETHASONE SODIUM PHOSPHATE 20 MG in SODIUM CHLORIDE 50 ML IVPB ONE (10:00)
[2020-08-10 10:05] LABS: EOS % 4.4 % (0-4.5); HEMATOCRIT 37.9 % (35.4-49); HEMOGLOBIN 12.5 GM/dL (11.7-16.9); LYMPH % 21.4 % (8-40); MEAN CELL VOLUME 96.8 fl (80-96); MEAN PLT VOLUME 7.8 fl (7.5-11.1); NEUT % 63.2 % (42.8-82.8); PLATELET COUNT 173 K/MM3 (134-434); RBC 3.92 M/mm3 (4.00-5.60); WHITE BLOOD COUNT 5.2 K/mm3 (4.0-10.0)
[2020-08-10 10:21] LABS: POTASSIUM 4.2 mmol/L (3.5-5.1)
[2020-08-10 10:23] LABS: ALBUMIN 3.8 g/dl (3.4-5.0); CALCIUM 8.7 mg/dL (8.5-10.1); MAGNESIUM 2.4 mg/dL (1.8-2.4)
[2020-08-10 10:26] LABS: BILIRUBIN,DIRECT 0.2 mg/dL (0.0-0.2); CREATININE 1.3 mg/dL (0.55-1.3)
[2020-08-10 10:28] LABS: BILIRUBIN,TOTAL 0.5 mg/dL (0.2-1); TOT PROT 7.4 g/dl (6.4-8.2)
[2020-08-10] MEDS ORDERED: NIVOLUMAB IVPB ONE (10:30)
[2020-08-10] MEDS ORDERED: SODIUM CHLORIDE IVPB ONE (10:30)
[2020-08-10 10:39] LABS: BLOOD UREA NITROGEN 19.8 mg/dL (7-18)
[2020-08-10 16:28] VITALS: BP 127/74; PULSE 56; TEMP 97.8
== END 2020-08-10 13:20 | disposition home or self-care (01) ==
LOC: JONCCHEMO 06:14
PROVIDERS: ATTEND Internal Medicine Hematology & Oncology
DX: Z51.11 Encounter for antineoplastic chemotherapy (principal); C64.1 Malignant neoplasm of right kidney, except renal pelvis; C78.00 Secondary malignant neoplasm of unspecified lung
CPT/HCPCS: 36415; 80048; 80076; 82150; 83690; 83735; 84439; 84443; 85025; 96361; 96367; 96413; J9299

== ENCOUNTER 2020-08-24 12:59 | Inpatient (IN) | payer OTHER, MEDICARE ==
[2020-08-24 13:32] VITALS: BMI 28.3
[2020-08-24 16:33] LABS: BASO % 0.6 % (0-2.0); EOS % 2.9 % (0-4.5); HEMATOCRIT 38.2 % (35.4-49); HEMOGLOBIN 12.4 GM/dL (11.7-16.9); LYMPH % 17.8 % (8-40); MCH 31.5 pg (25.7-33.7); MCHC 32.5 g/dl (32.0-35.9); MEAN CELL VOLUME 96.9 fl (80-96); MEAN PLT VOLUME 8.5 fl (7.5-11.1); MONO % 7.2 % (3.8-10.2); NEUT % 71.5 % (42.8-82.8); PLATELET COUNT 159 K/MM3 (134-434); RBC 3.95 M/mm3 (4.00-5.60); RDW 14.2 % (11.9-15.9); WHITE BLOOD COUNT 6.7 K/mm3 (4.0-10.0)
[2020-08-24 16:40] LABS: INR 0.93 (0.83-1.09); PROTHROMBIN TIME (PATIENT) 11.3 SEC (9.7-13.0)
[2020-08-24 16:43] LABS: ACTIVATED PTT 25.4 SECONDS (25.2-36.5)
[2020-08-24 17:03] LABS: CHLORIDE 106 mmol/L (98-107); SODIUM 142 mmol/L (136-145)
[2020-08-24 17:06] LABS: ALBUMIN 3.6 g/dl (3.4-5.0); ANION GAP 4 MMOL/L (8-16); BLOOD UREA NITROGEN 18.8 mg/dL (7-18); CALCIUM 8.8 mg/dL (8.5-10.1); CO2 32 mmol/L (21-32); GLUCOSE,RANDOM 80 mg/dL (74-106)
[2020-08-24 17:09] LABS: BILIRUBIN,DIRECT 0.1 mg/dL (0.0-0.2); CREATININE 1.3 mg/dL (0.55-1.3); SGOT/AST 29 U/L (15-37); SGPT/ALT 13 U/L (13-61)
[2020-08-24 17:11] LABS: BILIRUBIN,TOTAL 0.3 mg/dL (0.2-1); TOT PROT 6.9 g/dl (6.4-8.2)
[2020-08-24 17:12] LABS: ALK PHOS 84 U/L (45-117)
[2020-08-24 17:37] LABS: LDH 247 U/L (87-246)
[2020-08-24] MEDS ORDERED: AZITHROMYCIN IVPB 500 MG in DEXTROSE 5%-WATER - 250 ML IVPB ONE (18:34)
[2020-08-24] MEDS ORDERED: CEFTRIAXONE 1,000 MG in DEXTROSE 5%-WATER - 50 ML IVPB ONE (18:34)
[2020-08-24] MEDS ORDERED: CEFTRIAXONE 1 GM/50 ML BAG ONE (19:17)
[2020-08-24] MEDS ORDERED: AZITHROMYCIN IVPB 500 MG/250 ML BAG IVPB ONE (19:17)
[2020-08-24] MEDS ORDERED: levETIRAcetam 500 MG TABLET (FP) PO ONE ×2 (20:50→21:10)
[2020-08-24] MEDS ORDERED: PRAMIPEXOLE DIHYDROCHLORIDE 1 MG TABLET PO ONE (20:51)
[2020-08-24] MEDS ORDERED: lamoTRIgine 100 MG TABLET PO ONE (20:51)
[2020-08-24] MEDS ORDERED: lamoTRIgine 100 MG TABLET ONE (21:10)
[2020-08-25] MEDS ORDERED: ALBUTEROL SO4 HFA INHALER IH PRN (01:07)
[2020-08-25] MEDS ORDERED: MELATONIN 1 MG TABLET PO SCH (02:05)
[2020-08-25] MEDS ORDERED: MELATONIN 5 MG TABLETS PO ONE (02:37)
[2020-08-25] MEDS ORDERED: MELATONIN 5 MG TABLETS ONE (02:40)
[2020-08-25] MEDS ORDERED: LEVOTHYROXINE NA 88 MCG TABLET (FP) PO SCH (07:00)
[2020-08-25] MEDS ORDERED: FAMOTIDINE 20 MG TABLET ONE (09:27)
[2020-08-25] MEDS ORDERED: lamoTRIgine 100 MG TABLET ONE (09:27)
[2020-08-25] MEDS ORDERED: levETIRAcetam 500 MG TABLET (FP) PO ONE (09:27)
[2020-08-25] MEDS ORDERED: levETIRAcetam 500 MG TABLET (FP) PO SCH ×2 (10:00)
[2020-08-25] MEDS ORDERED: FLUTICASONE PROP 0.05% 16 GM NASAL SPRAY NS SCH (10:00)
[2020-08-25] MEDS ORDERED: lamoTRIgine 100 MG TABLET PO SCH (10:00)
[2020-08-25] MEDS ORDERED: FAMOTIDINE 20 MG TABLET PO SCH (10:00)
[2020-08-25 11:32] VITALS: BP 133/75; PULSE 60; TEMP 98.4
== END 2020-08-25 11:40 | disposition left against medical advice (07) | DRG 181 ==
LOC: JER 12:59 → JERBED 21:14
DX: C78.00 Secondary malignant neoplasm of unspecified lung (principal); C64.9 Malignant neoplasm of unspecified kidney, except renal pelvis; J45.901 Unspecified asthma with (acute) exacerbation; E03.9 Hypothyroidism, unspecified; K21.9 Gastro-esophageal reflux disease without esophagitis; K63.5 Polyp of colon; G20 Parkinson's disease; R94.30 Abnormal result of cardiovascular function study, unspecified; R91.8 Other nonspecific abnormal finding of lung field; I10 Essential (primary) hypertension; E78.5 Hyperlipidemia, unspecified; F41.9 Anxiety disorder, unspecified; G40.909 Epilepsy, unspecified, not intractable, without status epilepticus; Z90.5 Acquired absence of kidney
CPT/HCPCS: 36415; 71045-TC-FY; 71250-TC; 80053; 82248; 82550; 82553; 82728; 83615; 84484; 85025; 85379; 85610; 85730; 86140; 93005; 93010; 99285-25; C9803; U0003

== ENCOUNTER 2020-09-07 08:00 | Day surgery (SDC) | payer OTHER, MEDICARE ==
[2020-09-07] MEDS ORDERED: SODIUM CHLORIDE 250 ML IV ONE ×2 (09:00→12:00)
[2020-09-07] MEDS ORDERED: DEXAMETHASONE SODIUM PHOSPHATE 20 MG in SODIUM CHLORIDE 50 ML IVPB ONE (09:30)
[2020-09-07 09:53] LABS: BASO % 0.7 % (0-2.0); EOS % 4.6 % (0-4.5); HEMATOCRIT 37.2 % (35.4-49); HEMOGLOBIN 12.5 GM/dL (11.7-16.9); LYMPH % 20.8 % (8-40); MCHC 33.5 g/dl (32.0-35.9); MEAN CELL VOLUME 95.7 fl (80-96); MEAN PLT VOLUME 8.2 fl (7.5-11.1); MONO % 9.6 % (3.8-10.2); NEUT % 64.3 % (42.8-82.8); PLATELET COUNT 168 K/MM3 (134-434); RBC 3.89 M/mm3 (4.00-5.60); RDW 14.1 % (11.9-15.9)
[2020-09-07] MEDS ORDERED: NIVOLUMAB IVPB ONE (10:00)
[2020-09-07] MEDS ORDERED: SODIUM CHLORIDE IVPB ONE (10:00)
[2020-09-07 10:21] LABS: ALBUMIN 3.5 g/dl (3.4-5.0); CALCIUM 8.7 mg/dL (8.5-10.1)
[2020-09-07 10:22] LABS: BLOOD UREA NITROGEN 19.8 mg/dL (7-18); MAGNESIUM 2.3 mg/dL (1.8-2.4)
[2020-09-07 10:23] LABS: BILIRUBIN,DIRECT 0.1 mg/dL (0.0-0.2)
[2020-09-07 10:24] LABS: CREATININE 1.4 mg/dL (0.55-1.3)
[2020-09-07 10:25] LABS: TOT PROT 6.7 g/dl (6.4-8.2)
[2020-09-07 10:26] LABS: BILIRUBIN,TOTAL 0.4 mg/dL (0.2-1)
[2020-09-07] MEDS ORDERED: SODIUM CHLORIDE 0.45% 500 ML IV SCH (13:30)
[2020-09-07 17:00] VITALS: TEMP 97.6
[2020-09-07 17:26] VITALS: BP 133/73; PULSE 57
== END 2020-09-07 16:40 | disposition home or self-care (01) ==
LOC: JONCCHEMO 08:00
PROVIDERS: ATTEND Internal Medicine Hematology & Oncology
PROC: 3E0337Z Introduction of Electrolytic and Water Balance Substance into Peripheral Vein, Percutaneous Approach (ICD-10-PCS; principal; 2020-09-07)
PROC: 3E033GC Introduction of Other Therapeutic Substance into Peripheral Vein, Percutaneous Approach (ICD-10-PCS; 2020-09-07)
DX: C64.1 Malignant neoplasm of right kidney, except renal pelvis (principal); C78.00 Secondary malignant neoplasm of unspecified lung; Z76.89 Persons encountering health services in other specified circumstances
CPT/HCPCS: 36415; 80048; 80076; 82150; 82378; 82550; 82553; 83690; 83735; 84439; 84443; 85025; 96361; 96374

== ENCOUNTER → 2020-10-05 | Day surgery (SDC) | payer OTHER, MEDICARE ==
[~2020-10-05] MED LIST changes: -DEXAMETHASONE INJECTION 20 MG in SODIUM CHLORIDE 50 ML IVPB ONE; +DEXAMETHASONE SODIUM PHOSPHATE 20 MG in SODIUM CHLORIDE 50 ML IVPB ONE; +NIVOLUMAB IVPB ONE; +SODIUM CHLORIDE IVPB ONE
[2020-10-05 13:38] LABS: BASO % 0.9 % (0-2.0); EOS % 3.4 % (0-4.5); HEMATOCRIT 38.1 % (35.4-49); HEMOGLOBIN 12.7 GM/dL (11.7-16.9); LYMPH % 20.1 % (8-40); MCH 31.8 pg (25.7-33.7); MCHC 33.3 g/dl (32.0-35.9); MEAN CELL VOLUME 95.5 fl (80-96); MEAN PLT VOLUME 8.5 fl (7.5-11.1); MONO % 8.6 % (3.8-10.2); PLATELET COUNT 184 K/MM3 (134-434); RBC 3.99 M/mm3 (4.00-5.60); RDW 14.1 % (11.9-15.9); WHITE BLOOD COUNT 4.2 K/mm3 (4.0-10.0)
[2020-10-05 13:51] LABS: POTASSIUM 4.2 mmol/L (3.5-5.1)
[2020-10-05 13:56] LABS: ALBUMIN 3.8 g/dl (3.4-5.0)
[2020-10-05 13:57] LABS: BLOOD UREA NITROGEN 17.4 mg/dL (7-18); CALCIUM 9.2 mg/dL (8.5-10.1)
[2020-10-05 13:58] LABS: MAGNESIUM 2.5 mg/dL (1.8-2.4)
[2020-10-05 14:00] LABS: CREATININE 1.3 mg/dL (0.55-1.3)
[2020-10-05 14:01] LABS: BILIRUBIN,DIRECT 0.1 mg/dL (0.0-0.2)
[2020-10-05 14:02] LABS: BILIRUBIN,TOTAL 0.4 mg/dL (0.2-1); TOT PROT 7.4 g/dl (6.4-8.2)
== END | disposition home or self-care (01) ==
LOC: JONCCHEMO 07:18
PROVIDERS: ATTEND Internal Medicine Hematology & Oncology
DX: Z53.8 Procedure and treatment not carried out for other reasons (principal)
CPT/HCPCS: 36415; 80048; 80076; 82150; 82306; 82533; 82607; 83690; 83735; 84439; 84443; 85025; 96365

== ENCOUNTER 2020-11-02 07:07 | Day surgery (SDC) | payer OTHER, MEDICARE ==
[~2020-11-02 07:07] MED LIST changes: -DEXAMETHASONE SODIUM PHOSPHATE 20 MG in SODIUM CHLORIDE 50 ML IVPB ONE; -NIVOLUMAB IVPB ONE; -SODIUM CHLORIDE IVPB ONE
[2020-11-02] MEDS ORDERED: SODIUM CHLORIDE 250 ML IV ONE ×2 (09:00→11:00)
[2020-11-02] MEDS ORDERED: DEXAMETHASONE SODIUM PHOSPHATE 20 MG in SODIUM CHLORIDE 50 ML IVPB ONE (09:30)
[2020-11-02] MEDS ORDERED: NIVOLUMAB IVPB ONE (10:00)
[2020-11-02] MEDS ORDERED: SODIUM CHLORIDE IVPB ONE (10:00)
[2020-11-02 10:44] LABS: BASO % 0.7 % (0-2.0); EOS % 4.5 % (0-4.5); HEMATOCRIT 38.5 % (35.4-49); HEMOGLOBIN 13.2 GM/dL (11.7-16.9); LYMPH % 20.2 % (8-40); MCH 32.5 pg (25.7-33.7); MCHC 34.3 g/dl (32.0-35.9); MEAN CELL VOLUME 94.8 fl (80-96); MEAN PLT VOLUME 7.8 fl (7.5-11.1); MONO % 9.9 % (3.8-10.2); NEUT % 64.7 % (42.8-82.8); PLATELET COUNT 191 K/MM3 (134-434); RBC 4.06 M/mm3 (4.00-5.60); RDW 13.8 % (11.9-15.9); WHITE BLOOD COUNT 5.7 K/mm3 (4.0-10.0)
[2020-11-02 11:11] LABS: POTASSIUM 4.5 mmol/L (3.5-5.1)
[2020-11-02 11:14] LABS: ALBUMIN 3.5 g/dl (3.4-5.0); BLOOD UREA NITROGEN 18.7 mg/dL (7-18); MAGNESIUM 2.4 mg/dL (1.8-2.4)
[2020-11-02 11:16] LABS: BILIRUBIN,DIRECT 0.2 mg/dL (0.0-0.2)
[2020-11-02 11:17] LABS: CREATININE 1.3 mg/dL (0.55-1.3)
[2020-11-02 11:18] LABS: BILIRUBIN,TOTAL 0.5 mg/dL (0.2-1); TOT PROT 7.2 g/dl (6.4-8.2)
[2020-11-02 11:28] LABS: CALCIUM 8.8 mg/dL (8.5-10.1)
[2020-11-02 17:17] VITALS: BP 132/69; PULSE 63; TEMP 97.9
== END 2020-11-02 15:44 | disposition home or self-care (01) ==
LOC: JONCCHEMO 07:07
PROVIDERS: ATTEND Internal Medicine Hematology & Oncology
DX: Z51.11 Encounter for antineoplastic chemotherapy (principal); C64.1 Malignant neoplasm of right kidney, except renal pelvis; C79.9 Secondary malignant neoplasm of unspecified site
CPT/HCPCS: 36415; 80048; 80076; 82150; 82550; 82553; 83690; 83735; 84439; 84443; 85025; 96361; 96375; 96413; J9299

== ENCOUNTER 2020-11-30 06:26 | Day surgery (SDC) | payer OTHER, MEDICARE ==
[2020-11-30] MEDS ORDERED: SODIUM CHLORIDE 250 ML IV ONE ×2 (09:00→11:30)
[2020-11-30] MEDS ORDERED: DEXAMETHASONE SODIUM PHOSPHATE 20 MG in DEXTROSE 5%-WATER - 50 ML IVPB ONE (10:00)
[2020-11-30] MEDS ORDERED: SODIUM CHLORIDE IVPB ONE (10:30)
[2020-11-30] MEDS ORDERED: NIVOLUMAB IVPB ONE (10:30)
[2020-11-30 11:57] LABS: BASO % 0.7 % (0-2.0); EOS % 3.7 % (0-4.5); HEMATOCRIT 37.1 % (35.4-49); HEMOGLOBIN 12.5 GM/dL (11.7-16.9); LYMPH % 17.3 % (8-40); MCH 32.1 pg (25.7-33.7); MCHC 33.6 g/dl (32.0-35.9); MEAN CELL VOLUME 95.3 fl (80-96); MEAN PLT VOLUME 8.1 fl (7.5-11.1); MONO % 8.9 % (3.8-10.2); NEUT % 69.4 % (42.8-82.8); PLATELET COUNT 188 K/MM3 (134-434); RBC 3.89 M/mm3 (4.00-5.60); RDW 14.1 % (11.9-15.9); WHITE BLOOD COUNT 5.9 K/mm3 (4.0-10.0)
[2020-11-30 12:18] LABS: POTASSIUM 4.5 mmol/L (3.5-5.1)
[2020-11-30 12:19] LABS: CALCIUM 8.7 mg/dL (8.5-10.1)
[2020-11-30 12:20] LABS: ALBUMIN 3.6 g/dl (3.4-5.0); BLOOD UREA NITROGEN 23.7 mg/dL (7-18)
[2020-11-30 12:23] LABS: CREATININE 1.2 mg/dL (0.55-1.3)
[2020-11-30 12:25] LABS: BILIRUBIN,TOTAL 0.3 mg/dL (0.2-1); TOT PROT 7.1 g/dl (6.4-8.2)
[2020-11-30 16:46] VITALS: BP 147/73; PULSE 61; TEMP 98.1
== END 2020-11-30 14:15 | disposition home or self-care (01) ==
LOC: JONCCHEMO 06:26
PROVIDERS: ATTEND Internal Medicine Hematology & Oncology
DX: Z51.11 Encounter for antineoplastic chemotherapy (principal); C64.1 Malignant neoplasm of right kidney, except renal pelvis; C79.9 Secondary malignant neoplasm of unspecified site
CPT/HCPCS: 36415; 80053; 82150; 82550; 82553; 82670; 83690; 84439; 84443; 85025; 96361; 96375; 96413; J9299

== ENCOUNTER 2020-12-28 06:28 | Day surgery (SDC) | payer OTHER, MEDICARE ==
[2020-12-28] MEDS ORDERED: SODIUM CHLORIDE 250 ML IV ONE ×2 (09:00→13:00)
[2020-12-28] MEDS ORDERED: DEXAMETHASONE SODIUM PHOSPHATE 20 MG in DEXTROSE 5%-WATER - 50 ML IVPB ONE (09:30)
[2020-12-28] MEDS ORDERED: NIVOLUMAB IVPB ONE (10:00)
[2020-12-28] MEDS ORDERED: SODIUM CHLORIDE IVPB ONE (10:00)
[2020-12-28 10:58] LABS: BASO % 0.7 % (0-2.0); EOS % 4.2 % (0-4.5); HEMATOCRIT 35.6 % (35.4-49); HEMOGLOBIN 12.1 GM/dL (11.7-16.9); LYMPH % 19.3 % (8-40); MEAN CELL VOLUME 94.1 fl (80-96); MEAN PLT VOLUME 8.3 fl (7.5-11.1); MONO % 9.8 % (3.8-10.2); PLATELET COUNT 176 K/MM3 (134-434); RBC 3.79 M/mm3 (4.00-5.60); RDW 14.4 % (11.9-15.9)
[2020-12-28 11:24] LABS: ALBUMIN 3.4 g/dl (3.4-5.0); BLOOD UREA NITROGEN 22.3 mg/dL (7-18); CALCIUM 8.3 mg/dL (8.5-10.1); MAGNESIUM 2.4 mg/dL (1.8-2.4)
[2020-12-28 11:27] LABS: CREATININE 1.3 mg/dL (0.55-1.3)
[2020-12-28 11:28] LABS: BILIRUBIN,TOTAL 0.3 mg/dL (0.2-1)
[2020-12-28 11:29] LABS: TOT PROT 6.8 g/dl (6.4-8.2)
[2020-12-28 11:30] LABS: BILIRUBIN,DIRECT 0.1 mg/dL (0.0-0.2)
[2020-12-28 15:46] VITALS: BP 132/80; PULSE 65
[2020-12-28 15:48] VITALS: TEMP 98.2
[2020-12-30 19:06] LABS: CK-MM 93 % (97-100)
== END 2020-12-28 15:25 | disposition home or self-care (01) ==
LOC: JONCCHEMO 06:28
PROVIDERS: ATTEND Internal Medicine Hematology & Oncology
DX: Z51.11 Encounter for antineoplastic chemotherapy (principal); C64.1 Malignant neoplasm of right kidney, except renal pelvis; C79.9 Secondary malignant neoplasm of unspecified site
CPT/HCPCS: 36415; 80048; 80076; 82150; 82533; 82550; 82552; 82553; 83690; 83735; 84439; 84443; 85025; 96361; 96375; 96413; J9299

== ENCOUNTER 2021-03-16 10:16 | Day surgery (SDC) | payer OTHER, MEDICARE ==
[~2021-03-16 10:16] MED LIST changes: +DEXAMETHASONE SODIUM PHOSPHATE 20 MG in DEXTROSE 5%-WATER - 50 ML IVPB ONE; +NIVOLUMAB IVPB ONE; +SODIUM CHLORIDE IVPB ONE
[2021-03-16] MEDS ORDERED: MAGNESIUM 1GM/D5W - 1 GM/100 ML IVPB IVPB ONE (11:00)
[2021-03-16] MEDS ORDERED: D5-1/2NS+20 MEQ KCL - 10 MEQ/500 ML INFUS.BAG IV ONE (11:00)
[2021-03-16] MEDS ORDERED: POTASSIUM CHLORIDE IV ONE (11:15)
[2021-03-16] MEDS ORDERED: [UNRECOGNIZED DRUG - OTHER] IV ONE (11:15)
[2021-03-16] MEDS ORDERED: DEXTROSE IV ONE (11:15)
[2021-03-16 11:56] LABS: BASO % 0.7 % (0-2.0); EOS % 1.1 % (0-4.5); HEMATOCRIT 34.8 % (35.4-49); HEMOGLOBIN 11.9 GM/dL (11.7-16.9); LYMPH % 9.9 % (8-40); MCH 31.4 pg (25.7-33.7); MCHC 34.3 g/dl (32.0-35.9); MEAN CELL VOLUME 91.6 fl (80-96); MEAN PLT VOLUME 6.9 fl (7.5-11.1); MONO % 7.9 % (3.8-10.2); NEUT % 80.4 % (42.8-82.8); PLATELET COUNT 255 10^3/uL (134-434); WHITE BLOOD COUNT 6.3 K/mm3 (4.0-10.0)
[2021-03-16 12:14] LABS: ALBUMIN 3.1 g/dl (3.4-5.0); BLOOD UREA NITROGEN 15.4 mg/dL (7-18); CALCIUM 8.5 mg/dL (8.5-10.1); MAGNESIUM 2.4 mg/dL (1.8-2.4)
[2021-03-16 12:16] LABS: BILIRUBIN,DIRECT 0.1 mg/dL (0.0-0.2)
[2021-03-16 12:18] LABS: BILIRUBIN,TOTAL 0.4 mg/dL (0.2-1); CREATININE 1.2 mg/dL (0.55-1.3); TOT PROT 6.6 g/dl (6.4-8.2)
[2021-03-16 12:56] LABS: ANISOCYTOSIS 0; MACROCYTOSIS 0; PLATELET ESTIMATE NORMAL
[2021-03-16 13:30] LABS: PH,URINE 5.5 (5.0-8.0); URINE APPEARANCE CLEAR; URINE BILIRUBIN NEGATIVE (NEGATIVE); URINE COLOR YELLOW; URINE GLUCOSE (UA) NEGATIVE (NEGATIVE); URINE KETONE NEGATIVE (NEGATIVE); URINE LEUK ESTERASE NEGATIVE (NEGATIVE); URINE NITRITE NEGATIVE (NEGATIVE); URINE PROTEIN NEGATIVE (NEGATIVE); URINE UROBILINOGEN 0.2 mg/dL (0.2-1.0)
[2021-03-16 14:37] VITALS: PULSE 71; TEMP 98.4
[2021-03-16 14:38] VITALS: BP 111/68
== END 2021-03-16 13:45 | disposition home or self-care (01) ==
LOC: JONCCHEMO 10:16
PROVIDERS: ATTEND Internal Medicine Hematology & Oncology
PROC: 3E033GC Introduction of Other Therapeutic Substance into Peripheral Vein, Percutaneous Approach (ICD-10-PCS; principal; 2021-03-16)
DX: C64.1 Malignant neoplasm of right kidney, except renal pelvis (principal); C79.9 Secondary malignant neoplasm of unspecified site; Z76.89 Persons encountering health services in other specified circumstances
CPT/HCPCS: 36415; 71046-TC-FY; 80048; 80076; 81003; 83735; 84439; 84443; 85025; 87040; 87086; 96365

== ENCOUNTER 2021-04-05 06:48 | Day surgery (SDC) | payer OTHER, MEDICARE ==
[2021-04-05] MEDS ORDERED: SODIUM CHLORIDE 250 ML IV ONE ×2 (09:00→11:00)
[2021-04-05] MEDS ORDERED: DEXAMETHASONE SODIUM PHOSPHATE 20 MG in DEXTROSE 5%-WATER - 50 ML IVPB ONE (09:30)
[2021-04-05] MEDS ORDERED: NIVOLUMAB IVPB ONE (10:00)
[2021-04-05] MEDS ORDERED: SODIUM CHLORIDE IVPB ONE (10:00)
[2021-04-05 15:49] VITALS: TEMP 97.9
[2021-04-05 15:50] VITALS: BP 115/63; PULSE 59
== END 2021-04-05 12:15 | disposition home or self-care (01) ==
LOC: JONCCHEMO 06:48
PROVIDERS: ATTEND Nurse Practitioner Family
DX: Z51.11 Encounter for antineoplastic chemotherapy (principal); C64.1 Malignant neoplasm of right kidney, except renal pelvis; C79.9 Secondary malignant neoplasm of unspecified site
CPT/HCPCS: 96361; 96367; 96413; J9299

== ENCOUNTER 2021-04-28 19:56 | Observation (INO) | payer OTHER, MEDICARE ==
[2021-04-28 21:52] LABS: BASO % 0.7 % (0-2.0); EOS % 2.1 % (0-4.5); HEMATOCRIT 39.1 % (35.4-49); HEMOGLOBIN 13.3 GM/dL (11.7-16.9); LYMPH % 20.1 % (8-40); MCH 32.1 pg (25.7-33.7); MEAN CELL VOLUME 94.2 fl (80-96); MEAN PLT VOLUME 8.2 fl (7.5-11.1); MONO % 7.5 % (3.8-10.2); NEUT % 69.6 % (42.8-82.8); PLATELET COUNT 181 10^3/uL (134-434); RBC 4.15 M/mm3 (4.00-5.60); RDW 15.5 % (11.9-15.9); WHITE BLOOD COUNT 5.2 K/mm3 (4.0-10.0)
[2021-04-28 21:53] LABS: PH,URINE 6.5 (5.0-8.0); URINE APPEARANCE CLEAR; URINE BILIRUBIN NEGATIVE (NEGATIVE); URINE COLOR YELLOW; URINE GLUCOSE (UA) NEGATIVE (NEGATIVE); URINE KETONE NEGATIVE (NEGATIVE); URINE LEUK ESTERASE NEGATIVE (NEGATIVE); URINE NITRITE NEGATIVE (NEGATIVE); URINE PROTEIN NEGATIVE (NEGATIVE); URINE UROBILINOGEN 0.2 mg/dL (0.2-1.0)
[2021-04-28 22:00] LABS: CHLORIDE 104 mmol/L (98-107); INR 0.95 (0.83-1.09); PROTHROMBIN TIME (PATIENT) 11.5 SEC (9.7-13.0); SODIUM 139 mmol/L (136-145)
[2021-04-28 22:03] LABS: ACTIVATED PTT 25.8 SECONDS (25.2-36.5); ALBUMIN 3.9 g/dl (3.4-5.0); ANION GAP 4 MMOL/L (8-16); BLOOD UREA NITROGEN 14.6 mg/dL (7-18); CALCIUM 8.9 mg/dL (8.5-10.1); CO2 31 mmol/L (21-32); MAGNESIUM 2.4 mg/dL (1.8-2.4)
[2021-04-28 22:04] LABS: GLUCOSE,RANDOM 106 mg/dL (74-106)
[2021-04-28 22:06] LABS: SGPT/ALT 6 U/L (13-61); TRIGLYCERIDES 139 mg/dL (0-150)
[2021-04-28 22:07] LABS: CHOLESTEROL 249 mg/dL (50-200); CREATININE 0.9 mg/dL (0.55-1.3); LDL CHOLESTEROL (ONLY SJRH) 154 mg/dL (5-100)
[2021-04-28 22:08] LABS: BILIRUBIN,TOTAL 0.4 mg/dL (0.2-1); SGOT/AST 27 U/L (15-37); TOT PROT 7.4 g/dl (6.4-8.2)
[2021-04-28 22:09] LABS: ALK PHOS 70 U/L (45-117); HDL CHOLESTEROL 65 mg/dL (40-60)
[2021-04-28] MEDS ORDERED: levETIRAcetam 500 MG TABLET (FP) PO ONE ×2 (23:00→23:04)
[2021-04-28] MEDS ORDERED: lamoTRIgine 100 MG TABLET PO ONE (23:01)
[2021-04-28] MEDS ORDERED: lamoTRIgine 100 MG TABLET ONE (23:04)
[2021-04-29 05:54] VITALS: BMI 28.8
[2021-04-29] MEDS ORDERED: LEVOTHYROXINE NA 88 MCG TABLET (FP) PO SCH (07:00)
[2021-04-29] MEDS ORDERED: clonazePAM 0.5 MG TABLET PO PRN (07:26)
[2021-04-29 07:30] LABS: BASO % 0.7 % (0-2.0); EOS % 4.2 % (0-4.5); HEMATOCRIT 38.7 % (35.4-49); HEMOGLOBIN 12.9 GM/dL (11.7-16.9); LYMPH % 26.8 % (8-40); MCH 31.3 pg (25.7-33.7); MCHC 33.4 g/dl (32.0-35.9); MEAN CELL VOLUME 93.6 fl (80-96); MONO % 8.7 % (3.8-10.2); NEUT % 59.6 % (42.8-82.8); PLATELET COUNT 180 10^3/uL (134-434); RBC 4.13 M/mm3 (4.00-5.60); RDW 15.5 % (11.9-15.9); WHITE BLOOD COUNT 5.7 K/mm3 (4.0-10.0)
[2021-04-29] MEDS ORDERED: PRAMIPEXOLE DIHYDROCHLORIDE 1.5 MG TABLET PO SCH (07:30)
[2021-04-29 08:00] LABS: ALBUMIN 3.7 g/dl (3.4-5.0); BLOOD UREA NITROGEN 11.8 mg/dL (7-18); CALCIUM 8.9 mg/dL (8.5-10.1)
[2021-04-29 08:01] LABS: TOT PROT 7.1 g/dl (6.4-8.2)
[2021-04-29 08:03] LABS: CREATININE 1.1 mg/dL (0.55-1.3)
[2021-04-29 08:05] LABS: BILIRUBIN,TOTAL 0.6 mg/dL (0.2-1)
[2021-04-29] MEDS ORDERED: levETIRAcetam 500 MG TABLET (FP) PO SCH (10:00)
[2021-04-29] MEDS ORDERED: lamoTRIgine 100 MG TABLET PO SCH (10:00)
[2021-04-29] MEDS ORDERED: PT OWN MED DRAWER 7, Y5N ONE (11:44)
[2021-04-29] MEDS ORDERED: ACETAMINOPHEN 325 MG TABLET (FP) PO PRN (13:36)
[2021-04-29 15:39] VITALS: BP 126/77; PULSE 63; TEMP 97.9
== END 2021-04-29 17:30 | disposition home or self-care (01) ==
LOC: JER 19:56 → JERBED 22:53 → J4W 04-29 03:41
PROVIDERS: ADMIT Internal Medicine; ATTEND Family Medicine
DX: G45.9 Transient cerebral ischemic attack, unspecified (principal); R26.9 Unspecified abnormalities of gait and mobility; R55 Syncope and collapse; Z88.8 Allergy status to other drugs, medicaments and biological substances; R00.1 Bradycardia, unspecified; G20 Parkinson's disease; R56.9 Unspecified convulsions; Q87.89 Other specified congenital malformation syndromes, not elsewhere classified; E78.5 Hyperlipidemia, unspecified; I10 Essential (primary) hypertension; K21.9 Gastro-esophageal reflux disease without esophagitis; Z85.53 Personal history of malignant neoplasm of renal pelvis; Z87.891 Personal history of nicotine dependence; E03.9 Hypothyroidism, unspecified; D21.9 Benign neoplasm of connective and other soft tissue, unspecified
CPT/HCPCS: 36415; 70450-TC; 70551-TC; 71046-TC-FY; 80053; 80061; 81003; 82550; 82553; 83036; 83735; 84443; 84484; 85025; 85610; 85730; 86850; 86900; 86901; 87086; 93005; 93010; 93880-TC; 99285-25; C9803; G0378; U0003; U0005

== ENCOUNTER 2021-05-10 08:39 | Day surgery (SDC) | payer OTHER, MEDICARE ==
[2021-05-10] MEDS ORDERED: SODIUM CHLORIDE 250 ML IV ONE ×2 (09:00→11:30)
[2021-05-10 09:23] LABS: BASO % 1.3 % (0-2.0); HEMATOCRIT 36.9 % (35.4-49); HEMOGLOBIN 12.6 GM/dL (11.7-16.9); LYMPH % 25.2 % (8-40); MCH 31.7 pg (25.7-33.7); MEAN CELL VOLUME 93.2 fl (80-96); MONO % 8.9 % (3.8-10.2); NEUT % 61.6 % (42.8-82.8); PLATELET COUNT 160 10^3/uL (134-434); RBC 3.96 M/mm3 (4.00-5.60); RDW 15.2 % (11.9-15.9); WHITE BLOOD COUNT 4.5 K/mm3 (4.0-10.0)
[2021-05-10] MEDS ORDERED: DEXAMETHASONE SODIUM PHOSPHATE 20 MG in SODIUM CHLORIDE 50 ML IVPB ONE (10:00)
[2021-05-10 10:06] LABS: ALBUMIN 3.6 g/dl (3.4-5.0); BILIRUBIN,DIRECT 0.1 mg/dL (0.0-0.2); BILIRUBIN,TOTAL 0.5 mg/dL (0.2-1); BLOOD UREA NITROGEN 19.9 mg/dL (7-18); CALCIUM 8.8 mg/dL (8.5-10.1); CREATININE 1.2 mg/dL (0.55-1.3); MAGNESIUM 2.4 mg/dL (1.8-2.4); TOT PROT 6.9 g/dl (6.4-8.2)
[2021-05-10] MEDS ORDERED: NIVOLUMAB IVPB ONE (10:30)
[2021-05-10] MEDS ORDERED: SODIUM CHLORIDE IVPB ONE (10:30)
[2021-05-10 17:59] VITALS: TEMP 98.1
[2021-05-10 18:04] VITALS: BP 140/73; PULSE 58
== END 2021-05-10 13:45 | disposition home or self-care (01) ==
LOC: JONCCHEMO 08:39
PROVIDERS: ATTEND Internal Medicine Hematology & Oncology
DX: Z51.11 Encounter for antineoplastic chemotherapy (principal); C64.1 Malignant neoplasm of right kidney, except renal pelvis; C79.9 Secondary malignant neoplasm of unspecified site
CPT/HCPCS: 36415; 80048; 80076; 82150; 82533; 83690; 83735; 84439; 84443; 85025; 96361; 96375; 96413; J9299

== ENCOUNTER 2021-06-07 06:57 | Day surgery (SDC) | payer OTHER, MEDICARE ==
[2021-06-07] MEDS ORDERED: SODIUM CHLORIDE 250 ML IV ONE ×2 (09:00→11:00)
[2021-06-07 09:20] LABS: EOS % 4.1 % (0-4.5); HEMOGLOBIN 12.8 GM/dL (11.7-16.9); LYMPH % 26.3 % (8-40); MCH 31.8 pg (25.7-33.7); MCHC 33.6 g/dl (32.0-35.9); MEAN CELL VOLUME 94.5 fl (80-96); MEAN PLT VOLUME 7.8 fl (7.5-11.1); MONO % 10.7 % (3.8-10.2); NEUT % 57.9 % (42.8-82.8); PLATELET COUNT 164 10^3/uL (134-434); RBC 4.02 M/mm3 (4.00-5.60); RDW 14.6 % (11.9-15.9); WHITE BLOOD COUNT 4.3 K/mm3 (4.0-10.0)
[2021-06-07] MEDS ORDERED: DEXAMETHASONE SODIUM PHOSPHATE 20 MG in SODIUM CHLORIDE 50 ML IVPB ONE (09:30)
[2021-06-07 09:41] LABS: ALBUMIN 3.6 g/dl (3.4-5.0); CALCIUM 8.8 mg/dL (8.5-10.1)
[2021-06-07 09:42] LABS: BLOOD UREA NITROGEN 18.5 mg/dL (7-18); MAGNESIUM 2.4 mg/dL (1.8-2.4)
[2021-06-07 09:44] LABS: BILIRUBIN,DIRECT 0.2 mg/dL (0.0-0.2); CREATININE 1.3 mg/dL (0.55-1.3)
[2021-06-07 09:46] LABS: BILIRUBIN,TOTAL 0.6 mg/dL (0.2-1); TOT PROT 7.2 g/dl (6.4-8.2)
[2021-06-07] MEDS ORDERED: NIVOLUMAB IVPB ONE (10:00)
[2021-06-07] MEDS ORDERED: SODIUM CHLORIDE IVPB ONE (10:00)
[2021-06-07 15:49] VITALS: TEMP 97.7
[2021-06-07 18:01] VITALS: BP 148/74; PULSE 50
== END 2021-06-07 14:15 | disposition home or self-care (01) ==
LOC: JONCCHEMO 06:57
PROVIDERS: ATTEND Internal Medicine Hematology & Oncology
DX: Z51.11 Encounter for antineoplastic chemotherapy (principal); C64.1 Malignant neoplasm of right kidney, except renal pelvis; C79.9 Secondary malignant neoplasm of unspecified site
CPT/HCPCS: 36415; 80048; 80076; 82150; 82533; 82550; 82553; 83690; 83735; 84439; 84443; 85025; 96361; 96367; 96413; J9299

== ENCOUNTER 2021-07-05 08:08 | Day surgery (SDC) | payer OTHER, MEDICARE ==
[2021-07-05] MEDS ORDERED: SODIUM CHLORIDE 250 ML IV ONE ×2 (09:00→11:00)
[2021-07-05] MEDS ORDERED: DEXAMETHASONE SODIUM PHOSPHATE 20 MG in SODIUM CHLORIDE 50 ML IVPB ONE (09:30)
[2021-07-05] MEDS ORDERED: NIVOLUMAB IVPB ONE (10:00)
[2021-07-05] MEDS ORDERED: SODIUM CHLORIDE IVPB ONE (10:00)
[2021-07-05 11:47] LABS: BASO % 0.5 % (0-2.0); EOS % 3.6 % (0-4.5); HEMATOCRIT 35.3 % (35.4-49); HEMOGLOBIN 12.3 GM/dL (11.7-16.9); LYMPH % 19.9 % (8-40); MCH 31.9 pg (25.7-33.7); MEAN CELL VOLUME 91.3 fl (80-96); MEAN PLT VOLUME 7.8 fl (7.5-11.1); MONO % 9.7 % (3.8-10.2); NEUT % 66.3 % (42.8-82.8); PLATELET COUNT 159 10^3/uL (134-434); RBC 3.87 M/mm3 (4.00-5.60); WHITE BLOOD COUNT 5.1 K/mm3 (4.0-10.0)
[2021-07-05 12:15] LABS: CALCIUM 8.5 mg/dL (8.5-10.1)
[2021-07-05 12:16] LABS: ALBUMIN 3.3 g/dl (3.4-5.0); BLOOD UREA NITROGEN 20.7 mg/dL (7-18); MAGNESIUM 2.4 mg/dL (1.8-2.4)
[2021-07-05 12:18] LABS: BILIRUBIN,DIRECT 0.1 mg/dL (0.0-0.2)
[2021-07-05 12:19] LABS: CREATININE 1.2 mg/dL (0.55-1.3)
[2021-07-05 12:20] LABS: BILIRUBIN,TOTAL 0.5 mg/dL (0.2-1); TOT PROT 6.8 g/dl (6.4-8.2)
[2021-07-05 16:13] VITALS: TEMP 98.1
[2021-07-05 16:34] VITALS: BP 121/66; PULSE 68
== END 2021-07-05 16:00 | disposition home or self-care (01) ==
LOC: JONCCHEMO 08:08
PROVIDERS: ATTEND Internal Medicine Hematology & Oncology
DX: Z51.11 Encounter for antineoplastic chemotherapy (principal); C64.1 Malignant neoplasm of right kidney, except renal pelvis; C79.9 Secondary malignant neoplasm of unspecified site
CPT/HCPCS: 36415; 80048; 80076; 82150; 82533; 82550; 82553; 83690; 83735; 84439; 84443; 85025; 96360; 96375; 96413; J9299

== ENCOUNTER 2021-08-02 08:09 | Day surgery (SDC) | payer OTHER, MEDICARE ==
[2021-08-02] MEDS ORDERED: SODIUM CHLORIDE 250 ML IV ONE ×2 (10:00→12:00)
[2021-08-02] MEDS ORDERED: DEXAMETHASONE SODIUM PHOSPHATE 20 MG in SODIUM CHLORIDE 50 ML IVPB ONE (10:30)
[2021-08-02] MEDS ORDERED: NIVOLUMAB IVPB ONE (11:00)
[2021-08-02] MEDS ORDERED: SODIUM CHLORIDE IVPB ONE (11:00)
[2021-08-02 11:42] LABS: BASO % 1.1 % (0-2.0); EOS % 4.8 % (0-4.5); HEMATOCRIT 38.4 % (35.4-49); HEMOGLOBIN 12.8 GM/dL (11.7-16.9); MCH 31.7 pg (25.7-33.7); MCHC 33.4 g/dl (32.0-35.9); MEAN CELL VOLUME 95.1 fl (80-96); MEAN PLT VOLUME 8.5 fl (7.5-11.1); MONO % 8.6 % (3.8-10.2); NEUT % 58.5 % (42.8-82.8); PLATELET COUNT 174 10^3/uL (134-434); RBC 4.04 M/mm3 (4.00-5.60); RDW 14.3 % (11.9-15.9); WHITE BLOOD COUNT 4.1 K/mm3 (4.0-10.0)
[2021-08-02 11:59] LABS: BLOOD UREA NITROGEN 17.9 mg/dL (7-18); CALCIUM 8.8 mg/dL (8.5-10.1)
[2021-08-02 12:00] LABS: ALBUMIN 3.5 g/dl (3.4-5.0); MAGNESIUM 2.5 mg/dL (1.8-2.4)
[2021-08-02 12:01] LABS: BILIRUBIN,DIRECT 0.1 mg/dL (0.0-0.2)
[2021-08-02 12:02] LABS: CREATININE 1.2 mg/dL (0.55-1.3)
[2021-08-02 12:04] LABS: BILIRUBIN,TOTAL 0.5 mg/dL (0.2-1); TOT PROT 7.2 g/dl (6.4-8.2)
[2021-08-02 15:29] LABS: BILIRUBIN,DIRECT 0.1 mg/dL (0.0-0.2)
[2021-08-02 15:30] VITALS: TEMP 97.3
[2021-08-02 15:31] LABS: TOT PROT 6.1 g/dl (6.4-8.2)
[2021-08-02 15:32] LABS: BILIRUBIN,TOTAL 0.4 mg/dL (0.2-1)
[2021-08-02 16:08] VITALS: BP 135/69; PULSE 60
== END 2021-08-02 16:10 | disposition home or self-care (01) ==
LOC: JONCCHEMO 08:09
PROVIDERS: ATTEND Internal Medicine Hematology & Oncology
PROC: 3E03305 Introduction of Other Antineoplastic into Peripheral Vein, Percutaneous Approach (ICD-10-PCS; principal; 2021-08-02)
PROC: 3E033GC Introduction of Other Therapeutic Substance into Peripheral Vein, Percutaneous Approach (ICD-10-PCS; 2021-08-02)
PROC: 3E0337Z Introduction of Electrolytic and Water Balance Substance into Peripheral Vein, Percutaneous Approach (ICD-10-PCS; 2021-08-02)
DX: Z51.11 Encounter for antineoplastic chemotherapy (principal); C64.1 Malignant neoplasm of right kidney, except renal pelvis; C79.9 Secondary malignant neoplasm of unspecified site
CPT/HCPCS: 36415; 80048; 80076; 82150; 82533; 82550; 82553; 83690; 83735; 84439; 84443; 85025; 96361; 96374; 96413; J9299

== ENCOUNTER 2021-08-30 08:19 | Day surgery (SDC) | payer OTHER, MEDICARE ==
[2021-08-30] MEDS ORDERED: SODIUM CHLORIDE 250 ML IV ONE (09:00)
[2021-08-30] MEDS ORDERED: DEXAMETHASONE INJECTION 20 MG in DEXTROSE 5%-WATER - 50 ML IVPB ONE (10:00)
[2021-08-30] MEDS ORDERED: SODIUM CHLORIDE IVPB ONE (10:30)
[2021-08-30] MEDS ORDERED: NIVOLUMAB IVPB ONE (10:30)
[2021-08-30] MEDS: SODIUM CHLORIDE 250 ML IV ONE ×2 (11:04→12:20)
[2021-08-30 12:03] LABS: BASO % 0.7 % (0-2.0); EOS % 3.3 % (0-4.5); HEMATOCRIT 38.8 % (35.4-49); HEMOGLOBIN 12.5 GM/dL (11.7-16.9); LYMPH % 20.8 % (8-40); MCH 30.7 pg (25.7-33.7); MCHC 32.3 g/dl (32.0-35.9); MEAN CELL VOLUME 95.1 fl (80-96); MEAN PLT VOLUME 8.8 fl (7.5-11.1); MONO % 7.7 % (3.8-10.2); NEUT % 67.5 % (42.8-82.8); PLATELET COUNT 191 10^3/uL (134-434); RBC 4.08 M/mm3 (4.00-5.60); WHITE BLOOD COUNT 5.3 K/mm3 (4.0-10.0)
[2021-08-30 12:46] LABS: AMYLASE 70 U/L (25-115); LIPASE 145 U/L (73-393)
[2021-08-30 12:51] LABS: ALBUMIN 3.8 g/dl (3.4-5.0); MAGNESIUM 2.6 mg/dL (1.8-2.4)
[2021-08-30 12:52] LABS: BLOOD UREA NITROGEN 19.8 mg/dL (7-18)
[2021-08-30 12:56] LABS: BILIRUBIN,DIRECT 0.1 mg/dL (0.0-0.2)
[2021-08-30 12:57] LABS: CREATININE 1.1 mg/dL (0.55-1.3)
[2021-08-30 12:59] LABS: BILIRUBIN,TOTAL 0.7 mg/dL (0.2-1)
[2021-08-30 15:56] VITALS: TEMP 97.9
[2021-08-30 15:57] VITALS: BP 112/63; PULSE 55
== END 2021-08-30 14:30 | disposition home or self-care (01) ==
LOC: JONCCHEMO 08:19
PROVIDERS: ATTEND Internal Medicine Hematology & Oncology
DX: Z51.11 Encounter for antineoplastic chemotherapy (principal); C64.1 Malignant neoplasm of right kidney, except renal pelvis; C79.9 Secondary malignant neoplasm of unspecified site
CPT/HCPCS: 36415; 80048; 80076; 82150; 82533; 82550; 82553; 83690; 83735; 84439; 84443; 85025; 96367; 96375; 96413; J1100; J9299

== ENCOUNTER 2021-09-27 08:18 | Day surgery (SDC) | payer OTHER, MEDICARE ==
[2021-09-27] MEDS ORDERED: SODIUM CHLORIDE 250 ML IV ONE ×2 (10:00→12:00)
[2021-09-27] MEDS ORDERED: DEXAMETHASONE INJECTION 20 MG in DEXTROSE 5%-WATER - 50 ML IVPB ONE (10:30)
[2021-09-27] MEDS ORDERED: SODIUM CHLORIDE IVPB ONE (11:00)
[2021-09-27] MEDS ORDERED: NIVOLUMAB IVPB ONE (11:00)
[2021-09-27 11:26] LABS: BASO % 0.9 % (0-2.0); EOS % 4.1 % (0-4.5); HEMATOCRIT 37.7 % (35.4-49); HEMOGLOBIN 12.1 GM/dL (11.7-16.9); LYMPH % 24.2 % (8-40); MCH 30.7 pg (25.7-33.7); MCHC 32.1 g/dl (32.0-35.9); MEAN CELL VOLUME 95.6 fl (80-96); MONO % 9.1 % (3.8-10.2); NEUT % 61.7 % (42.8-82.8); PLATELET COUNT 189 10^3/uL (134-434); RBC 3.95 M/mm3 (4.00-5.60); RDW 14.2 % (11.9-15.9); WHITE BLOOD COUNT 4.4 K/mm3 (4.0-10.0)
[2021-09-27 11:50] LABS: ALBUMIN 3.6 g/dl (3.4-5.0); BLOOD UREA NITROGEN 14.2 mg/dL (7-18)
[2021-09-27 11:51] LABS: CALCIUM 8.6 mg/dL (8.5-10.1); MAGNESIUM 2.3 mg/dL (1.8-2.4)
[2021-09-27 11:53] LABS: BILIRUBIN,DIRECT 0.1 mg/dL (0.0-0.2); CREATININE 1.2 mg/dL (0.55-1.3)
[2021-09-27 11:54] LABS: BILIRUBIN,TOTAL 0.4 mg/dL (0.2-1); TOT PROT 6.7 g/dl (6.4-8.2)
[2021-09-27] MEDS ORDERED: SODIUM CHLORIDE 0.9% 500 ML INFUS.BAG IV ONE (12:00)
[2021-09-27 17:47] VITALS: BP 120/67; PULSE 56; TEMP 97.9
== END 2021-09-27 17:52 | disposition home or self-care (01) ==
LOC: JONCCHEMO 08:18
PROVIDERS: ATTEND Internal Medicine Hematology & Oncology
PROC: 3E0337Z Introduction of Electrolytic and Water Balance Substance into Peripheral Vein, Percutaneous Approach (ICD-10-PCS; principal; 2021-09-27)
DX: C64.1 Malignant neoplasm of right kidney, except renal pelvis (principal); Z76.89 Persons encountering health services in other specified circumstances
CPT/HCPCS: 36415; 80048; 80076; 82150; 82378; 82533; 82550; 82553; 83690; 83735; 84439; 84443; 85025; 96360; 96361

== ENCOUNTER 2021-09-28 07:32 | Day surgery (SDC) | payer OTHER, MEDICARE ==
[2021-09-28] MEDS ORDERED: DEXTROSE 5%-0.45% SALINE 1,000 ML IV ONE (09:30)
[2021-09-28 10:31] LABS: ALBUMIN 3.6 g/dl (3.4-5.0); BLOOD UREA NITROGEN 11.7 mg/dL (7-18); CALCIUM 8.8 mg/dL (8.5-10.1)
[2021-09-28 10:34] LABS: CREATININE 1.1 mg/dL (0.55-1.3)
[2021-09-28 10:36] LABS: BILIRUBIN,TOTAL 0.3 mg/dL (0.2-1); TOT PROT 6.6 g/dl (6.4-8.2)
[2021-09-28 16:37] VITALS: BP 98/56; PULSE 54; TEMP 97.6
== END 2021-09-28 13:35 | disposition home or self-care (01) ==
LOC: JONCNONCHE 07:32
PROVIDERS: ATTEND Internal Medicine Hematology & Oncology
PROC: 3E0337Z Introduction of Electrolytic and Water Balance Substance into Peripheral Vein, Percutaneous Approach (ICD-10-PCS; principal; 2021-09-28)
DX: C64.1 Malignant neoplasm of right kidney, except renal pelvis (principal); C78.7 Secondary malignant neoplasm of liver and intrahepatic bile duct; Z76.89 Persons encountering health services in other specified circumstances
CPT/HCPCS: 36415; 80053; 82550; 82553; 84156; 96360; 96361

== ENCOUNTER 2021-10-04 07:00 | Day surgery (SDC) | payer OTHER, MEDICARE ==
[2021-10-04] MEDS ORDERED: DEXTROSE 5%-0.45% SALINE 1,000 ML IV ONE (10:00)
[2021-10-04 11:24] LABS: CALCIUM 8.9 mg/dL (8.5-10.1)
[2021-10-04 11:26] LABS: ALBUMIN 3.8 g/dl (3.4-5.0); BLOOD UREA NITROGEN 16.5 mg/dL (7-18)
[2021-10-04 11:29] LABS: CREATININE 1.3 mg/dL (0.55-1.3)
[2021-10-04 11:30] LABS: BILIRUBIN,TOTAL 0.8 mg/dL (0.2-1); TOT PROT 6.9 g/dl (6.4-8.2)
[2021-10-04 16:32] VITALS: TEMP 98.3
[2021-10-04 16:40] VITALS: BP 121/68; PULSE 53
== END 2021-10-04 12:50 | disposition home or self-care (01) ==
LOC: JONCNONCHE 07:00
PROVIDERS: ATTEND Internal Medicine Hematology & Oncology
PROC: 3E0337Z Introduction of Electrolytic and Water Balance Substance into Peripheral Vein, Percutaneous Approach (ICD-10-PCS; principal; 2021-10-04)
DX: C64.1 Malignant neoplasm of right kidney, except renal pelvis (principal); C78.7 Secondary malignant neoplasm of liver and intrahepatic bile duct; Z76.89 Persons encountering health services in other specified circumstances
CPT/HCPCS: 36415; 80053; 82550; 82553; 96360; 96361

== ENCOUNTER 2021-10-05 07:13 | Day surgery (SDC) | payer OTHER, MEDICARE ==
[2021-10-05] MEDS ORDERED: DEXTROSE 5%-0.45% SALINE 1,000 ML IV ONE (09:00)
[2021-10-05 10:30] LABS: ALBUMIN 3.7 g/dl (3.4-5.0); BLOOD UREA NITROGEN 16.8 mg/dL (7-18); CALCIUM 8.6 mg/dL (8.5-10.1)
[2021-10-05 10:33] LABS: CREATININE 1.3 mg/dL (0.55-1.3)
[2021-10-05 10:35] LABS: BILIRUBIN,TOTAL 0.3 mg/dL (0.2-1)
[2021-10-05 13:46] VITALS: TEMP 97.8
[2021-10-05 14:12] VITALS: BP 141/69; PULSE 56
== END 2021-10-05 12:50 | disposition home or self-care (01) ==
LOC: JONCCHEMO 07:13
PROVIDERS: ATTEND Internal Medicine Hematology & Oncology
PROC: 3E0337Z Introduction of Electrolytic and Water Balance Substance into Peripheral Vein, Percutaneous Approach (ICD-10-PCS; principal; 2021-10-05)
DX: C64.1 Malignant neoplasm of right kidney, except renal pelvis (principal); C78.7 Secondary malignant neoplasm of liver and intrahepatic bile duct; C78.00 Secondary malignant neoplasm of unspecified lung; Z76.89 Persons encountering health services in other specified circumstances
CPT/HCPCS: 36415; 80053; 82550; 82553; 96360; 96361

== ENCOUNTER 2021-10-11 07:05 | Day surgery (SDC) | payer OTHER, MEDICARE ==
[2021-10-11 09:57] LABS: CALCIUM 8.7 mg/dL (8.5-10.1)
[2021-10-11 09:58] LABS: ALBUMIN 3.6 g/dl (3.4-5.0); BLOOD UREA NITROGEN 28.2 mg/dL (7-18)
[2021-10-11 10:01] LABS: CREATININE 1.2 mg/dL (0.55-1.3)
[2021-10-11 10:02] LABS: BILIRUBIN,TOTAL 0.4 mg/dL (0.2-1); TOT PROT 6.9 g/dl (6.4-8.2)
[2021-10-11] MEDS ORDERED: DEXTROSE 5%-0.45% SALINE 1,000 ML IV ONE (10:30)
[2021-10-11 17:05] VITALS: BP 125/55; PULSE 51; TEMP 97.6
== END 2021-10-11 13:55 | disposition home or self-care (01) ==
LOC: JONCNONCHE 07:05
PROVIDERS: ATTEND Internal Medicine Hematology & Oncology
PROC: 3E0337Z Introduction of Electrolytic and Water Balance Substance into Peripheral Vein, Percutaneous Approach (ICD-10-PCS; principal; 2021-10-11)
DX: Z76.89 Persons encountering health services in other specified circumstances (principal); C64.1 Malignant neoplasm of right kidney, except renal pelvis; C79.00 Secondary malignant neoplasm of unspecified kidney and renal pelvis
CPT/HCPCS: 36415; 80053; 82550; 82553; 96360; 96361

== ENCOUNTER 2021-10-12 06:56 | Day surgery (SDC) | payer OTHER, MEDICARE ==
[2021-10-12 09:35] LABS: BASO % 0.9 % (0-2.0); EOS % 3.6 % (0-4.5); HEMATOCRIT 37.1 % (35.4-49); HEMOGLOBIN 12.6 GM/dL (11.7-16.9); LYMPH % 21.4 % (8-40); MCH 32.2 pg (25.7-33.7); MCHC 34.1 g/dl (32.0-35.9); MEAN CELL VOLUME 94.4 fl (80-96); MEAN PLT VOLUME 8.2 fl (7.5-11.1); MONO % 8.5 % (3.8-10.2); NEUT % 65.6 % (42.8-82.8); PLATELET COUNT 169 10^3/uL (134-434); RBC 3.93 M/mm3 (4.00-5.60); RDW 13.9 % (11.9-15.9); WHITE BLOOD COUNT 4.6 K/mm3 (4.0-10.0)
[2021-10-12] MEDS ORDERED: DEXTROSE 5%-0.45% SALINE 1,000 ML IV ONE (09:45)
[2021-10-12 11:19] LABS: ALBUMIN 3.8 g/dl (3.4-5.0); BLOOD UREA NITROGEN 21.4 mg/dL (7-18)
[2021-10-12 11:22] LABS: CREATININE 1.2 mg/dL (0.55-1.3)
[2021-10-12 11:24] LABS: BILIRUBIN,TOTAL 0.4 mg/dL (0.2-1); TOT PROT 7.2 g/dl (6.4-8.2)
[2021-10-12 16:17] VITALS: BP 135/63; PULSE 50; TEMP 97.8
== END 2021-10-12 12:50 | disposition home or self-care (01) ==
LOC: JONCCHEMO 06:56
PROVIDERS: ATTEND Internal Medicine Hematology & Oncology
PROC: 3E0337Z Introduction of Electrolytic and Water Balance Substance into Peripheral Vein, Percutaneous Approach (ICD-10-PCS; principal; 2021-10-12)
DX: Z76.89 Persons encountering health services in other specified circumstances (principal); C64.1 Malignant neoplasm of right kidney, except renal pelvis; C79.00 Secondary malignant neoplasm of unspecified kidney and renal pelvis
CPT/HCPCS: 36415; 80053; 82550; 82553; 85025; 96360; 96361

== ENCOUNTER 2021-10-25 08:39 | Day surgery (SDC) | payer OTHER, MEDICARE ==
[2021-10-25] MEDS ORDERED: DEXAMETHASONE SODIUM PHOSPHATE 20 MG in DEXTROSE 5%-WATER - 50 ML IVPB ONE (10:00)
[2021-10-25] MEDS ORDERED: SODIUM CHLORIDE 250 ML IV ONE ×2 (10:00→11:00)
[2021-10-25 10:08] LABS: EOS % 2.6 % (0-4.5); HEMATOCRIT 40.4 % (35.4-49); HEMOGLOBIN 13.2 GM/dL (11.7-16.9); LYMPH % 26.7 % (8-40); MCHC 32.6 g/dl (32.0-35.9); MEAN PLT VOLUME 8.4 fl (7.5-11.1); MONO % 6.9 % (3.8-10.2); NEUT % 62.8 % (42.8-82.8); PLATELET COUNT 179 10^3/uL (134-434); RBC 4.25 M/mm3 (4.00-5.60); RDW 13.7 % (11.9-15.9); WHITE BLOOD COUNT 5.1 K/mm3 (4.0-10.0)
[2021-10-25 10:18] LABS: CALCIUM 8.7 mg/dL (8.5-10.1)
[2021-10-25 10:19] LABS: BLOOD UREA NITROGEN 18.5 mg/dL (7-18); MAGNESIUM 2.5 mg/dL (1.8-2.4)
[2021-10-25 10:21] LABS: BILIRUBIN,DIRECT 0.2 mg/dL (0.0-0.2)
[2021-10-25 10:23] LABS: BILIRUBIN,TOTAL 0.7 mg/dL (0.2-1); TOT PROT 7.5 g/dl (6.4-8.2)
[2021-10-25 10:25] LABS: CREATININE 1.2 mg/dL (0.55-1.3)
[2021-10-25] MEDS ORDERED: SODIUM CHLORIDE IVPB ONE (10:30)
[2021-10-25] MEDS ORDERED: NIVOLUMAB IVPB ONE (10:30)
[2021-10-25] MEDS ORDERED: DEXTROSE 5%-NORMAL SALINE 1,000 ML IV ONE (10:31)
[2021-10-25 18:30] VITALS: TEMP 97.5
[2021-10-25 18:39] VITALS: BP 121/56; PULSE 47
== END 2021-10-25 14:15 | disposition home or self-care (01) ==
LOC: JONCCHEMO 08:39
PROVIDERS: ATTEND Internal Medicine Hematology & Oncology
PROC: 3E0337Z Introduction of Electrolytic and Water Balance Substance into Peripheral Vein, Percutaneous Approach (ICD-10-PCS; principal; 2021-10-25)
DX: C64.9 Malignant neoplasm of unspecified kidney, except renal pelvis (principal); Z76.89 Persons encountering health services in other specified circumstances
CPT/HCPCS: 36415; 80048; 80076; 82150; 82533; 82550; 82553; 83690; 83735; 84156; 84439; 84443; 85025; 96360; 96361

== ENCOUNTER 2021-10-26 07:57 | Day surgery (SDC) | payer OTHER, MEDICARE ==
[2021-10-26 09:49] LABS: CALCIUM 8.9 mg/dL (8.5-10.1)
[2021-10-26 09:50] LABS: BLOOD UREA NITROGEN 15.3 mg/dL (7-18)
[2021-10-26 09:53] LABS: CREATININE 1.2 mg/dL (0.55-1.3)
[2021-10-26 10:00] VITALS: TEMP 97.9
[2021-10-26] MEDS ORDERED: DEXTROSE 5%-NORMAL SALINE 1,000 ML IV ONE (10:00)
[2021-10-26 13:35] VITALS: BP 151/76; PULSE 57
== END 2021-10-26 12:55 | disposition home or self-care (01) ==
LOC: JONCNONCHE 07:57
PROVIDERS: ATTEND Internal Medicine Hematology & Oncology
PROC: 3E0337Z Introduction of Electrolytic and Water Balance Substance into Peripheral Vein, Percutaneous Approach (ICD-10-PCS; principal; 2021-10-26)
DX: C64.1 Malignant neoplasm of right kidney, except renal pelvis (principal); C78.7 Secondary malignant neoplasm of liver and intrahepatic bile duct; Z76.89 Persons encountering health services in other specified circumstances
CPT/HCPCS: 36415; 80048; 82550; 82553; 96365; 96366

== ENCOUNTER 2021-11-01 07:45 | Day surgery (SDC) | payer OTHER, MEDICARE ==
[2021-11-01] MEDS ORDERED: DEXTROSE 5%-NORMAL SALINE 1,000 ML IV ONE (10:00)
[2021-11-01 10:16] LABS: BLOOD UREA NITROGEN 20.8 mg/dL (7-18); CALCIUM 8.6 mg/dL (8.5-10.1)
[2021-11-01 10:20] LABS: CREATININE 1.2 mg/dL (0.55-1.3)
[2021-11-01 10:41] VITALS: TEMP 98.1
[2021-11-01 15:08] VITALS: BP 133/73; PULSE 50
== END 2021-11-01 13:00 | disposition home or self-care (01) ==
LOC: JONCNONCHE 07:45
PROVIDERS: ATTEND Internal Medicine Hematology & Oncology
DX: Z51.11 Encounter for antineoplastic chemotherapy (principal); C64.1 Malignant neoplasm of right kidney, except renal pelvis; C78.00 Secondary malignant neoplasm of unspecified lung
CPT/HCPCS: 36415; 80048; 82550; 82553; 96361; 96367; 96413

== ENCOUNTER 2021-11-02 08:04 | Day surgery (SDC) | payer OTHER, MEDICARE ==
[2021-11-02 09:45] LABS: BLOOD UREA NITROGEN 19.6 mg/dL (7-18); CALCIUM 8.3 mg/dL (8.5-10.1)
[2021-11-02 09:46] LABS: ALBUMIN 3.7 g/dl (3.4-5.0)
[2021-11-02 09:48] LABS: BILIRUBIN,DIRECT 0.1 mg/dL (0.0-0.2); CREATININE 1.3 mg/dL (0.55-1.3)
[2021-11-02 09:50] LABS: BILIRUBIN,TOTAL 0.4 mg/dL (0.2-1)
[2021-11-02] MEDS ORDERED: DEXAMETHASONE SODIUM PHOSPHATE 20 MG in SODIUM CHLORIDE 50 ML IVPB ONE (10:00)
[2021-11-02] MEDS ORDERED: DEXTROSE 5%-NORMAL SALINE 1,000 ML IV ONE (10:00)
[2021-11-02 10:04] VITALS: BP 143/68; PULSE 57; TEMP 97.9
[2021-11-02] MEDS ORDERED: NIVOLUMAB IVPB ONE (10:30)
[2021-11-02] MEDS ORDERED: SODIUM CHLORIDE IVPB ONE (10:30)
== END 2021-11-02 13:40 | disposition home or self-care (01) ==
LOC: JONCCHEMO 08:04
PROVIDERS: ATTEND Internal Medicine Hematology & Oncology
DX: Z51.11 Encounter for antineoplastic chemotherapy (principal); C64.1 Malignant neoplasm of right kidney, except renal pelvis; C78.00 Secondary malignant neoplasm of unspecified lung
CPT/HCPCS: 36415; 80048; 80076; 82533; 82550; 82553; 96361; 96375; 96413; J9299

== ENCOUNTER 2021-11-03 07:45 | Day surgery (SDC) | payer OTHER, MEDICARE ==
[2021-11-03] MEDS ORDERED: DEXTROSE 5%-NORMAL SALINE 1,000 ML IV ONE (10:00)
[2021-11-03 15:02] LABS: ALBUMIN 3.8 g/dl (3.4-5.0); BLOOD UREA NITROGEN 27.7 mg/dL (7-18); CALCIUM 8.4 mg/dL (8.5-10.1)
[2021-11-03 15:05] LABS: CREATININE 1.3 mg/dL (0.55-1.3)
[2021-11-03 15:07] LABS: BILIRUBIN,TOTAL 0.3 mg/dL (0.2-1); TOT PROT 7.3 g/dl (6.4-8.2)
[2021-11-03 18:43] VITALS: BP 120/60; PULSE 62; TEMP 98.3
== END 2021-11-03 17:30 | disposition home or self-care (01) ==
LOC: JONCNONCHE 07:45
PROVIDERS: ATTEND Internal Medicine Hematology & Oncology
PROC: 3E0337Z Introduction of Electrolytic and Water Balance Substance into Peripheral Vein, Percutaneous Approach (ICD-10-PCS; principal; 2021-11-03)
DX: Z76.89 Persons encountering health services in other specified circumstances (principal); C64.1 Malignant neoplasm of right kidney, except renal pelvis; C78.00 Secondary malignant neoplasm of unspecified lung
CPT/HCPCS: 36415; 80053; 82550; 82553; 96360; 96361

== ENCOUNTER 2021-12-06 06:59 | Day surgery (SDC) | payer OTHER, MEDICARE ==
[2021-12-06] MEDS ORDERED: DEXTROSE 5%-NORMAL SALINE 1,000 ML IV ONE (09:00)
[2021-12-06] MEDS ORDERED: DEXAMETHASONE SODIUM PHOSPHATE 20 MG in DEXTROSE 5%-WATER - 50 ML IVPB ONE (09:30)
[2021-12-06 09:52] LABS: BASO % 0.9 % (0-2.0); EOS % 3.2 % (0-4.5); HEMATOCRIT 39.6 % (35.4-49); HEMOGLOBIN 13.1 GM/dL (11.7-16.9); LYMPH % 33.6 % (8-40); MCH 31.2 pg (25.7-33.7); MCHC 33.1 g/dl (32.0-35.9); MEAN CELL VOLUME 94.1 fl (80-96); MEAN PLT VOLUME 7.7 fl (7.5-11.1); NEUT % 55.3 % (42.8-82.8); PLATELET COUNT 157 10^3/uL (134-434); RDW 15.3 % (11.9-15.9); WHITE BLOOD COUNT 3.8 K/mm3 (4.0-10.0)
[2021-12-06] MEDS ORDERED: NIVOLUMAB IVPB ONE (10:00)
[2021-12-06] MEDS ORDERED: SODIUM CHLORIDE IVPB ONE (10:00)
[2021-12-06 10:01] VITALS: TEMP 97.5
[2021-12-06 10:17] LABS: CALCIUM 8.5 mg/dL (8.5-10.1)
[2021-12-06 10:18] LABS: ALBUMIN 3.6 g/dl (3.4-5.0); BLOOD UREA NITROGEN 21.9 mg/dL (7-18); MAGNESIUM 2.3 mg/dL (1.8-2.4)
[2021-12-06 10:20] LABS: BILIRUBIN,DIRECT 0.1 mg/dL (0.0-0.2)
[2021-12-06 10:21] LABS: CREATININE 1.2 mg/dL (0.55-1.3)
[2021-12-06 10:22] LABS: BILIRUBIN,TOTAL 0.5 mg/dL (0.2-1)
[2021-12-06 15:36] VITALS: BP 169/96; PULSE 63
== END 2021-12-06 13:55 | disposition home or self-care (01) ==
LOC: JONCCHEMO 06:59
PROVIDERS: ATTEND Internal Medicine Hematology & Oncology
DX: Z51.11 Encounter for antineoplastic chemotherapy (principal); C64.1 Malignant neoplasm of right kidney, except renal pelvis; C78.00 Secondary malignant neoplasm of unspecified lung
CPT/HCPCS: 36415; 80048; 80076; 82150; 82533; 82550; 82553; 83615; 83690; 83735; 84439; 84443; 85025; 96361; 96411; 96413; J9299

== ENCOUNTER 2021-12-07 07:05 | Day surgery (SDC) | payer OTHER, MEDICARE ==
[2021-12-07 09:04] LABS: ALBUMIN 3.8 g/dl (3.4-5.0); BLOOD UREA NITROGEN 21.9 mg/dL (7-18)
[2021-12-07 09:07] LABS: CREATININE 1.2 mg/dL (0.55-1.3)
[2021-12-07 09:08] LABS: TOT PROT 7.3 g/dl (6.4-8.2)
[2021-12-07 09:09] LABS: BILIRUBIN,TOTAL 0.6 mg/dL (0.2-1)
[2021-12-07] MEDS ORDERED: DEXTROSE 5%-NORMAL SALINE 1,000 ML IV ONE (10:00)
[2021-12-07 10:17] VITALS: TEMP 98.2
[2021-12-07 12:14] VITALS: BP 146/73; PULSE 60
== END 2021-12-07 12:00 | disposition home or self-care (01) ==
LOC: JONCCHEMO 07:05
PROVIDERS: ATTEND Internal Medicine Hematology & Oncology
PROC: 3E0337Z Introduction of Electrolytic and Water Balance Substance into Peripheral Vein, Percutaneous Approach (ICD-10-PCS; principal; 2021-12-07)
DX: C64.1 Malignant neoplasm of right kidney, except renal pelvis (principal); C78.00 Secondary malignant neoplasm of unspecified lung; Z76.89 Persons encountering health services in other specified circumstances
CPT/HCPCS: 36415; 80053; 82550; 82553; 96360; 96361

== ENCOUNTER 2021-12-08 08:02 | Day surgery (SDC) | payer OTHER, MEDICARE ==
[2021-12-08] MEDS ORDERED: DEXTROSE 5%-NORMAL SALINE 1,000 ML IV ONE (09:00)
[2021-12-08 09:06] LABS: ALBUMIN 3.7 g/dl (3.4-5.0); CALCIUM 8.7 mg/dL (8.5-10.1)
[2021-12-08 09:10] LABS: CREATININE 1.3 mg/dL (0.55-1.3)
[2021-12-08 09:11] LABS: BILIRUBIN,TOTAL 0.6 mg/dL (0.2-1); TOT PROT 6.9 g/dl (6.4-8.2)
[2021-12-08 14:41] VITALS: TEMP 97.5
[2021-12-08 14:51] VITALS: BP 134/75; PULSE 64
== END 2021-12-08 12:30 | disposition home or self-care (01) ==
LOC: JONCNONCHE 08:02
PROVIDERS: ATTEND Internal Medicine Hematology & Oncology
PROC: 3E0337Z Introduction of Electrolytic and Water Balance Substance into Peripheral Vein, Percutaneous Approach (ICD-10-PCS; principal; 2021-12-08)
DX: C64.1 Malignant neoplasm of right kidney, except renal pelvis (principal); Z76.89 Persons encountering health services in other specified circumstances
CPT/HCPCS: 36415; 80053; 82550; 82553; 96360; 96361

== ENCOUNTER 2021-12-09 07:24 | Day surgery (SDC) | payer OTHER, MEDICARE ==
[2021-12-09] MEDS ORDERED: DEXTROSE 5%-0.45% SALINE 1,000 ML IV ONE (09:00)
[2021-12-09 09:25] LABS: BLOOD UREA NITROGEN 20.7 mg/dL (7-18)
[2021-12-09 09:26] LABS: ALBUMIN 3.6 g/dl (3.4-5.0); CALCIUM 8.6 mg/dL (8.5-10.1)
[2021-12-09 09:29] LABS: CREATININE 1.2 mg/dL (0.55-1.3)
[2021-12-09 09:31] LABS: BILIRUBIN,TOTAL 0.4 mg/dL (0.2-1); TOT PROT 6.9 g/dl (6.4-8.2)
[2021-12-09 16:20] VITALS: PULSE 52; TEMP 97.9
[2021-12-09 16:26] VITALS: BP 134/66
== END 2021-12-09 12:30 | disposition home or self-care (01) ==
LOC: JONCNONCHE 07:24
PROVIDERS: ATTEND Internal Medicine Hematology & Oncology
PROC: 3E0337Z Introduction of Electrolytic and Water Balance Substance into Peripheral Vein, Percutaneous Approach (ICD-10-PCS; principal; 2021-12-09)
DX: C64.1 Malignant neoplasm of right kidney, except renal pelvis (principal)
CPT/HCPCS: 36415; 80053; 82550; 82553; 96360; 96361

== ENCOUNTER 2021-12-10 06:51 | Day surgery (SDC) | payer OTHER, MEDICARE ==
[2021-12-10] MEDS ORDERED: DEXTROSE 5%-0.45% SALINE 1,000 ML IV ONE (09:00)
[2021-12-10 09:22] LABS: CALCIUM 8.6 mg/dL (8.5-10.1)
[2021-12-10 09:23] LABS: ALBUMIN 3.9 g/dl (3.4-5.0); BLOOD UREA NITROGEN 18.4 mg/dL (7-18)
[2021-12-10 09:26] LABS: CREATININE 1.2 mg/dL (0.55-1.3)
[2021-12-10 09:27] LABS: BILIRUBIN,TOTAL 0.4 mg/dL (0.2-1)
[2021-12-10 09:28] LABS: TOT PROT 7.1 g/dl (6.4-8.2)
[2021-12-10 16:04] VITALS: BP 133/71; PULSE 51; TEMP 97.6
== END 2021-12-10 12:30 | disposition home or self-care (01) ==
LOC: JONCNONCHE 06:51
PROVIDERS: ATTEND Internal Medicine Hematology & Oncology
PROC: 3E0337Z Introduction of Electrolytic and Water Balance Substance into Peripheral Vein, Percutaneous Approach (ICD-10-PCS; principal; 2021-12-10)
DX: C64.1 Malignant neoplasm of right kidney, except renal pelvis (principal); C78.00 Secondary malignant neoplasm of unspecified lung; C78.7 Secondary malignant neoplasm of liver and intrahepatic bile duct; Z76.89 Persons encountering health services in other specified circumstances
CPT/HCPCS: 36415; 80053; 82550; 82553; 96360; 96361

== ENCOUNTER 2021-12-14 06:23 | Day surgery (SDC) | payer OTHER, MEDICARE ==
[2021-12-14] MEDS ORDERED: DEXTROSE 5%-0.45% SALINE 1,000 ML IV ONE (09:00)
[2021-12-14 17:33] VITALS: BP 145/77; PULSE 52; TEMP 97.9
== END 2021-12-14 12:15 | disposition home or self-care (01) ==
LOC: JONCNONCHE 06:23
PROVIDERS: ATTEND Internal Medicine Hematology & Oncology
PROC: 3E0337Z Introduction of Electrolytic and Water Balance Substance into Peripheral Vein, Percutaneous Approach (ICD-10-PCS; principal; 2021-12-14)
DX: C64.1 Malignant neoplasm of right kidney, except renal pelvis (principal); C78.00 Secondary malignant neoplasm of unspecified lung; C78.7 Secondary malignant neoplasm of liver and intrahepatic bile duct; Z76.89 Persons encountering health services in other specified circumstances
CPT/HCPCS: 96360; 96361

== ENCOUNTER 2021-12-17 07:52 | Day surgery (SDC) | payer OTHER, MEDICARE ==
[2021-12-17 08:52] LABS: CALCIUM 8.4 mg/dL (8.5-10.1)
[2021-12-17 08:53] LABS: ALBUMIN 3.7 g/dl (3.4-5.0); BLOOD UREA NITROGEN 16.3 mg/dL (7-18)
[2021-12-17 08:57] LABS: BILIRUBIN,TOTAL 0.6 mg/dL (0.2-1); TOT PROT 6.8 g/dl (6.4-8.2)
[2021-12-17] MEDS ORDERED: DEXTROSE 5%-0.45% SALINE 1,000 ML IV ONE (09:00)
[2021-12-17 17:28] VITALS: PULSE 50
[2021-12-17 17:30] VITALS: BP 141/83
[2021-12-20 07:53] VITALS: TEMP 97.7
== END 2021-12-17 11:30 | disposition home or self-care (01) ==
LOC: JONCNONCHE 07:52
PROVIDERS: ATTEND Internal Medicine Hematology & Oncology
PROC: 3E0337Z Introduction of Electrolytic and Water Balance Substance into Peripheral Vein, Percutaneous Approach (ICD-10-PCS; principal; 2021-12-17)
DX: C64.1 Malignant neoplasm of right kidney, except renal pelvis (principal); C78.00 Secondary malignant neoplasm of unspecified lung; C78.7 Secondary malignant neoplasm of liver and intrahepatic bile duct; Z76.89 Persons encountering health services in other specified circumstances
CPT/HCPCS: 36415; 80053; 82550; 82553; 96360; 96361; 96365; 96366

== ENCOUNTER 2021-12-20 12:21 | Day surgery (SDC) | payer OTHER, MEDICARE ==
[2021-12-20 10:03] LABS: CALCIUM 8.4 mg/dL (8.5-10.1)
[2021-12-20 10:04] LABS: ALBUMIN 3.7 g/dl (3.4-5.0); BLOOD UREA NITROGEN 11.1 mg/dL (7-18)
[2021-12-20 10:07] LABS: CREATININE 1.1 mg/dL (0.55-1.3)
[2021-12-20 10:08] LABS: BILIRUBIN,TOTAL 0.6 mg/dL (0.2-1)
[2021-12-20] MEDS ORDERED: DEXTROSE 5%-0.45% SALINE 1,000 ML IV ONE (12:45)
[2021-12-20 16:35] VITALS: BP 109/73; PULSE 51; TEMP 98.1
== END 2021-12-20 16:40 | disposition home or self-care (01) ==
LOC: JONCNONCHE 12:21
PROVIDERS: ATTEND Internal Medicine Hematology & Oncology
PROC: 3E0337Z Introduction of Electrolytic and Water Balance Substance into Peripheral Vein, Percutaneous Approach (ICD-10-PCS; principal; 2021-12-20)
DX: Z76.89 Persons encountering health services in other specified circumstances (principal); C64.1 Malignant neoplasm of right kidney, except renal pelvis; C78.00 Secondary malignant neoplasm of unspecified lung; C78.7 Secondary malignant neoplasm of liver and intrahepatic bile duct
CPT/HCPCS: 36415; 80053; 82550; 82553; 96360; 96361

== ENCOUNTER 2021-12-21 07:10 | Day surgery (SDC) | payer OTHER, MEDICARE ==
[2021-12-21] MEDS ORDERED: DEXTROSE 5%-0.45% SALINE 1,000 ML IV ONE (09:00)
[2021-12-21 09:44] LABS: CALCIUM 8.8 mg/dL (8.5-10.1)
[2021-12-21 09:48] LABS: CREATININE 1.1 mg/dL (0.55-1.3)
[2021-12-21 16:22] VITALS: TEMP 97.9
[2021-12-21 16:36] VITALS: BP 126/67; PULSE 51
== END 2021-12-21 12:10 | disposition home or self-care (01) ==
LOC: JONCNONCHE 07:10
PROVIDERS: ATTEND Internal Medicine Hematology & Oncology
PROC: 3E0337Z Introduction of Electrolytic and Water Balance Substance into Peripheral Vein, Percutaneous Approach (ICD-10-PCS; principal; 2021-12-21)
DX: C64.1 Malignant neoplasm of right kidney, except renal pelvis (principal); C78.00 Secondary malignant neoplasm of unspecified lung; C78.7 Secondary malignant neoplasm of liver and intrahepatic bile duct; Z76.89 Persons encountering health services in other specified circumstances
CPT/HCPCS: 36415; 80048; 82550; 82553; 96360; 96361

== ENCOUNTER 2021-12-27 08:56 | Day surgery (SDC) | payer OTHER, MEDICARE ==
[2021-12-27] MEDS ORDERED: DEXTROSE 5%-0.45% SALINE 1,000 ML IV ONE (09:00)
[2021-12-27 09:15] LABS: CALCIUM 8.6 mg/dL (8.5-10.1)
[2021-12-27 09:16] LABS: ALBUMIN 3.8 g/dl (3.4-5.0); BLOOD UREA NITROGEN 12.6 mg/dL (7-18)
[2021-12-27 09:18] LABS: CREATININE 1.2 mg/dL (0.55-1.3)
[2021-12-27 09:20] LABS: BILIRUBIN,TOTAL 0.5 mg/dL (0.2-1); TOT PROT 7.1 g/dl (6.4-8.2)
[2021-12-27 16:53] VITALS: TEMP 97
[2021-12-27 17:44] VITALS: BP 155/88; PULSE 58
== END 2021-12-27 12:20 | disposition home or self-care (01) ==
LOC: JONCNONCHE 08:56
PROVIDERS: ATTEND Internal Medicine Hematology & Oncology
PROC: 3E0337Z Introduction of Electrolytic and Water Balance Substance into Peripheral Vein, Percutaneous Approach (ICD-10-PCS; principal; 2021-12-27)
DX: C64.9 Malignant neoplasm of unspecified kidney, except renal pelvis (principal); C78.00 Secondary malignant neoplasm of unspecified lung
CPT/HCPCS: 36415; 80053; 82550; 82553; 96360; 96361

== ENCOUNTER 2021-12-28 06:32 | Day surgery (SDC) | payer OTHER, MEDICARE ==
[2021-12-28] MEDS ORDERED: DEXTROSE 5%-0.45% SALINE 1,000 ML IV ONE (09:15)
[2021-12-28 10:22] LABS: CALCIUM 8.6 mg/dL (8.5-10.1)
[2021-12-28 10:23] LABS: ALBUMIN 3.8 g/dl (3.4-5.0); BLOOD UREA NITROGEN 14.8 mg/dL (7-18)
[2021-12-28 10:26] LABS: CREATININE 1.1 mg/dL (0.55-1.3)
[2021-12-28 10:27] LABS: BILIRUBIN,TOTAL 0.4 mg/dL (0.2-1); TOT PROT 6.8 g/dl (6.4-8.2)
[2021-12-28 15:31] VITALS: TEMP 97.7
[2021-12-28 15:40] VITALS: BP 134/75; PULSE 51
== END 2021-12-28 12:10 | disposition home or self-care (01) ==
LOC: JONCNONCHE 06:32
PROVIDERS: ATTEND Internal Medicine Hematology & Oncology
PROC: 3E0337Z Introduction of Electrolytic and Water Balance Substance into Peripheral Vein, Percutaneous Approach (ICD-10-PCS; principal; 2021-12-28)
DX: C64.9 Malignant neoplasm of unspecified kidney, except renal pelvis (principal); C78.00 Secondary malignant neoplasm of unspecified lung; Z76.89 Persons encountering health services in other specified circumstances
CPT/HCPCS: 36415; 80053; 82550; 82553; 96360; 96361

== ENCOUNTER 2021-12-29 07:35 | Day surgery (SDC) | payer OTHER, MEDICARE ==
[2021-12-29] MEDS ORDERED: DEXTROSE 5%-0.45% SALINE 1,000 ML IV ONE (09:00)
[2021-12-29 09:12] LABS: ALBUMIN 3.8 g/dl (3.4-5.0); CALCIUM 8.7 mg/dL (8.5-10.1)
[2021-12-29 09:16] LABS: CREATININE 1.1 mg/dL (0.55-1.3)
[2021-12-29 09:17] LABS: BILIRUBIN,TOTAL 0.6 mg/dL (0.2-1); TOT PROT 7.1 g/dl (6.4-8.2)
[2021-12-29 09:18] LABS: BLOOD UREA NITROGEN 12.8 mg/dL (7-18)
[2021-12-29 15:42] VITALS: BP 147/85; PULSE 57; TEMP 97.7
== END 2021-12-29 12:30 | disposition home or self-care (01) ==
LOC: JONCNONCHE 07:35
PROVIDERS: ATTEND Internal Medicine Hematology & Oncology
PROC: 3E0337Z Introduction of Electrolytic and Water Balance Substance into Peripheral Vein, Percutaneous Approach (ICD-10-PCS; principal; 2021-12-29)
DX: C64.9 Malignant neoplasm of unspecified kidney, except renal pelvis (principal); C78.00 Secondary malignant neoplasm of unspecified lung; Z76.89 Persons encountering health services in other specified circumstances
CPT/HCPCS: 36415; 80053; 82550; 82553; 96360; 96361

== ENCOUNTER 2022-01-03 07:06 | Day surgery (SDC) | payer OTHER, MEDICARE ==
[2022-01-03] MEDS ORDERED: DEXTROSE 5%-NORMAL SALINE 1,000 ML IV ONE ×2 (08:00→13:30)
[2022-01-03] MEDS ORDERED: DEXAMETHASONE SODIUM PHOSPHATE 20 MG in DEXTROSE 5%-WATER - 50 ML IVPB ONE (09:30)
[2022-01-03] MEDS ORDERED: NIVOLUMAB IVPB ONE (10:00)
[2022-01-03] MEDS ORDERED: SODIUM CHLORIDE IVPB ONE (10:00)
[2022-01-03 11:18] LABS: BASO % 0.9 % (0-2.0); EOS % 3.1 % (0-4.5); HEMATOCRIT 38.7 % (35.4-49); HEMOGLOBIN 13.2 GM/dL (11.7-16.9); LYMPH % 33.8 % (8-40); MCH 32.4 pg (25.7-33.7); MCHC 34.1 g/dl (32.0-35.9); MEAN CELL VOLUME 95.1 fl (80-96); MEAN PLT VOLUME 7.7 fl (7.5-11.1); MONO % 9.2 % (3.8-10.2); PLATELET COUNT 159 10^3/uL (134-434); RBC 4.07 M/mm3 (4.00-5.60); RDW 16.4 % (11.9-15.9); WHITE BLOOD COUNT 3.5 K/mm3 (4.0-10.0)
[2022-01-03 11:28] LABS: ALBUMIN 3.8 g/dl (3.4-5.0); BLOOD UREA NITROGEN 17.9 mg/dL (7-18); CALCIUM 8.6 mg/dL (8.5-10.1); MAGNESIUM 2.5 mg/dL (1.8-2.4)
[2022-01-03 11:30] LABS: BILIRUBIN,DIRECT 0.1 mg/dL (0.0-0.2)
[2022-01-03 11:31] LABS: CREATININE 1.1 mg/dL (0.55-1.3)
[2022-01-03 11:32] LABS: BILIRUBIN,TOTAL 0.3 mg/dL (0.2-1)
[2022-01-03] MEDS ORDERED: DEXTROSE 5%-0.45% SALINE 1,000 ML IV ONE (14:00)
[2022-01-03 18:39] VITALS: BP 135/84; PULSE 54; TEMP 97.6
== END 2022-01-03 14:30 | disposition home or self-care (01) ==
LOC: JONCCHEMO 07:06
PROVIDERS: ATTEND Internal Medicine Hematology & Oncology
PROC: 3E0337Z Introduction of Electrolytic and Water Balance Substance into Peripheral Vein, Percutaneous Approach (ICD-10-PCS; principal; 2022-01-03)
DX: C64.9 Malignant neoplasm of unspecified kidney, except renal pelvis (principal); C78.00 Secondary malignant neoplasm of unspecified lung
CPT/HCPCS: 36415; 80048; 80076; 82150; 82378; 82533; 82550; 82553; 83690; 83735; 84439; 84443; 85025; 96360; 96361

== ENCOUNTER 2022-01-04 06:50 | Day surgery (SDC) | payer OTHER, MEDICARE ==
[2022-01-04] MEDS ORDERED: DEXTROSE 5%-0.45% SALINE 1,000 ML IV ONE (09:00)
[2022-01-04 14:46] LABS: LIPASE 152 U/L (73-393)
[2022-01-04 14:47] LABS: AMYLASE 85 U/L (25-115); CALCIUM 8.8 mg/dL (8.5-10.1)
[2022-01-04 14:48] LABS: BLOOD UREA NITROGEN 13.9 mg/dL (7-18); MAGNESIUM 2.4 mg/dL (1.8-2.4)
[2022-01-04 14:51] LABS: CREATININE 1.1 mg/dL (0.55-1.3)
[2022-01-04 17:41] VITALS: TEMP 98.2
[2022-01-04 17:42] VITALS: BP 121/75; PULSE 59
== END 2022-01-04 17:40 | disposition home or self-care (01) ==
LOC: JONCNONCHE 06:50
PROVIDERS: ATTEND Internal Medicine Hematology & Oncology
PROC: 3E0337Z Introduction of Electrolytic and Water Balance Substance into Peripheral Vein, Percutaneous Approach (ICD-10-PCS; principal; 2022-01-04)
DX: C64.9 Malignant neoplasm of unspecified kidney, except renal pelvis (principal); C78.00 Secondary malignant neoplasm of unspecified lung
CPT/HCPCS: 36415; 80048; 82150; 82550; 82553; 83690; 83735; 96360; 96361

== ENCOUNTER 2022-01-05 06:52 | Day surgery (SDC) | payer OTHER, MEDICARE ==
[2022-01-05 12:35] LABS: CALCIUM 8.8 mg/dL (8.5-10.1)
[2022-01-05 12:36] LABS: ALBUMIN 3.8 g/dl (3.4-5.0)
[2022-01-05 12:39] LABS: CREATININE 1.1 mg/dL (0.55-1.3)
[2022-01-05 12:40] LABS: BILIRUBIN,TOTAL 0.7 mg/dL (0.2-1)
[2022-01-05] MEDS ORDERED: DEXTROSE 5%-0.45% SALINE 1,000 ML IV ONE (15:00)
[2022-01-05 15:19] VITALS: BP 118/74; PULSE 87; TEMP 97.7
== END 2022-01-05 15:20 | disposition home or self-care (01) ==
LOC: JONCNONCHE 06:52
PROVIDERS: ATTEND Internal Medicine Hematology & Oncology
PROC: 3E0337Z Introduction of Electrolytic and Water Balance Substance into Peripheral Vein, Percutaneous Approach (ICD-10-PCS; principal; 2022-01-05)
DX: C64.9 Malignant neoplasm of unspecified kidney, except renal pelvis (principal); C78.00 Secondary malignant neoplasm of unspecified lung; Z76.89 Persons encountering health services in other specified circumstances
CPT/HCPCS: 36415; 80053; 82550; 82553; 96360; 96361

== ENCOUNTER 2022-01-10 06:27 | Day surgery (SDC) | payer OTHER, MEDICARE ==
[2022-01-10 09:17] LABS: ALBUMIN 3.6 g/dl (3.4-5.0); BLOOD UREA NITROGEN 15.7 mg/dL (7-18); CALCIUM 8.6 mg/dL (8.5-10.1)
[2022-01-10 09:20] LABS: BILIRUBIN,DIRECT 0.1 mg/dL (0.0-0.2); CREATININE 1.2 mg/dL (0.55-1.3)
[2022-01-10 09:22] LABS: BILIRUBIN,TOTAL 0.6 mg/dL (0.2-1); TOT PROT 6.6 g/dl (6.4-8.2)
[2022-01-10] MEDS ORDERED: DEXTROSE 5%-0.45% SALINE 1,000 ML IV ONE (10:30)
[2022-01-10 15:05] VITALS: BP 123/65; PULSE 54; TEMP 97.6
== END 2022-01-10 14:00 | disposition home or self-care (01) ==
LOC: JONCNONCHE 06:27 → EDSTATUS 10:00 → JONCNONCHE 14:00
PROVIDERS: ATTEND Internal Medicine Hematology & Oncology
PROC: 3E0337Z Introduction of Electrolytic and Water Balance Substance into Peripheral Vein, Percutaneous Approach (ICD-10-PCS; principal; 2022-01-10)
DX: C64.9 Malignant neoplasm of unspecified kidney, except renal pelvis (principal); C78.00 Secondary malignant neoplasm of unspecified lung; Z76.89 Persons encountering health services in other specified circumstances
CPT/HCPCS: 36415; 71250-TC; 74176-TC; 80048; 80076; 82550; 82553; 96360; 96361

== ENCOUNTER 2022-01-11 06:26 | Day surgery (SDC) | payer OTHER, MEDICARE ==
[2022-01-11] MEDS ORDERED: DEXTROSE 5%-0.45% SALINE 1,000 ML IV ONE (09:00)
[2022-01-11 09:48] LABS: CALCIUM 8.5 mg/dL (8.5-10.1)
[2022-01-11 09:49] LABS: ALBUMIN 3.7 g/dl (3.4-5.0); BLOOD UREA NITROGEN 12.7 mg/dL (7-18)
[2022-01-11 09:51] LABS: CREATININE 1.1 mg/dL (0.55-1.3)
[2022-01-11 09:52] LABS: BILIRUBIN,DIRECT 0.1 mg/dL (0.0-0.2)
[2022-01-11 09:53] LABS: BILIRUBIN,TOTAL 0.5 mg/dL (0.2-1); TOT PROT 6.9 g/dl (6.4-8.2)
[2022-01-11 17:20] VITALS: TEMP 97.5
[2022-01-11 17:25] VITALS: BP 144/86; PULSE 51
== END 2022-01-11 12:15 | disposition home or self-care (01) ==
LOC: JONCNONCHE 06:26
PROVIDERS: ATTEND Internal Medicine Hematology & Oncology
PROC: 3E0337Z Introduction of Electrolytic and Water Balance Substance into Peripheral Vein, Percutaneous Approach (ICD-10-PCS; principal; 2022-01-11)
DX: C64.9 Malignant neoplasm of unspecified kidney, except renal pelvis (principal); C78.00 Secondary malignant neoplasm of unspecified lung; Z76.89 Persons encountering health services in other specified circumstances
CPT/HCPCS: 36415; 80048; 80076; 82550; 82553; 96360; 96361

== ENCOUNTER 2022-01-13 08:37 | Day surgery (SDC) | payer OTHER, MEDICARE ==
[2022-01-13] MEDS ORDERED: D5-1/2NS+20 MEQ KCL - 30 MEQ/1,500 ML INFUS.BAG IV ONE (10:45)
[2022-01-13 11:24] LABS: BASO % 0.9 % (0-2.0); EOS % 3.3 % (0-4.5); HEMATOCRIT 38.7 % (35.4-49); HEMOGLOBIN 12.8 GM/dL (11.7-16.9); MCH 31.7 pg (25.7-33.7); MCHC 33.2 g/dl (32.0-35.9); MEAN CELL VOLUME 95.5 fl (80-96); MEAN PLT VOLUME 8.1 fl (7.5-11.1); MONO % 7.1 % (3.8-10.2); NEUT % 53.7 % (42.8-82.8); PLATELET COUNT 166 10^3/uL (134-434); RBC 4.05 M/mm3 (4.00-5.60); RDW 16.3 % (11.9-15.9); WHITE BLOOD COUNT 3.3 K/mm3 (4.0-10.0)
[2022-01-13 11:51] LABS: CALCIUM 8.4 mg/dL (8.5-10.1)
[2022-01-13 11:52] LABS: ALBUMIN 3.8 g/dl (3.4-5.0); BLOOD UREA NITROGEN 17.9 mg/dL (7-18)
[2022-01-13 11:55] LABS: CREATININE 1.2 mg/dL (0.55-1.3)
[2022-01-13 11:56] LABS: BILIRUBIN,TOTAL 0.6 mg/dL (0.2-1)
[2022-01-13 11:57] LABS: TOT PROT 6.9 g/dl (6.4-8.2)
[2022-01-13 16:30] VITALS: BP 112/73; PULSE 55; TEMP 97.3
== END 2022-01-13 12:05 | disposition home or self-care (01) ==
LOC: JONCNONCHE 08:37
PROVIDERS: ATTEND Internal Medicine Hematology & Oncology
PROC: 3E0337Z Introduction of Electrolytic and Water Balance Substance into Peripheral Vein, Percutaneous Approach (ICD-10-PCS; principal; 2022-01-13)
DX: C64.9 Malignant neoplasm of unspecified kidney, except renal pelvis (principal); C78.00 Secondary malignant neoplasm of unspecified lung; Z76.89 Persons encountering health services in other specified circumstances
CPT/HCPCS: 36415; 80053; 82550; 82553; 85025; 96360; 96361

== ENCOUNTER 2022-01-17 13:26 | Day surgery (SDC) | payer OTHER, MEDICARE ==
[2022-01-17] MEDS ORDERED: DEXTROSE 5%-0.45% SALINE 1,000 ML IV SCH (14:30)
[2022-01-17 14:35] LABS: ALBUMIN 3.8 g/dl (3.4-5.0); BLOOD UREA NITROGEN 19.7 mg/dL (7-18); CALCIUM 9.1 mg/dL (8.5-10.1)
[2022-01-17 14:38] LABS: CREATININE 1.3 mg/dL (0.55-1.3)
[2022-01-17 14:40] LABS: BILIRUBIN,TOTAL 0.4 mg/dL (0.2-1); TOT PROT 6.9 g/dl (6.4-8.2)
[2022-01-17 16:42] VITALS: TEMP 97.7
[2022-01-17 17:11] VITALS: BP 164/85; PULSE 70
== END 2022-01-17 17:50 | disposition home or self-care (01) ==
LOC: JONCNONCHE 13:26
PROVIDERS: ATTEND Internal Medicine Hematology & Oncology
PROC: 3E0337Z Introduction of Electrolytic and Water Balance Substance into Peripheral Vein, Percutaneous Approach (ICD-10-PCS; principal; 2022-01-17)
DX: C64.9 Malignant neoplasm of unspecified kidney, except renal pelvis (principal); C78.00 Secondary malignant neoplasm of unspecified lung; Z76.89 Persons encountering health services in other specified circumstances
CPT/HCPCS: 36415; 80053; 82550; 82553; 96360; 96361

== ENCOUNTER 2022-01-18 06:58 | Day surgery (SDC) | payer OTHER, MEDICARE ==
[2022-01-18 09:23] LABS: ALBUMIN 3.8 g/dl (3.4-5.0); BLOOD UREA NITROGEN 18.8 mg/dL (7-18); CALCIUM 8.8 mg/dL (8.5-10.1)
[2022-01-18 09:26] LABS: BILIRUBIN,DIRECT 0.1 mg/dL (0.0-0.2); CREATININE 1.2 mg/dL (0.55-1.3)
[2022-01-18 09:28] LABS: BILIRUBIN,TOTAL 0.5 mg/dL (0.2-1); TOT PROT 6.7 g/dl (6.4-8.2)
[2022-01-18] MEDS ORDERED: DEXTROSE 5%-0.45% SALINE 1,000 ML IV ONE (10:00)
[2022-01-18 16:10] VITALS: BP 118/78; PULSE 60; TEMP 97.7
== END 2022-01-18 12:15 | disposition home or self-care (01) ==
LOC: JONCNONCHE 06:58
PROVIDERS: ATTEND Internal Medicine Hematology & Oncology
PROC: 3E0337Z Introduction of Electrolytic and Water Balance Substance into Peripheral Vein, Percutaneous Approach (ICD-10-PCS; principal; 2022-01-18)
DX: C64.9 Malignant neoplasm of unspecified kidney, except renal pelvis (principal); C78.00 Secondary malignant neoplasm of unspecified lung; Z76.89 Persons encountering health services in other specified circumstances
CPT/HCPCS: 36415; 80048; 80076; 82550; 82553; 96360; 96361

== ENCOUNTER 2022-01-19 06:49 | Day surgery (SDC) | payer OTHER, MEDICARE ==
[2022-01-19] MEDS ORDERED: DEXTROSE 5%-0.45% SALINE 1,000 ML IV ONE (08:45)
[2022-01-19 09:15] LABS: CALCIUM 8.5 mg/dL (8.5-10.1)
[2022-01-19 09:16] LABS: ALBUMIN 3.7 g/dl (3.4-5.0); BLOOD UREA NITROGEN 16.9 mg/dL (7-18)
[2022-01-19 09:18] LABS: BILIRUBIN,DIRECT 0.1 mg/dL (0.0-0.2)
[2022-01-19 09:20] LABS: BILIRUBIN,TOTAL 0.5 mg/dL (0.2-1); TOT PROT 6.7 g/dl (6.4-8.2)
[2022-01-19 10:24] VITALS: PULSE 47; TEMP 97.6
[2022-01-19 15:48] VITALS: BP 126/69
== END 2022-01-19 12:15 | disposition home or self-care (01) ==
LOC: JONCNONCHE 06:49
PROVIDERS: ATTEND Internal Medicine Hematology & Oncology
PROC: 3E0337Z Introduction of Electrolytic and Water Balance Substance into Peripheral Vein, Percutaneous Approach (ICD-10-PCS; principal; 2022-01-19)
DX: C64.9 Malignant neoplasm of unspecified kidney, except renal pelvis (principal); C78.00 Secondary malignant neoplasm of unspecified lung; Z76.89 Persons encountering health services in other specified circumstances
CPT/HCPCS: 36415; 80048; 80076; 82550; 82553; 96360; 96361

== ENCOUNTER 2022-01-25 06:40 | Day surgery (SDC) | payer OTHER, MEDICARE ==
[2022-01-25] MEDS ORDERED: DEXTROSE 5%-NORMAL SALINE 1,000 ML IV ONE (08:45)
[2022-01-25 09:06] LABS: CALCIUM 8.4 mg/dL (8.5-10.1)
[2022-01-25 09:07] LABS: ALBUMIN 3.8 g/dl (3.4-5.0); BLOOD UREA NITROGEN 15.6 mg/dL (7-18)
[2022-01-25 09:09] LABS: BILIRUBIN,DIRECT 0.1 mg/dL (0.0-0.2)
[2022-01-25 09:10] LABS: CREATININE 1.1 mg/dL (0.55-1.3)
[2022-01-25 09:12] LABS: BILIRUBIN,TOTAL 0.4 mg/dL (0.2-1)
[2022-01-25 16:31] VITALS: TEMP 98.3
[2022-01-25 16:36] VITALS: BP 147/74; PULSE 48
== END 2022-01-25 12:00 | disposition home or self-care (01) ==
LOC: JONCNONCHE 06:40
PROVIDERS: ATTEND Internal Medicine Hematology & Oncology
PROC: 3E0337Z Introduction of Electrolytic and Water Balance Substance into Peripheral Vein, Percutaneous Approach (ICD-10-PCS; principal; 2022-01-25)
DX: Z76.89 Persons encountering health services in other specified circumstances (principal); C64.9 Malignant neoplasm of unspecified kidney, except renal pelvis
CPT/HCPCS: 36415; 80048; 80076; 82550; 82553; 96360; 96361; C9803-CS; U0003; U0005

== ENCOUNTER 2022-01-26 06:44 | Day surgery (SDC) | payer OTHER, MEDICARE ==
[2022-01-26] MEDS ORDERED: DEXTROSE 5%-NORMAL SALINE 1,000 ML IV ONE (09:00)
[2022-01-26 09:01] LABS: ALBUMIN 3.9 g/dl (3.4-5.0); CALCIUM 8.9 mg/dL (8.5-10.1)
[2022-01-26 09:02] LABS: BLOOD UREA NITROGEN 14.7 mg/dL (7-18)
[2022-01-26 09:04] LABS: BILIRUBIN,DIRECT 0.1 mg/dL (0.0-0.2); CREATININE 1.1 mg/dL (0.55-1.3)
[2022-01-26 09:06] LABS: BILIRUBIN,TOTAL 0.4 mg/dL (0.2-1); TOT PROT 7.1 g/dl (6.4-8.2)
[2022-01-26 17:23] VITALS: BP 118/67; PULSE 75; TEMP 97.8
== END 2022-01-26 12:05 | disposition home or self-care (01) ==
LOC: JONCCHEMO 06:44
PROVIDERS: ATTEND Internal Medicine Hematology & Oncology
PROC: 3E0337Z Introduction of Electrolytic and Water Balance Substance into Peripheral Vein, Percutaneous Approach (ICD-10-PCS; principal; 2022-01-26)
DX: Z76.89 Persons encountering health services in other specified circumstances (principal); C64.9 Malignant neoplasm of unspecified kidney, except renal pelvis
CPT/HCPCS: 36415; 80048; 80076; 82550; 82553; 96360; 96361

== ENCOUNTER 2022-01-31 07:04 | Day surgery (SDC) | payer OTHER, MEDICARE ==
[2022-01-31 08:31] VITALS: TEMP 97.7
[2022-01-31] MEDS ORDERED: DEXTROSE 5%-NORMAL SALINE 1,000 ML IV ONE (09:00)
[2022-01-31 09:41] LABS: ALBUMIN 3.9 g/dl (3.4-5.0); BLOOD UREA NITROGEN 9.9 mg/dL (7-18); CALCIUM 8.6 mg/dL (8.5-10.1)
[2022-01-31 09:44] LABS: BILIRUBIN,DIRECT 0.2 mg/dL (0.0-0.2); CREATININE 1.1 mg/dL (0.55-1.3)
[2022-01-31 09:45] LABS: TOT PROT 7.2 g/dl (6.4-8.2)
[2022-01-31 09:46] LABS: BILIRUBIN,TOTAL 0.6 mg/dL (0.2-1)
[2022-01-31 13:17] VITALS: BP 143/77; PULSE 50
== END 2022-01-31 11:40 | disposition home or self-care (01) ==
LOC: JONCNONCHE 07:04
PROVIDERS: ATTEND Internal Medicine Hematology & Oncology
PROC: 3E0337Z Introduction of Electrolytic and Water Balance Substance into Peripheral Vein, Percutaneous Approach (ICD-10-PCS; principal; 2022-01-31)
DX: C64.9 Malignant neoplasm of unspecified kidney, except renal pelvis (principal); Z76.89 Persons encountering health services in other specified circumstances
CPT/HCPCS: 36415; 80048; 80076; 82550; 82553; 96360; 96361

== ENCOUNTER 2022-02-01 06:45 | Day surgery (SDC) | payer OTHER, MEDICARE ==
[2022-02-01] MEDS ORDERED: DEXTROSE 5%-NORMAL SALINE 1,000 ML IV ONE (09:00)
[2022-02-01 09:51] LABS: CALCIUM 8.2 mg/dL (8.5-10.1)
[2022-02-01 09:52] LABS: ALBUMIN 3.7 g/dl (3.4-5.0); BLOOD UREA NITROGEN 10.4 mg/dL (7-18)
[2022-02-01 09:54] LABS: BILIRUBIN,DIRECT 0.1 mg/dL (0.0-0.2)
[2022-02-01 09:55] LABS: CREATININE 1.1 mg/dL (0.55-1.3)
[2022-02-01 09:56] LABS: BILIRUBIN,TOTAL 0.6 mg/dL (0.2-1); TOT PROT 6.8 g/dl (6.4-8.2)
[2022-02-01 18:03] VITALS: TEMP 97.7
[2022-02-01 18:06] VITALS: BP 121/77; PULSE 49
== END 2022-02-01 12:00 | disposition home or self-care (01) ==
LOC: JONCCHEMO 06:45
PROVIDERS: ATTEND Internal Medicine Hematology & Oncology
PROC: 3E0337Z Introduction of Electrolytic and Water Balance Substance into Peripheral Vein, Percutaneous Approach (ICD-10-PCS; principal; 2022-02-01)
DX: C64.9 Malignant neoplasm of unspecified kidney, except renal pelvis (principal); Z76.89 Persons encountering health services in other specified circumstances
CPT/HCPCS: 36415; 80048; 80076; 82550; 82553; 96360; 96361

== ENCOUNTER 2022-02-10 08:51 | Day surgery (SDC) | payer OTHER, MEDICARE ==
[2022-02-10] MEDS ORDERED: DEXTROSE 5%-NORMAL SALINE 1,000 ML IV ONE (10:00)
[2022-02-10 12:26] LABS: ALBUMIN 3.7 g/dl (3.4-5.0); BILIRUBIN,DIRECT 0.1 mg/dL (0.0-0.2); BILIRUBIN,TOTAL 0.6 mg/dL (0.2-1); BLOOD UREA NITROGEN 11.5 mg/dL (7-18); CALCIUM 8.6 mg/dL (8.5-10.1); CREATININE 1.1 mg/dL (0.55-1.3); TOT PROT 6.6 g/dl (6.4-8.2)
[2022-02-10] MEDS ORDERED: LOPERAMIDE HCL 2 MG CAPSULE PO PRN (13:10)
[2022-02-10 18:49] VITALS: BP 131/80; PULSE 50; TEMP 98.1
== END 2022-02-10 15:00 | disposition home or self-care (01) ==
LOC: JONCCHEMO 08:51
PROVIDERS: ATTEND Internal Medicine Hematology & Oncology
PROC: 3E0337Z Introduction of Electrolytic and Water Balance Substance into Peripheral Vein, Percutaneous Approach (ICD-10-PCS; principal; 2022-02-10)
DX: C64.9 Malignant neoplasm of unspecified kidney, except renal pelvis (principal); Z76.89 Persons encountering health services in other specified circumstances
CPT/HCPCS: 36415; 80048; 80076; 82550; 82553; 96360; 96361; C9803-CS; U0003; U0005

== ENCOUNTER 2022-02-11 07:45 | Day surgery (SDC) | payer OTHER, MEDICARE ==
[2022-02-11 10:42] VITALS: TEMP 97.9
[2022-02-11] MEDS ORDERED: D5-1/2NS+20 MEQ KCL - 20 MEQ/1,000 ML INFUS.BAG IV SCH (11:30)
[2022-02-11 11:37] LABS: CALCIUM 8.4 mg/dL (8.5-10.1)
[2022-02-11 11:38] LABS: ALBUMIN 3.4 g/dl (3.4-5.0); BLOOD UREA NITROGEN 13.8 mg/dL (7-18)
[2022-02-11 11:40] LABS: BILIRUBIN,DIRECT 0.2 mg/dL (0.0-0.2)
[2022-02-11 11:41] LABS: CREATININE 1.1 mg/dL (0.55-1.3)
[2022-02-11 11:42] LABS: BILIRUBIN,TOTAL 0.5 mg/dL (0.2-1); TOT PROT 6.5 g/dl (6.4-8.2)
[2022-02-11 15:26] VITALS: BP 151/78; PULSE 52
== END 2022-02-11 14:40 | disposition home or self-care (01) ==
LOC: JONCNONCHE 07:45
PROVIDERS: ATTEND Internal Medicine Hematology & Oncology
PROC: 3E0337Z Introduction of Electrolytic and Water Balance Substance into Peripheral Vein, Percutaneous Approach (ICD-10-PCS; principal; 2022-02-11)
DX: C64.9 Malignant neoplasm of unspecified kidney, except renal pelvis (principal); Z76.89 Persons encountering health services in other specified circumstances
CPT/HCPCS: 36415; 80048; 80076; 82550; 82553; 96360; 96361

== ENCOUNTER 2022-02-16 09:11 | Day surgery (SDC) | payer OTHER, MEDICARE ==
[2022-02-16] MEDS ORDERED: SODIUM CHLORIDE IV ONE (10:00)
[2022-02-16] MEDS ORDERED: POT IV ONE (10:00)
[2022-02-16] MEDS: SODIUM CHLORIDE 0.45%/POT 20 MEQ/1,000 ML INFUS.BAG IV SCH ×2 (10:00→11:47)
[2022-02-16 16:04] VITALS: TEMP 98.3
[2022-02-16 16:05] VITALS: BP 153/75; PULSE 51
== END 2022-02-16 13:10 | disposition home or self-care (01) ==
LOC: JONCNONCHE 09:11
PROVIDERS: ATTEND Internal Medicine Hematology & Oncology
PROC: 3E0337Z Introduction of Electrolytic and Water Balance Substance into Peripheral Vein, Percutaneous Approach (ICD-10-PCS; principal; 2022-02-16)
DX: C64.9 Malignant neoplasm of unspecified kidney, except renal pelvis (principal); Z76.89 Persons encountering health services in other specified circumstances
CPT/HCPCS: 96360; 96361; J3480

== ENCOUNTER 2022-02-21 11:11 | Day surgery (SDC) | payer OTHER, MEDICARE ==
[2022-02-21 12:12] LABS: HEMATOCRIT 34.4 % (35.4-49); HEMOGLOBIN 11.8 GM/dL (11.7-16.9); LYMPH % 7.6 % (8-40); MCH 33.4 pg (25.7-33.7); MCHC 34.4 g/dl (32.0-35.9); MONO % 5.5 % (3.8-10.2); NEUT % 86.9 % (42.8-82.8); PLATELET COUNT 167 10^3/uL (134-434); RBC 3.54 M/mm3 (4.00-5.60); RDW 16.1 % (11.9-15.9); WHITE BLOOD COUNT 8.5 K/mm3 (4.0-10.0)
[2022-02-21] MEDS: SODIUM CHLORIDE 1,500 ML IV ONE ×2 (12:21→12:40)
[2022-02-21] MEDS ORDERED: SODIUM CHLORIDE 0.9% 500 ML INFUS.BAG IV ONE (12:34)
[2022-02-21 12:35] LABS: CALCIUM 8.3 mg/dL (8.5-10.1)
[2022-02-21 12:36] LABS: BLOOD UREA NITROGEN 25.8 mg/dL (7-18)
[2022-02-21 12:39] LABS: CREATININE 1.3 mg/dL (0.55-1.3)
[2022-02-21 12:40] LABS: BILIRUBIN,DIRECT 0.2 mg/dL (0.0-0.2)
[2022-02-21 12:42] LABS: BILIRUBIN,TOTAL 0.5 mg/dL (0.2-1)
[2022-02-21 17:06] VITALS: TEMP 97.9
[2022-02-21 17:10] VITALS: BP 143/80; PULSE 54
== END 2022-02-21 15:35 | disposition home or self-care (01) ==
LOC: JONCNONCHE 11:11
PROVIDERS: ATTEND Internal Medicine Hematology & Oncology
PROC: 3E0337Z Introduction of Electrolytic and Water Balance Substance into Peripheral Vein, Percutaneous Approach (ICD-10-PCS; principal; 2022-02-21)
DX: C64.9 Malignant neoplasm of unspecified kidney, except renal pelvis (principal); Z76.89 Persons encountering health services in other specified circumstances
CPT/HCPCS: 36415; 80048; 80076; 82550; 82553; 85025; 96360; 96361

== ENCOUNTER 2022-03-02 08:48 | Day surgery (SDC) | payer OTHER, MEDICARE ==
[2022-03-02] MEDS ORDERED: SODIUM CHLORIDE 1,000 ML IV ONE (10:15)
[2022-03-02 15:22] VITALS: TEMP 98.7
[2022-03-02 15:23] VITALS: BP 140/83; PULSE 58
== END 2022-03-02 13:15 | disposition home or self-care (01) ==
LOC: JONCNONCHE 08:48
PROVIDERS: ATTEND Internal Medicine Hematology & Oncology
PROC: 3E0337Z Introduction of Electrolytic and Water Balance Substance into Peripheral Vein, Percutaneous Approach (ICD-10-PCS; principal; 2022-03-02)
DX: Z76.89 Persons encountering health services in other specified circumstances (principal); C64.9 Malignant neoplasm of unspecified kidney, except renal pelvis
CPT/HCPCS: 96360; 96361

== ENCOUNTER 2022-03-08 10:48 | Day surgery (SDC) | payer OTHER, MEDICARE ==
[2022-03-08] MEDS ORDERED: SODIUM CHLORIDE IV ONE (11:15)
[2022-03-08 16:57] VITALS: BP 128/77; PULSE 58; TEMP 98.3
== END 2022-03-08 14:15 | disposition home or self-care (01) ==
LOC: JONCNONCHE 10:48
PROVIDERS: ATTEND Internal Medicine Hematology & Oncology
PROC: 3E0337Z Introduction of Electrolytic and Water Balance Substance into Peripheral Vein, Percutaneous Approach (ICD-10-PCS; principal; 2022-03-08)
DX: C64.9 Malignant neoplasm of unspecified kidney, except renal pelvis (principal); Z76.89 Persons encountering health services in other specified circumstances
CPT/HCPCS: 96360; 96361

== ENCOUNTER 2022-03-22 10:06 | Day surgery (SDC) | payer OTHER, MEDICARE ==
[2022-03-22] MEDS ORDERED: SODIUM CHLORIDE 1,000 ML IV ONE (10:45)
[2022-03-22 14:47] VITALS: BP 93/60; PULSE 59; RESP 20; TEMP 97.8
== END 2022-03-22 13:45 | disposition home or self-care (01) ==
LOC: JONCNONCHE 10:06
PROVIDERS: ATTEND Internal Medicine Hematology & Oncology
PROC: 3E0337Z Introduction of Electrolytic and Water Balance Substance into Peripheral Vein, Percutaneous Approach (ICD-10-PCS; principal; 2022-03-22)
DX: C64.9 Malignant neoplasm of unspecified kidney, except renal pelvis (principal); Z76.89 Persons encountering health services in other specified circumstances
CPT/HCPCS: 96365; 96366

== ENCOUNTER 2022-09-20 11:33 | Day surgery (SDC) | payer OTHER, MEDICARE ==
[2022-09-20] MEDS ORDERED: SODIUM CHLORIDE 500 ML IV ONE (12:00)
[2022-09-20] MEDS ORDERED: SODIUM CHLORIDE 2,000 ML IV ONE (13:45)
[2022-09-20 15:32] VITALS: PULSE 61; TEMP 98
[2022-09-20 16:27] VITALS: BP 141/79; RESP 18
== END 2022-09-20 16:00 | disposition home or self-care (01) ==
LOC: JONCNONCHE 11:33
PROVIDERS: ATTEND Internal Medicine Hematology & Oncology
PROC: 3E033GC Introduction of Other Therapeutic Substance into Peripheral Vein, Percutaneous Approach (ICD-10-PCS; principal; 2022-09-20)
DX: C64.1 Malignant neoplasm of right kidney, except renal pelvis (principal); C78.02 Secondary malignant neoplasm of left lung; C78.01 Secondary malignant neoplasm of right lung; Z76.89 Persons encountering health services in other specified circumstances
CPT/HCPCS: 96365; 96366

== ENCOUNTER 2023-02-23 05:54 | Inpatient (IN) | payer OTHER, MEDICARE ==
[2023-02-23] MEDS ORDERED: ACETAMINOPHEN 1000 MG/100 ML BAG IVPB ONE (05:59)
[2023-02-23] MEDS ORDERED: SODIUM CHLORIDE 0.9% 500 ML INFUS.BAG IV ONE ×3 (05:59→13:43)
[2023-02-23] MEDS ORDERED: FAMOTIDINE 20 MG/50 ML IVPB 20 MG/50 ML MG IVPB ONE ×2 (06:00→06:30)
[2023-02-23] MEDS ORDERED: ONDANSETRON 4 MG/2 ML VIAL IVPUSH ONE (06:00)
[2023-02-23] MEDS ORDERED: ONDANSETRON 4 MG/2 ML VIAL ONE ×2 (06:30→12:49)
[2023-02-23] MEDS ORDERED: ACETAMINOPHEN INJECTION 100 ML IVPB ONE (06:30)
[2023-02-23 06:49] LABS: VENOUS O2 SATURATION 33.2 % (70-80); VENOUS PH 7.349 (7.310-7.410)
[2023-02-23 07:23] LABS: LACTIC ACID 2.3 mmol/L (0.4-2.0)
[2023-02-23 07:24] LABS: BASO % 0.1 % (0-2.0); EOS % 0.3 % (0-4.5); HEMATOCRIT 38.7 % (35.4-49); HEMOGLOBIN 12.8 GM/dL (11.7-16.9); LYMPH % 7.3 % (8-40); MCHC 33.1 g/dl (32.0-35.9); MEAN CELL VOLUME 102.7 fl (80-96); MEAN PLT VOLUME 7.9 fl (7.5-11.1); MONO % 3.5 % (3.8-10.2); NEUT % 88.8 % (42.8-82.8); PLATELET COUNT 199 10^3/uL (134-434); RBC 3.77 M/mm3 (4.00-5.60); RDW 13.7 % (11.9-15.9); WHITE BLOOD COUNT 6.7 K/mm3 (4.0-10.0)
[2023-02-23 07:29] LABS: INR 1.02 (0.83-1.09); PROTHROMBIN TIME (PATIENT) 11.8 SEC (9.7-13.0)
[2023-02-23 07:49] LABS: POTASSIUM 4.5 mmol/L (3.5-5.1)
[2023-02-23 07:51] LABS: BLOOD UREA NITROGEN 11.7 mg/dL (7-18)
[2023-02-23 07:55] LABS: CREATININE 1.1 mg/dL (0.55-1.3)
[2023-02-23 07:56] LABS: BILIRUBIN,TOTAL 2.4 mg/dL (0.2-1); TOT PROT 7.7 g/dl (6.4-8.2)
[2023-02-23 08:32] LABS: URINE APPEARANCE CLEAR; URINE BILIRUBIN NEGATIVE (NEGATIVE); URINE COLOR YELLOW; URINE GLUCOSE (UA) NEGATIVE (NEGATIVE); URINE KETONE NEGATIVE (NEGATIVE); URINE LEUK ESTERASE NEGATIVE (NEGATIVE); URINE NITRITE NEGATIVE (NEGATIVE); URINE PROTEIN TRACE (NEGATIVE)
[2023-02-23 09:28] LABS: POTASSIUM 3.4 mmol/L (3.5-5.1)
[2023-02-23 09:29] LABS: BLOOD UREA NITROGEN 10.4 mg/dL (7-18)
[2023-02-23] MEDS ORDERED: CARBIDOPA/LEVODOPA 25/100 TABLET (FP) ONE (09:47)
[2023-02-23] MEDS ORDERED: levETIRAcetam 500 MG TABLET (FP) PO ONE ×2 (11:00→11:40)
[2023-02-23] MEDS ORDERED: lamoTRIgine 100 MG TABLET ONE (11:41)
[2023-02-23] MEDS ORDERED: ONDANSETRON 4 MG/2 ML VIAL IVPB ONE (12:39)
[2023-02-23 12:54] LABS: POTASSIUM 3.4 mmol/L (3.5-5.1)
[2023-02-23 12:58] LABS: BLOOD UREA NITROGEN 10.4 mg/dL (7-18); CALCIUM 8.2 mg/dL (8.5-10.1)
[2023-02-23 13:01] LABS: CREATININE 1.2 mg/dL (0.55-1.3)
[2023-02-23 13:03] LABS: BILIRUBIN,TOTAL 2.6 mg/dL (0.2-1)
[2023-02-23 13:16] LABS: ALBUMIN 3.1 g/dl (3.4-5.0); TOT PROT 5.6 g/dl (6.4-8.2)
[2023-02-23 14:14] LABS: BILIRUBIN,DIRECT 1.6 mg/dL (0.0-0.2)
[2023-02-23] MEDS ORDERED: ONDANSETRON 4 MG/2 ML VIAL IVPUSH PRN (14:45)
[2023-02-23] MEDS ORDERED: SODIUM CHLORIDE 1,000 ML IV SCH (16:15)
[2023-02-23] MEDS: lamoTRIgine 100 MG TABLET PO SCH (21:33)
[2023-02-23] MEDS: PRAMIPEXOLE DIHYDROCHLORIDE 1 MG TABLET PO SCH (21:33)
[2023-02-23] MEDS: levETIRAcetam 500 MG TABLET (FP) PO SCH (21:33)
[2023-02-23] MEDS: CHLORHEXIDINE GLUCONATE 4% CLEANSER FOR DECOLONIZATION TP SCH (21:33)
[2023-02-23] MEDS: HEPARIN NA (PORCINE) 5,000 UNITS/ML 1ML VIAL SQ SCH (21:33)
[2023-02-23] MEDS ORDERED: PATIENT'S OWN MEDICATION (NON-FORMULARY) (Levetiracetam [Levetiracetam] 1,000 MG Tablet) PO SCH ×2 (22:00)
[2023-02-23] MEDS: MUPIROCIN 2% TOPICAL OINTMENT FOR DECOLONIZATION NS SCH (23:16)
[2023-02-23] MEDS ORDERED: CEFTRIAXONE 1 GM in DEXTROSE 5%-WATER - 50 ML IVPB ONE (23:28)
[2023-02-24] MEDS: PRAMIPEXOLE DIHYDROCHLORIDE 1 MG TABLET PO SCH ×3 (06:06→21:31)
[2023-02-24] MEDS: HEPARIN NA (PORCINE) 5,000 UNITS/ML 1ML VIAL SQ SCH (06:06)
[2023-02-24] MEDS ORDERED: LEVOTHYROXINE NA 88 MCG TABLET (FP) PO SCH (07:00)
[2023-02-24 07:10] LABS: BASO % 0.4 % (0-2.0); EOS % 2.7 % (0-4.5); HEMOGLOBIN 11.1 GM/dL (11.7-16.9); INR 1.14 (0.83-1.09); LYMPH % 7.4 % (8-40); MCH 34.1 pg (25.7-33.7); MCHC 32.7 g/dl (32.0-35.9); MEAN CELL VOLUME 104.3 fl (80-96); MEAN PLT VOLUME 8.2 fl (7.5-11.1); MONO % 4.5 % (3.8-10.2); PLATELET COUNT 165 10^3/uL (134-434); PROTHROMBIN TIME (PATIENT) 13.2 SEC (9.7-13.0); RBC 3.26 M/mm3 (4.00-5.60); RDW 13.7 % (11.9-15.9); WHITE BLOOD COUNT 4.8 K/mm3 (4.0-10.0)
[2023-02-24 07:13] LABS: ACTIVATED PTT 25.9 SECONDS (25.2-36.5)
[2023-02-24 07:36] LABS: POTASSIUM 3.5 mmol/L (3.5-5.1)
[2023-02-24 07:40] LABS: ALBUMIN 2.9 g/dl (3.4-5.0); CALCIUM 8.1 mg/dL (8.5-10.1); MAGNESIUM 2.2 mg/dL (1.8-2.4)
[2023-02-24 07:42] LABS: PHOSPHOROUS 1.9 mg/dL (2.5-4.9)
[2023-02-24 07:44] LABS: CREATININE 0.9 mg/dL (0.55-1.3)
[2023-02-24 07:45] LABS: BILIRUBIN,TOTAL 4.6 mg/dL (0.2-1); TOT PROT 5.4 g/dl (6.4-8.2)
[2023-02-24] MEDS ORDERED: NAPH,MB-DB/K PH,MBDB POWDER PACKET PO ONE (08:36)
[2023-02-24 09:18] LABS: BILIRUBIN,DIRECT 3.5 mg/dL (0.0-0.2)
[2023-02-24] MEDS ORDERED: LACTATED RINGERS SOLUTION 1,000 ML/1,000 ML INFUS.BAG IV SCH (09:30)
[2023-02-24] MEDS: levETIRAcetam 500 MG TABLET (FP) PO SCH ×2 (09:37→21:30)
[2023-02-24] MEDS: lamoTRIgine 100 MG TABLET PO SCH ×2 (09:38→21:31)
[2023-02-24] MEDS: MUPIROCIN 2% TOPICAL OINTMENT FOR DECOLONIZATION NS SCH ×2 (09:48→21:30)
[2023-02-24] MEDS ORDERED: PANTOPRAZOLE SODIUM 40 MG VIAL IVPUSH SCH (10:00)
[2023-02-24] MEDS ORDERED: PIPERACILLIN/TAZOB 3.375 GM 3.375 GM in DEXTROSE 5%-WATER - 50 ML IVPB SCH (10:00)
[2023-02-24] MEDS ORDERED: PATIENT'S OWN MEDICATION (NON-FORMULARY) (Cabozantinib S-Malate [Cabometyx] 40 MG Tablet) PO SCH (10:00)
[2023-02-24 11:15] VITALS: BMI 25.3
[2023-02-24 15:53] LABS: POTASSIUM 3.6 mmol/L (3.5-5.1)
[2023-02-24 15:54] LABS: ALBUMIN 2.8 g/dl (3.4-5.0); BLOOD UREA NITROGEN 8.9 mg/dL (7-18); CALCIUM 8.2 mg/dL (8.5-10.1)
[2023-02-24 15:59] LABS: BILIRUBIN,TOTAL 4.9 mg/dL (0.2-1); TOT PROT 5.4 g/dl (6.4-8.2)
[2023-02-24] MEDS ORDERED: PIPERACILLIN/TAZOB 4.5 GM 4.5 GM in DEXTROSE 5%-WATER 100 ML IVPB SCH (18:00)
[2023-02-24] MEDS ORDERED: DEXTROSE 50%-WATER - 25 GM/50 ML VIAL IVPUSH PRN (18:03)
[2023-02-24] MEDS ORDERED: MELATONIN 5 MG TABLETS PO PRN (18:04)
[2023-02-24] MEDS ORDERED: IBUPROFEN 100 MG/5 ML UNIT DOSE CUPS NGT ONE (18:53)
[2023-02-24] MEDS: CHLORHEXIDINE GLUCONATE 4% CLEANSER FOR DECOLONIZATION TP SCH (21:30)
[2023-02-25 00:45] VITALS: BP 138/67; PULSE 52; RESP 15; TEMP 97.5
== END 2023-02-25 00:51 | disposition short-term general hospital (02) | DRG 445 ==
LOC: JER 05:54 → JERBED 11:42 → JICU 15:52
PROVIDERS: ADMIT Internal Medicine Pulmonary Disease; ATTEND Internal Medicine Pulmonary Disease
DX: K80.50 Calculus of bile duct without cholangitis or cholecystitis without obstruction (principal); C64.9 Malignant neoplasm of unspecified kidney, except renal pelvis; R78.81 Bacteremia; K21.9 Gastro-esophageal reflux disease without esophagitis; G40.909 Epilepsy, unspecified, not intractable, without status epilepticus; G20 Parkinson's disease; E03.9 Hypothyroidism, unspecified; E78.5 Hyperlipidemia, unspecified; R74.01 Elevation of levels of liver transaminase levels; I25.10 Atherosclerotic heart disease of native coronary artery without angina pectoris; I12.9 Hypertensive chronic kidney disease with stage 1 through stage 4 chronic kidney disease, or unspecified chronic kidney disease; N18.9 Chronic kidney disease, unspecified; R77.8 Other specified abnormalities of plasma proteins
CPT/HCPCS: 0241U-QW; 36415; 71045-TC-FY; 74176-TC; 74181-TC; 76705-TC; 80048; 80053; 81003; 82150; 82248; 82550; 82553; 82607; 82728; 82746; 82803; 82962; 82977; 83605; 83690; 83735; 84100; 84443; 84450; 84460; 84484; 85025; 85610; 85730; 86140; 86705; 86708; 86850; 86900; 86901; 87040; 87076; 87086; 87517; 87522; 93005; 93010; 93306-TC; 97116-GP; 97162-GP; 99285-25; J1644

== ENCOUNTER 2023-04-26 16:47 | Observation (INO) | payer OTHER, MEDICARE ==
[2023-04-26] MEDS ORDERED: SODIUM CHLORIDE 1,000 ML IV STA (17:53)
[2023-04-26] MEDS ORDERED: ONDANSETRON 4 MG/2 ML VIAL IVPUSH ONE (17:54)
[2023-04-26 18:29] LABS: VENOUS BASE EXCESS 1.5 mmol/L (-2-2); VENOUS O2 SATURATION 22.8 % (70-80); VENOUS PH 7.336 (7.310-7.410)
[2023-04-26 18:33] LABS: EPI CELLS 15 /uL (0-25.1); HYALINE CASTS 0 /uL (0-3.1); URINE APPEARANCE CLEAR; URINE BACTERIA 6 /uL (0-1359); URINE BILIRUBIN NEGATIVE (NEGATIVE); URINE COLOR YELLOW; URINE GLUCOSE (UA) NEGATIVE (NEGATIVE); URINE KETONE NEGATIVE (NEGATIVE); URINE LEUK ESTERASE 2+ (NEGATIVE); URINE NITRITE NEGATIVE (NEGATIVE); URINE PROTEIN NEGATIVE (NEGATIVE); URINE RBC 7 /uL (0-23.9); URINE UROBILINOGEN 0.2 mg/dL (0.2-1.0); URINE WBC 43 /uL (0-25.8)
[2023-04-26 18:35] LABS: BASO % 0.6 % (0-2.0); EOS % 2.5 % (0-4.5); HEMATOCRIT 34.8 % (35.4-49); HEMOGLOBIN 11.6 GM/dL (11.7-16.9); LYMPH % 30.5 % (8-40); MCH 31.7 pg (25.7-33.7); MCHC 33.2 g/dl (32.0-35.9); MEAN CELL VOLUME 95.5 fl (80-96); MEAN PLT VOLUME 7.6 fl (7.5-11.1); MONO % 5.6 % (3.8-10.2); NEUT % 60.8 % (42.8-82.8); PLATELET COUNT 173 10^3/uL (134-434); RBC 3.65 M/mm3 (4.00-5.60); WHITE BLOOD COUNT 4.3 K/mm3 (4.0-10.0)
[2023-04-26 18:55] LABS: POTASSIUM 3.9 mmol/L (3.5-5.1)
[2023-04-26 18:57] LABS: CALCIUM 8.2 mg/dL (8.5-10.1); MAGNESIUM 1.8 mg/dL (1.8-2.4)
[2023-04-26 18:58] LABS: ALBUMIN 3.2 g/dl (3.4-5.0); BLOOD UREA NITROGEN 10.7 mg/dL (7-18)
[2023-04-26 19:00] LABS: BILIRUBIN,DIRECT 0.2 mg/dL (0.0-0.2); CREATININE 0.8 mg/dL (0.55-1.3)
[2023-04-26 19:01] LABS: PHOSPHOROUS 3.2 mg/dL (2.5-4.9)
[2023-04-26 19:02] LABS: TOT PROT 6.3 g/dl (6.4-8.2)
[2023-04-26 19:03] LABS: BILIRUBIN,TOTAL 0.5 mg/dL (0.2-1)
[2023-04-26 19:25] LABS: INR 1.03 (0.83-1.09); PROTHROMBIN TIME (PATIENT) 11.9 SEC (9.7-13.0)
[2023-04-26] MEDS ORDERED: LIDOCAINE HCL 1%, 10 MG/ML (20ML VIAL) ONE (22:12)
[2023-04-27] MEDS ORDERED: CARBIDOPA/LEVODOPA 25/100 TABLET (FP) ONE (00:14)
[2023-04-27] MEDS ORDERED: levETIRAcetam 500 MG TABLET (FP) PO ONE (00:14)
[2023-04-27] MEDS ORDERED: lamoTRIgine 100 MG TABLET ONE (00:14)
[2023-04-27] MEDS: lamoTRIgine 100 MG TABLET PO SCH ×3 (00:18→21:17)
[2023-04-27] MEDS: levETIRAcetam 500 MG TABLET (FP) PO SCH ×3 (00:18→21:17)
[2023-04-27] MEDS: LEVOTHYROXINE NA 88 MCG TABLET (FP) PO SCH (06:30)
[2023-04-27 07:23] LABS: BASO % 0.7 % (0-2.0); EOS % 3.4 % (0-4.5); HEMATOCRIT 34.9 % (35.4-49); HEMOGLOBIN 11.5 GM/dL (11.7-16.9); LYMPH % 39.7 % (8-40); MCH 31.9 pg (25.7-33.7); MEAN CELL VOLUME 96.6 fl (80-96); MEAN PLT VOLUME 7.9 fl (7.5-11.1); MONO % 6.8 % (3.8-10.2); NEUT % 49.4 % (42.8-82.8); PLATELET COUNT 168 10^3/uL (134-434); RBC 3.61 M/mm3 (4.00-5.60); WHITE BLOOD COUNT 3.5 K/mm3 (4.0-10.0)
[2023-04-27 07:29] LABS: POTASSIUM 4.1 mmol/L (3.5-5.1)
[2023-04-27 07:32] LABS: ALBUMIN 3.1 g/dl (3.4-5.0); CALCIUM 8.2 mg/dL (8.5-10.1)
[2023-04-27 07:36] LABS: CREATININE 0.7 mg/dL (0.55-1.3)
[2023-04-27 07:37] LABS: TOT PROT 6.3 g/dl (6.4-8.2)
[2023-04-27 07:38] LABS: BILIRUBIN,TOTAL 0.5 mg/dL (0.2-1)
[2023-04-27] MEDS ORDERED: PATIENT'S OWN MEDICATION (NON-FORMULARY) (Cabozantinib S-Malate [Cabometyx] 40 MG Tablet) PO SCH (10:00)
[2023-04-27] MEDS ORDERED: morphine SULFATE 4 MG/ML VIAL IVPUSH PRN (15:37)
[2023-04-27 16:04] VITALS: BMI 24.7
[2023-04-28] MEDS: LEVOTHYROXINE NA 88 MCG TABLET (FP) PO SCH (06:21)
[2023-04-28 07:46] LABS: INR 1.03 (0.83-1.09)
[2023-04-28 07:48] LABS: BASO % 0.7 % (0-2.0); EOS % 3.1 % (0-4.5); HEMATOCRIT 37.1 % (35.4-49); HEMOGLOBIN 12.3 GM/dL (11.7-16.9); LYMPH % 32.9 % (8-40); MCH 32.1 pg (25.7-33.7); MCHC 33.2 g/dl (32.0-35.9); MEAN CELL VOLUME 96.6 fl (80-96); MONO % 6.1 % (3.8-10.2); NEUT % 57.2 % (42.8-82.8); PLATELET COUNT 173 10^3/uL (134-434); RBC 3.84 M/mm3 (4.00-5.60); RDW 14.1 % (11.9-15.9); WHITE BLOOD COUNT 3.4 K/mm3 (4.0-10.0)
[2023-04-28 07:52] LABS: POTASSIUM 4.4 mmol/L (3.5-5.1)
[2023-04-28 08:10] LABS: ALBUMIN 3.2 g/dl (3.4-5.0); CALCIUM 8.2 mg/dL (8.5-10.1); CREATININE 0.9 mg/dL (0.55-1.3)
[2023-04-28 08:14] LABS: TOT PROT 6.3 g/dl (6.4-8.2)
[2023-04-28 08:15] LABS: BILIRUBIN,TOTAL 0.6 mg/dL (0.2-1)
[2023-04-28] MEDS: levETIRAcetam 500 MG TABLET (FP) PO SCH (10:26)
[2023-04-28] MEDS: lamoTRIgine 100 MG TABLET PO SCH (10:26)
[2023-04-28 14:20] VITALS: BP 124/79; PULSE 58; RESP 15; TEMP 97.9
== END 2023-04-28 18:20 | disposition home or self-care (01) ==
LOC: JER 16:47 → JERBED 22:55 → J7W 04-27 01:09
PROVIDERS: ADMIT Internal Medicine; ATTEND Family Medicine
PROC: 0DB98ZX Excision of Duodenum, Via Natural or Artificial Opening Endoscopic, Diagnostic (ICD-10-PCS; principal; 2023-04-26)
PROC: 0DB78ZX Excision of Stomach, Pylorus, Via Natural or Artificial Opening Endoscopic, Diagnostic (ICD-10-PCS; 2023-04-26)
PROC: 3E033NZ Introduction of Analgesics, Hypnotics, Sedatives into Peripheral Vein, Percutaneous Approach (ICD-10-PCS; 2023-04-26)
PROC: 3E033GC Introduction of Other Therapeutic Substance into Peripheral Vein, Percutaneous Approach (ICD-10-PCS; 2023-04-26)
PROC: 3E0337Z Introduction of Electrolytic and Water Balance Substance into Peripheral Vein, Percutaneous Approach (ICD-10-PCS; 2023-04-26)
DX: R13.10 Dysphagia, unspecified (principal); C64.2 Malignant neoplasm of left kidney, except renal pelvis; C78.7 Secondary malignant neoplasm of liver and intrahepatic bile duct; G20 Parkinson's disease; R63.0 Anorexia; R11.2 Nausea with vomiting, unspecified; I13.10 Hypertensive heart and chronic kidney disease without heart failure, with stage 1 through stage 4 chronic kidney disease, or unspecified chronic kidney disease; N18.9 Chronic kidney disease, unspecified; K21.9 Gastro-esophageal reflux disease without esophagitis; K76.0 Fatty (change of) liver, not elsewhere classified; K29.60 Other gastritis without bleeding; K63.5 Polyp of colon; F41.9 Anxiety disorder, unspecified; E03.9 Hypothyroidism, unspecified; F14.21 Cocaine dependence, in remission; R56.9 Unspecified convulsions; Z79.899 Other long term (current) drug therapy; F10.21 Alcohol dependence, in remission; R63.4 Abnormal weight loss; M62.82 Rhabdomyolysis; Z90.5 Acquired absence of kidney; Z90.49 Acquired absence of other specified parts of digestive tract; Z86.79 Personal history of other diseases of the circulatory system; Z87.891 Personal history of nicotine dependence; Z85.118 Personal history of other malignant neoplasm of bronchus and lung; Z88.8 Allergy status to other drugs, medicaments and biological substances
CPT/HCPCS: 36415; 74176-TC; 74183-TC; 76705-TC; 80053; 81003; 82248; 82550; 82553; 82803; 83605; 83690; 83735; 84100; 84484; 85025; 85610; 85730; 86850; 86900; 86901; 87086; 88305-TC; 88342-TC; 93005; 93010; 93971-TC; 96361; 96374; 96375; 99285-25; G0378

== ENCOUNTER 2024-05-31 14:39 | Inpatient (IN) | payer OTHER, MEDICARE ==
[2024-05-31 17:33] LABS: VENOUS BASE EXCESS 2.1 mmol/L (-2-2); VENOUS O2 SATURATION 15.4 % (70-80); VENOUS PCO2 66.7 mmHg (38-52); VENOUS PH 7.279 (7.310-7.410)
[2024-05-31 17:38] LABS: BASO % 0.5 % (0-2.0); EOS % 2.4 % (0-4.5); HEMATOCRIT 33.6 % (35.4-49); HEMOGLOBIN 11.1 GM/dL (11.7-16.9); MCH 32.7 pg (25.7-33.7); MEAN CELL VOLUME 99.3 fl (80-96); MEAN PLT VOLUME 7.8 fl (7.5-11.1); MONO % 6.1 % (3.8-10.2); PLATELET COUNT 177 10^3/uL (134-434); RBC 3.38 M/mm3 (4.00-5.60); RDW 14.7 % (11.9-15.9); WHITE BLOOD COUNT 4.6 K/mm3 (4.0-10.0)
[2024-05-31 17:53] LABS: POTASSIUM 3.9 mmol/L (3.5-5.1)
[2024-05-31 17:54] LABS: PROTHROMBIN TIME (PATIENT) 11.5 SEC (9.7-13.0)
[2024-05-31 17:55] LABS: CALCIUM 8.3 mg/dL (8.5-10.1)
[2024-05-31 17:56] LABS: ACTIVATED PTT 29.3 SECONDS (25.2-36.5)
[2024-05-31 17:57] LABS: ALBUMIN 3.2 g/dl (3.4-5.0); BLOOD UREA NITROGEN 16.2 mg/dL (7-18)
[2024-05-31 17:58] LABS: CREATININE 0.8 mg/dL (0.55-1.3)
[2024-05-31 18:01] LABS: BILIRUBIN,TOTAL 0.3 mg/dL (0.2-1); TOT PROT 6.3 g/dl (6.4-8.2)
[2024-05-31] MEDS ORDERED: NAPH,MB-DB/K PH,MBDB POWDER PACKET ONE (18:22)
[2024-05-31] MEDS: NAPH,MB-DB/K PH,MBDB POWDER PACKET PO ONE (18:25)
[2024-05-31] MEDS ORDERED: VANCOMYCIN 1,000 MG in DEXTROSE 5%-WATER - 250 ML IVPB ONE (19:32)
[2024-05-31] MEDS ORDERED: CEFEPIME 2 GM/100 ML BAG IVPB ONE (21:34)
[2024-05-31] MEDS: CEFEPIME HCL 2 GM VIAL (RESTRICTED TO ID) IVPB ONE (21:44)
[2024-05-31 23:47] VITALS: BMI 22.2
[2024-06-01] MEDS: VANCOMYCIN/WATER FOR INJ (PEG) 1,000 MG/200 ML BAG IVPB ONE (01:02)
[2024-06-01] MEDS: LEVOTHYROXINE NA 112 MCG TABLET (FP) PO SCH (07:41)
[2024-06-01] MEDS: PRAMIPEXOLE DIHYDROCHLORIDE 1 MG TABLET PO SCH (08:05)
[2024-06-01] MEDS ORDERED: guaiFENesin/CODEINE 5 ML UNIT-DOSE CUPS PO PRN (09:10)
[2024-06-01 09:57] LABS: BASO % 0.8 % (0-2.0); EOS % 3.3 % (0-4.5); HEMATOCRIT 30.5 % (35.4-49); HEMOGLOBIN 10.1 GM/dL (11.7-16.9); LYMPH % 21.4 % (8-40); MCH 33.1 pg (25.7-33.7); MCHC 33.1 g/dl (32.0-35.9); MEAN CELL VOLUME 99.8 fl (80-96); MEAN PLT VOLUME 7.9 fl (7.5-11.1); MONO % 5.8 % (3.8-10.2); NEUT % 68.7 % (42.8-82.8); PLATELET COUNT 161 10^3/uL (134-434); RBC 3.05 M/mm3 (4.00-5.60); RDW 14.2 % (11.9-15.9); WHITE BLOOD COUNT 4.6 K/mm3 (4.0-10.0)
[2024-06-01] MEDS ORDERED: predniSONE 2.5 MG TABLET PO SCH (10:00)
[2024-06-01] MEDS ORDERED: PATIENT'S OWN MEDICATION (NON-FORMULARY) (Cabozantinib S-Malate [Cabometyx] 40 MG Tablet) PO SCH (10:00)
[2024-06-01] MEDS: CEFEPIME 1 GM in DEXTROSE 5%-WATER 100 ML IVPB SCH ×2 (10:52→14:48)
[2024-06-01] MEDS: levETIRAcetam 500 MG TABLET (FP) PO SCH (10:53)
[2024-06-01] MEDS: lamoTRIgine 100 MG TABLET PO SCH (10:53)
[2024-06-01] MEDS: methylPREDNISolone NA SUCC 40 MG/1 ML VIAL IVPUSH SCH (11:31)
[2024-06-01] MEDS: guaiFENesin/CODEINE 5 ML UNIT-DOSE CUPS PO PRN (11:31)
[2024-06-01] MEDS: PANTOPRAZOLE SOD 40 MG SUSPENSION PACKET PO SCH (11:31)
[2024-06-01] MEDS ORDERED: VANCOMYCIN 1,000 MG in DEXTROSE 5%-WATER - 250 ML IVPB SCH (13:00)
[2024-06-01] MEDS ORDERED: VANCOMYCIN/WATER FOR INJ (PEG) 1,000 MG/200 ML BAG IVPB SCH (13:00)
[2024-06-01 14:19] LABS: BLOOD UREA NITROGEN 13.8 mg/dL (7-18); CALCIUM 7.9 mg/dL (8.5-10.1); CREATININE 0.8 mg/dL (0.55-1.3)
[2024-06-01] MEDS: predniSONE 5 MG TABLET (UD) PO SCH (14:47)
[2024-06-01] MEDS: PIPERACILLIN/TAZOB 3.375 GM 3.375 GM in DEXTROSE 5%-WATER - 50 ML IVPB SCH (17:15)
[2024-06-02] MEDS: clonazePAM 0.5 MG TABLET PO PRN (03:05)
[2024-06-02] MEDS: ACETAMINOPHEN 325 MG TABLET (FP) PO ONE (16:35)
[2024-06-04 08:36] LABS: HEMATOCRIT 30.6 % (35.4-49); MCH 32.6 pg (25.7-33.7); MCHC 32.6 g/dl (32.0-35.9); MEAN CELL VOLUME 100.1 fl (80-96); MEAN PLT VOLUME 8.4 fl (7.5-11.1); PLATELET COUNT 176 10^3/uL (134-434); RBC 3.06 M/mm3 (4.00-5.60); RDW 14.1 % (11.9-15.9); WHITE BLOOD COUNT 6.5 K/mm3 (4.0-10.0)
[2024-06-04 08:48] LABS: POTASSIUM 3.6 mmol/L (3.5-5.1)
[2024-06-04 08:51] LABS: CALCIUM 7.5 mg/dL (8.5-10.1)
[2024-06-04 08:52] LABS: BLOOD UREA NITROGEN 22.4 mg/dL (7-18); MAGNESIUM 1.8 mg/dL (1.8-2.4)
[2024-06-04 08:53] LABS: ALBUMIN 2.4 g/dl (3.4-5.0)
[2024-06-04 08:57] LABS: BILIRUBIN,TOTAL 0.6 mg/dL (0.2-1); TOT PROT 5.2 g/dl (6.4-8.2)
[2024-06-04 13:19] VITALS: RESP 18
[2024-06-05] MEDS: HEPARIN NA (PORCINE) 5,000 UNITS/ML 1ML VIAL SQ SCH (09:41)
[2024-06-05] MEDS: POTASSIUM CHLORIDE ORAL LIQUID 20 MEQ/15 ML PO ONE (09:44)
[2024-06-05] MEDS ORDERED: guaiFENesin/CODEINE 10 ML UNIT-DOSE CUPS PO PRN (09:56)
[2024-06-05 14:20] VITALS: BP 112/66; PULSE 50; TEMP 97.7
[2024-06-05] MEDS ORDERED: AMOX TR/POT CLAV 875MG/125MG TABLETS (FP) PO SCH (17:30)
== END 2024-06-05 14:29 | disposition home or self-care (01) | DRG 194 ==
LOC: JER 14:39 → JERBED 19:23 → J7W 23:07 → OBSVTOIN 06-02 14:10 → J7W 06-04 22:14
PROVIDERS: ADMIT Internal Medicine; ATTEND Family Medicine
DX: J18.9 Pneumonia, unspecified organism (principal); C64.9 Malignant neoplasm of unspecified kidney, except renal pelvis; C78.00 Secondary malignant neoplasm of unspecified lung; C78.7 Secondary malignant neoplasm of liver and intrahepatic bile duct; J90 Pleural effusion, not elsewhere classified; R04.2 Hemoptysis; I10 Essential (primary) hypertension; E03.9 Hypothyroidism, unspecified; I25.10 Atherosclerotic heart disease of native coronary artery without angina pectoris; K21.9 Gastro-esophageal reflux disease without esophagitis; G40.909 Epilepsy, unspecified, not intractable, without status epilepticus; D64.9 Anemia, unspecified; G20.A1 Parkinson's disease without dyskinesia, without mention of fluctuations
CPT/HCPCS: 0241U-QW; 36415; 71045-TC-FY; 71250-TC; 80048; 80053; 80177; 82803; 82962; 83735; 84100; 84484; 85025; 85027; 85610; 85730; 86850; 86900; 86901; 87040; 87086; 87899; 93005; 93010; 97116-GP; 97162-GP; 99285-25; G0378; J1644